=== PATIENT | female | born 1960 | race Caucasian/White ===

== ENCOUNTER 2017-08-18 18:54 | Inpatient (IN) ==
[2017-08-18] MEDS ORDERED: *HR* Dextrose 50 % in Water (Syg) 50 ML SYRINGE IVP PRN (21:50)
[2017-08-18] MEDS ORDERED: Naloxone 0.4 MG/ML INJ IVP PRN (21:50)
--- NOTE | 2017-08-18 22:04 | Internal Med History&Physical ---
Date of Encounter: 08/18/17 Time of Encounter: 10:00 Assessment and Plan (1) Acute metabolic encephalopathy Current visit: Yes Status: Acute Likely related to her pain/ possible infectious process - Admit Inpatient - Will get Utox -CT brain - Monitor closely Code(s): G93.41 - Metabolic encephalopathy SNOMED Code(s): 50271725 (2) Acute kidney failure Current visit: Yes Status: Acute Crea improving with hydration,will continue to follow Qualifiers: Acute renal failure type: unspecified Qualified Code(s): N17.9 - Acute kidney failure, unspecified Code(s): N17.9 - Acute kidney failure, unspecified SNOMED Code(s): 46030187 (3) Secondary DM with DKA, uncontrolled Current visit: Yes Status: Acute DKA protocol IVF Magnesium and Phos repletion (4) Right arm cellulitis Current visit: Yes Status: Acute Unclear if there is some cellulitis but will empirically place on Antibiotics Will get blood cx xr clavicle Rt UE dopplers Code(s): L03.113 - Cellulitis of right upper limb SNOMED Code(s): 008766692 (5) Vomiting Current visit: Yes Status: Acute CT abdomen ok, will give Zofran prn. Qualifiers: Vomiting type: unspecified Vomiting Intractability: non-intractable Nausea presence: with nausea Qualified Code(s): R11.2 - Nausea with vomiting, unspecified (6) Diabetes Current visit: No Status: Acute Once out of DKA will need to be placed on Insulin regimen, will also check HbA1C Qualifiers: Diabetes mellitus type: type 2 Diabetes mellitus complication status: with kidney complications Diabetes mellitus complication detail: with other kidney complication Diabetes mellitus usp insulin use: without usp use Qualified Code(s): E11.29 - Type 2 diabetes mellitus with other diabetic kidney complication Internal Medicine - H&P: HPI Chief complaint: not feeling well Admitted From: Intrahospital Transfer (from [facility]) Plans for Post Hospital Care: Home History of present illness: History taken in part from ER notes as patient has some waxing and waning mentation Ms. Dodge is a 56 year old female with H/o DM, ? CKD, went to the ER at [facility] after feeling unwell for past day or so as well as some vomiting. She notes that she has been having some abdominal pains as well and fell down yesterday. She also notes pain in her right upper extremity. In [facility] her Blood glucose was 422, NA 123, K 2.[address] abdomen done there was unremarkable , she was also given Insulin and KCL, Dilaudid zofran. On the floor here, she is still in pain in her shoulder, feels weak, some subjective fevers ( temp 100), HR 120's. She appears weak and at times seems disoriented but in not in any respiratory distress. Patient is high risk given presentation and comorbidities. Estimated LOS more than 3 days Past Med Surg Social Fam HX - Past Medical History Medical history: coronary artery disease, hypertension, myocardial infarction Psychiatric history: anxiety, depression - Past Surgical History Surgical History: cholecystectomy - Social History Smoking Status: Current every day smoker Smokeless Tobacco Status: No Alcohol use: none Drug use: none Internal Medicine - H&P: Meds Hydrocodone/Acetaminophen [Dandridge 5-325 Tablet] 1 tab PO Q4H PRN #12 tab [Rx] Ibuprofen [Motrin] 600 mg PO QID #20 tab 06/17/16 [Rx] Metoprolol [Lopressor] 25 mg PO BID 06/17/16 [History] Omeprazole [PriLOSEC] 40 mg PO DAILY 06/17/16 [History] TraZODone 300 mg PO HS 06/17/16 [History] Venlafaxine [Effexor] 150 mg PO BID 06/17/16 [History] Zolpidem [Ambien] 10 mg PO HS 06/17/16 [History] amLODIPine [Norvasc] 10 mg PO DAILY 06/17/16 [History] clonazePAM [Klonopin] 0.5 mg PO TID 06/17/16 [History] hydroCHLOROthiazide [Hydrochlorothiazide] 25 mg PO DAILY 06/17/16 [History] 3 Allergy/AdvReac Type Severity Reaction Status Date / Time Sulfa (Sulfonamide Allergy Rash Verified 08/18/17 11:41 Antibiotics) All Systems PM: A 10-system review of systems was performed and is negative for pertinent findings except as documented above in the HPI. - Constitutional Vitals: Temp Pulse Resp BP Pulse Ox 100.1 F H 123 32 117/70 93 08/18/17 20:42 08/18/17 20:42 08/18/17 20:42 08/18/17 20:42 08/18/17 20:42 General appearance: Present: cooperative, A&O X 2, no acute distress Exam: does not know date - Head Head exam: Present: atraumatic, normal inspection, normocephalic - Eye Eye exam: Present: EOMI, normal appearance, PERRL - ENT ENT exam: Present: mucous membranes moist, normal external ear exam - Neck Neck exam general surgery: Present: full ROM, normal inspection, supple, trachea midline - Respiratory Respiratory exam: Present: CTAB - Cardiovascular Cardiovascular exam: Present: +S1, +S2, tachycardia - GI/Abdominal GI/Abdominal exam: Present: normal bowel sounds, soft, no peritoneal signs - Extremities Exam Extremities exam: Present: warm Additional comments: Rt UE swollen, right clavicular swelling, small eschar noted. Overlying skin of upper-mid arm erythema - Back Exam Back exam: Present: full ROM, normal inspection - Neurological Exam Neurological exam: Present: altered - Psychiatric Additional comments: waxing and waning mentation - Skin Skin exam: Present: abrasion (right clavicle), rash (erythema right UE) Internal Med - H&P Results - Labs CBC & Chem 7: 08/18/17 21:51 Labs: noted from [facility] - EKG Data -: EKG Interpreted by Myself EKG shows normal: sinus rhythm - Diagnostic Studies CT scan - abdomen Status: image reviewed by me
[2017-08-18 22:15] LABS: BUN/Creatinine Ratio 21 (6-26); Blood Urea Nitrogen 23 mg/dL (7-20); Calcium 7.7 mg/dL (8.6-10.8); Carbon Dioxide 20 mEq/L (19-29); Chloride 94 mEq/L (98-109); Glucose 222 mg/dL (70-99); Osmolality,Calculated 271 (280-300); Potassium 3.2 mEq/L (3.5-4.5); Sodium 125 mEq/L (136-145); eGFR For African Americans > 60 (> 60); eGFR For Non-African Americans 50 (> 60)
[2017-08-18 22:17] LABS: Magnesium 0.9 mg/dL (1.6-2.6)
[2017-08-18] MEDS ORDERED: Potassium Phosphate 44 MEQ in 0.9 % Sodium Chloride 250 ML IVPB ONE (22:28)
[2017-08-18] MEDS ORDERED: Magnesium Sulfate 2 GM in D5% in Water 100 ML IVPB ONE (22:28)
[2017-08-18 22:31] LABS: VBG HCO3 22 mEq/L (21-27); VBG PCO2 38 mmHg (41-51); VBG PH 7.36 pH Units (7.32-7.42); VBG PO2 58 mmHg (25-50)
[2017-08-18] MEDS: *HR* HYDROmorphone (PF) 1 MG/ML SYRINGE IVP PRN (22:54)
[2017-08-18] MEDS: 0.45 % Sodium Chloride w/KCl 20 MEQ/1,000 ML MLS IVC SCH (22:55)
[2017-08-18] MEDS ORDERED: Vancomycin 1,500 MG in D5% in Water 250 ML IVPB SCH (23:00)
[2017-08-18] MEDS ORDERED: Vancomycin 1,500 MG in D5% in Water 250 ML IVPB ONE (23:00)
[2017-08-19] MEDS ORDERED: 0.9 % Sodium Chloride 1,000 ML ONE (02:16)
[2017-08-19] MEDS: 0.9 % Sodium Chloride 1,000 ML IVC SCH ×3 (02:30→23:14)
[2017-08-19 02:41] LABS: Basophils % 0.2 %; Hemoglobin 12.1 g/dL (11.5-15.4); Lymphocytes % 5.1 %; Mean Corpuscular Volume 87.4 fL (83.0-100.0)
[2017-08-19 02:43] LABS: Hematocrit 33.9 % (35.3-44.9); Immature Granulocytes % 2.1 % (0-4); Immature Platelets 18.6 % (1.1-6.1); Lymphocytes # 0.4 K/mcL (0.6-4.6); Mean Corpuscular HGB Conc 35.7 g/dL (31.6-35.5); Mean Corpuscular Hemoglobin 31.2 pg (28.0-33.3); Mean Platelet Volume 12.8 fL (9.4-12.4); Monocytes # 0.5 K/mcL (0.0-1.3); Monocytes % 5.7 %; Neutrophils # 7.5 K/mcL (1.6-8.9); Red Blood Count 3.88 M/mcL (3.82-4.97); Red Cell Distribution Width 14.3 % (11.5-14.5); Segmented Neutrophils % 86.9 %
[2017-08-19 02:46] LABS: Beta-Hydroxybutyric Acid 0.31 mmol/L (0.02-0.27)
[2017-08-19 02:50] LABS: Platelet Count 62 K/mcL (140-400)
[2017-08-19 02:55] LABS: Alanine Aminotransferase 54 Units/L (0-55); Albumin 2.3 g/dL (3.5-5.0); Albumin/Globulin Ratio 0.6 (1.1-2.2); Alkaline Phosphatase 58 Units/L (38-126); Aspartate Amino Transferase 46 Units/L (5-34); BUN/Creatinine Ratio 22 (6-26); Blood Urea Nitrogen 22 mg/dL (7-20); Calcium 7.5 mg/dL (8.6-10.8); Carbon Dioxide 19 mEq/L (19-29); Chloride 93 mEq/L (98-109); Globulin 3.6 g/dL (2.4-3.5); Glucose 273 mg/dL (70-99); Magnesium 1.4 mg/dL (1.6-2.6); Osmolality,Calculated 267 (280-300); Phosphorous 2.7 mg/dL (2.3-4.7); Potassium 3.4 mEq/L (3.5-4.5); Sodium 122 mEq/L (136-145); Total Protein 5.9 g/dL (6.0-8.3); eGFR For African Americans > 60 (> 60); eGFR For Non-African Americans 56 (> 60)
[2017-08-19 02:55] LABS: VBG HCO3 20 mEq/L (21-27); VBG PCO2 34 mmHg (41-51); VBG PH 7.37 pH Units (7.32-7.42); VBG PO2 80 mmHg (25-50)
[2017-08-19 03:03] LABS: Hemoglobin A1C 8.3 %
[2017-08-19] MEDS: Piperacillin/Tazobactam 3.375 GM in D5% in Water (Mini-Bag+) 100 ML IVPB SCH ×4 (03:05→23:15)
[2017-08-19 03:09] LABS: Platelet Estimate Decreased (Normal)
[2017-08-19 03:10] LABS: Toxic Vacuolation Present (Not Present)
[2017-08-19] MEDS: *HR* Heparin 5,000 UNIT/ML VIAL SQ SCH ×2 (06:46→19:11)
[2017-08-19] MEDS: Famotidine 20 MG/2 ML VIAL IVP SCH ×2 (06:50→17:23)
--- NOTE | 2017-08-19 08:42 | Internal Med Progress Note ---
<Narayan Walton - Last Filed: 08/19/17 17:02> Date of Encounter: 08/19/17 Time of Encounter: 09:47 - Assessment and plan (1) Infection due to Streptococcus pyogenes Current Visit: Yes Status: Acute Assessment and plan: Fever, tachycardia, bacteremia per prelim bld cuture; mets sepsis criteria; possible source: fall eschar R clavicular identified. CT chest r/u osteo On Vanc/zosyn empirically. (2) Right arm cellulitis Current Visit: Yes Status: Acute Assessment and plan: XR clavicle shows mild right supraclavicular soft tissue swelling Pt exam - no crepitus, mass, or tenderness to palpation/AROM (3) Secondary DM with DKA, uncontrolled Current Visit: Yes Status: Acute Assessment and plan: Gap closed, pH 7.3; Bicarb >18; K+ 3.4; switching to sq A1c 8.6; Diabetic diet, next meal Monitor closely; sliding scale ACHS protocol (4) Acute kidney failure Current Visit: Yes Status: Acute Assessment and plan: Creatinine 1.02 (1.12); continue fluids and monitoring. Qualifiers: Acute renal failure type: unspecified Qualified Code(s): N17.9 - Acute kidney failure, unspecified (5) Acute metabolic encephalopathy Current Visit: Yes Status: Acute Assessment and plan: Likely related to her pain/infectious process CT brain negative for acute process Seosis criteria met; vanc/zosyn, awaiting sensitivity (6) DVT prophylaxis Current Visit: Yes Status: Acute Assessment and plan: On Heparin 5000U sq q12 - Subjective Interval history: Ms. Dodge still feels weak but says she feels better than yesterday. She speaks with effort and with eyes closed. Denies trouble breathing, or chest pain. No abdominal tenderness. She currently does not feel pain in the R upper extremity. R leg movements are still; pt reports secondary to pain, no calf tenderness. - Constitutional Vitals: Temp Pulse Resp BP Pulse Ox 101.1 F H 110 26 108/59 93 08/19/17 07:48 08/19/17 07:48 08/19/17 07:48 08/19/17 07:48 08/19/17 07:48 General appearance: Present: A&O X 3, answers questions appropriately (speech requires effort; but organized) - Head Head exam: Present: atraumatic - Respiratory Respiratory exam: Present: CTAB. Absent: accessory muscle use, chest wall tenderness, respiratory distress - Cardiovascular Cardiovascular exam: Present: +S1, tachycardia - GI/Abdominal GI/Abdominal exam: Present: normal bowel sounds, no peritoneal signs. Absent: guarding, tenderness - Extremities Exam Extremities exam: Absent: calf tenderness Additional comments: Decreased range of motion; global lower extremity weakness on AROM; L>R; no calf tenderness, no swelling, no edema. - Skin Skin exam: Present: abrasion (R clavicular scab) Internal Medicine: Result - Labs CBC & Chem 7: 08/19/17 02:29 08/19/17 12:32 Labs: Short CBC 08/19/17 Range/Units 02:29 WBC 8.6 (4.3-11.1) K/mcL Hgb 12.1 D (11.5-15.4) g/dL Hct 33.9 L (35.3-44.9) % Plt Count 62 L (140-400) K/mcL Neutrophils # 7.5 (1.6-8.9) K/mcL BMP 08/18/17 08/19/17 21:51 02:29 Sodium 125 L 122 L Potassium 3.2 L 3.4 L Chloride 94 L 93 L Carbon Dioxide 20 19 BUN 23 H 22 H Creatinine 1.12 H 1.02 Glucose 222 H 273 H Calcium 7.7 L 7.5 L Liver Function 08/19/17 Range/Units 02:29 Total Bilirubin 1.0 (0.2-1.2) mg/dL AST 46 H (5-34) Units/L ALT 54 (0-55) Units/L Alkaline Phosphatase 58 (38-126) Units/L Albumin 2.3 L (3.5-5.0) g/dL - Impressions Impressions Head CT 08/19/17 00:01 IMPRESSION: No acute intracranial abnormality. D/ / Jerson Lopez MD / Jerson Lopez MD Interpreting Provider: Jerson Lopez MD Chest X-Ray 08/19/17 21:59 IMPRESSION: Low lung volume study with probable mild vascular congestion. Streaky opacities at the right lung base may reflect atelectatic changes. Stable cardiomegaly. D/ / 08/19/2017 07:15:40 Sher Boucher MD / eliasrtalina Interpreting Provider: Sher Boucher MD Clavicle X-Ray 08/19/17 21:59 IMPRESSION: No acute fracture or subluxation. Possible mild right supraclavicular soft tissue swelling. No radiopaque foreign body. Moderate right AC joint degenerative changes. D/ / Sher Boucher MD / Sher Boucher MD Interpreting Provider: Sher Boucher MD Consult Discharge Plan - Plan Referrals: NONE,PCP [Primary Care Provider] - Asia Unger, COMMUNITY SUPPORT PROFESSIONAL [Advanced Practice Nurse] - 08/26/17 12:15 pm (Please fax over the discharge summary and the med list to [phone]) <Wild Vásquez - Last Filed: 08/19/17 17:46> Date of Encounter: 08/19/17 - Constitutional Vitals: Temp Pulse Resp BP Pulse Ox 98.1 F 83 18 83/55 94 08/19/17 15:26 08/19/17 15:29 08/19/17 15:37 08/19/17 15:26 08/19/17 15:37 Internal Medicine: Result - Labs CBC & Chem 7: 08/19/17 02:29 08/19/17 12:32 Labs: Short CBC 08/19/17 Range/Units 02:29 WBC 8.6 (4.3-11.1) K/mcL Hgb 12.1 D (11.5-15.4) g/dL Hct 33.9 L (35.3-44.9) % Plt Count 62 L (140-400) K/mcL Neutrophils # 7.5 (1.6-8.9) K/mcL BMP 08/18/17 08/19/17 08/19/17 21:51 02:29 12:32 Sodium 125 L 122 L 127 L Potassium 3.2 L 3.4 L 4.0 Chloride 94 L 93 L 98 Carbon Dioxide 20 19 18 L BUN 23 H 22 H 20 Creatinine 1.12 H 1.02 0.88 Glucose 222 H 273 H 240 H Calcium 7.7 L 7.5 L 7.2 L Liver Function 08/19/17 Range/Units 02:29 Total Bilirubin 1.0 (0.2-1.2) mg/dL AST 46 H (5-34) Units/L ALT 54 (0-55) Units/L Alkaline Phosphatase 58 (38-126) Units/L Albumin 2.3 L (3.5-5.0) g/dL - Impressions Impressions Head CT 08/19/17 00:01 IMPRESSION: No acute intracranial abnormality. D/ / Jerson Lopez MD / Jerson Lopez MD Interpreting Provider: Jerson Lopez MD Echocardiogram 08/19/17 02:05 Impressions: Even with use of Definity, not all LV wall segments were well visualized. Overall, LV systolic function appears normal estimated at 55%. Indeterminate diastolic function. Normal RV size. There is mild reduction in function. No significant valvular dysfunction. No pulmonary hypertension by TR gradient. Left Ventricular Wall Motion: Rest Echo Findings The apex, apical inferior, mid inferior, basal inferior, apical anterior, mid anterior, basal anterior, mid anterior septal and basal anterior septal marte were not visualized. All other wall segments showed normal motion. Findings: Study Quality * Technically challenging study with suboptimal image quality. ECG Findings * Normal sinus rhythm. Left Ventricle * LVEF 55%. * Normal LV chamber size, wall thickness and function. * Indeterminate diastolic function. * Definity echo contrast was used. Right Ventricle * Normal RV size. There is mild reduction in function. Left Atrium * Normal left atrial size. Right Atrium * Normal right atrial size. Aortic Valve * No aortic regurgitation. * Aortic valve not well visualized. * No aortic stenosis. Mitral Valve * Normal mitral valve structure. * No mitral regurgitation. * No mitral stenosis. Tricuspid Valve * Tricuspid valve not well visualized. * Trace tricuspid regurgitation. Pulmonic Valve * Pulmonic valve is not well visualized. * No pulmonic regurgitation. * No pulmonic stenosis. Pulmonary Artery * Pulmonary artery not well visualized. Aorta * Normally sized aortic root. Pericardium * There is no pericardial effusion present. Interatrial Septum * Interatrial septum not well evaluated. IVC * The IVC is not well evaluated. Chest CT 08/19/17 10:30 IMPRESSION: Interval development of small pleural effusions and bibasilar infiltrates worrisome for pneumonia. Nonspecific skin thickening and minimal infiltration of the subcutaneous fat upper chest on the right questioning localized inflammatory infectious process. No abscess is seen. Aberrant right subclavian artery. Fatty liver. Status post cholecystectomy. D/ /19/2017 11:24:34 Travis Zhang MD / jodee Interpreting Provider: Travis Zhang MD Chest X-Ray 08/19/17 21:59 IMPRESSION: Low lung volume study with probable mild vascular congestion. Streaky opacities at the right lung base may reflect atelectatic changes. Stable cardiomegaly. D/ / 08/19/2017 07:15:40 Sher Boucher MD / jodee Interpreting Provider: Sher Boucher MD Clavicle X-Ray 08/19/17 21:59 IMPRESSION: No acute fracture or subluxation. Possible mild right supraclavicular soft tissue swelling. No radiopaque foreign body. Moderate right AC joint degenerative changes. D/ / Sher Boucher MD / Sher Boucher MD Interpreting Provider: Sher Boucher MD - Attending Attestation I examined this patient and my medical decision-making was reviewed with the Resident Physician. I agree with the documented findings, disposition and treatment plan as described except to the extent set forth below. I have seen and examined the patient. Patient is a 56-year-old female with past medical history of coronary artery disease, hypertension, anxiety, depression and chronic smoker. She was admitted last night for acute metabolic encephalopathy, acute kidney injury and sepsis likely due to right arm cellulitis. She was also found to have hypoglycemia with DKA. She is newly diagnosed diabetic. Patient patient did not require IV insulin as her anion gap was within normal range. She is currently on sliding scale insulin. Her Kidney injury has improved with IV fluids. Her lactic acid has now improved. Magnesium is being replaced. Patient is currently on IV Zosyn and IV vancomycin for cellulitis of right arm and right side of chest. Patient complains of bilateral lower extremity pain and bilateral knee pain. She also complains of hip pain. She states she fall a few days ago and has been hurting ever since. Patient's is currently hypotensive. Her tachycardia has improved. She will require IV fluid boluses. Blood pressure is low likely due to sepsis. CT scan of the chest revealed interval development of bibasilar infiltrate worrisome for pneumonia. She does not nonspecific skin thickening and minimal infiltration of the subcutaneous fat upper chest on the right possible infectious process. Patient will need DuoNeb breathing treatment and IV Zosyn and vancomycin. First set of blood cultures positive for strep pyogenes. Patient is at high risk due to sepsis from cellulitis and also due to hyperglycemia. We will continue IV hydration. No family members at the time of my examination. Patient's electrolytes are being corrected. Patient has been explained about her condition and plan of care in detail. She understood and agreed. No unanswered questions. CODE STATUS full code. Heart rate 83, blood pressure 83/55, O2 sat 94% on 2 L nasal cannula. General - she does awaken alert, able to verbalize and follow commands, she appears older than stated age, generalized weakness, chronically ill-appearing. Heart S1-S2 positive. Lungs slightly decreased sounds in both bases, otherwise clear to auscultation. Abdomen soft nontender, obese. Extremities - all pulses strong regular, no edema, patient does have right arm edema extending from the right shoulder to the hand. She does have erythema as well of the right arm. She does have erythema over right side of chest over her clavicle.
[2017-08-19] MEDS ORDERED: amLODIPine 5 MG TABLET PO SCH (09:00)
[2017-08-19] MEDS ORDERED: Piperacillin/Tazobactam 3.375 GM in D5% in Water 100 ML IVPB SCH (10:00)
[2017-08-19] MEDS ORDERED: D5% in Water 1,000 ML IVC PRN (10:06)
[2017-08-19 10:18] LABS: Acinetobacter baumannii by PCR Not Detected (Not Detect); Candida albicans by PCR Not Detected (Not Detect); Candida glabrata by PCR Not Detected (Not Detect); Candida krusei by PCR Not Detected (Not Detect); Candida parapsilosis by PCR Not Detected (Not Detect); Candida tropicalis by PCR Not Detected (Not Detect); Enterococcus by PCR Not Detected (Not Detect); Escherichia coli by PCR Not Detected (Not Detect); Klebsiella oxytoca by PCR Not Detected (Not Detect); Klebsiella pneumoniae by PCR Not Detected (Not Detect); Pseudomonas aeruginosa by PCR Not Detected (Not Detect); Serratia marcescens by PCR Not Detected (Not Detect); Staphylococcus aureus by PCR Not Detected (Not Detect); Streptococcus agalactiae(B)PCR Not Detected (Not Detect); Streptococcus by PCR ***DETECTED*** (Not Detect); Streptococcus pneumoniae PCR Not Detected (Not Detect); Streptococcus pyogenes (A) PCR ***DETECTED*** (Not Detect); blaKPC Carbapenem-Resist Gene Not Detected (Not Detect); mecA Methicillin-Resist Gene Not Detected (Not Detect); vanA/B Vancomycin-Resist Genes Not Detected (Not Detect)
[2017-08-19] MEDS: *HR* HYDROmorphone (PF) 1 MG/ML SYRINGE IVP PRN (10:38)
[2017-08-19] MEDS ORDERED: Perflutren Lipid Microsphere 1.3 ML in 0.9 % Sodium Chloride 8.7 ML IVP ONE (11:13)
[2017-08-19] MEDS ORDERED: Magnesium Sulfate 2 GM in D5% in Water 100 ML IVPB ONE (11:47)
[2017-08-19 12:55] LABS: BUN/Creatinine Ratio 23 (6-26); Blood Urea Nitrogen 20 mg/dL (7-20); Calcium 7.2 mg/dL (8.6-10.8); Carbon Dioxide 18 mEq/L (19-29); Chloride 98 mEq/L (98-109); Glucose 240 mg/dL (70-99); Osmolality,Calculated 274 (280-300); Sodium 127 mEq/L (136-145); eGFR For African Americans > 60 (> 60); eGFR For Non-African Americans > 60 (> 60)
[2017-08-19] MEDS ORDERED: Dextrose Gel 15 GM PO PRN ×2 (14:27)
[2017-08-19] MEDS: Ipratropium/Albuterol Neb 3 ML IH SCH ×2 (15:35→21:07)
[2017-08-19] MEDS ORDERED: 0.9 % Sodium Chloride 500 ML IVC ONE (16:27)
[2017-08-19] MEDS: Insulin LISPRO 300 UNITS/3 ML VIAL SQ SCH ×2 (17:23→21:14)
[2017-08-19] MEDS: Acetaminophen 325 MG TABLET PO PRN (17:24)
[2017-08-19 18:25] LABS: Enterococcus by PCR Not Detected (Not Detect); Staphylococcus aureus by PCR Not Detected (Not Detect); Streptococcus agalactiae(B)PCR Not Detected (Not Detect); Streptococcus by PCR ***DETECTED*** (Not Detect); Streptococcus pneumoniae PCR Not Detected (Not Detect); Streptococcus pyogenes (A) PCR ***DETECTED*** (Not Detect); blaKPC Carbapenem-Resist Gene Not Detected (Not Detect); mecA Methicillin-Resist Gene Not Detected (Not Detect); vanA/B Vancomycin-Resist Genes Not Detected (Not Detect)
[2017-08-19 18:26] LABS: Acinetobacter baumannii by PCR Not Detected (Not Detect); Candida albicans by PCR Not Detected (Not Detect); Candida glabrata by PCR Not Detected (Not Detect); Candida krusei by PCR Not Detected (Not Detect); Candida parapsilosis by PCR Not Detected (Not Detect); Candida tropicalis by PCR Not Detected (Not Detect); Escherichia coli by PCR Not Detected (Not Detect); Klebsiella oxytoca by PCR Not Detected (Not Detect); Klebsiella pneumoniae by PCR Not Detected (Not Detect); Pseudomonas aeruginosa by PCR Not Detected (Not Detect); Serratia marcescens by PCR Not Detected (Not Detect)
[2017-08-19] MEDS ORDERED: Vancomycin 1,250 MG in D5% in Water 250 ML IVPB SCH (23:00)
[2017-08-19 23:08] LABS: Bilirubin,Urine Negative (Negative); Blood,Urine Trace (Negative); Clarity,Urine Clear (Clear); Color,Urine Yellow (Yellow); Glucose,Urine (UA) 100 mg/dL (Normal); Ketones,Urine Negative (Negative); Leukocyte Esterase,Urine Negative (Negative); Nitrite,Urine Negative (Negative); PH,Urine 6.5 pH Units (5.0-8.0); Protein,Urine Negative (Neg-Trace); Urobilinogen,Urine Normal (Normal)
[2017-08-19 23:29] LABS: Amorphous Sediment,Urine Few (Few); RBC,Urine 0-3 per hpf (0-3); Squamous Epithelial Cell,Urine Few per lpf (None-Few)
[2017-08-20 00:21] LABS: Bacteria,Urine Few per hpf (None-Few)
[2017-08-20] MEDS: Ipratropium/Albuterol Neb 3 ML IH SCH ×7 (00:33→23:59)
[2017-08-20 04:07] LABS: ABG Base Excess 0 mEq/L (-2 to 3); ABG HCO3 24 mEq/L (21-27); ABG Oxygen Saturation 87 % (95-98); ABG PCO2 38 mmHg (35-45); ABG PH 7.41 pH Units (7.32-7.45); ABG PO2 52 mmHg (85-104); ABG TCO2 26 mEq/L (20-26)
[2017-08-20] MEDS: Acetaminophen 325 MG TABLET PO PRN (05:46)
[2017-08-20] MEDS: Famotidine 20 MG/2 ML VIAL IVP SCH (05:46)
[2017-08-20 06:29] LABS: Alanine Aminotransferase 39 Units/L (0-55); Albumin/Globulin Ratio 0.6 (1.1-2.2); Alkaline Phosphatase 58 Units/L (38-126); Aspartate Amino Transferase 37 Units/L (5-34); BUN/Creatinine Ratio 24 (6-26); Bilirubin,Total 1.3 mg/dL (0.2-1.2); Blood Urea Nitrogen 18 mg/dL (7-20); Calcium 7.4 mg/dL (8.6-10.8); Carbon Dioxide 21 mEq/L (19-29); Chloride 104 mEq/L (98-109); Globulin 3.6 g/dL (2.4-3.5); Glucose 219 mg/dL (70-99); Magnesium 1.8 mg/dL (1.6-2.6); Osmolality,Calculated 287 (280-300); Potassium 3.3 mEq/L (3.5-4.5); Total Protein 5.6 g/dL (6.0-8.3); eGFR For African Americans > 60 (> 60); eGFR For Non-African Americans > 60 (> 60)
[2017-08-20 06:41] LABS: Sodium 134 mEq/L (136-145)
[2017-08-20] MEDS: *HR* Heparin 5,000 UNIT/ML VIAL SQ SCH (07:15)
[2017-08-20 07:19] LABS: Basophils % 0.2 %; Eosinophils % 0.7 %; Hematocrit 31.1 % (35.3-44.9); Immature Granulocytes % 1.2 % (0-4); Lymphocytes # 0.4 K/mcL (0.6-4.6); Lymphocytes % 8.6 %; Mean Corpuscular HGB Conc 35.4 g/dL (31.6-35.5); Mean Corpuscular Hemoglobin 30.6 pg (28.0-33.3); Mean Corpuscular Volume 86.6 fL (83.0-100.0); Mean Platelet Volume 13.5 fL (9.4-12.4); Monocytes # 0.6 K/mcL (0.0-1.3); Monocytes % 14.2 %; Neutrophils # 3.1 K/mcL (1.6-8.9); Red Blood Count 3.59 M/mcL (3.82-4.97); Red Cell Distribution Width 14.6 % (11.5-14.5); Segmented Neutrophils % 75.1 %
[2017-08-20 07:22] LABS: Platelet Count 45 K/mcL (140-400)
[2017-08-20] MEDS: Folic Acid 1 MG TABLET PO SCH (07:58)
[2017-08-20] MEDS: Insulin LISPRO 300 UNITS/3 ML VIAL SQ SCH ×4 (08:00→20:00)
[2017-08-20 08:01] LABS: Platelet Estimate Decreased (Normal)
[2017-08-20] MEDS: 0.9 % Sodium Chloride 1,000 ML IVC SCH ×2 (08:01→10:11)
[2017-08-20] MEDS: Piperacillin/Tazobactam 3.375 GM in D5% in Water (Mini-Bag+) 100 ML IVPB SCH (08:02)
--- NOTE | 2017-08-20 09:00 | Internal Med Progress Note ---
Addendum entered and electronically signed by Narayan Walton DO 08/20/17 10:42: (4) Acute kidney failure Current Visit: Yes Status: Acute Qualifiers: Acute renal failure type: unspecified Qualified Code(s): N17.9 - Acute kidney failure, unspecified Creatinine improved with hydration; .74 (.88, 1.02, 1.12) (5) Acute metabolic encephalopathy Current Visit: Yes Status: Acute CT brain negative for acute process Will monitor closely (6) DVT prophylaxis Current Visit: Yes Status: Acute on intermittent pneumatic compression Original Note: Date of Encounter: 08/20/17 Time of Encounter: 08:54 - Assessment and plan (1) Infection due to Streptococcus pyogenes Current Visit: Yes Status: Acute Assessment and plan: Currently afebrile, RRR, gram positive cocci/s.pyogenes per prelim bld cuture; possible source: fall 1 week ago, scab, well-healing on R clavicle. CT chest negative R clavicle abscess/bony involvement On Vanc/zosyn empirically, awaiting sensitivities. (2) Right arm cellulitis Current Visit: Yes Status: Acute Assessment and plan: XR clavicle shows mild right supraclavicular soft tissue swelling CT chest negative for abscess. Pt exam - no crepitus, mass, or tenderness to palpation/AROM (3) Secondary DM with DKA, uncontrolled Current Visit: Yes Status: Acute Assessment and plan: ER anion gap of 17; on admission repeat anion gap 11; gap remains closed, ABG pH 7.41; Bicarb >18; K+ 3.4 A1c 8.6; Diabetic diet Monitor closely; sliding scale ACHS protocol (4) Acute kidney failure Current Visit: Yes Status: Acute Qualifiers: Acute renal failure type: unspecified Qualified Code(s): N17.9 - Acute kidney failure, unspecified (5) Acute metabolic encephalopathy Current Visit: Yes Status: Acute (6) DVT prophylaxis Current Visit: Yes Status: Acute - Subjective Interval history: Ms. Dodge is accompanied by her daughter, she is lying in bed communicative and alert, eating breakfast. Nasal canula running at 4L but fell off of her face, on now. Denies trouble breathing, or chest pain. No abdominal tenderness. No calf tenderness. - Constitutional Vitals: Temp Pulse Resp BP Pulse Ox 97.8 F 100 20 108/75 97 08/20/17 07:49 08/20/17 07:49 08/20/17 08:05 08/20/17 07:49 08/20/17 08:05 General appearance: Present: A&O X 2, no acute distress - Head Head exam: Present: atraumatic - Neck Neck exam general surgery: Present: full ROM - Respiratory Respiratory exam: Absent: accessory muscle use Additional comments: bilaterally crackles - Cardiovascular Cardiovascular exam: Present: RRR, +S1, +S2 - GI/Abdominal GI/Abdominal exam: Present: normal bowel sounds, no peritoneal signs - Extremities Exam Extremities exam: Absent: calf tenderness Additional comments: mild swelling UE digits Internal Medicine: Result - Labs CBC & Chem 7: 08/20/17 07:03 08/20/17 05:48 Labs: Short CBC 08/20/17 Range/Units 07:03 WBC 4.1 L D (4.3-11.1) K/mcL Hgb 11.0 L (11.5-15.4) g/dL Hct 31.1 L (35.3-44.9) % Plt Count 45 L (140-400) K/mcL Neutrophils # 3.1 (1.6-8.9) K/mcL BMP 08/19/17 08/20/17 12:32 05:48 Sodium 127 L 134 L D Potassium 4.0 3.3 L Chloride 98 104 Carbon Dioxide 18 L 21 BUN 20 18 Creatinine 0.88 0.74 Glucose 240 H 219 H Calcium 7.2 L 7.4 L Liver Function 08/20/17 Range/Units 05:48 Total Bilirubin 1.3 H (0.2-1.2) mg/dL AST 37 H (5-34) Units/L ALT 39 (0-55) Units/L Alkaline Phosphatase 58 (38-126) Units/L Albumin 2.0 L (3.5-5.0) g/dL Urine 08/19/17 Range/Units 22:15 Urine Color Yellow (Yellow) Urine Clarity Clear (Clear) Urine pH 6.5 (5.0-8.0) pH Units Ur Specific Horatio 1.010 (1.010-1.025) Urine Protein Negative (Neg-Trace) mg/dL Urine Glucose (UA) 100 H (Normal) mg/dL - ABG Interpretation ABG results: ABG ABG pH 7.41 pH Units (7.32-7.45) 08/20/17 04:02 ABG pCO2 38 mmHg (35-45) 08/20/17 04:02 ABG pO2 52 mmHg (85-104) L 08/20/17 04:02 ABG O2 Saturation 87 % (95-98) L 08/20/17 04:02 - Impressions Impressions Echocardiogram 08/19/17 02:05 Impressions: Even with use of Definity, not all LV wall segments were well visualized. Overall, LV systolic function appears normal estimated at 55%. Indeterminate diastolic function. Normal RV size. There is mild reduction in function. No significant valvular dysfunction. No pulmonary hypertension by TR gradient. Left Ventricular Wall Motion: Rest Echo Findings The apex, apical inferior, mid inferior, basal inferior, apical anterior, mid anterior, basal anterior, mid anterior septal and basal anterior septal marte were not visualized. All other wall segments showed normal motion. Findings: Study Quality * Technically challenging study with suboptimal image quality. ECG Findings * Normal sinus rhythm. Left Ventricle * LVEF 55%. * Normal LV chamber size, wall thickness and function. * Indeterminate diastolic function. * Definity echo contrast was used. Right Ventricle * Normal RV size. There is mild reduction in function. Left Atrium * Normal left atrial size. Right Atrium * Normal right atrial size. Aortic Valve * No aortic regurgitation. * Aortic valve not well visualized. * No aortic stenosis. Mitral Valve * Normal mitral valve structure. * No mitral regurgitation. * No mitral stenosis. Tricuspid Valve * Tricuspid valve not well visualized. * Trace tricuspid regurgitation. Pulmonic Valve * Pulmonic valve is not well visualized. * No pulmonic regurgitation. * No pulmonic stenosis. Pulmonary Artery * Pulmonary artery not well visualized. Aorta * Normally sized aortic root. Pericardium * There is no pericardial effusion present. Interatrial Septum * Interatrial septum not well evaluated. IVC * The IVC is not well evaluated. Chest CT 08/19/17 10:30 IMPRESSION: Interval development of small pleural effusions and bibasilar infiltrates worrisome for pneumonia. Nonspecific skin thickening and minimal infiltration of the subcutaneous fat upper chest on the right questioning localized inflammatory infectious process. No abscess is seen. Aberrant right subclavian artery. Fatty liver. Status post cholecystectomy. D/ /19/2017 11:24:34 Travis Zhang MD / eliasrtalina Interpreting Provider: Travis Zhang MD Hip/Pelvis X-Ray 08/19/17 17:23 IMPRESSION: 1. No acute osseous abnormality involving the pelvis or bilateral hips. D/ / Sridhar Giles MD / Sridhar Giles MD Interpreting Provider: Sridhar Giles MD Knee X-Ray 08/19/17 17:23 IMPRESSION: 1. Bilateral knee arthroplasties with no acute abnormality. D/ / Sridhar Giles MD / Sridhar Giles MD Interpreting Provider: Sridhar Giles MD Knee X-Ray 08/19/17 17:23 IMPRESSION: 1. Bilateral knee arthroplasties with no acute abnormality. D/ / Sridhar Giles MD / Sridhar Giles MD Interpreting Provider: Sridhar Giles MD Consult Discharge Plan - Plan Referrals: NONE,PCP [Primary Care Provider] - Asia Unger, RELIGIOUS EDUCATION TEACHER [Advanced Practice Nurse] - 08/26/17 12:15 pm (Please fax over the discharge summary and the med list to [phone])
[2017-08-20] MEDS ORDERED: Aminoglycoside Consult 1 EACH MC ONE (09:21)
[2017-08-20] MEDS: Gabapentin 400 MG CAPSULE PO SCH ×3 (10:59→20:08)
[2017-08-20 12:52] LABS: C-Reactive Protein 281 mg/L (Less than 5)
--- NOTE | 2017-08-20 15:28 | Infectious Disease Consult ---
Date of Encounter: 08/20/17 Time of Encounter: 15:26 Assessment and Plan (1) Severe sepsis Status: Acute Assessment and plan: The patient had two SIRS criteria plus HANNAH and lactic acidosis on admission. Likely secondary to bacteremia. Improved. Tachycardia has resolved. She has been afebrile since yesterday. Blood cultures drawn 08/18/17 x 1 set and 08/19/17 x 1 set are positive for GAS. (2) Bacteremia Status: Acute Assessment and plan: Causative organism Group A Strep. Source not entirely clear: PNA vs. RUE cellulitis vs. other. Complicated due to the presence of bilateral knee hardware. Blood cultures drawn 08/18/17 x 1 set is positive for GAS. Repeat blood culture drawn 08/19/17 x 1 set is also positive for GAS. Source not entirely clear. Patient complains of multiple painful joints that do not appear to be infected. X-rays of the bilateral knees, bilateral hips, chest , and right clavicle are negative. She does complain of right shoulder pain and her inflammatory markers are markedly elevated. CT scan also shows possible PNA. No evidence of strep pharyngitis. Repeat blood cultures x 2 sets in the AM. Check CK level. Consider CT scan of the bilateral knees and right shoulder as these seem to be the most pain joints. Droplet precautions are not required as the patient has already been on sufficient antibiotics for 24 hours. Discontinue Vanc and Zosyn. Start PCN G 4 million units IV Q4H. Start Clindamycin 900mg IV Q8H. Start probiotic BID. Duration of treatment depends on the clinical picture. Monitor renal function and dose-adjust antibiotics. (3) Pneumonia Status: Acute Assessment and plan: Location: Bilateral lower lobes. Causative organism unclear. CT of the chest shows findings consistent with possible PNA. This could be the source of the patient's bacteremia. Get sputum culture if patient is able to provide an adequate specimen. Continue antibiotics as above. Qualifiers: Pneumonia type: due to unspecified organism Laterality: bilateral Lung location: lower lobe of lung Qualified Code(s): J18.9 - Pneumonia, unspecified organism (4) Acute metabolic encephalopathy Status: Acute Assessment and plan: Likely secondary to infectious process and DKA. Appears improved. CT head negative. Continue to monitor closely. (5) Acute kidney failure Status: Acute Assessment and plan: Likely secondary to dehydration and sepsis. Resolved. Qualifiers: Acute renal failure type: unspecified Qualified Code(s): N17.9 - Acute kidney failure, unspecified (6) Secondary DM with DKA, uncontrolled Status: Acute Assessment and plan: FSBS 433 on admission. HgbA1C 8.3%. Management per the primary team. (7) Right arm cellulitis Status: Acute Assessment and plan: Right arm mildly edematous and erythematous on exam, but not impressive. Not sure if this is a true cellulitis and/or the source of the patient's bacteremia. Consider CT scan of the RUE and right shoulder to evaluate given the patient's elevated inflammatory markers and pain with ROM. Continue antibiotics as above. (8) Thrombocytopenia Status: Acute Assessment and plan: Etiology unclear, but likely related to infection. No acute bleeding noted in exam. Continue to trend. Management per the primary team. (9) Vomiting Status: Acute Assessment and plan: Likely secondary to DKA. Resolved. Qualifiers: Vomiting type: unspecified Vomiting Intractability: non-intractable Nausea presence: with nausea Qualified Code(s): R11.2 - Nausea with vomiting, unspecified (10) Bilateral knee pain Status: Acute Assessment and plan: Status post fall. X-rays are normal. Clinically they do not appear infected, but the patient has inflammatory marker elevation and is at high risk for seeding the joint with GAS bacteremia. Consider orthopedics consultation to evaluate. Pain management per the primary team. Qualifiers: Chronicity: acute Qualified Code(s): M25.561 - Pain in right knee; M25.562 - Pain in left knee; M25.562 - Pain in left knee Infectious Disease HPI - Data of Consult Patient: new to practice Consult date: 08/20/17 Requesting Physician: Albert Erazo MD Primary Care Provider: PCP NONE - Consult Narrative Reason for consult: GAS Bacteremia History of present illness: Ms. Dodge is a 56 year old female with past medical history of CAD, hypertension , MA status post cardiac stents, anxiety, depression, and bilateral total knee replacements back in 2008. The patient was admitted to the hospital August 18 for DKA. We are consulted August 20 for group A strep bacteremia. A flu, the patient is a 56-year-old female with past medical history as stated above. She presented to the emergency department with complaints of abdominal pain, nausea, vomiting, and generally feeling ill on August 18. Upon arrival, the patient was tachycardic. She says "they developed a fever. Laboratory studies revealed a normal white blood cell count, but the patient did have lactic acidosis and acute kidney injury. Urinalysis was obtained that was negative. CT the abdomen and pelvis was negative as well. Records were obtained 2 sets. She was given IV insulin and potassium supplementation. She was subsequently transferred here for further evaluation. Since admission, the patient's white blood cell count has remained normal. She did have a fever with a MAXIMUM TEMPERATURE of 102.3. Her tachycardia has resolved. Lactic acidosis and acute kidney injury have normalized. CT of the head was done that was negative. The blood cultures obtained at the [facility] are +1 out of 1 sets for group A strep. Blood cultures were repeated when the patient arrived here and are also positive one out of one set for group A strep. The patient was complaining of some right upper extremity pain in her right upper extremities Doppler was done and was negative. CT of the chest was completed that showed bibasilar infiltrates and concerning for cellulitis of the right upper chest. ESR was elevated at 81 with a CRP of 281. Surveys of the bilateral hips, bilateral knees, chest, and clavicle were all She was started on IV vancomycin and IV Zosyn. We've been asked to evaluate and make further recommendations. I exam today, the patient is somewhat of a poor historian regarding the events leading up to her hospitalization. She states she fell about 10 days ago well she was sleepwalking. She landed on the floor and did not hit anything except the floor and landed on her hands and knees. Since then, she's had or could bilateral knee pain and some right upper extremity pain. She started having fevers and chills and rigors about 7 days ago with abdominal pain, nausea, and vomiting. She denies any abdominal pain or urinary complaints. She states she was really unable to keep anything down. The small abrasion to the right anterior chest. She otherwise denies skin lesions or oral thrush. She reports chronic back pain, worse since she fell. She denies any congestion, earache, or sore throat. Denies any weakness or dizziness. She denies any chest pain or shortness of breath. She does report a moist cough. The patient lives at home alone. She denies recent travel. She does smoke about half a pack of cigarettes per day. She denies any alcohol use, but states that she does use marijuana occasionally. CC: Albert Erazo MD Past Med Surg Social Fam HX - Past Medical History Attestation: Yes The following information was validated with the patient. Source: patient, old records reviewed, nursing notes reviewed Medical history: coronary artery disease, hepatitis (Hepatitis C - previously treated), hypertension, myocardial infarction (S/P stent placement x 2 ) Psychiatric history: anxiety, depression - Past Surgical History Surgical History: cholecystectomy - Social History Smoking Status: Current every day smoker Packs per day: 0.5 Smokeless Tobacco Status: No Alcohol use: none Drug use: marijuana (Occasional) Current living situation: Home - Independent Activity Level: Independent ambulation Recent Out of Country Travel Within the Last 8 Weeks: No Exposure or Possible Exposure to Illness During Travel: No Infectious Disease-CN:Meds Metoprolol [Lopressor] 25 mg PO BID 06/17/16 [History] Omeprazole [PriLOSEC] 40 mg PO DAILY 06/17/16 [History] Duloxetine HCl [Cymbalta] 60 mg PO DAILY 08/19/17 [History] Folic Acid 0.8 mg PO DAILY 08/19/17 [History] Gabapentin [Neurontin] 400 mg PO TID 08/19/17 [History] Lisinopril-HCTZ 10-12.5 [Prinzide 10-12.5] 1 tab PO DAILY 08/19/17 [History] Quetiapine Fumarate [Seroquel] 300 mg PO HS 08/19/17 [History] cloNIDine HCl [CloNIDine HCl] 0.1 mg PO HS 08/19/17 [History] 3 Allergy/AdvReac Type Severity Reaction Status Date / Time Sulfa (Sulfonamide Allergy Rash Verified 08/18/17 11:41 Antibiotics) All systems: reviewed and no additional remarkable complaints except as stated Exam - Constitutional Vitals: Temp Pulse Resp BP Pulse Ox 97.8 F 98 16 100/60 98 08/20/17 11:08 08/20/17 11:08 08/20/17 15:19 08/20/17 11:08 08/20/17 15:19 General appearance: cooperative, no acute distress, obese - Head Head exam: Present: atraumatic, normal inspection, normocephalic - Eye Eye exam: Present: EOMI, normal appearance, PERRL Pupils: Present: normal accommodation Additional comments: No subconjunctival hemorrhage noted. - ENT ENT exam: Present: mucous membranes dry, normal oropharynx - Neck Neck exam: Present: full ROM, normal inspection. Absent: tenderness - Respiratory Respiratory exam: Present: rhonchi (Bilateral anterior henriquez). Absent: rales, respiratory distress, tachypnea - Cardiovascular Cardiovascular exam: Present: RRR, +S1, +S2 - GI/Abdominal GI/Abdominal exam: Present: distended (obese), normal bowel sounds, soft. Absent: tenderness Additional comments: Jean catheter noted to be draining dark yellow urine. - Extremities Exam Extremities exam: Present: tenderness (Bilateral knees). Absent: joint swelling , pedal edema Additional comments: Mild erythema noted to the upper portion of the RUE. Pain with right shoulder ROM. - Back Exam Back exam: Present: normal inspection. Absent: CVA tenderness (L), CVA tenderness (R), paraspinal tenderness, vertebral tenderness - Neurological Exam Neurological exam: Present: alert, oriented X3, no focal deficits. Absent: facial droop, speech deficit Additional comments: Has some difficulty recalling events leading up to hospitalization. - Psychiatric Psychiatric exam: Present: normal affect, normal mood - Skin Skin exam: Present: abrasion (Right upper chest with ecchymosis. No surrounding erythema, warmth, or tenderness.), dry, intact, normal color, warm Infectious Disease CN: Results - Labs CBC & Chem 7: 08/22/17 06:00 08/22/17 06:00 Cultures: Cultures 08/19/17 02:29 Blood Culture - Preliminary Peripheral Venipuncture Gram Positive Cocci 08/18/17 21:51 Blood Culture - Preliminary Peripheral Venipuncture Strep pyogenes (Group A) Serology: Serology 08/19/17 08/19/17 08/18/17 Range/Units 22:15 02:29 21:51 Urine Color Yellow (Yellow) Urine Clarity Clear (Clear) Urine pH 6.5 (5.0-8.0) pH Units Ur Specific Gilbert 1.010 (1.010-1.025) Urine Protein Negative (Neg-Trace) mg/dL Urine Glucose (UA) 100 H (Normal) mg/dL Urine Ketones Negative (Negative) mg/dL Urine Blood Trace H (Negative) Urine Nitrite Negative (Negative) Urine Bilirubin Negative (Negative) Urine Urobilinogen Normal (Normal) mg/dL Ur Leukocyte Esterase Negative (Negative) Urine Microscopic RBC 0-3 (0-3) per hpf Ur Squamous Epith Cells Few (None-Few) per lpf Amorphous Sediment Few (Few) Urine Bacteria Few (None-Few) per hpf A. baumannii (PCR) Not Detected Not Detected (Not Detect) Mable albicans (PCR) Not Detected Not Detected (Not Detect) C. glabrata (PCR) Not Detected Not Detected (Not Detect) C. krusei (PCR) Not Detected Not Detected (Not Detect) C. parapsilosis (PCR) Not Detected Not Detected (Not Detect) C. tropicalis (PCR) Not Detected Not Detected (Not Detect) Enterobacteriac sp PCR Not Detected Not Detected (Not Detect) E. cloacae complex PCR Not Detected Not Detected (Not Detect) Enterococcus sp PCR Not Detected Not Detected (Not Detect) E. coli (PCR) Not Detected Not Detected (Not Detect) H. influenzae (PCR) Not Detected Not Detected (Not Detect) Klebsiella oxytoca PCR Not Detected Not Detected (Not Detect) Klebsiella pneumoniae Not Detected Not Detected (Not Detect) List. monocytogenes PCR Not Detected Not Detected (Not Detect) N. meningitidis (PCR) Not Detected Not Detected (Not Detect) Proteus species (PCR) Not Detected Not Detected (Not Detect) Serratia marcescens PCR Not Detected Not Detected (Not Detect) Staphylococcus sp PCR Not Detected Not Detected (Not Detect) Staph aureus (PCR) Not Detected Not Detected (Not Detect) mecA-Methicil Res Gene Not Detected Not Detected (Not Detect) Streptococcus sp PCR DETECTED A DETECTED A (Not Detect) Group A Strep DNA DETECTED A DETECTED A (Not Detect) Group B Strep (PCR) Not Detected Not Detected (Not Detect) Strep pneumoniae (PCR) Not Detected Not Detected (Not Detect) P. aeruginosa (PCR) Not Detected Not Detected (Not Detect) Gorge/B-Vanco Res Genes Not Detected Not Detected (Not Detect) KPC (blaKPC) Detect PCR Not Detected Not Detected (Not Detect) - VTE Documentation of Mechanical Device: Intermittent pneumatic compression device Consult Discharge Plan - Plan Referrals: NONE,PCP [Primary Care Provider] - Asia Unger, [employer] BUSINESS ANALYST [Advanced Practice Nurse] - 08/26/17 12:15 pm (Please fax over the discharge summary and the med list to [phone])
[2017-08-20] MEDS: Clindamycin 900 MG/50 ML 900 MG/50 ML IV.SOLN IVPB SCH ×2 (15:42→23:01)
[2017-08-20] MEDS ORDERED: Piperacillin/Tazobactam 3.375 GM in D5% in Water (Mini-Bag+) 100 ML IVPB SCH (16:00)
[2017-08-20] MEDS: Penicillin G Potassium 4,000,000 UNIT in D5% in Water 100 ML IVPB SCH ×3 (16:54→23:01)
[2017-08-20] MEDS: *HR* OxyCODONE/APAP 5/325 TABLET PO PRN ×2 (17:13→21:51)
--- NOTE | 2017-08-20 18:06 | Internal Med Progress Note ---
Date of Encounter: 08/20/17 Time of Encounter: 12:00 - Assessment and plan (1) Severe sepsis Current Visit: Yes Status: Acute Assessment and plan: Pt did meet severe sepsis criteria with fever, tachcyardia, thrombocytopenia, HANNAH source of inf as Rt arm cellulites and PNA Improving slowly cont close monitoring her blood cx 1 set from 08/18 growing Group A strep and 1 set from 08/19 growing Group A Strep Pt was on empirical abx Zosyn and Vancomycin since admission. Unclear about source of inf - ESR and CRP also significantly elevated Does not look any joint infections however the bruise over Rt clavicle and CT of Chest showed ?? Inf vs Inflammation at mid clavicle area, need further extensive work up Unclear how pt developed Rt arm cellulites too ID consulted May change abx to PCN Repeat blood cx in AM 2 D Echo from 08/19/17 showing normal LVEF 55%, No valvular abnormalities (2) Bacteremia Current Visit: Yes Status: Acute Assessment and plan: see above (3) Acute respiratory failure with hypoxia Current Visit: Yes Status: Acute Assessment and plan: Due to PNA Reviewed CXR and CT of chest Mild pleural effusion / vascular congestion and patchy infiltrates cont IV abx held IV fluids cont duoneb and O2 will give Lasix PRN (4) Clavicle pain Current Visit: Yes Status: Acute Assessment and plan: see above (5) Acute metabolic encephalopathy Current Visit: Yes Status: Acute Assessment and plan: Due to toxic encephalopathy improving CT brain negative for acute process (6) Right arm cellulitis Current Visit: Yes Status: Acute Assessment and plan: CT chest negative for abscess. cont empirical abx (7) DVT prophylaxis Current Visit: Yes Status: Acute Assessment and plan: d/c Heparing for Thrombocytopenia (8) Thrombocytopenia Current Visit: Yes Status: Acute (9) Severe thrombocytopenia Current Visit: Yes Status: Acute Assessment and plan: Due to severe sepsis Cont close monitoring d/c Heparin and anti platelets (10) Secondary DM with DKA, uncontrolled Current Visit: Yes Status: Acute Assessment and plan: ER anion gap of 17; on admission repeat anion gap 11; gap remains closed, ABG pH 7.41; Bicarb >18; K+ 3.4 A1c 8.6; Diabetic diet Monitor closely; sliding scale ACHS protocol (11) Pneumonia Current Visit: Yes Status: Acute Qualifiers: Qualified Code(s): J18.9 - Pneumonia, unspecified organism (12) Morbid obesity Current Visit: Yes Status: Acute - Subjective Interval history: Ms. Dodge is a 56 year old female with past medical history of CAD, hypertension , MD status post cardiac stents, anxiety, depression, and bilateral total knee replacements back in 2008 was admitted here on 08/18/17 with acute delirium, acute hypoxic resp failure with possible pneumonia. She also had a fall prior to this hospitalization since she has been c/o Rt clavicular pain with bruise , also developed Rt arm cellulites. Today pt is alert, awake and O x 3. Denied any CP, does c/o moderate SOB and MICHAELS. Also c/o severe pain in Rt clavicular region and Rt arm. Also c/o generaized body pains all over the body including lower back. As per the pt her back pain is chronic for her. - Constitutional Vitals: Temp Pulse Resp BP Pulse Ox 97.8 F 107 18 132/89 97 08/20/17 15:39 08/20/17 16:39 08/20/17 17:23 08/20/17 15:39 08/20/17 17:23 General appearance: Present: mild distress, A&O X 3 - Head Head exam: Present: atraumatic, normal inspection - Respiratory Respiratory exam: Present: decreased breath sounds, rales, respiratory distress (mild), wheezes (mild). Absent: rhonchi - Cardiovascular Cardiovascular exam: Present: RRR, +S1, +S2. Absent: diastolic murmur, gallop, rubs, systolic murmur - GI/Abdominal GI/Abdominal exam: Present: distended, normal bowel sounds, soft. Absent: rebound, rigid, tenderness - Extremities Exam Extremities exam: Present: pedal edema (trace). Absent: calf tenderness, tenderness Additional comments: no joint swelling or redness noticed in both UE and LE joints.. Improving erythema and swelling noticed in Rt Arm - Back Exam Back exam: Absent: CVA tenderness (L), CVA tenderness (R) - Neurological Exam Neurological exam: Present: alert, oriented X3, strengths equal and symetr throughout. Absent: pronater drift, facial droop, speech deficit - Psychiatric Psychiatric exam: Present: anxious, depressed Internal Medicine: Result - Labs CBC & Chem 7: 08/20/17 07:03 08/20/17 05:48 Labs: Short CBC 08/20/17 Range/Units 07:03 WBC 4.1 L D (4.3-11.1) K/mcL Hgb 11.0 L (11.5-15.4) g/dL Hct 31.1 L (35.3-44.9) % Plt Count 45 L (140-400) K/mcL Neutrophils # 3.1 (1.6-8.9) K/mcL BMP 08/20/17 05:48 Sodium 134 L D Potassium 3.3 L Chloride 104 Carbon Dioxide 21 BUN 18 Creatinine 0.74 Glucose 219 H Calcium 7.4 L Liver Function 08/20/17 Range/Units 05:48 Total Bilirubin 1.3 H (0.2-1.2) mg/dL AST 37 H (5-34) Units/L ALT 39 (0-55) Units/L Alkaline Phosphatase 58 (38-126) Units/L Albumin 2.0 L (3.5-5.0) g/dL Urine 08/19/17 Range/Units 22:15 Urine Color Yellow (Yellow) Urine Clarity Clear (Clear) Urine pH 6.5 (5.0-8.0) pH Units Ur Specific Hardy 1.010 (1.010-1.025) Urine Protein Negative (Neg-Trace) mg/dL Urine Glucose (UA) 100 H (Normal) mg/dL - ABG Interpretation ABG results: ABG ABG pH 7.41 pH Units (7.32-7.45) 08/20/17 04:02 ABG pCO2 38 mmHg (35-45) 08/20/17 04:02 ABG pO2 52 mmHg (85-104) L 08/20/17 04:02 ABG O2 Saturation 87 % (95-98) L 08/20/17 04:02 - Impressions Impressions Hip/Pelvis X-Ray 08/19/17 17:23 IMPRESSION: 1. No acute osseous abnormality involving the pelvis or bilateral hips. D/ / Srihdar Giles MD / Sridhar Giles MD Interpreting Provider: Sridhar Giles MD Knee X-Ray 08/19/17 17:23 IMPRESSION: 1. Bilateral knee arthroplasties with no acute abnormality. D/ / Sridhar Giles MD / Sridhar Giles MD Interpreting Provider: Sridhar Giles MD Knee X-Ray 08/19/17 17:23 IMPRESSION: 1. Bilateral knee arthroplasties with no acute abnormality. D/ / Sridhar Giles MD / Sridhar Giles MD Interpreting Provider: Sridhar Giles MD - VTE Documentation of Mechanical Device: Intermittent pneumatic compression device Consult Discharge Plan - Plan Referrals: NONE,PCP [Primary Care Provider] - Asia Unger, BAIL BONDING AGENT [Advanced Practice Nurse] - 08/26/17 12:15 pm (Please fax over the discharge summary and the med list to [phone])
[2017-08-20 18:21] LABS: Barbiturates NEGATIVE ng/mL (Cutoff 75); Benzodiazepines NEGATIVE ng/mL (Cutoff 75); Cocaine NEGATIVE ng/mL (Cutoff 30); Methadone NEGATIVE ng/mL (Cutoff 40); Opiates NEGATIVE ng/mL (Cutoff 30); Phencyclidine NEGATIVE ng/mL (Cutoff 15)
[2017-08-20] MEDS: Famotidine 20 MG TABLET PO SCH (20:08)
[2017-08-20] MEDS: Insulin DETEMIR 100 UNIT/ML X5UNITS SQ SCH (20:08)
[2017-08-21] MEDS: *HR* OxyCODONE/APAP 5/325 TABLET PO PRN ×4 (03:40→22:03)
[2017-08-21] MEDS: Penicillin G Potassium 4,000,000 UNIT in D5% in Water 100 ML IVPB SCH ×6 (03:40→23:08)
[2017-08-21] MEDS: Ipratropium/Albuterol Neb 3 ML IH SCH ×6 (04:31→23:03)
[2017-08-21 06:12] LABS: Basophils % 0.2 %
[2017-08-21 06:14] LABS: Eosinophils % 0.7 %; Hematocrit 31.6 % (35.3-44.9); Hemoglobin 10.8 g/dL (11.5-15.4); Immature Granulocytes % 0.9 % (0-4); Immature Platelets 26.9 % (1.1-6.1); Lymphocytes # 0.6 K/mcL (0.6-4.6); Lymphocytes % 10.5 %; Mean Corpuscular HGB Conc 34.2 g/dL (31.6-35.5); Mean Corpuscular Volume 87.8 fL (83.0-100.0); Mean Platelet Volume 13.8 fL (9.4-12.4); Monocytes # 0.7 K/mcL (0.0-1.3); Monocytes % 11.8 %; Neutrophils # 4.3 K/mcL (1.6-8.9); Red Cell Distribution Width 14.9 % (11.5-14.5); Segmented Neutrophils % 75.9 %
[2017-08-21 06:27] LABS: BUN/Creatinine Ratio 17 (6-26); Blood Urea Nitrogen 11 mg/dL (7-20); Calcium 7.5 mg/dL (8.6-10.8); Carbon Dioxide 24 mEq/L (19-29); Chloride 101 mEq/L (98-109); Glucose 181 mg/dL (70-99); Osmolality,Calculated 282 (280-300); Potassium 3.6 mEq/L (3.5-4.5); Sodium 134 mEq/L (136-145); eGFR For African Americans > 60 (> 60); eGFR For Non-African Americans > 60 (> 60)
[2017-08-21 06:36] LABS: Platelet Count 49 K/mcL (140-400)
[2017-08-21 06:38] LABS: Platelet Estimate Decreased (Normal); Reactive Lymphocytes Present (Not Present)
[2017-08-21] MEDS: Piperacillin/Tazobactam 3.375 GM in D5% in Water (Mini-Bag+) 100 ML IVPB SCH (07:40)
[2017-08-21] MEDS: 0.45 % Sodium Chloride w/KCl 20 MEQ/1,000 ML MLS IVC SCH (07:41)
[2017-08-21 07:54] LABS: Amphetamines POSITIVE ng/mL (Cutoff 30); Methamphetamines POSITIVE ng/mL (Cutoff 30)
[2017-08-21] MEDS: Gabapentin 400 MG CAPSULE PO SCH ×4 (09:28→22:02)
[2017-08-21] MEDS: Famotidine 20 MG TABLET PO SCH ×3 (09:29→22:06)
[2017-08-21] MEDS: Clindamycin 900 MG/50 ML 900 MG/50 ML IV.SOLN IVPB SCH ×3 (09:29→23:08)
[2017-08-21] MEDS: Folic Acid 1 MG TABLET PO SCH (09:30)
[2017-08-21] MEDS: Insulin LISPRO 300 UNITS/3 ML VIAL SQ SCH ×4 (09:31→20:55)
--- NOTE | 2017-08-21 10:08 | Internal Med Progress Note ---
<Narayan Walton - Last Filed: 08/21/17 11:24> Date of Encounter: 08/21/17 Time of Encounter: 09:55 - Assessment and plan (1) Severe sepsis Current Visit: Yes Status: Acute Assessment and plan: Severe sepsis:fever, tachcyardia, thrombocytopenia, HANNAH; suspected source of infection Rt infraclavicular eschar, PNA Blood cx 1 set from 08/18 growing Group A strep and 1 set from 08/19 growing Group A ESR and CRP also significantly elevated ID consult: Empiric Vanc/Zosyn switched to PCN G 4 million units IV Q4H, Clindamycin 900mg IV Q8H. Repeat blood cx 2 D Echo from 08/19/17 showing normal LVEF 55%, No valvular abnormalities (2) Bacteremia Current Visit: Yes Status: Acute Assessment and plan: Described as above (3) Bilateral knee pain Current Visit: Yes Status: Acute Assessment and plan: Worsening bilateral knee pain; x-rays on admission negative Hx bilateral arthroplasty Consulted ortho; ortho will aspirate bilaterally Qualifiers: Chronicity: acute Qualified Code(s): M25.561 - Pain in right knee; M25.562 - Pain in left knee; M25.562 - Pain in left knee (4) Acute respiratory failure with hypoxia Current Visit: Yes Status: Acute Assessment and plan: Due to PNA Reviewed CXR and CT of chest Mild pleural effusion / vascular congestion and patchy infiltrates cont IV abx held IV fluids cont duoneb and O2 will give Lasix PRN (5) Clavicle pain Current Visit: Yes Status: Acute Assessment and plan: Please see (1) (6) Acute metabolic encephalopathy Current Visit: Yes Status: Acute Assessment and plan: Due to toxic encephalopathy/infection improving CT brain negative for acute process (7) Right arm cellulitis Current Visit: Yes Status: Acute Assessment and plan: As per ID consult, RUE mild edema/erythema; relatively unremarkable. Continue antibiotics. (8) Pneumonia Current Visit: Yes Status: Acute Assessment and plan: Bilateral lower lobe rhonchi CT consistent with physical exam Continue PCN/Clinda Qualifiers: Pneumonia type: due to unspecified organism Laterality: bilateral Lung location: lower lobe of lung Qualified Code(s): J18.9 - Pneumonia, unspecified organism (9) Severe thrombocytopenia Current Visit: Yes Status: Acute Assessment and plan: Due to severe sepsis Cont close monitoring d/c Heparin and anti platelets (10) Secondary DM with DKA, uncontrolled Current Visit: Yes Status: Acute (11) DVT prophylaxis Current Visit: Yes Status: Acute Assessment and plan: Continue intermittent pneumatic compression (12) Morbid obesity Current Visit: Yes Status: Acute Assessment and plan: BMI 38.9 - Subjective Interval history: Ms. Dodge, reports persisting L knee joint discomfort and general malaise, just received pain medication. Continues to be communicative and alert, eating breakfast. Nasal canula running at 4L, no dyspnea, gets short of breath if she repositions her body too much. No chest pain. No abdominal tenderness. No calf tenderness. - Constitutional Vitals: Temp Pulse Resp BP Pulse Ox 98.3 F 114 18 139/82 95 08/21/17 03:46 08/21/17 09:17 08/21/17 09:17 08/21/17 03:46 08/21/17 09:17 General appearance: Present: mild distress, A&O X 3 - Head Head exam: Present: atraumatic - Respiratory Respiratory exam: Present: rhonchi - Cardiovascular Cardiovascular exam: Present: RRR, +S1, +S2 - GI/Abdominal GI/Abdominal exam: Present: no peritoneal signs. Absent: rigid, tenderness - Extremities Exam Additional comments: L knee joint limited active and passive range of motion secondary to pain; surgical scar arthroplasy, similar size and warmth compared to less symptomatic R knee Internal Medicine: Result - Labs CBC & Chem 7: 08/21/17 05:30 08/21/17 05:30 Labs: Short CBC 08/21/17 Range/Units 05:30 WBC 5.7 (4.3-11.1) K/mcL Hgb 10.8 L (11.5-15.4) g/dL Hct 31.6 L (35.3-44.9) % Plt Count 49 L (140-400) K/mcL Neutrophils # 4.3 (1.6-8.9) K/mcL BMP 08/20/17 08/21/17 05:48 05:30 Sodium 134 L D 134 L Potassium 3.3 L 3.6 Chloride 104 101 Carbon Dioxide 21 24 BUN 18 11 Creatinine 0.74 0.64 Glucose 219 H 181 H Calcium 7.4 L 7.5 L Liver Function 08/20/17 Range/Units 05:48 Total Bilirubin 1.3 H (0.2-1.2) mg/dL AST 37 H (5-34) Units/L ALT 39 (0-55) Units/L Alkaline Phosphatase 58 (38-126) Units/L Albumin 2.0 L (3.5-5.0) g/dL - ABG Interpretation ABG results: ABG ABG pH 7.41 pH Units (7.32-7.45) 08/20/17 04:02 ABG pCO2 38 mmHg (35-45) 08/20/17 04:02 ABG pO2 52 mmHg (85-104) L 08/20/17 04:02 ABG O2 Saturation 87 % (95-98) L 08/20/17 04:02 - VTE Documentation of Mechanical Device: Intermittent pneumatic compression device Consult Discharge Plan - Plan Referrals: NONE,PCP [Primary Care Provider] - Asia Unger [employer] [Advanced Practice Nurse] - 08/26/17 12:15 pm (Please fax over the discharge summary and the med list to [phone]) <Albert Erazo - Last Filed: 08/21/17 16:33> Date of Encounter: 08/21/17 - Assessment and plan (1) Severe sepsis Current Visit: Yes Status: Acute (2) Bacteremia Current Visit: Yes Status: Acute (3) Acute respiratory failure with hypoxia Current Visit: Yes Status: Acute (4) Clavicle pain Current Visit: Yes Status: Acute (5) Acute metabolic encephalopathy Current Visit: Yes Status: Acute (6) Right arm cellulitis Current Visit: Yes Status: Acute (7) DVT prophylaxis Current Visit: Yes Status: Acute (8) Thrombocytopenia Current Visit: Yes Status: Acute (9) Severe thrombocytopenia Current Visit: Yes Status: Acute (10) Secondary DM with DKA, uncontrolled Current Visit: Yes Status: Acute (11) Pneumonia Current Visit: Yes Status: Acute Qualifiers: Pneumonia type: due to unspecified organism Laterality: bilateral Lung location: lower lobe of lung Qualified Code(s): J18.9 - Pneumonia, unspecified organism (12) Morbid obesity Current Visit: Yes Status: Acute - Constitutional Vitals: Temp Pulse Resp BP Pulse Ox 99.1 F 115 18 134/88 91 08/21/17 15:52 08/21/17 15:52 08/21/17 15:52 08/21/17 15:52 08/21/17 15:52 Internal Medicine: Result - Labs CBC & Chem 7: 08/21/17 05:30 08/21/17 05:30 Labs: Short CBC 08/21/17 Range/Units 05:30 WBC 5.7 (4.3-11.1) K/mcL Hgb 10.8 L (11.5-15.4) g/dL Hct 31.6 L (35.3-44.9) % Plt Count 49 L (140-400) K/mcL Neutrophils # 4.3 (1.6-8.9) K/mcL BMP 08/21/17 05:30 Sodium 134 L Potassium 3.6 Chloride 101 Carbon Dioxide 24 BUN 11 Creatinine 0.64 Glucose 181 H Calcium 7.5 L - ABG Interpretation ABG results: ABG ABG pH 7.41 pH Units (7.32-7.45) 08/20/17 04:02 ABG pCO2 38 mmHg (35-45) 08/20/17 04:02 ABG pO2 52 mmHg (85-104) L 08/20/17 04:02 ABG O2 Saturation 87 % (95-98) L 08/20/17 04:02 - Attending Attestation I examined this patient and my medical decision-making was reviewed with the Resident Physician. I agree with the documented findings, disposition and treatment plan as described except to the extent set forth below. Ms. Dodge is a 56 year old female with past medical history of CAD, hypertension , MO status post cardiac stents, anxiety, depression, and bilateral total knee replacements back in 2008 was admitted here on 08/18/17 with acute delirium, acute hypoxic resp failure with possible pneumonia. She also had a fall prior to this hospitalization since she has been c/o Rt clavicular pain with bruise , also developed Rt arm cellulites. Today pt c/o more pain in both knee with swelling.. Gen: A, A, O x 3 Chest: Diminished BS b/l, mild crackles, no rhonchi Heart; S1 S2 + tachycardia Ext: b/l knee swelling + warm to touch.. Mild erythema over Left Knee a/p 1. Severe Sepsis 2. Bacteremia 3. b/l Knee Pain - Septic arthritis - possible seeding 4. Rt arm cellulites 5. Rt clavicular region infection 6. Bacterial Pneumonia 7. Acute hypoxic resp failure cont empirical abx PCN G and Clindamycin - need 6 weeks reviewed Knee joint aspiration fluid analysis - G+ve cocci present Spoke to ortho scheuled for b/l Knee wash and abx beed placement repeated blood cx this AM
--- NOTE | 2017-08-21 12:20 | Orthopedic Consult Note ---
Date of Encounter: 08/21/17 Time of Encounter: 12:20 Assessment and Plan (1) Right arm cellulitis Current Visit: Yes Status: Acute Cellulitis present over the RUE. Continue IV antibiotics. No abscess visualized on CT scan. No plans for surgery for right arm at this time (2) Bilateral knee pain Current Visit: Yes Status: Acute Effusion present in bilateral knees in the presence of sepsis and bacteremia. Bilateral knees were aspirated using aseptic technique. 10 cc straw colored fluid was drawn from each joint. Good string sign with no gross purulence. Fluid sent for crystals, ctx, gram stain, cell ct. Pt tolerated well, band aids placed Knee aspirate, bilateral: positive for gram positive cocci In setting of acute infection, likely seeded hematogenously over last 24-48 hours, recommended an urgent I&D with polyexchange of bilateral knees. The risks and benefits of the procedure were discussed with the patient and she did elect to proceed and informed consent was obtained for surgery tonight. Qualifiers: Chronicity: acute Qualified Code(s): M25.561 - Pain in right knee; M25.562 - Pain in left knee; M25.562 - Pain in left knee History of Present Illness Chief complaint: R arm cellulitis HPI: Ms. Dodge is a 56 year old female with DM, admitted 3 days prior for DKA, sepsis and bacteremia. She presented with cellulitis of the right arm and an eschar over the right clavicle. She has had blood cultures positive for group A strep. CT scan was performed which showed no loculated abscess. She has been placed on IV antibiotics for the cellulitis. She also has swelling of her knees bilaterally. She does have a h/o bilateral T[place] [address] [place]. She states her knees have hurt for the past few days but had no pain prior to that. Past Med Surg Social Fam HX - Past Medical History Medical history: coronary artery disease, hepatitis (Hepatitis C - previously treated), hypertension, myocardial infarction (S/P stent placement x 2 ) Psychiatric history: anxiety, depression - Past Surgical History Surgical History: cholecystectomy - Social History Smoking Status: Current every day smoker Packs per day: 0.5 Smokeless Tobacco Status: No Alcohol use: none Drug use: marijuana (Occasional) Medications and Allergies Metoprolol [Lopressor] 25 mg PO BID 06/17/16 [History] Omeprazole [PriLOSEC] 40 mg PO DAILY 06/17/16 [History] Duloxetine HCl [Cymbalta] 60 mg PO DAILY 08/19/17 [History] Folic Acid 0.8 mg PO DAILY 08/19/17 [History] Gabapentin [Neurontin] 400 mg PO TID 08/19/17 [History] Lisinopril-HCTZ 10-12.5 [Prinzide 10-12.5] 1 tab PO DAILY 08/19/17 [History] Quetiapine Fumarate [Seroquel] 300 mg PO HS 08/19/17 [History] cloNIDine HCl [CloNIDine HCl] 0.1 mg PO HS 08/19/17 [History] 3 Allergy/AdvReac Type Severity Reaction Status Date / Time Sulfa (Sulfonamide Allergy Rash Verified 08/18/17 11:41 Antibiotics) All Systems Reviewed: A 10-system review of systems was performed and is negative for pertinent findings except as documented above in the HPI. Physical Exam - Constitutional Vitals: Temp Pulse Resp BP Pulse Ox 98.8 F 112 18 139/82 95 08/21/17 11:24 08/21/17 11:46 08/21/17 09:17 08/21/17 03:46 08/21/17 11:24 Exam: Consult Exam: Constitutional -Vitals reviewed -The patient is obese, appears in some discomfort. Psychiatric -The patient is alert and oriented x 3, but is drowsy through the exam requiring redirection Respiratory: -Respiratory effort normal after recent breathing treatment Abdomen: -Soft abdomen -Non tender -Non distended: Left upper extremity: -No deformities. The overlying skin is intact. No obvious signs of acute trauma. -No tenderness to palpation throughout. -No significant pain with passive motion of the shoulder, elbow, wrist, and fingers within the limits of the bed. -Able to make an "OK" sign, cross the index and long fingers, and extend the thumb. -Sensation grossly intact to light touch throughout the median, radial, and ulnar distributions. -Radial pulse is present; Fingers have good capillary refill. Right upper extremity: -No deformities. Eschar over the midclavicle. Erythema over clavicle, proximal humerus. No obvious areas of fluctuance. No obvious signs of acute trauma. -TTP over clavicle. -No significant pain with short arc motion of the shoulder, elbow, wrist, and fingers within the limits of the bed. -Able to make an "OK" sign, cross the index and long fingers, and extend the thumb. -Sensation grossly intact to light touch throughout the median, radial, and ulnar distributions. -Radial pulse is present; Fingers have good capillary refill. Left lower extremity: -No deformities. The overlying skin is intact. No obvious signs of acute trauma. -Effusion left knee, no erythema -Pain with ROM L knee. -No pain with axial loading of the thigh. -Able to dorsiflex and plantarflex the ankle and toes. -Sensation is grossly intact to light touch throughout the sural, saphenous, superficial peroneal, and deep peroneal distributions. -Toes have good capillary refill. Right lower extremity: -No deformities. The overlying skin is intact. No obvious signs of acute trauma. -Effusion right knee -Pain with ROM R knee -No pain with axial loading of the thigh. -Able to dorsiflex and plantarflex the ankle and toes. -Sensation is grossly intact to light touch throughout the sural, saphenous, superficial peroneal, and deep peroneal distributions. -Toes have good capillary refill. Results - Labs Result Diagrams: 08/21/17 05:30 08/21/17 05:30 Labs: Abnormal lab results RBC 3.60 M/mcL (3.82-4.97) L 08/21/17 05:30 Hgb 10.8 g/dL (11.5-15.4) L 08/21/17 05:30 Hct 31.6 % (35.3-44.9) L 08/21/17 05:30 RDW 14.9 % (11.5-14.5) H 08/21/17 05:30 Plt Count 49 K/mcL (140-400) L 08/21/17 05:30 MPV 13.8 fL (9.4-12.4) H 08/21/17 05:30 Reactive Lymphocytes Present (Not Present) A 08/21/17 05:30 Toxic Vacuolation Present (Not Present) A 08/19/17 02:29 Platelet Estimate Decreased (Normal) L 08/21/17 05:30 Immature Plt Fraction 26.9 % (1.1-6.1) H 08/21/17 05:30 ESR 81 mm/hr (0-15) H 08/20/17 07:03 ABG pO2 52 mmHg (85-104) L 08/20/17 04:02 ABG O2 Saturation 87 % (95-98) L 08/20/17 04:02 VBG pCO2 34 mmHg (41-51) L 08/19/17 02:44 VBG pO2 80 mmHg (25-50) H 08/19/17 02:44 VBG HCO3 20 mEq/L (21-27) L 08/19/17 02:44 Sodium 134 mEq/L (136-145) L 08/21/17 05:30 Glucose 181 mg/dL (70-99) H 08/21/17 05:30 POC Glucose 176 (58-89) H 08/20/17 19:44 Hemoglobin A1c 8.3 % (-5.6) H 08/19/17 02:29 Serum Osmolality 270 mOsm/kg (280-300) L 08/19/17 02:29 Calcium 7.5 mg/dL (8.6-10.8) L 08/21/17 05:30 Total Bilirubin 1.3 mg/dL (0.2-1.2) H 08/20/17 05:48 AST 37 Units/L (5-34) H 08/20/17 05:48 C-Reactive Protein 281 mg/L (Less than 5) H 08/20/17 05:48 Serum Total Protein 5.6 g/dL (6.0-8.3) L 08/20/17 05:48 Albumin 2.0 g/dL (3.5-5.0) L 08/20/17 05:48 Globulin 3.6 g/dL (2.4-3.5) H 08/20/17 05:48 Albumin/Globulin Ratio 0.6 (1.1-2.2) L 08/20/17 05:48 Beta-Hydroxybutyric Acd 0.31 mmol/L (0.02-0.27) H 08/19/17 02:29 Urine Glucose (UA) 100 mg/dL (Normal) H 08/19/17 22:15 Urine Blood Trace (Negative) H 08/19/17 22:15 Streptococcus sp PCR DETECTED (Not Detect) A 08/19/17 02:29 Group A Strep DNA DETECTED (Not Detect) A 08/19/17 02:29 H & H 08/21/17 Range/Units 05:30 Hgb 10.8 L (11.5-15.4) g/dL Hct 31.6 L (35.3-44.9) % Joint aspiration, bilateral knees: +Gram positive cocci, >90% PMNs - Diagnostic results Shoulder x-ray: image reviewed Knee x-ray: image reviewed (TKA in place. Components well fixed with no signs of loosening) Consult Discharge Plan - Plan Referrals: NONE,PCP [Primary Care Provider] - Asia Unger, [employer] [Advanced Practice Nurse] - 08/26/17 12:15 pm (Please fax over the discharge summary and the med list to [phone])
[2017-08-21 12:27] LABS: Source,Synovial Fluid LEFT KNEE
[2017-08-21 12:30] LABS: Source,Synovial Fluid RIGHT KNEE
[2017-08-21 14:57] LABS: Color,Synovial Fluid Straw (Straw)
[2017-08-21 14:58] LABS: Appearance,Synovial Fluid Cloudy (Clear-Hazy); Color,Synovial Fluid Straw (Straw)
[2017-08-21 15:06] LABS: Lymphocytes,Synovial Fluid 1 %
[2017-08-21] MEDS ORDERED: *HR* FentaNYL (PF) 100 MCG/2 ML VIAL ONE (16:18)
[2017-08-21] MEDS ORDERED: *HR* Midazolam HCl 2 MG/2 ML VIAL ONE (16:18)
[2017-08-21] MEDS ORDERED: *HR* Propofol 200 MG/20 ML VIAL IVP ONE (16:18)
[2017-08-21] MEDS ORDERED: Ondansetron 4 MG/2 ML VIAL ONE (16:19)
[2017-08-21] MEDS ORDERED: Dexamethasone 4 MG/ML VIAL ONE (16:19)
[2017-08-21] MEDS ORDERED: Lidocaine -MPF 4% 5 ML AMPUL ONE (16:19)
[2017-08-21] MEDS ORDERED: *HR* Rocuronium Bromide 50 MG/5 ML VIAL ONE (16:19)
[2017-08-21] MEDS ORDERED: *HR* Succinylcholine 200 MG/10 ML VIAL IVP ONE (16:19)
[2017-08-21] MEDS ORDERED: Lidocaine -MPF 2% 2 ML VIAL ONE (16:19)
[2017-08-21] MEDS ORDERED: Ethanol\\Acetic Acid\\Na Ace\\Ben 1,000 ML IRRIG.SOLN IR ONE (16:20)
[2017-08-21] MEDS ORDERED: Bupivacaine/EPI 1:200k 0.5%PF 10 ML VIAL ONE (16:39)
--- NOTE | 2017-08-21 16:45 | Anesthesia Evaluation PreOp ---
Date of Encounter: 08/21/17 Time of Encounter: 16:42 - Past History Planned Operation: B-knee I&D, Poly exchange Cardiac History: OK (OK x 2: 09/2009, 12/2001), HTN (maintained on Norvasc, Lopressor, Hctz), Cardiac Stent (Stents x 2: 2001, 2008) Pulmonary History: Smoker (1-1/2ppd x 40yrs), COPD SPANISH SPEAKING NANNY History: Other (Acute Metabolic Encehalopathy this admission re: sepsis. Anxiety/Depression maintained on Effexor, Clonazepam, Trazadone) Other Medical History: Diabetes Type II (Uncontrolled DM/HbA1c = 8.3 [avg gluc = 192]), GERD (maintained on Prilosec), Other (RUE cellulitis) Anesthesia History: No Prior Anesthetic Complications, Past Anesthesia (Tonny Alonso -TKR [Dr. Oglesby 2008], BTL) Alcohol Use: none Drug use: marijuana (Occasional) Medications and Allergies Metoprolol [Lopressor] 25 mg PO BID 06/17/16 [History] Omeprazole [PriLOSEC] 40 mg PO DAILY 06/17/16 [History] Duloxetine HCl [Cymbalta] 60 mg PO DAILY 08/19/17 [History] Folic Acid 0.8 mg PO DAILY 08/19/17 [History] Gabapentin [Neurontin] 400 mg PO TID 08/19/17 [History] Lisinopril-HCTZ 10-12.5 [Prinzide 10-12.5] 1 tab PO DAILY 08/19/17 [History] Quetiapine Fumarate [Seroquel] 300 mg PO HS 08/19/17 [History] cloNIDine HCl [CloNIDine HCl] 0.1 mg PO HS 08/19/17 [History] 3 Allergy/AdvReac Type Severity Reaction Status Date / Time Sulfa (Sulfonamide Allergy Rash Verified 08/18/17 11:41 Antibiotics) - Meds/Allergy Pre-op Review Medications Reviewed: Yes Allergies Reviewed: Yes Beta Blockers on Current Med List: Yes (previously maintained on Metoprolol) If Beta Blockers taken, Date/Time (Last Dose taken): Not listed this admission Anesthesia Results - Labs 08/21/17 05:30 08/21/17 05:30 Laboratory Results Laboratory Tests 09/27/14 02/02/15 08/18/17 07:58 15:20 21:51 ABG pH ABG pCO2 ABG pO2 ABG HCO3 ABG Total CO2 ABG O2 Saturation ABG Base Excess POC Glucose Est Mean Plasma Glucose Hemoglobin A1c Synovial Source Synovial Appearance Synovial Tot Nuc Cell Opiates Interpretation POSITIVE Oxycodone Screen POSITIVE Bld Amphetamines Scrn POSITIVE Bl Methamphetamines Sn POSITIVE Bld Cannabinoid Screen POSITIVE Hepatitis C RNA Quant [id number] Hep C Genotype (PCR) 1a Streptococcus sp PCR Group A Strep DNA 08/19/17 08/19/17 08/20/17 02:29 02:29 04:02 ABG pH 7.41 ABG pCO2 38 ABG pO2 52 L ABG HCO3 24 ABG Total CO2 26 ABG O2 Saturation 87 L ABG Base Excess 0 POC Glucose Est Mean Plasma Glucose 192 Hemoglobin A1c 8.3 H Synovial Source Synovial Appearance Synovial Tot Nuc Cell Opiates Interpretation Oxycodone Screen Bld Amphetamines Scrn Bl Methamphetamines Sn Bld Cannabinoid Screen Hepatitis C RNA Quant Hep C Genotype (PCR) Streptococcus sp PCR DETECTED A Group A Strep DNA DETECTED A 08/20/17 08/21/17 19:44 11:25 ABG pH ABG pCO2 ABG pO2 ABG HCO3 ABG Total CO2 ABG O2 Saturation ABG Base Excess POC Glucose 176 H Est Mean Plasma Glucose Hemoglobin A1c Synovial Source RIGHT KNEE Synovial Appearance Cloudy A Synovial Tot Nuc Cell 1277 H Opiates Interpretation Oxycodone Screen Bld Amphetamines Scrn Bl Methamphetamines Sn Bld Cannabinoid Screen Hepatitis C RNA Quant Hep C Genotype (PCR) Streptococcus sp PCR Group A Strep DNA Impressions Head CT 08/19/17 00:01 IMPRESSION: No acute intracranial abnormality. D/ / Jerson Lopez MD / Jerson Lopez MD Interpreting Provider: Jerson Lopez MD Echocardiogram 08/19/17 02:05 Impressions: Even with use of Definity, not all LV wall segments were well visualized. Overall, LV systolic function appears normal estimated at 55%. Indeterminate diastolic function. Normal RV size. There is mild reduction in function. No significant valvular dysfunction. No pulmonary hypertension by TR gradient. Left Ventricular Wall Motion: Rest Echo Findings The apex, apical inferior, mid inferior, basal inferior, apical anterior, mid anterior, basal anterior, mid anterior septal and basal anterior septal marte were not visualized. All other wall segments showed normal motion. Findings: Study Quality * Technically challenging study with suboptimal image quality. ECG Findings * Normal sinus rhythm. Left Ventricle * LVEF 55%. * Normal LV chamber size, wall thickness and function. * Indeterminate diastolic function. * Definity echo contrast was used. Right Ventricle * Normal RV size. There is mild reduction in function. Left Atrium * Normal left atrial size. Right Atrium * Normal right atrial size. Aortic Valve * No aortic regurgitation. * Aortic valve not well visualized. * No aortic stenosis. Mitral Valve * Normal mitral valve structure. * No mitral regurgitation. * No mitral stenosis. Tricuspid Valve * Tricuspid valve not well visualized. * Trace tricuspid regurgitation. Pulmonic Valve * Pulmonic valve is not well visualized. * No pulmonic regurgitation. * No pulmonic stenosis. Pulmonary Artery * Pulmonary artery not well visualized. Aorta * Normally sized aortic root. Pericardium * There is no pericardial effusion present. Interatrial Septum * Interatrial septum not well evaluated. IVC * The IVC is not well evaluated. Chest CT 08/19/17 10:30 IMPRESSION: Interval development of small pleural effusions and bibasilar infiltrates worrisome for pneumonia. Nonspecific skin thickening and minimal infiltration of the subcutaneous fat upper chest on the right questioning localized inflammatory infectious process. No abscess is seen. Aberrant right subclavian artery. Fatty liver. Status post cholecystectomy. D/ /19/2017 11:24:34 Travis Zhang MD / jodee Interpreting Provider: Travis Zhang MD Hip/Pelvis X-Ray 08/19/17 17:23 IMPRESSION: 1. No acute osseous abnormality involving the pelvis or bilateral hips. D/ / Sridhar Giles MD / Sridhar Giles MD Interpreting Provider: Sridhar Giles MD Knee X-Ray 08/19/17 17:23 IMPRESSION: 1. Bilateral knee arthroplasties with no acute abnormality. D/ / Sridhar Giles MD / Sridhar Giles MD Interpreting Provider: Sridhar Giles MD Chest X-Ray 08/19/17 21:59 IMPRESSION: Low lung volume study with probable mild vascular congestion. Streaky opacities at the right lung base may reflect atelectatic changes. Stable cardiomegaly. D/ / 08/19/2017 07:15:40 Sher Boucher MD / jodee Interpreting Provider: Sher Boucher MD Clavicle X-Ray 08/19/17 21:59 IMPRESSION: No acute fracture or subluxation. Possible mild right supraclavicular soft tissue swelling. No radiopaque foreign body. Moderate right AC joint degenerative changes. D/ / Sher Boucher MD / Sher Boucher MD Interpreting Provider: Sher Boucher MD - Imaging EKG: image reviewed Chest x-ray: report reviewed Anesthesia Exam Vital Signs Temp Pulse Resp BP Pulse Ox 08/21/17 15:52 99.1 F 115 18 134/88 91 08/21/17 11:46 112 08/21/17 11:24 98.8 F 116 95 08/21/17 09:17 114 18 95 08/21/17 04:31 18 94 08/21/17 03:46 98.3 F 112 20 139/82 95 08/20/17 23:59 18 94 08/20/17 23:12 97.6 F 108 18 110/58 94 08/20/17 19:53 18 95 08/20/17 19:45 98.1 F 107 20 124/81 94 08/20/17 17:23 18 97 Intake and Output 11/01/17 11/01/17 11/01/17 07:59 15:59 23:59 Intake Total 250 / 250 1370 / 1370 Output Total 550 / 550 Balance 250 / 250 820 / 820 Intake: IV Fluids 250 / 250 150 / 150 Cleocin Premix 900 MG/50 ML 900 50 / 50 50 / 50 mg In 50 ml @ 50 mls/hr IVPB Q8HR CAROL Rx#:[id number] Pfizerpen 4,000,000 UNIT In 200 / 200 100 / 100 Dextrose 5% 100 ML @ 100 mls/hr IVPB Q4HR CAROL Rx#:[id number] Oral 1220 / 1220 Output: Catheter 550 / 550 Other: Meal Breakfast Percent of Meal Consumed 15% Blood Glucose* 156 Height: 5'4" Weight: 226# BMI = 39 NPO (# of Hours): PIzza "at lunch" likely 12 Noon - HEENT Pupil (Motor): Pupils equal, EOMI Mallampati: III Teeth: Edentulous Oral Opening: Greater than 3 - SPANISH SPEAKING NANNY LOC: Oriented (pt somnolent but rouses easily) SPANISH SPEAKING NANNY Motor: Normal RUE, Normal LUE, Normal RLE, Normal LLE, Normal Face SPANISH SPEAKING NANNY Sensory: Normal: RUE, LUE, RLE, LLE, Face - Cardiac Rhythm: Regular Murmur: None JVD: No - Pulmonary Breath Sounds: bilateral Clear Respiratory Effort: Symmetrical Anesthesia Assess/Plan ASA Score: 4 (OBesity, sepsis/Septic joint, Htn, Chol) Anes Supervising Prov Stmt: Pt seen/evaluated, R&B discussed, questions answered and consent obtained. Carol Belle MD
[2017-08-21] MEDS ORDERED: Metoclopramide 10 MG/2 ML VIAL ONE (17:33)
[2017-08-21] MEDS ORDERED: Famotidine 20 MG/2 ML VIAL ONE (17:34)
--- NOTE | 2017-08-21 17:36 | Orthopedics Progress Note ---
Date of Encounter: 08/21/17 Time of Encounter: 17:32 - Assessment and Plan (1) Bilateral knee pain Current Visit: Yes Status: Acute Proceed with surgery Qualifiers: Chronicity: acute Qualified Code(s): M25.561 - Pain in right knee; M25.562 - Pain in left knee; M25.562 - Pain in left knee Subjective Principal diagnosis: Sepsis Interval history: Pt did eat approximately 5.5 hours ago, however in the setting of severe sepsis this is an emergent case and the benefits of irrigation and debridement of her joint infection outweigh the risks related to her having eaten. I discussed this with anesthesia and we will proceed with the case emergently, with pepcid and reglan for gastric emptying as per anesthesia recommendations. Objective Vital signs: Vital Signs Temp Pulse Resp BP Pulse Ox 08/21/17 16:30 114 08/21/17 15:52 99.1 F 115 18 134/88 91 08/21/17 11:46 112 08/21/17 11:24 98.8 F 116 95 08/21/17 09:17 114 18 95 08/21/17 04:31 18 94 08/21/17 03:46 98.3 F 112 20 139/82 95 08/20/17 23:59 18 94 08/20/17 23:12 97.6 F 108 18 110/58 94 08/20/17 19:53 18 95 08/20/17 19:45 98.1 F 107 20 124/81 94 Intake and Output 08/21/17 08/21/17 08/21/17 07:59 15:59 23:59 Intake Total 250 / 250 1370 / 1370 Output Total 550 / 550 Balance 250 / 250 820 / 820 Intake: IV Fluids 250 / 250 150 / 150 Cleocin Premix 900 MG/50 ML 900 50 / 50 50 / 50 mg In 50 ml @ 50 mls/hr IVPB Q8HR [facility] Rx#:[id number] Pfizerpen 4,000,000 UNIT In 200 / 200 100 / 100 Dextrose 5% 100 ML @ 100 mls/hr IVPB Q4HR [facility] Rx#:[id number] Oral 1220 / 1220 Output: Catheter 550 / 550 Other: Meal Breakfast Percent of Meal Consumed 15% Blood Glucose* 156 - Labs CBC & BMP: 08/21/17 05:30 08/21/17 05:30 Labs: Abnormal lab results RBC 3.60 M/mcL (3.82-4.97) L 08/21/17 05:30 Hgb 10.8 g/dL (11.5-15.4) L 08/21/17 05:30 Hct 31.6 % (35.3-44.9) L 08/21/17 05:30 RDW 14.9 % (11.5-14.5) H 08/21/17 05:30 Plt Count 49 K/mcL (140-400) L 08/21/17 05:30 MPV 13.8 fL (9.4-12.4) H 08/21/17 05:30 Reactive Lymphocytes Present (Not Present) A 08/21/17 05:30 Toxic Vacuolation Present (Not Present) A 08/19/17 02:29 Platelet Estimate Decreased (Normal) L 08/21/17 05:30 Immature Plt Fraction 26.9 % (1.1-6.1) H 08/21/17 05:30 ESR 81 mm/hr (0-15) H 08/20/17 07:03 ABG pO2 52 mmHg (85-104) L 08/20/17 04:02 ABG O2 Saturation 87 % (95-98) L 08/20/17 04:02 VBG pCO2 34 mmHg (41-51) L 08/19/17 02:44 VBG pO2 80 mmHg (25-50) H 08/19/17 02:44 VBG HCO3 20 mEq/L (21-27) L 08/19/17 02:44 Sodium 134 mEq/L (136-145) L 08/21/17 05:30 Glucose 181 mg/dL (70-99) H 08/21/17 05:30 POC Glucose 176 (58-89) H 08/20/17 19:44 Hemoglobin A1c 8.3 % (-5.6) H 08/19/17 02:29 Serum Osmolality 270 mOsm/kg (280-300) L 08/19/17 02:29 Calcium 7.5 mg/dL (8.6-10.8) L 08/21/17 05:30 Total Bilirubin 1.3 mg/dL (0.2-1.2) H 08/20/17 05:48 AST 37 Units/L (5-34) H 08/20/17 05:48 C-Reactive Protein 281 mg/L (Less than 5) H 08/20/17 05:48 Serum Total Protein 5.6 g/dL (6.0-8.3) L 08/20/17 05:48 Albumin 2.0 g/dL (3.5-5.0) L 08/20/17 05:48 Globulin 3.6 g/dL (2.4-3.5) H 08/20/17 05:48 Albumin/Globulin Ratio 0.6 (1.1-2.2) L 08/20/17 05:48 Beta-Hydroxybutyric Acd 0.31 mmol/L (0.02-0.27) H 08/19/17 02:29 Urine Glucose (UA) 100 mg/dL (Normal) H 08/19/17 22:15 Urine Blood Trace (Negative) H 08/19/17 22:15 Synovial Appearance Cloudy (Clear-Hazy) A 08/21/17 11:25 Synovial Tot Nuc Cell 1277 TNC/mcL (0-200) H 08/21/17 11:25 Streptococcus sp PCR DETECTED (Not Detect) A 08/19/17 02:29 Group A Strep DNA DETECTED (Not Detect) A 08/19/17 02:29 - VTE Documentation of Mechanical Device: Intermittent pneumatic compression device Consult Discharge Plan - Plan Referrals: NONE,PCP [Primary Care Provider] - Asia Unger SYSTEMS CONSULTANT [Advanced Practice Nurse] - 08/26/17 12:15 pm (Please fax over the discharge summary and the med list to [phone])
[2017-08-21] MEDS ORDERED: *HR* HYDROmorphone (PF) 1 MG/ML SYRINGE IVP PRN (18:53)
[2017-08-21] MEDS ORDERED: *HR* Labetalol 20 MG/4 ML SYRINGE IVP PRN (18:53)
[2017-08-21] MEDS ORDERED: *HR* Promethazine 25 MG/ML VIAL IVP PRN (18:53)
--- NOTE | 2017-08-21 20:29 | Orthopedic Operative Note ---
Date of procedure: 08/21/17 Pre-op diagnosis: Bilateral infected total knee arthroplasties Post-op diagnosis: same Procedure: 1. Irrigation and debridement with polyexchange of bilateral TKA 2. Complete synovectomy bilateral knees Indications: This is a 56 yo F admitted for sepsis, with right upper extremity cellulitis, who had previous bilateral total knee arthroplasties [place] [address] Mitchell. She had effusions develop of bilateral knees while in the hospital and so orthopedics was consulted. Both knees were aspirated and aspiration showed gram-positive cocci of both knees. She had also had positive blood cultures for group A strep. At this point due to her sepsis and acutely infected joint arthroplasties the decision was made to emergently perform irrigation and debridement with poly-exchange and complete synovectomies of bilateral knees. The risks and benefits of the procedure were fully explained to the patient. These risks include, but are not limited to, the risk of continued infection, neurovascular injury, continued pain and stiffness of the knee, need for further surgery, DVT, PE, loss of limb and loss of life. The patient did understand all of these risks and wishes to proceed. Informed consent was then obtained. Operative procedure: The patient was brought back to the OR suite by the anesthesia staff. General anesthetic was administered by anesthesia. The patient was then placed supine on the operating table and all bony prominences were padded. The anesthesiologist then performed successful general anesthetic for the remainder of the case. The tourniquet was then applied to the upper thigh and the bilateral lower extremities were then prepped and draped in the normal sterile orthopedic fashion. The patient was on scheduled antibiotics which were continued. A timeout was performed confirming the correct patient, site and side, procedure to be performed and any allergies. All were in agreement and we did proceed. We started on the left knee. The tourniquet was elevated to 300 mmHg. A midline 12 cm incision was made from the superior pole of the patella to the tibial tubercle along the previous incision. A medial parapatellar arthrotomy was then used. Purulent joint fluid was expelled from the joint. A complete synovectomy was then performed starting proximally over the femur and extending into the medial and lateral gutters and finally down to the proximal tibia and extensor mechanism. We did send synovium for culture. The knee was then flexed and the tibia was displaced anteriorly. The polyethylene was removed with an osteotome and cartilage clamp. At that point we thoroughly irrigated the knee, first with diluted Betadine which was allowed to sit for 3 minutes, then 1 L of bactisure solution, and finally 6 L of normal saline. Following this the appropriately sized polyethylene component was opened. The tibia was again subluxated and the poly was placed without difficulty. Sterile saline were then lavaged through the joint. The deep retinacular tissue was closed with 3 simple [id number] sutures with PDS and a 0 Quill. The tourniquet was let down and subcutaneous tissue was then closed with 2-0 quill and the skin was closed with baron. Sterile dressing was placed on the left knee. We repeated the procedure on the right knee The tourniquet was elevated to 300 mmHg. A midline 12 cm incision was made from the superior pole of the patella to the tibial tubercle along the previous incision. A medial parapatellar arthrotomy was then used and purulent materal was again noted from the joint. A complete synovectomy was then performed on the right knee starting proximally over the femur and extending into the medial and lateral gutters and finally down to the proximal tibia and extensor mechanism. Synovium was sent for culture. The knee was then flexed and the tibia was displaced anteriorly. The polyethylene was removed with an osteotome. We then thoroughly irrigated the knee, again with diluted Betadine , 1 L of bactisure solution, and finally 6 L of normal saline. Following this the appropriately sized polyethylene component was again opened. The tibia was again subluxated and the poly was placed without difficulty. Sterile saline were then lavaged through the joint. The deep retinacular tissue was closed with 3 simple [id number] sutures with PDS and a 0 Quill. The tourniquet was let down and subcutaneous tissue was then closed with 2-0 quill and the skin was closed with baron. Sterile dressing was placed on the right knee. the patient was awoken by anesthesia and taken to the PACU in stable condition. There were no complications through the case. Postop plan: Patient will be admitted to the ICU. Implants: Depuy polyethylene insert, RP size 3, 10 mm and 2.5, 10 mm Complications: none Anesthesia: GETA Surgeon: Angel Ramirez Estimated blood loss (cc): 200 Condition: stable Disposition: ICU
[2017-08-21] MEDS: Insulin DETEMIR 100 UNIT/ML X5UNITS SQ SCH (20:56)
[2017-08-21] MEDS: *HR* Morphine 2 MG/ML SYRINGE IVP PRN (21:01)
[2017-08-22] MEDS: *HR* Morphine 2 MG/ML SYRINGE IVP PRN (03:10)
[2017-08-22] MEDS: Ipratropium/Albuterol Neb 3 ML IH SCH ×6 (03:49→22:59)
[2017-08-22] MEDS: Penicillin G Potassium 4,000,000 UNIT in D5% in Water 100 ML IVPB SCH ×6 (03:54→23:21)
[2017-08-22] MEDS: *HR* OxyCODONE/APAP 5/325 TABLET PO PRN ×4 (04:48→20:23)
[2017-08-22 06:18] LABS: Hematocrit 30.2 % (35.3-44.9); Hemoglobin 10.4 g/dL (11.5-15.4); Immature Platelets 27.2 % (1.1-6.1); Mean Corpuscular HGB Conc 34.4 g/dL (31.6-35.5); Mean Corpuscular Hemoglobin 30.3 pg (28.0-33.3); Mean Platelet Volume 13.8 fL (9.4-12.4); Red Blood Count 3.43 M/mcL (3.82-4.97); Red Cell Distribution Width 15.1 % (11.5-14.5)
[2017-08-22 06:20] LABS: Platelet Count 59 K/mcL (140-400)
[2017-08-22 06:35] LABS: Alanine Aminotransferase 37 Units/L (0-55); Albumin/Globulin Ratio 0.5 (1.1-2.2); Alkaline Phosphatase 131 Units/L (38-126); Aspartate Amino Transferase 52 Units/L (5-34); BUN/Creatinine Ratio 14 (6-26); Blood Urea Nitrogen 9 mg/dL (7-20); Calcium 7.8 mg/dL (8.6-10.8); Carbon Dioxide 23 mEq/L (19-29); Chloride 100 mEq/L (98-109); Globulin 3.9 g/dL (2.4-3.5); Glucose 160 mg/dL (70-99); Magnesium 1.3 mg/dL (1.6-2.6); Osmolality,Calculated 278 (280-300); Potassium 3.7 mEq/L (3.5-4.5); Sodium 133 mEq/L (136-145); Total Protein 5.7 g/dL (6.0-8.3); eGFR For African Americans > 60 (> 60); eGFR For Non-African Americans > 60 (> 60)
[2017-08-22 06:39] LABS: Albumin 1.8 g/dL (3.5-5.0); C-Reactive Protein 180 mg/L (Less than 5)
[2017-08-22 06:43] LABS: Eosinophils # 0.3 K/mcL (0.0-0.6); Large Platelets Present (Not Present); Lymphocytes # 1.2 K/mcL (0.6-4.6); Monocytes # 0.9 K/mcL (0.0-1.3); Neutrophils # 5.2 K/mcL (1.6-8.9); Platelet Estimate Decreased (Normal); Toxic Granulation Present (Not Present)
[2017-08-22] MEDS ORDERED: 0.9 % Sodium Chloride 500 ML IVC ONE (08:30)
--- NOTE | 2017-08-22 08:37 | Internal Med Progress Note ---
Date of Encounter: 08/22/17 Time of Encounter: 08:00 - Assessment and plan (1) Severe sepsis Current Visit: Yes Status: Acute Assessment and plan: Severe sepsis:fever, tachcyardia, thrombocytopenia, HANNAH; suspected source of infection Rt Arm cellulites, Rt mid clavicular region abscess and PNA Blood cx 1 set from 08/18 growing Group A strep and 1 set from 08/19 growing Group A Repeat blood cx from 08/21/17 - so far no growth Pt did have remote h/o IV drug abuse 20 yrs ago 2 D Echo from 08/19/17 showing normal LVEF 55%, No valvular abnormalities her b/l Knee aspiration showed G+ve cocci s/p Irrigation and debridement of b/l TKR on 08/21/17 POD # 1 cont empirical abx Penicillin G and Clindamycin Since repeated blood cx - did not show any growth yet, may not needed any CRISTIANA at this point Pt still looks dehydrated, started her on IV Fluids Pt is still high risk with all the comorbidities, so continue current ICU level care (2) Septic arthritis Current Visit: Yes Status: Acute Assessment and plan: She did seeded into both Knees where she TKA before in 2008 s/p Irrigation and debridement of b/l TKR on 08/21/17 POD # 1 cont empirical abx Ortho on board Qualifiers: Septic arthritis location: knee Septic arthritis organism: streptococcal Laterality: unspecified laterality Qualified Code(s): M00.269 - Other streptococcal arthritis, unspecified knee (3) Bacteremia Current Visit: Yes Status: Acute Assessment and plan: see above (4) Acute respiratory failure with hypoxia Current Visit: Yes Status: Acute Assessment and plan: Due to PNA - mostly bacterial PNA Improving cont IV abx cont duoneb and O2 will give Lasix PRN (5) Clavicle pain Current Visit: Yes Status: Acute Assessment and plan: Noticed more induration today will get U/S of Rt Clavicular region also will talk to Ortho (6) Acute metabolic encephalopathy Current Visit: Yes Status: Acute Assessment and plan: Due to toxic encephalopathy/infection improving CT brain negative for acute process (7) Right arm cellulitis Current Visit: Yes Status: Acute Assessment and plan: She did have h/o IV drug abuse [address] chest negative for abscess venous doppler is negative for any DVT cont empirical abx (8) Severe thrombocytopenia Current Visit: Yes Status: Acute Assessment and plan: Due to severe sepsis Cont close monitoring d/c Heparin and anti platelets (9) DVT prophylaxis Current Visit: Yes Status: Acute Assessment and plan: Continue intermittent pneumatic compression (10) Secondary DM with DKA, uncontrolled Current Visit: Yes Status: Acute Assessment and plan: ER anion gap of 17; on admission repeat anion gap 11; gap remains closed, ABG pH 7.41; Bicarb >18; K+ 3.4 A1c 8.6; Diabetic diet Monitor closely; sliding scale ACHS protocol (11) Pneumonia Current Visit: Yes Status: Acute Assessment and plan: Bilateral lower lobe rhonchi Mostly bacterial PNA Continue PCN/Clinda Qualifiers: Pneumonia type: due to unspecified organism Laterality: bilateral Lung location: lower lobe of lung Qualified Code(s): J18.9 - Pneumonia, unspecified organism (12) Morbid obesity Current Visit: Yes Status: Acute Assessment and plan: BMI 38.9 - Subjective Interval history: Ms. Dodge is a 56 year old female with past medical history of IV drug abuse 20 yrs ago, CAD, hypertension, MO status post cardiac stents, anxiety, depression, and bilateral total knee replacements back in 2008 was admitted here on with acute delirium, acute hypoxic resp failure with possible pneumonia. She also had a fall prior to this hospitalization since she has been c/o Rt clavicular pain with bruise , also developed Rt arm cellulites. Pt became bacteremic with Group A strep and her b/l Knee aspiration showed G+ve cocci. Pt did have b/l Knee irrigation and debridement of b/l TKA done on 08/21/17. Later pt was transferred to ICU for further care. Today pt is alert, awake and oriented to person and place only. Looks little confused. Denied any CP. Does c/o b/l leg pain and generalized body pains. - Constitutional Vitals: Temp Pulse Resp BP Pulse Ox 98.4 F 120 16 109/58 94 08/22/17 07:10 08/22/17 07:35 08/22/17 07:35 08/22/17 07:35 08/22/17 07:35 General appearance: Present: mild distress, A&O X 3 - Head Head exam: Present: atraumatic, normal inspection - Respiratory Respiratory exam: Present: decreased breath sounds, wheezes (mild to moderate). Absent: rales, rhonchi - Cardiovascular Cardiovascular exam: Present: +S1, +S2, tachycardia - GI/Abdominal GI/Abdominal exam: Present: distended, normal bowel sounds, soft. Absent: rebound, rigid, tenderness - Extremities Exam Extremities exam: Absent: calf tenderness Additional comments: b/l Knee s/p I & D with dressing on . Rt arm still swollen and mild erythema noticed. Still has erythema and swelling over Rt mid clavicular region. However it looks more indurated today. - Back Exam Back exam: Absent: CVA tenderness (L), CVA tenderness (R) - Neurological Exam Neurological exam: Present: alert, altered - Psychiatric Psychiatric exam: Present: anxious Internal Medicine: Result - Labs CBC & Chem 7: 08/22/17 06:00 08/22/17 06:00 Labs: Short CBC 08/22/17 Range/Units 06:00 WBC 7.7 (4.3-11.1) K/mcL Hgb 10.4 L (11.5-15.4) g/dL Hct 30.2 L (35.3-44.9) % Plt Count 59 L (140-400) K/mcL Neutrophils # 5.2 (1.6-8.9) K/mcL BMP 08/22/17 06:00 Sodium 133 L Potassium 3.7 Chloride 100 Carbon Dioxide 23 BUN 9 Creatinine 0.63 Glucose 160 H Calcium 7.8 L Liver Function 08/22/17 Range/Units 06:00 Total Bilirubin 3.0 H D (0.2-1.2) mg/dL AST 52 H (5-34) Units/L ALT 37 (0-55) Units/L Alkaline Phosphatase 131 H (38-126) Units/L Albumin 1.8 L (3.5-5.0) g/dL - ABG Interpretation ABG results: ABG ABG pH 7.41 pH Units (7.32-7.45) 08/20/17 04:02 ABG pCO2 38 mmHg (35-45) 08/20/17 04:02 ABG pO2 52 mmHg (85-104) L 08/20/17 04:02 ABG O2 Saturation 87 % (95-98) L 08/20/17 04:02 - VTE Documentation of Mechanical Device: Intermittent pneumatic compression device Consult Discharge Plan - Plan Referrals: NONE,PCP [Primary Care Provider] - Asia Unger CNP [Advanced Practice Nurse] - 08/26/17 12:15 pm (Please fax over the discharge summary and the med list to [phone])
[2017-08-22] MEDS: Gabapentin 400 MG CAPSULE PO SCH ×3 (08:52→20:23)
[2017-08-22] MEDS: Folic Acid 1 MG TABLET PO SCH (08:52)
[2017-08-22] MEDS: Famotidine 20 MG TABLET PO SCH ×2 (08:52→20:23)
[2017-08-22] MEDS: Clindamycin 900 MG/50 ML 900 MG/50 ML IV.SOLN IVPB SCH ×3 (08:54→23:25)
[2017-08-22] MEDS: Insulin LISPRO 300 UNITS/3 ML VIAL SQ SCH ×4 (09:11→20:30)
[2017-08-22] MEDS: 0.9 % Sodium Chloride 1,000 ML IVC SCH ×2 (09:24→20:26)
--- NOTE | 2017-08-22 11:57 | Infectious Disease Progress No ---
Date of Encounter: 08/22/17 Time of Encounter: 11:54 - Assessment and Plan (1) Severe sepsis Current Visit: Yes Status: Acute The patient had two SIRS criteria plus HANNAH and lactic acidosis on admission. Likely secondary to bacteremia. Improved. She has started to have tachycardia again since surgery. She has been afebrile. Blood cultures drawn 08/18/17 x 1 set and 08/19/17 x 1 set are positive for GAS. Repeat blood cultures drawn 08/21/17 are NGTD. (2) Bacteremia Current Visit: Yes Status: Acute Causative organism Group A Strep. Source not entirely clear: PNA vs. RUE cellulitis vs. other. 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 Blood cultures drawn 08/18/17 x 1 set is positive for GAS. Repeat blood culture drawn 08/19/17 x 1 set is also positive for GAS. Additional blood cultures drawn 08/21/17 are NGTD x 2 sets. Continue PCN G 4 million units IV Q4H. Continue Clindamycin 900mg IV Q8H. Start probiotic BID. Duration of treatment depends on the clinical picture. Monitor renal function and dose-adjust antibiotics. (3) Infected prosthetic knee joint Current Visit: Yes Status: Acute Location: bilateral knees. Causative organism unclear, but likely GAS given the blood culture results. Likely secondary to hematogenous seeding of the hardware. Less likely the source of the bacteremia. Status post bedside arthrocentesis. TNC 1277 with 95 segmented neutrophils and no crystals. Status post irrigation and debridement with polyexchange of bilateral TKA by Dr. Ramirez. Operative note reviewed. Gross purulence noted intra-op. Gram stain shows GPC, but cultures preliminarily negative. Continue antibiotics as above for now. Wound care and activity restrictions per the primary team. Duration of treatment depends on the clinical picture, but likely 6 weeks of IV antibiotics. Monitor renal function and dose-adjust antibiotics. Qualifiers: Encounter type: initial encounter Qualified Code(s): T84.59XA - Infection and inflammatory reaction due to other internal joint prosthesis, initial encounter; Z96.659 - Presence of unspecified artificial knee joint; Z96.659 - Presence of unspecified artificial knee joint (4) Pneumonia Current Visit: Yes Status: Acute Location: Bilateral lower lobes. Causative organism unclear. CT of the chest shows findings consistent with possible PNA. This could be the source of the patient's bacteremia. Get sputum culture if patient is able to provide an adequate specimen. Continue antibiotics as above. Repeat CXR in the AM. Qualifiers: Pneumonia type: due to unspecified organism Laterality: bilateral Lung location: lower lobe of lung Qualified Code(s): J18.9 - Pneumonia, unspecified organism (5) Acute metabolic encephalopathy Current Visit: Yes Status: Acute Likely secondary to infectious process and DKA. Appears improved. CT head negative. Continue to monitor closely. (6) Acute kidney failure Current Visit: Yes Status: Acute Likely secondary to dehydration and sepsis. Resolved. Qualifiers: Acute renal failure type: unspecified Qualified Code(s): N17.9 - Acute kidney failure, unspecified (7) Secondary DM with DKA, uncontrolled Current Visit: Yes Status: Acute FSBS 433 on admission. HgbA1C 8.3%. Management per the primary team. (8) Right arm cellulitis Current Visit: Yes Status: Acute Right arm mildly edematous and erythematous on exam, but not impressive. Not sure if this is a true cellulitis and/or the source of the patient's bacteremia. Improved since last exam. Continue antibiotics as above. (9) Thrombocytopenia Current Visit: Yes Status: Deleted Etiology unclear, but likely related to infection. No acute bleeding noted in exam. Continue to trend. Management per the primary team. (10) Vomiting Current Visit: Yes Status: Acute Likely secondary to DKA. Resolved. Qualifiers: Vomiting type: unspecified Vomiting Intractability: non-intractable Nausea presence: with nausea Qualified Code(s): R11.2 - Nausea with vomiting, unspecified (11) Bilateral knee pain Current Visit: Yes Status: Acute Secondary to bilateral PJI. Pain management per the primary and ortho teams. Qualifiers: Chronicity: acute Qualified Code(s): M25.561 - Pain in right knee; M25.562 - Pain in left knee; M25.562 - Pain in left knee - Subjective Interval history: Patient seen and examined. Status post bilateral knee I & D 08/21/17. Continues to complain of bilateral knee pain. Denies fevers, chills, or rigors. Denies chest pain or shortness of breath, but does report a cough. Denies nausea, vomiting, diarrhea, or constipation, but she is unsure when her last BM was. She denies urinary complaints and has a hahn catheter that is draining dark orange urine that is foul-smelling per nursing. She states she wants to finish eating her breakfast, but there is no breakfast tray noted in the room. She denies pain in her other extremities. Infect Dis PN-Objective Data - Labs CBC & Chem 7: 08/22/17 06:00 08/22/17 06:00 Labs: Laboratory Results - last 24 hr 08/21/17 08/21/17 08/21/17 08:00 11:25 11:25 WBC RBC Hgb Hct MCV MCH MCHC RDW Plt Count MPV Seg Neutrophils % Lymphocytes % Monocytes % Eosinophils % Neutrophils # Lymphocytes # Monocytes # Eosinophils # Toxic Granulation Platelet Estimate Large Platelets Immature Plt Fraction ESR Sodium Potassium Chloride Carbon Dioxide BUN Creatinine Est GFR ( Amer) Est GFR (Non-Af Amer) BUN/Creatinine Ratio Glucose POC Glucose 147 H Calculated Osmolality Calcium Magnesium Total Bilirubin AST ALT Alkaline Phosphatase C-Reactive Protein Serum Total Protein Albumin Globulin Albumin/Globulin Ratio Synovial Source LEFT KNEE RIGHT KNEE Synovial Color Straw Straw Synovial Appearance Cloudy A Cloudy A Synovial Volume 11.0 11.0 Synovial RBC 0.002 < 0.002 Synovial Tot Nuc Cell 6293 H 1277 H Synovial Band Neuts Test Not Performed Synovial Basophils Test Not Performed Synovial Eosinophils Test Not Performed Synovial Seg Neuts % 90.0 95.0 Synovial Lymphocytes % 2.0 1 Synovial Monocytes % 8.0 4.0 Synovial Other Cells % Test Not Performed Synovial Crystals No Crystals Seen No Crystals Seen 08/21/17 08/21/17 08/21/17 11:26 15:56 20:30 WBC RBC Hgb Hct MCV MCH MCHC RDW Plt Count MPV Seg Neutrophils % Lymphocytes % Monocytes % Eosinophils % Neutrophils # Lymphocytes # Monocytes # Eosinophils # Toxic Granulation Platelet Estimate Large Platelets Immature Plt Fraction ESR Sodium Potassium Chloride Carbon Dioxide BUN Creatinine Est GFR ( Amer) Est GFR (Non-Af Amer) BUN/Creatinine Ratio Glucose POC Glucose 212 H 156 H 135 H Calculated Osmolality Calcium Magnesium Total Bilirubin AST ALT Alkaline Phosphatase C-Reactive Protein Serum Total Protein Albumin Globulin Albumin/Globulin Ratio Synovial Source Synovial Color Synovial Appearance Synovial Volume Synovial RBC Synovial Tot Nuc Cell Synovial Band Neuts Synovial Basophils Synovial Eosinophils Synovial Seg Neuts % Synovial Lymphocytes % Synovial Monocytes % Synovial Other Cells % Synovial Crystals 08/22/17 08/22/17 08/22/17 06:00 06:00 06:00 WBC 7.7 RBC 3.43 L Hgb 10.4 L Hct 30.2 L MCV 88.0 MCH 30.3 MCHC 34.4 RDW 15.1 H Plt Count 59 L MPV 13.8 H Seg Neutrophils % 68.0 Lymphocytes % 16.0 Monocytes % 12.0 Eosinophils % 4.0 Neutrophils # 5.2 Lymphocytes # 1.2 Monocytes # 0.9 Eosinophils # 0.3 Toxic Granulation Present A Platelet Estimate Decreased L Large Platelets Present A Immature Plt Fraction 27.2 H ESR >= 130 H Sodium 133 L Potassium 3.7 Chloride 100 Carbon Dioxide 23 BUN 9 Creatinine 0.63 Est GFR ( Amer) > 60 Est GFR (Non-Af Amer) > 60 BUN/Creatinine Ratio 14 Glucose 160 H POC Glucose Calculated Osmolality 278 L Calcium 7.8 L Magnesium 1.3 L Total Bilirubin 3.0 H D AST 52 H ALT 37 Alkaline Phosphatase 131 H C-Reactive Protein 180 H Serum Total Protein 5.7 L Albumin 1.8 L Globulin 3.9 H Albumin/Globulin Ratio 0.5 L Synovial Source Synovial Color Synovial Appearance Synovial Volume Synovial RBC Synovial Tot Nuc Cell Synovial Band Neuts Synovial Basophils Synovial Eosinophils Synovial Seg Neuts % Synovial Lymphocytes % Synovial Monocytes % Synovial Other Cells % Synovial Crystals 08/22/17 08/22/17 08:30 10:59 WBC RBC Hgb Hct MCV MCH MCHC RDW Plt Count MPV Seg Neutrophils % Lymphocytes % Monocytes % Eosinophils % Neutrophils # Lymphocytes # Monocytes # Eosinophils # Toxic Granulation Platelet Estimate Large Platelets Immature Plt Fraction ESR Sodium Potassium Chloride Carbon Dioxide BUN Creatinine Est GFR ( Amer) Est GFR (Non-Af Amer) BUN/Creatinine Ratio Glucose POC Glucose 150 H 179 H Calculated Osmolality Calcium Magnesium Total Bilirubin AST ALT Alkaline Phosphatase C-Reactive Protein Serum Total Protein Albumin Globulin Albumin/Globulin Ratio Synovial Source Synovial Color Synovial Appearance Synovial Volume Synovial RBC Synovial Tot Nuc Cell Synovial Band Neuts Synovial Basophils Synovial Eosinophils Synovial Seg Neuts % Synovial Lymphocytes % Synovial Monocytes % Synovial Other Cells % Synovial Crystals Cultures: Cultures 08/21/17 20:30 Surgical Biopsy Culture - Preliminary Left Knee 08/21/17 20:30 Surgical Biopsy Culture - Preliminary Right Knee 08/21/17 05:30 Blood Culture - Preliminary Peripheral Venipuncture No growth. 08/21/17 05:20 Blood Culture - Preliminary Peripheral Venipuncture No growth. 08/21/17 11:25 Body Fluid Culture - Preliminary Synovial Fluid 08/21/17 11:25 Body Fluid Culture - Preliminary Synovial Fluid 08/19/17 02:29 Blood Culture - Final Peripheral Venipuncture Strep pyogenes (Group A) 08/18/17 21:51 Blood Culture - Final Peripheral Venipuncture Strep pyogenes (Group A) Serology 08/21/17 08/21/17 08/19/17 Range/Units 11:25 11:25 22:15 Urine Color Yellow (Yellow) Urine Clarity Clear (Clear) Urine pH 6.5 (5.0-8.0) pH Units Ur Specific [place] 1.010 (1.010-1.025) Urine Protein Negative (Neg-Trace) mg/dL Urine Glucose (UA) 100 H (Normal) mg/dL Urine Ketones Negative (Negative) mg/dL Urine Blood Trace H (Negative) Urine Nitrite Negative (Negative) Urine Bilirubin Negative (Negative) Urine Urobilinogen Normal (Normal) mg/dL Ur Leukocyte Esterase Negative (Negative) Urine Microscopic RBC 0-3 (0-3) per hpf Ur Squamous Epith Cells Few (None-Few) per lpf Amorphous Sediment Few (Few) Urine Bacteria Few (None-Few) per hpf Synovial Source RIGHT KNEE LEFT KNEE Synovial Color Straw Straw (Straw) Synovial Appearance Cloudy A Cloudy A (Clear-Hazy) Synovial Volume 11.0 11.0 mL Synovial RBC < 0.002 0.002 (0.000 - 0.002) M/mcl Synovial Tot Nuc Cell 1277 H 6293 H (0-200) TNC/mcL Synovial Band Neuts Test Not Performed Synovial Basophils Test Not Performed Synovial Eosinophils Test Not Performed Synovial Seg Neuts % 95.0 90.0 % Synovial Lymphocytes % 1 2.0 % Synovial Monocytes % 4.0 8.0 % Synovial Other Cells % Test Not Performed Synovial Crystals No Crystals Seen No Crystals Seen (None Seen) A. baumannii (PCR) (Not Detect) Mable albicans (PCR) (Not Detect) C. glabrata (PCR) (Not Detect) C. krusei (PCR) (Not Detect) C. parapsilosis (PCR) (Not Detect) C. tropicalis (PCR) (Not Detect) Enterobacteriac sp PCR (Not Detect) E. cloacae complex PCR (Not Detect) Enterococcus sp PCR (Not Detect) E. coli (PCR) (Not Detect) H. influenzae (PCR) (Not Detect) Klebsiella oxytoca PCR (Not Detect) Klebsiella pneumoniae (Not Detect) List. monocytogenes PCR (Not Detect) N. meningitidis (PCR) (Not Detect) Proteus species (PCR) (Not Detect) Serratia marcescens PCR (Not Detect) Staphylococcus sp PCR (Not Detect) Staph aureus (PCR) (Not Detect) mecA-Methicil Res Gene (Not Detect) Streptococcus sp PCR (Not Detect) Group A Strep DNA (Not Detect) Group B Strep (PCR) (Not Detect) Strep pneumoniae (PCR) (Not Detect) P. aeruginosa (PCR) (Not Detect) Gorge/B-Vanco Res Genes (Not Detect) KPC (blaKPC) Detect PCR (Not Detect) 08/19/17 08/18/17 Range/Units 02:29 21:51 Urine Color (Yellow) Urine Clarity (Clear) Urine pH (5.0-8.0) pH Units Ur Specific [place] (1.010-1.025) Urine Protein (Neg-Trace) mg/dL Urine Glucose (UA) (Normal) mg/dL Urine Ketones (Negative) mg/dL Urine Blood (Negative) Urine Nitrite (Negative) Urine Bilirubin (Negative) Urine Urobilinogen (Normal) mg/dL Ur Leukocyte Esterase (Negative) Urine Microscopic RBC (0-3) per hpf Ur Squamous Epith Cells (None-Few) per lpf Amorphous Sediment (Few) Urine Bacteria (None-Few) per hpf Synovial Source Synovial Color (Straw) Synovial Appearance (Clear-Hazy) Synovial Volume mL Synovial RBC (0.000 - 0.002) M/mcl Synovial Tot Nuc Cell (0-200) TNC/mcL Synovial Band Neuts Synovial Basophils Synovial Eosinophils Synovial Seg Neuts % % Synovial Lymphocytes % % Synovial Monocytes % % Synovial Other Cells % Synovial Crystals (None Seen) A. baumannii (PCR) Not Detected Not Detected (Not Detect) Mable albicans (PCR) Not Detected Not Detected (Not Detect) C. glabrata (PCR) Not Detected Not Detected (Not Detect) C. krusei (PCR) Not Detected Not Detected (Not Detect) C. parapsilosis (PCR) Not Detected Not Detected (Not Detect) C. tropicalis (PCR) Not Detected Not Detected (Not Detect) Enterobacteriac sp PCR Not Detected Not Detected (Not Detect) E. cloacae complex PCR Not Detected Not Detected (Not Detect) Enterococcus sp PCR Not Detected Not Detected (Not Detect) E. coli (PCR) Not Detected Not Detected (Not Detect) H. influenzae (PCR) Not Detected Not Detected (Not Detect) Klebsiella oxytoca PCR Not Detected Not Detected (Not Detect) Klebsiella pneumoniae Not Detected Not Detected (Not Detect) List. monocytogenes PCR Not Detected Not Detected (Not Detect) N. meningitidis (PCR) Not Detected Not Detected (Not Detect) Proteus species (PCR) Not Detected Not Detected (Not Detect) Serratia marcescens PCR Not Detected Not Detected (Not Detect) Staphylococcus sp PCR Not Detected Not Detected (Not Detect) Staph aureus (PCR) Not Detected Not Detected (Not Detect) mecA-Methicil Res Gene Not Detected Not Detected (Not Detect) Streptococcus sp PCR DETECTED A DETECTED A (Not Detect) Group A Strep DNA DETECTED A DETECTED A (Not Detect) Group B Strep (PCR) Not Detected Not Detected (Not Detect) Strep pneumoniae (PCR) Not Detected Not Detected (Not Detect) P. aeruginosa (PCR) Not Detected Not Detected (Not Detect) Gorge/B-Vanco Res Genes Not Detected Not Detected (Not Detect) KPC (blaKPC) Detect PCR Not Detected Not Detected (Not Detect) Exam - Constitutional Vitals: Temp Pulse Resp BP Pulse Ox 99.0 F 120 16 109/87 95 08/22/17 11:32 08/22/17 09:42 08/22/17 11:02 08/22/17 09:42 08/22/17 11:02 General appearance: cooperative, no acute distress, obese - Head Head exam: Present: atraumatic, normal inspection, normocephalic - Eye Eye exam: Present: EOMI, normal appearance, PERRL Pupils: Present: normal accommodation Additional comments: No subconjunctival hemorrhage noted. - ENT ENT exam: Present: mucous membranes moist - Neck Neck exam: Present: normal inspection - Respiratory Respiratory exam: Present: rhonchi (Scattered throughout). Absent: rales, respiratory distress, wheezes - Cardiovascular Cardiovascular exam: Present: +S1, +S2, tachycardia. Absent: irregular rhythm - GI/Abdominal GI/Abdominal exam: Present: distended (obese), normal bowel sounds, soft. Absent: tenderness Additional comments: Hahn catheter noted to be draining clear, dark orange urine. - Extremities Exam Additional comments: Knee immobilizers noted to the bilateral lower extremities at this time. + PMS to the distal extremities. - Back Exam Additional comments: Unable to assess, the patient does not want to turn due to her knee pain. - Neurological Exam Neurological exam: Present: altered (Drowsy, difficult to keep awake during exam.), oriented X3, no focal deficits - Psychiatric Psychiatric exam: Present: normal affect, normal mood - Skin Skin exam: Present: dry, intact, normal color, warm Additional comments: Mild erythema over the proximal portion of the right forearm. 1+ edema noted in the RUE. Erythematous lesion noted to the right upper chest without fluctuance, tenderness, or warmth. - VTE Documentation of Mechanical Device: Intermittent pneumatic compression device Consult Discharge Plan - Plan Referrals: NONE,PCP [Primary Care Provider] - Asia Unger RESEARCH GROUP DIRECTOR [Advanced Practice Nurse] - 08/26/17 12:15 pm (Please fax over the discharge summary and the med list to [phone])
[2017-08-22 12:26] LABS: Bilirubin,Urine Moderate (Negative); Blood,Urine Negative (Negative); Clarity,Urine Cloudy (Clear); Glucose,Urine (UA) >=1000 mg/dL (Normal); Ketones,Urine Trace mg/dL (Negative); Leukocyte Esterase,Urine Negative (Negative); Nitrite,Urine Negative (Negative); Protein,Urine 30 mg/dL (Neg-Trace); Specific Gravity,Urine 1.027 (1.010-1.025)
[2017-08-22 12:28] LABS: Bacteria,Urine None Seen per hpf (None-Few); Hyaline Casts,Urine None Seen per lpf (None-Few); RBC,Urine 0-3 per hpf (0-3); Squamous Epithelial Cell,Urine Many per lpf (None-Few)
[2017-08-22 12:37] LABS: Color,Urine Dark Yellow (Yellow)
[2017-08-22 12:38] LABS: Yeast,Urine Few per hpf (None Seen)
--- NOTE | 2017-08-22 13:46 | Orthopedics Progress Note ---
Date of Encounter: 08/22/17 Time of Encounter: 13:44 - Assessment and Plan (1) Bilateral knee pain Current Visit: Yes Status: Acute POD#1 s/p bilateral I&D/polyexchange, R arm cellulitis -R arm cellulitis looking better, continue to monitor. If abscess or fluctuance develops will I&D, but no plans for that now -No plans for further surgery on knees at this time -Knee immobilizer at night. OK for ROM as tolerated and WBAT -Antibiotics per ID Qualifiers: Chronicity: acute Qualified Code(s): M25.561 - Pain in right knee; M25.562 - Pain in left knee; M25.562 - Pain in left knee Subjective Principal diagnosis: Sepsis Interval history: POD#1 s/p bilateral I&D and polyexchanges. Pt still somnolent although she responds to questions. Denies subjective fevers or chills at this time. Right arm pain improving. Objective Vital signs: Vital Signs Temp Pulse Resp BP Pulse Ox 08/22/17 11:32 99.0 F 08/22/17 11:02 16 95 08/22/17 09:42 120 18 109/87 94 08/22/17 08:35 122 16 111/93 94 08/22/17 07:35 120 16 109/58 94 08/22/17 07:29 16 94 08/22/17 07:10 98.4 F 08/22/17 06:00 116 16 114/77 95 08/22/17 05:00 98.2 F 124 18 113/82 94 08/22/17 04:02 120 16 132/86 94 08/22/17 03:50 16 132/86 98 08/22/17 03:00 111 16 115/82 94 08/22/17 02:00 111 16 117/78 94 08/22/17 01:00 116 21 132/95 94 08/22/17 00:08 97.5 F L 115 19 128/78 94 08/21/17 23:03 105 16 154/97 93 08/21/17 22:01 107 16 156/93 93 08/21/17 21:29 108 17 157/102 93 08/21/17 21:13 98 F 111 19 148/93 93 08/21/17 21:03 111 16 148/93 93 08/21/17 20:54 98 F 112 18 140/93 91 08/21/17 20:35 115 08/21/17 16:30 114 08/21/17 15:52 99.1 F 115 18 134/88 91 08/21/17 15:27 16 134/88 96 Intake and Output 08/21/17 08/22/17 08/22/17 23:59 07:59 15:59 Intake Total 250 / 250 350 / 350 800 / 800 Output Total 500 / 500 100 / 100 Balance 250 / 250 -150 / -150 700 / 700 Intake: IV Fluids 250 / 250 250 / 250 650 / 650 0.9 % Sodium Chloride 500 ML @ 500 / 500 1875 mls/hr IVC .Q16M ONE Rx#: [id number] Cleocin Premix 900 MG/50 ML 900 50 / 50 50 / 50 50 / 50 mg In 50 ml @ 50 mls/hr IVPB Q8HR [facility] Rx#:[id number] Pfizerpen 4,000,000 UNIT In 200 / 200 200 / 200 100 / 100 Dextrose 5% 100 ML @ 100 mls/hr IVPB Q4HR [facility] Rx#:[id number] Oral 0 / 0 100 / 100 150 / 150 Output: Urine 500 / 500 100 / 100 Other: Meal Breakfast Percent of Meal Consumed 0% Blood Glucose* 179 RUE: right arm cellulitis improved. Punctate area of anterior clavicle with induration and erythema, improved from yesterday. No drainage. No fluctuance BLE: KI and dressings in place. DNVI s/s/t/sp/dp. Wiggles toes, BCR - Labs CBC & BMP: 08/22/17 06:00 08/22/17 06:00 Labs: Abnormal lab results RBC 3.43 M/mcL (3.82-4.97) L 08/22/17 06:00 Hgb 10.4 g/dL (11.5-15.4) L 08/22/17 06:00 Hct 30.2 % (35.3-44.9) L 08/22/17 06:00 RDW 15.1 % (11.5-14.5) H 08/22/17 06:00 Plt Count 59 K/mcL (140-400) L 08/22/17 06:00 MPV 13.8 fL (9.4-12.4) H 08/22/17 06:00 Reactive Lymphocytes Present (Not Present) A 08/21/17 05:30 Toxic Granulation Present (Not Present) A 08/22/17 06:00 Toxic Vacuolation Present (Not Present) A 08/19/17 02:29 Platelet Estimate Decreased (Normal) L 08/22/17 06:00 Large Platelets Present (Not Present) A 08/22/17 06:00 Immature Plt Fraction 27.2 % (1.1-6.1) H 08/22/17 06:00 ESR >= 130 mm/hr (0-15) H 08/22/17 06:00 ABG pO2 52 mmHg (85-104) L 08/20/17 04:02 ABG O2 Saturation 87 % (95-98) L 08/20/17 04:02 VBG pCO2 34 mmHg (41-51) L 08/19/17 02:44 VBG pO2 80 mmHg (25-50) H 08/19/17 02:44 VBG HCO3 20 mEq/L (21-27) L 08/19/17 02:44 Sodium 133 mEq/L (136-145) L 08/22/17 06:00 Glucose 160 mg/dL (70-99) H 08/22/17 06:00 POC Glucose 179 (58-89) H 08/22/17 10:59 Hemoglobin A1c 8.3 % (-5.6) H 08/19/17 02:29 Serum Osmolality 270 mOsm/kg (280-300) L 08/19/17 02:29 Calculated Osmolality 278 (280-300) L 08/22/17 06:00 Calcium 7.8 mg/dL (8.6-10.8) L 08/22/17 06:00 Magnesium 1.3 mg/dL (1.6-2.6) L 08/22/17 06:00 Total Bilirubin 3.0 mg/dL (0.2-1.2) H D 08/22/17 06:00 AST 52 Units/L (5-34) H 08/22/17 06:00 Alkaline Phosphatase 131 Units/L (38-126) H 08/22/17 06:00 C-Reactive Protein 180 mg/L (Less than 5) H 08/22/17 06:00 Serum Total Protein 5.7 g/dL (6.0-8.3) L 08/22/17 06:00 Albumin 1.8 g/dL (3.5-5.0) L 08/22/17 06:00 Globulin 3.9 g/dL (2.4-3.5) H 08/22/17 06:00 Albumin/Globulin Ratio 0.5 (1.1-2.2) L 08/22/17 06:00 Beta-Hydroxybutyric Acd 0.31 mmol/L (0.02-0.27) H 08/19/17 02:29 Urine Clarity Cloudy (Clear) A 08/22/17 10:25 Ur Specific [place] 1.027 (1.010-1.025) H 08/22/17 10:25 Urine Protein 30 mg/dL (Neg-Trace) H 08/22/17 10:25 Urine Glucose (UA) >=1000 mg/dL (Normal) H 08/22/17 10:25 Urine Ketones Trace mg/dL (Negative) H 08/22/17 10:25 Urine Bilirubin Moderate (Negative) H 08/22/17 10:25 Urine Urobilinogen 4.0 mg/dL (Normal) H 08/22/17 10:25 Urine Microscopic WBC 3-5 per hpf (0-3) H 08/22/17 10:25 Ur Squamous Epith Cells Many per lpf (None-Few) H 08/22/17 10:25 Urine Yeast Few per hpf (None Seen) H 08/22/17 10:25 Synovial Appearance Cloudy (Clear-Hazy) A 08/21/17 11:25 Synovial Tot Nuc Cell 1277 TNC/mcL (0-200) H 08/21/17 11:25 Streptococcus sp PCR DETECTED (Not Detect) A 08/19/17 02:29 Group A Strep DNA DETECTED (Not Detect) A 08/19/17 02:29 - VTE Documentation of Mechanical Device: Intermittent pneumatic compression device Consult Discharge Plan - Plan Referrals: NONE,PCP [Primary Care Provider] - Asia Unger, STATION SUPERVISOR [Advanced Practice Nurse] - 08/26/17 12:15 pm (Please fax over the discharge summary and the med list to [phone])
[2017-08-22] MEDS: Insulin DETEMIR 100 UNIT/ML X5UNITS SQ SCH (20:24)
[2017-08-23] MEDS: *HR* OxyCODONE/APAP 5/325 TABLET PO PRN ×4 (01:25→20:30)
[2017-08-23] MEDS: Penicillin G Potassium 4,000,000 UNIT in D5% in Water 100 ML IVPB SCH ×5 (03:05→22:51)
[2017-08-23 03:22] LABS: Methylenedioxyamphetamine <20 ng/mL; Methylenedioxymethamphetamine <20 ng/mL
[2017-08-23 03:27] LABS: Hemoglobin 9.6 g/dL (11.5-15.4)
[2017-08-23 03:29] LABS: Eosinophils # 0.1 K/mcL (0.0-0.6); Hematocrit 27.3 % (35.3-44.9); Immature Platelets 25.2 % (1.1-6.1); Mean Corpuscular HGB Conc 35.2 g/dL (31.6-35.5); Mean Corpuscular Hemoglobin 31.1 pg (28.0-33.3); Mean Corpuscular Volume 88.3 fL (83.0-100.0); Mean Platelet Volume 12.7 fL (9.4-12.4); Monocytes # 0.6 K/mcL (0.0-1.3); Red Blood Count 3.09 M/mcL (3.82-4.97); Red Cell Distribution Width 15.2 % (11.5-14.5)
[2017-08-23] MEDS: 0.9 % Sodium Chloride 1,000 ML IVC SCH ×3 (03:34→14:10)
[2017-08-23] MEDS: Ipratropium/Albuterol Neb 3 ML IH SCH ×5 (03:37→20:10)
[2017-08-23 03:44] LABS: Alanine Aminotransferase 33 Units/L (0-55); Albumin/Globulin Ratio 0.4 (1.1-2.2); Alkaline Phosphatase 154 Units/L (38-126); Aspartate Amino Transferase 53 Units/L (5-34); BUN/Creatinine Ratio 14 (6-26); Bilirubin,Total 2.5 mg/dL (0.2-1.2); Blood Urea Nitrogen 8 mg/dL (7-20); Calcium 7.6 mg/dL (8.6-10.8); Carbon Dioxide 26 mEq/L (19-29); Chloride 102 mEq/L (98-109); Globulin 3.9 g/dL (2.4-3.5); Glucose 99 mg/dL (70-99); Magnesium 1.9 mg/dL (1.6-2.6); Osmolality,Calculated 280 (280-300); Potassium 3.4 mEq/L (3.5-4.5); Sodium 136 mEq/L (136-145); Total Protein 5.4 g/dL (6.0-8.3); eGFR For African Americans > 60 (> 60); eGFR For Non-African Americans > 60 (> 60)
[2017-08-23 03:46] LABS: Albumin 1.5 g/dL (3.5-5.0)
[2017-08-23 03:48] LABS: Platelet Count 78 K/mcL (140-400)
[2017-08-23] MEDS: *HR* Morphine 2 MG/ML SYRINGE IVP PRN ×2 (04:41→21:35)
[2017-08-23 05:07] LABS: Large Platelets Present (Not Present); Lymphocytes # 2.2 K/mcL (0.6-4.6); Neutrophils # 4.2 K/mcL (1.6-8.9); Platelet Estimate Decreased (Normal); Toxic Granulation Present (Not Present)
--- NOTE | 2017-08-23 07:59 | Internal Med Progress Note ---
Date of Encounter: 08/23/17 Time of Encounter: 07:56 - Assessment and plan (1) Severe sepsis Current Visit: Yes Status: Acute Assessment and plan: Severe sepsis:fever, tachcyardia, thrombocytopenia, HANNAH; suspected source of infection Rt Arm cellulites, Rt mid clavicular region abscess and PNA Blood cx 1 set from 08/18 growing Group A strep and 1 set from 08/19 growing Group A Repeat blood cx from 08/21/17 - so far no growth Pt did have remote h/o IV drug abuse 20 yrs ago 2 D Echo from 08/19/17 showing normal LVEF 55%, No valvular abnormalities her b/l Knee aspiration showed G+ve cocci s/p Irrigation and debridement of b/l TKR on 08/21/17 POD # 2 cont empirical abx Penicillin G and Clindamycin Since repeated blood cx - did not show any growth yet, may not needed any CRISTIANA at this point Pt still looks dehydrated, cont gentle IV Fluids Medically stable now. So will transfer to [facility] / tele (2) Septic arthritis Current Visit: Yes Status: Acute Assessment and plan: She did seeded into both Knees where she TKA before in 2008 s/p Irrigation and debridement of b/l TKR on 08/21/17 POD # 2 cont abx Penicillin G and Clindamycin Ortho on board Qualifiers: Septic arthritis location: knee Septic arthritis organism: streptococcal Laterality: unspecified laterality Qualified Code(s): M00.269 - Other streptococcal arthritis, unspecified knee (3) Bacteremia Current Visit: Yes Status: Acute Assessment and plan: see above (4) Acute respiratory failure with hypoxia Current Visit: Yes Status: Acute Assessment and plan: Due to PNA - mostly bacterial PNA Improving cont IV abx cont duoneb and O2 will give Lasix PRN (5) Clavicle pain Current Visit: Yes Status: Acute Assessment and plan: No change talked to Ortho recommend no further interventions.. cont monitoring for now with abx (6) Acute metabolic encephalopathy Current Visit: Yes Status: Acute Assessment and plan: Due to toxic encephalopathy/infection improving CT brain negative for acute process (7) Right arm cellulitis Current Visit: Yes Status: Acute Assessment and plan: She did have h/o IV drug abuse [address] chest negative for abscess venous doppler is negative for any DVT cont empirical abx (8) Severe thrombocytopenia Current Visit: Yes Status: Acute Assessment and plan: Due to severe sepsis Improving slowly Cont close monitoring (9) DVT prophylaxis Current Visit: Yes Status: Acute Assessment and plan: Continue intermittent pneumatic compression (10) Secondary DM with DKA, uncontrolled Current Visit: Yes Status: Acute Assessment and plan: ER anion gap of 17; on admission repeat anion gap 11; gap remains closed, ABG pH 7.41; Bicarb >18; K+ 3.4 A1c 8.6; Diabetic diet Monitor closely; sliding scale ACHS protocol (11) Pneumonia Current Visit: Yes Status: Acute Assessment and plan: Bilateral lower lobe rhonchi Mostly bacterial PNA Continue PCN/Clinda Qualifiers: Pneumonia type: due to unspecified organism Laterality: bilateral Lung location: lower lobe of lung Qualified Code(s): J18.9 - Pneumonia, unspecified organism (12) Morbid obesity Current Visit: Yes Status: Acute Assessment and plan: BMI 38.9 - Subjective Interval history: Ms. Dodge is a 56 year old female with past medical history of IV drug abuse 20 yrs ago, CAD, hypertension, AR status post cardiac stents, anxiety, depression, and bilateral total knee replacements back in 2008 was admitted here on with acute delirium, acute hypoxic resp failure with possible pneumonia. She also had a fall prior to this hospitalization since she has been c/o Rt clavicular pain with bruise , also developed Rt arm cellulites. Pt became bacteremic with Group A strep and her b/l Knee aspiration showed G+ve cocci. Pt did have b/l Knee irrigation and debridement of b/l TKA done on 08/21/17. Later pt was transferred to ICU for further care. Today pt is alert, awake and oriented x 3 however still looks little confused and lethargic. Denied any CP. Does c/o b/l leg pain and generalized body pains. - Constitutional Vitals: Temp Pulse Resp BP Pulse Ox 97.7 F 103 18 104/60 94 08/23/17 07:23 08/23/17 06:00 08/23/17 06:00 08/23/17 06:00 08/23/17 06:00 General appearance: Present: A&O X 3, answers questions appropriately - Head Head exam: Present: atraumatic, normal inspection - Neck Neck exam general surgery: Present: supple - Respiratory Respiratory exam: Present: decreased breath sounds, wheezes. Absent: rales, respiratory distress, rhonchi - Cardiovascular Cardiovascular exam: Present: +S1, +S2, tachycardia. Absent: systolic murmur - GI/Abdominal GI/Abdominal exam: Present: distended, normal bowel sounds, soft. Absent: rebound, rigid, tenderness - Extremities Exam Additional comments: b/l Knee s/p I & D with dressing on . Rt arm still swollen and mild erythema noticed. Still has erythema and swelling over Rt mid clavicular region. No change noticed compare to y/d - Neurological Exam Neurological exam: Present: alert, oriented X3 Additional comments: still looks little confused - Psychiatric Psychiatric exam: Present: depressed Internal Medicine: Result - Labs CBC & Chem 7: 08/23/17 02:51 08/23/17 02:51 Labs: Short CBC 08/23/17 Range/Units 02:51 WBC 7.1 (4.3-11.1) K/mcL Hgb 9.6 L (11.5-15.4) g/dL Hct 27.3 L (35.3-44.9) % Plt Count 78 L (140-400) K/mcL Neutrophils # 4.2 (1.6-8.9) K/mcL BMP 08/23/17 02:51 Sodium 136 Potassium 3.4 L Chloride 102 Carbon Dioxide 26 BUN 8 Creatinine 0.59 Glucose 99 Calcium 7.6 L Liver Function 08/23/17 Range/Units 02:51 Total Bilirubin 2.5 H (0.2-1.2) mg/dL AST 53 H (5-34) Units/L ALT 33 (0-55) Units/L Alkaline Phosphatase 154 H (38-126) Units/L Albumin 1.5 L (3.5-5.0) g/dL Urine 08/22/17 Range/Units 10:25 Urine Color Dark Yellow (Yellow) Urine Clarity Cloudy A (Clear) Urine pH 6.0 (5.0-8.0) pH Units Ur Specific [place] 1.027 H (1.010-1.025) Urine Protein 30 H (Neg-Trace) mg/dL Urine Glucose (UA) >=1000 H (Normal) mg/dL - ABG Interpretation ABG results: ABG ABG pH 7.41 pH Units (7.32-7.45) 08/20/17 04:02 ABG pCO2 38 mmHg (35-45) 08/20/17 04:02 ABG pO2 52 mmHg (85-104) L 08/20/17 04:02 ABG O2 Saturation 87 % (95-98) L 08/20/17 04:02 - VTE Documentation of Mechanical Device: Intermittent pneumatic compression device Consult Discharge Plan - Plan Referrals: NONE,PCP [Primary Care Provider] - Asia Unger, CLERK CARRIER [Advanced Practice Nurse] - 08/26/17 12:15 pm (Please fax over the discharge summary and the med list to [phone])
[2017-08-23] MEDS: Insulin LISPRO 300 UNITS/3 ML VIAL SQ SCH ×4 (08:39→21:14)
[2017-08-23] MEDS: Folic Acid 1 MG TABLET PO SCH (08:42)
[2017-08-23] MEDS: Gabapentin 400 MG CAPSULE PO SCH ×3 (08:43→21:34)
[2017-08-23] MEDS: Clindamycin 900 MG/50 ML 900 MG/50 ML IV.SOLN IVPB SCH (08:43)
[2017-08-23] MEDS: Famotidine 20 MG TABLET PO SCH ×2 (08:43→21:34)
--- NOTE | 2017-08-23 10:23 | Infectious Disease Progress No ---
Date of Encounter: 08/23/17 Time of Encounter: 10:21 - Assessment and Plan (1) Severe sepsis Current Visit: Yes Status: Acute The patient had two SIRS criteria plus HANNAH and lactic acidosis on admission. Likely secondary to bacteremia. Improved. Tachycardia has improved. She has been afebrile. Blood cultures drawn 08/18/17 x 1 set and 08/19/17 x 1 set are positive for GAS. Repeat blood cultures drawn 08/21/17 are NGTD. (2) Bacteremia Current Visit: Yes Status: Acute Causative organism Group A Strep. Source not entirely clear: PNA vs. RUE cellulitis vs. other. 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 Blood cultures drawn 08/18/17 x 1 set is positive for GAS. Repeat blood culture drawn 08/19/17 x 1 set is also positive for GAS. Additional blood cultures drawn 08/21/17 are NGTD x 2 sets. Continue PCN G 4 million units IV Q4H. Discontinue Clindamycin (day 4). Start probiotic BID. Duration of treatment depends on the clinical picture. Monitor renal function and dose-adjust antibiotics. (3) Infected prosthetic knee joint Current Visit: Yes Status: Acute Location: bilateral knees. Causative organism unclear, but likely GAS given the blood culture results. Likely secondary to hematogenous seeding of the hardware. Less likely the source of the bacteremia. Status post bedside arthrocentesis. TNC 1277 with 95 segmented neutrophils and no crystals. Status post irrigation and debridement with polyexchange of bilateral TKA by Dr. Ramirez. Operative note reviewed. Gross purulence noted intra-op. Gram stain shows GPC, but cultures preliminarily negative. Continue antibiotics as above for now. Wound care and activity restrictions per the primary team. Duration of treatment depends on the clinical picture, but likely 6 weeks of IV antibiotics. Monitor renal function and dose-adjust antibiotics. Qualifiers: Encounter type: initial encounter Qualified Code(s): T84.59XA - Infection and inflammatory reaction due to other internal joint prosthesis, initial encounter; Z96.659 - Presence of unspecified artificial knee joint; Z96.659 - Presence of unspecified artificial knee joint (4) Pneumonia Current Visit: Yes Status: Acute Location: Bilateral lower lobes. Causative organism unclear. CT of the chest shows findings consistent with possible PNA. This could be the source of the patient's bacteremia. Get sputum culture if patient is able to provide an adequate specimen. Continue antibiotics as above. Repeat CXR. Qualifiers: Pneumonia type: due to unspecified organism Laterality: bilateral Lung location: lower lobe of lung Qualified Code(s): J18.9 - Pneumonia, unspecified organism (5) Acute metabolic encephalopathy Current Visit: Yes Status: Acute Likely secondary to infectious process and DKA. Appears improved. CT head negative. Continue to monitor closely. (6) Acute kidney failure Current Visit: Yes Status: Resolved Likely secondary to dehydration and sepsis. Resolved. Qualifiers: Acute renal failure type: unspecified Qualified Code(s): N17.9 - Acute kidney failure, unspecified (7) Secondary DM with DKA, uncontrolled Current Visit: Yes Status: Acute FSBS 433 on admission. HgbA1C 8.3%. Management per the primary team. (8) Right arm cellulitis Current Visit: Yes Status: Acute Right arm mildly edematous and erythematous on exam, but not impressive. Not sure if this is a true cellulitis and/or the source of the patient's bacteremia. Continues to improve. Continue antibiotics as above. (9) Thrombocytopenia Current Visit: Yes Status: Acute Etiology unclear, but likely related to infection. No acute bleeding noted in exam. Continue to trend. Management per the primary team. (10) Vomiting Current Visit: Yes Status: Resolved Likely secondary to DKA. Resolved. Qualifiers: Vomiting type: unspecified Vomiting Intractability: non-intractable Nausea presence: with nausea Qualified Code(s): R11.2 - Nausea with vomiting, unspecified (11) Bilateral knee pain Current Visit: Yes Status: Acute Secondary to bilateral PJI. Pain management per the primary and ortho teams. Qualifiers: Chronicity: acute Qualified Code(s): M25.561 - Pain in right knee; M25.562 - Pain in left knee; M25.562 - Pain in left knee (12) Abrasion Current Visit: Yes Status: Acute Location: Right upper chest. Scabbed lesions patient states was from fall. No fluctuance noted. ? Source of patient's bacteremia. - Subjective Interval history: Patient seen and examined. No acute events noted overnight. Status post bilateral knee I & D 08/21/17. Continues to complain of bilateral knee pain, improved since surgery. Denies fevers, chills, or rigors. Denies chest pain or shortness of breath, but does report a cough. Denies nausea, vomiting, or constipation. Patient noted to have been incontinent of stool this morning. She denies urinary complaints. She reports she feels hungry, but per staff the patient slept through breakfast. She denies pain in her other extremities. Infect Dis PN-Objective Data - Labs CBC & Chem 7: 08/23/17 02:51 08/23/17 02:51 Labs: Laboratory Results - last 24 hr 08/18/17 08/22/17 08/22/17 21:51 10:25 10:59 WBC RBC Hgb Hct MCV MCH MCHC RDW Plt Count MPV Seg Neutrophils % Band Neutrophils % Lymphocytes % Monocytes % Eosinophils % Neutrophils # Lymphocytes # Monocytes # Eosinophils # Toxic Granulation Platelet Estimate Large Platelets Immature Plt Fraction Sodium Potassium Chloride Carbon Dioxide BUN Creatinine Est GFR ( Amer) Est GFR (Non-Af Amer) BUN/Creatinine Ratio Glucose POC Glucose 179 H Calculated Osmolality Calcium Magnesium Total Bilirubin AST ALT Alkaline Phosphatase Serum Total Protein Albumin Globulin Albumin/Globulin Ratio Urine Color Dark Yellow Urine Clarity Cloudy A Urine pH 6.0 Ur Specific [place] 1.027 H Urine Protein 30 H Urine Glucose (UA) >=1000 H Urine Ketones Trace H Urine Blood Negative Urine Nitrite Negative Urine Bilirubin Moderate H Urine Urobilinogen 4.0 H Ur Leukocyte Esterase Negative Urine Microscopic RBC 0-3 Urine Microscopic WBC 3-5 H Ur Squamous Epith Cells Many H Urine Bacteria None Seen Hyaline Casts None Seen Urine Yeast Few H Cannabinoids Confirm 20 08/22/17 08/22/17 08/23/17 15:32 19:17 02:51 WBC 7.1 RBC 3.09 L Hgb 9.6 L Hct 27.3 L MCV 88.3 MCH 31.1 MCHC 35.2 RDW 15.2 H Plt Count 78 L MPV 12.7 H Seg Neutrophils % 51.0 Band Neutrophils % 8.0 H Lymphocytes % 31.0 Monocytes % 9.0 Eosinophils % 1.0 Neutrophils # 4.2 Lymphocytes # 2.2 Monocytes # 0.6 Eosinophils # 0.1 Toxic Granulation Present A Platelet Estimate Decreased L Large Platelets Present A Immature Plt Fraction 25.2 H Sodium Potassium Chloride Carbon Dioxide BUN Creatinine Est GFR ( Amer) Est GFR (Non-Af Amer) BUN/Creatinine Ratio Glucose POC Glucose 129 H 169 H Calculated Osmolality Calcium Magnesium Total Bilirubin AST ALT Alkaline Phosphatase Serum Total Protein Albumin Globulin Albumin/Globulin Ratio Urine Color Urine Clarity Urine pH Ur Specific [place] Urine Protein Urine Glucose (UA) Urine Ketones Urine Blood Urine Nitrite Urine Bilirubin Urine Urobilinogen Ur Leukocyte Esterase Urine Microscopic RBC Urine Microscopic WBC Ur Squamous Epith Cells Urine Bacteria Hyaline Casts Urine Yeast Cannabinoids Confirm 08/23/17 08/23/17 02:51 07:07 WBC RBC Hgb Hct MCV MCH MCHC RDW Plt Count MPV Seg Neutrophils % Band Neutrophils % Lymphocytes % Monocytes % Eosinophils % Neutrophils # Lymphocytes # Monocytes # Eosinophils # Toxic Granulation Platelet Estimate Large Platelets Immature Plt Fraction Sodium 136 Potassium 3.4 L Chloride 102 Carbon Dioxide 26 BUN 8 Creatinine 0.59 Est GFR ( Amer) > 60 Est GFR (Non-Af Amer) > 60 BUN/Creatinine Ratio 14 Glucose 99 POC Glucose 71 Calculated Osmolality 280 Calcium 7.6 L Magnesium 1.9 Total Bilirubin 2.5 H AST 53 H ALT 33 Alkaline Phosphatase 154 H Serum Total Protein 5.4 L Albumin 1.5 L Globulin 3.9 H Albumin/Globulin Ratio 0.4 L Urine Color Urine Clarity Urine pH Ur Specific [place] Urine Protein Urine Glucose (UA) Urine Ketones Urine Blood Urine Nitrite Urine Bilirubin Urine Urobilinogen Ur Leukocyte Esterase Urine Microscopic RBC Urine Microscopic WBC Ur Squamous Epith Cells Urine Bacteria Hyaline Casts Urine Yeast Cannabinoids Confirm Cultures: Cultures 08/21/17 11:25 Body Fluid Culture - Preliminary Synovial Fluid 08/21/17 11:25 Body Fluid Culture - Preliminary Synovial Fluid 08/21/17 20:30 Surgical Biopsy Culture - Preliminary Right Knee 08/21/17 20:30 Surgical Biopsy Culture - Preliminary Left Knee 08/21/17 05:30 Blood Culture - Preliminary Peripheral Venipuncture No growth. 08/21/17 05:20 Blood Culture - Preliminary Peripheral Venipuncture No growth. 08/19/17 02:29 Blood Culture - Final Peripheral Venipuncture Strep pyogenes (Group A) 08/18/17 21:51 Blood Culture - Final Peripheral Venipuncture Strep pyogenes (Group A) Serology 08/22/17 08/21/17 08/21/17 Range/Units 10:25 11:25 11:25 Urine Color Dark Yellow (Yellow) Urine Clarity Cloudy A (Clear) Urine pH 6.0 (5.0-8.0) pH Units Ur Specific [place] 1.027 H (1.010-1.025) Urine Protein 30 H (Neg-Trace) mg/dL Urine Glucose (UA) >=1000 H (Normal) mg/dL Urine Ketones Trace H (Negative) mg/dL Urine Blood Negative (Negative) Urine Nitrite Negative (Negative) Urine Bilirubin Moderate H (Negative) Urine Urobilinogen 4.0 H (Normal) mg/dL Ur Leukocyte Esterase Negative (Negative) Urine Microscopic RBC 0-3 (0-3) per hpf Urine Microscopic WBC 3-5 H (0-3) per hpf Ur Squamous Epith Cells Many H (None-Few) per lpf Amorphous Sediment (Few) Urine Bacteria None Seen (None-Few) per hpf Hyaline Casts None Seen (None-Few) per lpf Urine Yeast Few H (None Seen) per hpf Synovial Source RIGHT KNEE LEFT KNEE Synovial Color Straw Straw (Straw) Synovial Appearance Cloudy A Cloudy A (Clear-Hazy) Synovial Volume 11.0 11.0 mL Synovial RBC < 0.002 0.002 (0.000 - 0.002) M/mcl Synovial Tot Nuc Cell 1277 H 6293 H (0-200) TNC/mcL Synovial Band Neuts Test Not Performed Synovial Basophils Test Not Performed Synovial Eosinophils Test Not Performed Synovial Seg Neuts % 95.0 90.0 % Synovial Lymphocytes % 1 2.0 % Synovial Monocytes % 4.0 8.0 % Synovial Other Cells % Test Not Performed Synovial Crystals No Crystals Seen No Crystals Seen (None Seen) A. baumannii (PCR) (Not Detect) Mable albicans (PCR) (Not Detect) C. glabrata (PCR) (Not Detect) C. krusei (PCR) (Not Detect) C. parapsilosis (PCR) (Not Detect) C. tropicalis (PCR) (Not Detect) Enterobacteriac sp PCR (Not Detect) E. cloacae complex PCR (Not Detect) Enterococcus sp PCR (Not Detect) E. coli (PCR) (Not Detect) H. influenzae (PCR) (Not Detect) Klebsiella oxytoca PCR (Not Detect) Klebsiella pneumoniae (Not Detect) List. monocytogenes PCR (Not Detect) N. meningitidis (PCR) (Not Detect) Proteus species (PCR) (Not Detect) Serratia marcescens PCR (Not Detect) Staphylococcus sp PCR (Not Detect) Staph aureus (PCR) (Not Detect) mecA-Methicil Res Gene (Not Detect) Streptococcus sp PCR (Not Detect) Group A Strep DNA (Not Detect) Group B Strep (PCR) (Not Detect) Strep pneumoniae (PCR) (Not Detect) P. aeruginosa (PCR) (Not Detect) Gorge/B-Vanco Res Genes (Not Detect) KPC (blaKPC) Detect PCR (Not Detect) 08/19/17 08/19/17 08/18/17 Range/Units 22:15 02:29 21:51 Urine Color Yellow (Yellow) Urine Clarity Clear (Clear) Urine pH 6.5 (5.0-8.0) pH Units Ur Specific [place] 1.010 (1.010-1.025) Urine Protein Negative (Neg-Trace) mg/dL Urine Glucose (UA) 100 H (Normal) mg/dL Urine Ketones Negative (Negative) mg/dL Urine Blood Trace H (Negative) Urine Nitrite Negative (Negative) Urine Bilirubin Negative (Negative) Urine Urobilinogen Normal (Normal) mg/dL Ur Leukocyte Esterase Negative (Negative) Urine Microscopic RBC 0-3 (0-3) per hpf Urine Microscopic WBC (0-3) per hpf Ur Squamous Epith Cells Few (None-Few) per lpf Amorphous Sediment Few (Few) Urine Bacteria Few (None-Few) per hpf Hyaline Casts (None-Few) per lpf Urine Yeast (None Seen) per hpf Synovial Source Synovial Color (Straw) Synovial Appearance (Clear-Hazy) Synovial Volume mL Synovial RBC (0.000 - 0.002) M/mcl Synovial Tot Nuc Cell (0-200) TNC/mcL Synovial Band Neuts Synovial Basophils Synovial Eosinophils Synovial Seg Neuts % % Synovial Lymphocytes % % Synovial Monocytes % % Synovial Other Cells % Synovial Crystals (None Seen) A. baumannii (PCR) Not Detected Not Detected (Not Detect) Mable albicans (PCR) Not Detected Not Detected (Not Detect) C. glabrata (PCR) Not Detected Not Detected (Not Detect) C. krusei (PCR) Not Detected Not Detected (Not Detect) C. parapsilosis (PCR) Not Detected Not Detected (Not Detect) C. tropicalis (PCR) Not Detected Not Detected (Not Detect) Enterobacteriac sp PCR Not Detected Not Detected (Not Detect) E. cloacae complex PCR Not Detected Not Detected (Not Detect) Enterococcus sp PCR Not Detected Not Detected (Not Detect) E. coli (PCR) Not Detected Not Detected (Not Detect) H. influenzae (PCR) Not Detected Not Detected (Not Detect) Klebsiella oxytoca PCR Not Detected Not Detected (Not Detect) Klebsiella pneumoniae Not Detected Not Detected (Not Detect) List. monocytogenes PCR Not Detected Not Detected (Not Detect) N. meningitidis (PCR) Not Detected Not Detected (Not Detect) Proteus species (PCR) Not Detected Not Detected (Not Detect) Serratia marcescens PCR Not Detected Not Detected (Not Detect) Staphylococcus sp PCR Not Detected Not Detected (Not Detect) Staph aureus (PCR) Not Detected Not Detected (Not Detect) mecA-Methicil Res Gene Not Detected Not Detected (Not Detect) Streptococcus sp PCR DETECTED A DETECTED A (Not Detect) Group A Strep DNA DETECTED A DETECTED A (Not Detect) Group B Strep (PCR) Not Detected Not Detected (Not Detect) Strep pneumoniae (PCR) Not Detected Not Detected (Not Detect) P. aeruginosa (PCR) Not Detected Not Detected (Not Detect) Gorge/B-Vanco Res Genes Not Detected Not Detected (Not Detect) KPC (blaKPC) Detect PCR Not Detected Not Detected (Not Detect) Exam - Constitutional Vitals: Temp Pulse Resp BP Pulse Ox 97.7 F 101 20 102/59 93 08/23/17 07:23 08/23/17 09:00 08/23/17 09:00 08/23/17 09:00 08/23/17 09:00 General appearance: cooperative, no acute distress, obese - Head Head exam: Present: atraumatic, normal inspection, normocephalic - Eye Eye exam: Present: EOMI, normal appearance, PERRL Pupils: Present: normal accommodation - ENT ENT exam: Present: mucous membranes dry - Neck Neck exam: Present: normal inspection - Respiratory Respiratory exam: Present: rhonchi (throughout). Absent: rales, respiratory distress, wheezes - Cardiovascular Cardiovascular exam: Present: RRR, +S1, +S2 - GI/Abdominal GI/Abdominal exam: Present: distended (obese), normal bowel sounds, soft. Absent: tenderness - Extremities Exam Extremities exam: Present: joint swelling (Mild, bilateral knees), pedal edema ( 1+ BLE), tenderness (bilateral knees) Additional comments: Honeycomb dressings noted to the anterior bilateral knee incisions. No erythema, warmth, or active drainage noted. ROM not assessed due to pain. - Neurological Exam Neurological exam: Present: alert, oriented X3, no focal deficits - Psychiatric Psychiatric exam: Present: normal affect, normal mood - Skin Skin exam: Present: dry, intact, normal color, warm - VTE Documentation of Mechanical Device: Intermittent pneumatic compression device Consult Discharge Plan - Plan Referrals: NONE,PCP [Primary Care Provider] - Asia Unger, CLOTH TRIMMER HAND [Advanced Practice Nurse] - 08/26/17 12:15 pm (Please fax over the discharge summary and the med list to [phone])
[2017-08-23 10:25] LABS: Methamphetamine Confirmation 99 ng/mL; Methylenedioxyethylamphetamine <20 ng/mL
[2017-08-23] MEDS: Nicotine 21 MG PATCH.TD24 TD SCH (21:34)
[2017-08-23] MEDS: Insulin DETEMIR 100 UNIT/ML X5UNITS SQ SCH (21:35)
[2017-08-24] MEDS: Ipratropium/Albuterol Neb 3 ML IH SCH ×6 (00:18→20:12)
[2017-08-24] MEDS: *HR* OxyCODONE/APAP 5/325 TABLET PO PRN ×4 (00:40→19:21)
[2017-08-24] MEDS: Penicillin G Potassium 4,000,000 UNIT in D5% in Water 100 ML IVPB SCH ×6 (02:09→21:24)
[2017-08-24] MEDS: *HR* Morphine 2 MG/ML SYRINGE IVP PRN ×3 (03:24→21:24)
[2017-08-24 03:57] LABS: Basophils # 0.1 K/mcL (0.0-0.2); Basophils % 0.7 %; Eosinophils # 0.2 K/mcL (0.0-0.6); Eosinophils % 1.5 %; Hematocrit 30.1 % (35.3-44.9); Hemoglobin 10.3 g/dL (11.5-15.4); Immature Granulocytes % 8.4 % (0-4); Lymphocytes # 2.5 K/mcL (0.6-4.6); Lymphocytes % 18.5 %; Mean Corpuscular HGB Conc 34.2 g/dL (31.6-35.5); Mean Corpuscular Hemoglobin 30.5 pg (28.0-33.3); Mean Corpuscular Volume 89.1 fL (83.0-100.0); Mean Platelet Volume 12.1 fL (9.4-12.4); Monocytes # 0.9 K/mcL (0.0-1.3); Monocytes % 6.4 %; Neutrophils # 8.7 K/mcL (1.6-8.9); Platelet Count 104 K/mcL (140-400); Red Blood Count 3.38 M/mcL (3.82-4.97); Red Cell Distribution Width 15.4 % (11.5-14.5); Segmented Neutrophils % 64.5 %
[2017-08-24 04:16] LABS: Alanine Aminotransferase 34 Units/L (0-55); Albumin/Globulin Ratio 0.3 (1.1-2.2); Alkaline Phosphatase 208 Units/L (38-126); Aspartate Amino Transferase 57 Units/L (5-34); BUN/Creatinine Ratio 12 (6-26); Bilirubin,Total 1.9 mg/dL (0.2-1.2); Blood Urea Nitrogen 7 mg/dL (7-20); Calcium 7.9 mg/dL (8.6-10.8); Carbon Dioxide 25 mEq/L (19-29); Chloride 102 mEq/L (98-109); Globulin 4.3 g/dL (2.4-3.5); Glucose 98 mg/dL (70-99); Magnesium 1.3 mg/dL (1.6-2.6); Osmolality,Calculated 272 (280-300); Potassium 3.9 mEq/L (3.5-4.5); Sodium 132 mEq/L (136-145); Total Protein 5.7 g/dL (6.0-8.3); eGFR For African Americans > 60 (> 60); eGFR For Non-African Americans > 60 (> 60)
[2017-08-24 04:24] LABS: Albumin 1.4 g/dL (3.5-5.0)
[2017-08-24 04:38] LABS: Large Platelets Present (Not Present); Platelet Estimate Decreased (Normal); Reactive Lymphocytes Present (Not Present); Toxic Granulation Present (Not Present)
[2017-08-24] MEDS: 0.9 % Sodium Chloride 1,000 ML IVC SCH (05:56)
[2017-08-24] MEDS: Insulin LISPRO 300 UNITS/3 ML VIAL SQ SCH ×4 (07:52→21:26)
[2017-08-24] MEDS: Folic Acid 1 MG TABLET PO SCH (08:00)
[2017-08-24] MEDS: Nicotine 21 MG PATCH.TD24 TD SCH (08:00)
[2017-08-24] MEDS: Famotidine 20 MG TABLET PO SCH ×2 (08:00→21:24)
[2017-08-24] MEDS: Gabapentin 400 MG CAPSULE PO SCH ×3 (08:00→21:25)
--- NOTE | 2017-08-24 10:01 | Orthopedics Progress Note ---
Date of Encounter: 08/24/17 Time of Encounter: 09:58 Subjective Principal diagnosis: Sepsis Interval history: S: Patient is seen and resting in bed Improved right upper extremity pain. Bilateral knee pain, left worse than the right Biggest complaint today is low back and left buttock pain She says that this is an exacerbation of her long history of low back pain O: Afebrile and her vital signs are stable Right upper extremity with mild cellulitis and a small punctate ulceration in the proximal right clavicular region with mild surrounding blanchable erythema Neurovascularly intact to the right upper extremity Knee dressings on both sides without significant drainage Pain on passive motion of both knees, particularly the left Neurovascularly intact distally to the lower extremities WBC count noted. Intraoperative cultures of the knees are negative to date A: Post I&D and poly-exchanges of the bilateral knees Right upper extremity cellulitis P: Continue observation on IV antibiotics No surgical plans of the right upper extremity Continue IV antibiotics Appreciate recommendations from ID. Objective Vital signs: Vital Signs Temp Pulse Resp BP Pulse Ox 08/24/17 07:56 18 92 08/24/17 07:04 98.8 F 89 20 144/84 91 08/24/17 03:21 98.1 F 81 16 131/75 92 08/24/17 00:20 98.4 F 56 15 122/80 93 08/24/17 00:18 16 94 08/23/17 20:10 15 96 08/23/17 19:08 98.0 F 91 17 126/74 94 08/23/17 17:42 97.7 F 83 16 133/81 96 08/23/17 16:52 16 97 08/23/17 13:36 98.0 F 86 15 112/78 97 08/23/17 11:46 98.0 F 08/23/17 11:20 87 08/23/17 11:00 92 16 102/59 94 08/23/17 10:00 97 16 115/70 95 Intake and Output 08/23/17 08/24/17 08/24/17 23:59 07:59 15:59 Intake Total 300 / 300 1100 / 1100 100 / 100 Output Total 850 / 850 300 / 300 Balance 300 / 300 250 / 250 -200 / -200 Intake: IV Fluids 300 / 300 1100 / 1100 100 / 100 0.9 % Sodium Chloride 1,000 ML 1000 / 1000 @ 100 mls/hr IVC .Q10H CAROL Rx#: [id number] Pfizerpen 4,000,000 UNIT In 300 / 300 100 / 100 100 / 100 Dextrose 5% 100 ML @ 100 mls/hr IVPB Q4H CAROL Rx#:[id number] Output: Urine 850 / 850 300 / 300 Other: Meal Breakfast Percent of Meal Consumed 5% # Urine Diapers 1 Blood Glucose* 131 82 - Labs CBC & BMP: 08/24/17 03:40 08/24/17 03:40 Labs: Abnormal lab results WBC 13.5 K/mcL (4.3-11.1) H D 08/24/17 03:40 RBC 3.38 M/mcL (3.82-4.97) L 08/24/17 03:40 Hgb 10.3 g/dL (11.5-15.4) L 08/24/17 03:40 Hct 30.1 % (35.3-44.9) L 08/24/17 03:40 RDW 15.4 % (11.5-14.5) H 08/24/17 03:40 Plt Count 104 K/mcL (140-400) L 08/24/17 03:40 Immature Gran % 8.4 % (0-4) H 08/24/17 03:40 Band Neutrophils % 8.0 % (0-4) H 08/23/17 02:51 Reactive Lymphocytes Present (Not Present) A 08/24/17 03:40 Toxic Granulation Present (Not Present) A 08/24/17 03:40 Toxic Vacuolation Present (Not Present) A 08/19/17 02:29 Platelet Estimate Decreased (Normal) L 08/24/17 03:40 Large Platelets Present (Not Present) A 08/24/17 03:40 Immature Plt Fraction 25.2 % (1.1-6.1) H 08/23/17 02:51 ESR >= 130 mm/hr (0-15) H 08/22/17 06:00 ABG pO2 52 mmHg (85-104) L 08/20/17 04:02 ABG O2 Saturation 87 % (95-98) L 08/20/17 04:02 VBG pCO2 34 mmHg (41-51) L 08/19/17 02:44 VBG pO2 80 mmHg (25-50) H 08/19/17 02:44 VBG HCO3 20 mEq/L (21-27) L 08/19/17 02:44 Sodium 132 mEq/L (136-145) L 08/24/17 03:40 POC Glucose 131 (58-89) H 08/23/17 19:27 Hemoglobin A1c 8.3 % (-5.6) H 08/19/17 02:29 Serum Osmolality 270 mOsm/kg (280-300) L 08/19/17 02:29 Calculated Osmolality 272 (280-300) L 08/24/17 03:40 Calcium 7.9 mg/dL (8.6-10.8) L 08/24/17 03:40 Magnesium 1.3 mg/dL (1.6-2.6) L 08/24/17 03:40 Total Bilirubin 1.9 mg/dL (0.2-1.2) H 08/24/17 03:40 AST 57 Units/L (5-34) H 08/24/17 03:40 Alkaline Phosphatase 208 Units/L (38-126) H 08/24/17 03:40 C-Reactive Protein 180 mg/L (Less than 5) H 08/22/17 06:00 Serum Total Protein 5.7 g/dL (6.0-8.3) L 08/24/17 03:40 Albumin 1.4 g/dL (3.5-5.0) L 08/24/17 03:40 Globulin 4.3 g/dL (2.4-3.5) H 08/24/17 03:40 Albumin/Globulin Ratio 0.3 (1.1-2.2) L 08/24/17 03:40 Beta-Hydroxybutyric Acd 0.31 mmol/L (0.02-0.27) H 08/19/17 02:29 Urine Clarity Cloudy (Clear) A 08/22/17 10:25 Ur Specific [place] 1.027 (1.010-1.025) H 08/22/17 10:25 Urine Protein 30 mg/dL (Neg-Trace) H 08/22/17 10:25 Urine Glucose (UA) >=1000 mg/dL (Normal) H 08/22/17 10:25 Urine Ketones Trace mg/dL (Negative) H 08/22/17 10:25 Urine Bilirubin Moderate (Negative) H 08/22/17 10:25 Urine Urobilinogen 4.0 mg/dL (Normal) H 08/22/17 10:25 Urine Microscopic WBC 3-5 per hpf (0-3) H 08/22/17 10:25 Ur Squamous Epith Cells Many per lpf (None-Few) H 08/22/17 10:25 Urine Yeast Few per hpf (None Seen) H 08/22/17 10:25 Synovial Appearance Cloudy (Clear-Hazy) A 08/21/17 11:25 Synovial Tot Nuc Cell 1277 TNC/mcL (0-200) H 08/21/17 11:25 Streptococcus sp PCR DETECTED (Not Detect) A 08/19/17 02:29 Group A Strep DNA DETECTED (Not Detect) A 08/19/17 02:29 - VTE Documentation of Mechanical Device: Venous foot pump, device Consult Discharge Plan - Plan Referrals: NONE,PCP [Primary Care Provider] - Asia Unger CINDER MAN [Advanced Practice Nurse] - 08/26/17 12:15 pm (Please fax over the discharge summary and the med list to [phone])
--- NOTE | 2017-08-24 10:06 | Internal Med Progress Note ---
<Narayan Walton - Last Filed: 08/24/17 10:40> Date of Encounter: 08/24/17 Time of Encounter: 09:00 - Assessment and plan (1) Severe sepsis Current Visit: Yes Status: Acute Assessment and plan: Severe sepsis:fever, tachcyardia, thrombocytopenia, HANNAH; suspected source of infection Rt Arm cellulites, Rt mid clavicular region abscess and PNA Blood cx 1 set from 08/18 growing Group A strep and 1 set from 08/19 growing Group A Repeat blood cx from 08/21/17 - so far no growth Pt did have remote h/o IV drug abuse 20 yrs ago 2 D Echo from 08/19/17 showing normal LVEF 55%, No valvular abnormalities her b/l Knee aspiration showed G+ve cocci s/p Irrigation and debridement of b/l TKR on 08/21/17 POD # 2 cont empirical abx Penicillin G and Clindamycin Since repeated blood cx - did not show any growth yet, may not needed any CRSITIANA at this point Maintaining good BUN/Creat; continuing gentle IV Fluids Continues to be stable in 3NE. (2) Bacteremia Current Visit: Yes Status: Acute Assessment and plan: see above (3) Bilateral knee pain Current Visit: Yes Status: Acute Assessment and plan: Hx bilateral arthroplasty Consulted ortho; s/p bilateral knee aspiration, debridement monitoring Qualifiers: Chronicity: acute Qualified Code(s): M25.561 - Pain in right knee; M25.562 - Pain in left knee; M25.562 - Pain in left knee (4) Acute respiratory failure with hypoxia Current Visit: Yes Status: Acute Assessment and plan: Due to PNA - mostly bacterial PNA Improving cont IV abx cont duoneb and O2 will give Lasix PRN (5) Clavicle pain Current Visit: Yes Status: Acute Assessment and plan: No change talked to Ortho recommend no further interventions.. cont monitoring for now with abx (6) Acute metabolic encephalopathy Current Visit: Yes Status: Acute Assessment and plan: Due to toxic encephalopathy/infection improving CT brain negative for acute process pt concentration and speech improving (7) Right arm cellulitis Current Visit: Yes Status: Acute Assessment and plan: H/o IV drug abuse [address] chest negative for abscess venous doppler is negative for any DVT cont empirical abx (8) Pneumonia Current Visit: Yes Status: Acute Assessment and plan: Bilateral lower lobe rhonchi Mostly bacterial PNA Continue PCN/Clinda Qualifiers: Pneumonia type: due to unspecified organism Laterality: bilateral Lung location: lower lobe of lung Qualified Code(s): J18.9 - Pneumonia, unspecified organism (9) Severe thrombocytopenia Current Visit: Yes Status: Acute Assessment and plan: Due to severe sepsis Improving slowly: 104 11/4, 45 / Cont close monitoring (10) Secondary DM with DKA, uncontrolled Current Visit: Yes Status: Acute Assessment and plan: ER anion gap of 17; on admission repeat anion gap 11; gap remains closed, ABG pH 7.41; Bicarb >18; K+ 3.4 A1c 8.6; Diabetic diet Monitor closely; sliding scale ACHS protocol (11) DVT prophylaxis Current Visit: Yes Status: Acute Assessment and plan: Continue intermittent pneumatic compression (12) Morbid obesity Current Visit: Yes Status: Acute Assessment and plan: BMI 38.9 - Subjective Interval history: Interval History: Ms. Dodge is a 56 year old female with past medical history of IV drug abuse 20 yrs ago, CAD, hypertension, [place] status post cardiac stents, anxiety, depression, and bilateral total knee replacements back in 2008 was admitted here on 08/18/17 with acute delirium, acute hypoxic resp failure with possible pneumonia. She also had a fall prior to this hospitalization since she has been c/o Rt clavicular pain with bruise , also developed Rt arm cellulites. Pt became bacteremic with Group A strep and her b/l Knee aspiration showed G+ve cocci. Pt did have b/l Knee irrigation and debridement of b/l TKA done on . Later pt was transferred to ICU for further care. Repeat blood cx - no growth to date Today: pt is alert, speaking clearer, still very fatigued and describes pain in knees and is slightly nauseated. Is on pain management and prn Zofran. - Constitutional Vitals: Temp Pulse Resp BP Pulse Ox 98.8 F 89 18 144/84 92 08/24/17 07:04 08/24/17 07:04 08/24/17 07:56 08/24/17 07:04 08/24/17 07:56 General appearance: Present: A&O X 3, answers questions appropriately - Neck Neck exam general surgery: Present: full ROM - Respiratory Respiratory exam: Present: decreased breath sounds - Cardiovascular Cardiovascular exam: Present: RRR, +S1, +S2. Absent: systolic murmur - GI/Abdominal GI/Abdominal exam: Present: no peritoneal signs. Absent: tenderness - Extremities Exam Extremities exam: Absent: calf tenderness Additional comments: LE bilateral decreased ROM 2/2 pain weakness; knee joint debridement well healing, no erythema, prurulence - Psychiatric Psychiatric exam: Absent: anxious, depressed - Skin Additional comments: R lesion midclavicular line decreased erythema, no loculation Internal Medicine: Result - Labs CBC & Chem 7: 08/24/17 03:40 08/24/17 03:40 Labs: Short CBC 08/24/17 Range/Units 03:40 WBC 13.5 H D (4.3-11.1) K/mcL Hgb 10.3 L (11.5-15.4) g/dL Hct 30.1 L (35.3-44.9) % Plt Count 104 L (140-400) K/mcL Neutrophils # 8.7 (1.6-8.9) K/mcL BMP 08/24/17 03:40 Sodium 132 L Potassium 3.9 Chloride 102 Carbon Dioxide 25 BUN 7 Creatinine 0.57 Glucose 98 Calcium 7.9 L Liver Function 08/24/17 Range/Units 03:40 Total Bilirubin 1.9 H (0.2-1.2) mg/dL AST 57 H (5-34) Units/L ALT 34 (0-55) Units/L Alkaline Phosphatase 208 H (38-126) Units/L Albumin 1.4 L (3.5-5.0) g/dL - ABG Interpretation ABG results: ABG ABG pH 7.41 pH Units (7.32-7.45) 08/20/17 04:02 ABG pCO2 38 mmHg (35-45) 08/20/17 04:02 ABG pO2 52 mmHg (85-104) L 08/20/17 04:02 ABG O2 Saturation 87 % (95-98) L 08/20/17 04:02 - VTE Documentation of Mechanical Device: Venous foot pump, device Consult Discharge Plan - Plan Referrals: NONE,PCP [Primary Care Provider] - Asia Unger [employer] OPERATOR HELPER [Advanced Practice Nurse] - 08/26/17 12:15 pm (Please fax over the discharge summary and the med list to [phone]) <Albert Erazo - Last Filed: 08/24/17 17:42> Date of Encounter: 08/24/17 - Assessment and plan (1) Severe sepsis Current Visit: Yes Status: Acute (2) Septic arthritis Current Visit: Yes Status: Acute Qualifiers: Septic arthritis location: knee Septic arthritis organism: streptococcal Laterality: unspecified laterality Qualified Code(s): M00.269 - Other streptococcal arthritis, unspecified knee (3) Bacteremia Current Visit: Yes Status: Acute (4) Acute respiratory failure with hypoxia Current Visit: Yes Status: Acute (5) Clavicle pain Current Visit: Yes Status: Acute (6) Acute metabolic encephalopathy Current Visit: Yes Status: Acute (7) Right arm cellulitis Current Visit: Yes Status: Acute (8) Severe thrombocytopenia Current Visit: Yes Status: Acute (9) DVT prophylaxis Current Visit: Yes Status: Acute (10) Secondary DM with DKA, uncontrolled Current Visit: Yes Status: Acute (11) Pneumonia Current Visit: Yes Status: Acute Qualifiers: Pneumonia type: due to unspecified organism Laterality: bilateral Lung location: lower lobe of lung Qualified Code(s): J18.9 - Pneumonia, unspecified organism (12) Morbid obesity Current Visit: Yes Status: Acute - Constitutional Vitals: Temp Pulse Resp BP Pulse Ox 97.8 F 77 16 158/92 93 08/24/17 15:06 08/24/17 15:06 08/24/17 15:06 08/24/17 15:06 08/24/17 15:06 Internal Medicine: Result - Labs CBC & Chem 7: 08/24/17 03:40 08/24/17 03:40 Labs: Short CBC 08/24/17 Range/Units 03:40 WBC 13.5 H D (4.3-11.1) K/mcL Hgb 10.3 L (11.5-15.4) g/dL Hct 30.1 L (35.3-44.9) % Plt Count 104 L (140-400) K/mcL Neutrophils # 8.7 (1.6-8.9) K/mcL BMP 08/24/17 03:40 Sodium 132 L Potassium 3.9 Chloride 102 Carbon Dioxide 25 BUN 7 Creatinine 0.57 Glucose 98 Calcium 7.9 L Liver Function 08/24/17 Range/Units 03:40 Total Bilirubin 1.9 H (0.2-1.2) mg/dL AST 57 H (5-34) Units/L ALT 34 (0-55) Units/L Alkaline Phosphatase 208 H (38-126) Units/L Albumin 1.4 L (3.5-5.0) g/dL - ABG Interpretation ABG results: ABG ABG pH 7.41 pH Units (7.32-7.45) 08/20/17 04:02 ABG pCO2 38 mmHg (35-45) 08/20/17 04:02 ABG pO2 52 mmHg (85-104) L 08/20/17 04:02 ABG O2 Saturation 87 % (95-98) L 08/20/17 04:02 - Attending Attestation I examined this patient and my medical decision-making was reviewed with the Resident Physician. I agree with the documented findings, disposition and treatment plan as described except to the extent set forth below. Ms. Dodge is a 56 year old female with past medical history of CAD, hypertension , [place] status post cardiac stents, anxiety, depression, and bilateral total knee replacements back in 2008 was admitted here on 08/18/17 with acute delirium, acute hypoxic resp failure with possible pneumonia. She also had a fall prior to this hospitalization since she has been c/o Rt clavicular pain with bruise , also developed Rt arm cellulites. Pt went for b/l Knee irrigation and debridement on 08/21/17. Pt stated she is feleing little better today. able to move her extremities ok Gen: A, A, O x 3 Chest: Diminished BS b/l, no rhonchi Heart; S1 S2 + RRR, No murmurs Ext: s/p dressing on both knees a/p 1. Severe Sepsis 2. Bacteremia 3. b/l Knee Septic arthritis - due to seeding 4. s/p b/l Knee irrigation and debridement on 08/21/17 POD #3 5. Rt arm cellulites 6. Rt clavicular region infection 7. Bacterial Pneumonia 8. Acute hypoxic resp failure cont empirical abx PCN G Power glide IV access placed in PT / OT eval
[2017-08-24] MEDS ORDERED: Magnesium Sulfate 2 GM/100 ML PIGGYBACK IVPB ONE (10:42)
[2017-08-24] MEDS: Insulin DETEMIR 100 UNIT/ML X5UNITS SQ SCH (21:25)
[2017-08-25] MEDS: Ipratropium/Albuterol Neb 3 ML IH SCH ×6 (00:18→21:22)
[2017-08-25] MEDS: Penicillin G Potassium 4,000,000 UNIT in D5% in Water 100 ML IVPB SCH ×6 (01:12→22:16)
[2017-08-25] MEDS: *HR* Morphine 2 MG/ML SYRINGE IVP PRN ×4 (01:55→20:59)
[2017-08-25] MEDS: *HR* OxyCODONE/APAP 5/325 TABLET PO PRN ×2 (02:48→07:38)
[2017-08-25 05:25] LABS: Eosinophils # 0.2 K/mcL (0.0-0.6); Hematocrit 28.3 % (35.3-44.9); Hemoglobin 9.7 g/dL (11.5-15.4); Mean Corpuscular HGB Conc 34.3 g/dL (31.6-35.5); Mean Corpuscular Hemoglobin 30.6 pg (28.0-33.3); Mean Corpuscular Volume 89.3 fL (83.0-100.0); Mean Platelet Volume 11.8 fL (9.4-12.4); Nucleated Red Blood Cells 0.2 /100 WBC (0); Platelet Count 139 K/mcL (140-400); Red Blood Count 3.17 M/mcL (3.82-4.97); Red Cell Distribution Width 15.5 % (11.5-14.5)
[2017-08-25 05:35] LABS: BUN/Creatinine Ratio 9 (6-26); Calcium 8.1 mg/dL (8.6-10.8); Carbon Dioxide 29 mEq/L (19-29); Chloride 101 mEq/L (98-109); Glucose 96 mg/dL (70-99); Magnesium 1.4 mg/dL (1.6-2.6); Osmolality,Calculated 275 (280-300); Potassium 3.9 mEq/L (3.5-4.5); Sodium 134 mEq/L (136-145); eGFR For African Americans > 60 (> 60); eGFR For Non-African Americans > 60 (> 60)
[2017-08-25 05:36] LABS: Blood Urea Nitrogen 5 mg/dL (7-20)
[2017-08-25 05:52] LABS: Lymphocytes # 3.4 K/mcL (0.6-4.6); Monocytes # 0.5 K/mcL (0.0-1.3); Neutrophils # 7.9 K/mcL (1.6-8.9); Platelet Estimate Slight Decrease (Normal); Toxic Granulation Present (Not Present)
[2017-08-25] MEDS: Nicotine 21 MG PATCH.TD24 TD SCH (07:37)
[2017-08-25] MEDS: Famotidine 20 MG TABLET PO SCH ×2 (07:38→20:58)
[2017-08-25] MEDS: Insulin LISPRO 300 UNITS/3 ML VIAL SQ SCH ×4 (07:38→20:59)
[2017-08-25] MEDS: Folic Acid 1 MG TABLET PO SCH (07:38)
[2017-08-25] MEDS: Gabapentin 400 MG CAPSULE PO SCH ×3 (07:38→20:58)
--- NOTE | 2017-08-25 09:31 | Internal Med Progress Note ---
Date of Encounter: 08/25/17 Time of Encounter: 08:45 - Assessment and plan (1) Severe sepsis Current Visit: Yes Status: Acute Assessment and plan: Severe sepsis:fever, tachcyardia, thrombocytopenia, HANNAH; suspected source of infection Rt Arm cellulites, Rt mid clavicular region abscess and PNA Blood cx 1 set from 08/18 growing Group A strep and 1 set from 08/19 growing Group A Repeat blood cx from 08/21/17 - so far no growth Pt did have remote h/o IV drug abuse 20 yrs ago 2 D Echo from 08/19/17 showing normal LVEF 55%, No valvular abnormalities her b/l Knee aspiration showed G+ve cocci s/p Irrigation and debridement of b/l TKR on 08/21/17 POD # 2 cont empirical abx Penicillin G and Clindamycin Since repeated blood cx - did not show any growth yet, may not needed any CRISTIANA at this point Maintaining good BUN/Creat; continuing gentle IV Fluids Powerglide PICC in place; possible discharge to SNF tomorrow. Anticipate 6 weeks of PNG antibiotic through PICC. (2) Bacteremia Current Visit: Yes Status: Acute Assessment and plan: As described in (1): Powerglide PICC in place; possible discharge to SNF tomorrow. Anticipate 6 weeks of PNG antibiotic through PICC. (3) Bilateral knee pain Current Visit: Yes Status: Acute Assessment and plan: Hx bilateral arthroplasty Consulted ortho; s/p bilateral knee aspiration, irrigation, debridement Pain managed with Percocet 7.5 Continues to need 2 generator mechanic for movement from bed to commode. PT/OT has seen/worked with patient; will need SNF on discharge. Qualifiers: Chronicity: acute Qualified Code(s): M25.561 - Pain in right knee; M25.562 - Pain in left knee; M25.562 - Pain in left knee (4) Acute respiratory failure with hypoxia Current Visit: Yes Status: Acute Assessment and plan: Due to PNA - mostly bacterial PNA Improving cont IV abx cont duoneb and O2 will give Lasix PRN (5) Clavicle pain Current Visit: Yes Status: Acute Assessment and plan: No change talked to Ortho recommend no further interventions.. cont monitoring for now with abx (6) Acute metabolic encephalopathy Current Visit: Yes Status: Acute Assessment and plan: Due to toxic encephalopathy/infection improving CT brain negative for acute process (7) Right arm cellulitis Current Visit: Yes Status: Acute Assessment and plan: H/o IV drug abuse [address] chest negative for abscess venous doppler is negative for any DVT cont empirical abx (8) Pneumonia Current Visit: Yes Status: Acute Assessment and plan: Bilateral lower lobe rhonchi Mostly bacterial PNA Continue PCN/Clinda Qualifiers: Pneumonia type: due to unspecified organism Laterality: bilateral Lung location: lower lobe of lung Qualified Code(s): J18.9 - Pneumonia, unspecified organism (9) Severe thrombocytopenia Current Visit: Yes Status: Acute Assessment and plan: Due to severe sepsis Improving slowly: 139 08/25/17 Cont close monitoring (10) Secondary DM with DKA, uncontrolled Current Visit: Yes Status: Acute Assessment and plan: ER anion gap of 17; on admission repeat anion gap 11; gap remains closed, ABG pH 7.41; Bicarb >18; K+ 3.4 A1c 8.6; Diabetic diet Monitor closely; sliding scale ACHS protocol (11) DVT prophylaxis Current Visit: Yes Status: Acute Assessment and plan: Continue intermittent pneumatic compression (12) Morbid obesity Current Visit: Yes Status: Acute Assessment and plan: BMI 38.9 - Subjective Interval history: Interval History: Ms. Dodge is a 56 year old female with past medical history of IV drug abuse 20 yrs ago, CAD, hypertension, [place] status post cardiac stents, anxiety, depression, and bilateral total knee replacements back in 2008 was admitted here on 08/18/17 with acute delirium, acute hypoxic resp failure with possible pneumonia. She also had a fall prior to this hospitalization since she has been c/o Rt clavicular pain with bruise , also developed Rt arm cellulites. Pt became bacteremic with Group A strep and her b/l Knee aspiration showed G+ve cocci. Pt did have b/l Knee irrigation and debridement of b/l TKA done on . Later pt was transferred to ICU for further care. Repeat blood cx - no growth to date Today: pt typically needs 2 generator mechanic to ambulate from bed to chair/bedside commode. Complaint of moderate pain, describes pain in knees and low back. No fever, chest pain, dyspnea. PT/OT eval matches assessment of SNF on d/c. office services representative plan to confirm [facility] Saturday with Garcia. - Constitutional Vitals: Temp Pulse Resp BP Pulse Ox 98.3 F 79 16 137/84 97 08/25/17 06:33 08/25/17 06:33 08/25/17 08:29 08/25/17 06:33 08/25/17 08:29 General appearance: Present: A&O X 3, answers questions appropriately - Head Head exam: Present: atraumatic - Neck Neck exam general surgery: Present: full ROM. Absent: lymphadenopathy - Respiratory Respiratory exam: Present: CTAB, rhonchi (bilateral mild, more mucus after duoneb). Absent: respiratory distress - Cardiovascular Cardiovascular exam: Present: RRR, +S1, +S2. Absent: systolic murmur, tachycardia - GI/Abdominal GI/Abdominal exam: Present: no peritoneal signs. Absent: tenderness - Extremities Exam Extremities exam: Present: warm. Absent: full ROM Additional comments: Knee joint surgical dressing s/p irrigation and debridement by ortho; non- erythematous, non-purulent (7-day dressing) Internal Medicine: Result - Labs CBC & Chem 7: 08/25/17 05:14 08/25/17 05:14 Labs: Short CBC 08/25/17 Range/Units 05:14 WBC 12.0 H (4.3-11.1) K/mcL Hgb 9.7 L (11.5-15.4) g/dL Hct 28.3 L (35.3-44.9) % Plt Count 139 L (140-400) K/mcL Neutrophils # 7.9 (1.6-8.9) K/mcL BMP 08/25/17 05:14 Sodium 134 L Potassium 3.9 Chloride 101 Carbon Dioxide 29 BUN 5 L Creatinine 0.58 Glucose 96 Calcium 8.1 L - ABG Interpretation ABG results: ABG ABG pH 7.41 pH Units (7.32-7.45) 08/20/17 04:02 ABG pCO2 38 mmHg (35-45) 08/20/17 04:02 ABG pO2 52 mmHg (85-104) L 08/20/17 04:02 ABG O2 Saturation 87 % (95-98) L 08/20/17 04:02 - VTE Documentation of Mechanical Device: Venous foot pump, device Consult Discharge Plan - Plan Referrals: NONE,PCP [Primary Care Provider] - Asia Unger LODGE SALES ASSOCIATE [Advanced Practice Nurse] - 08/26/17 12:15 pm (Please fax over the discharge summary and the med list to [phone])
--- NOTE | 2017-08-25 11:04 | Orthopedics Progress Note ---
Date of Encounter: 08/25/17 Time of Encounter: 11:02 Subjective Principal diagnosis: Sepsis Interval history: S: Patient is seen and resting in bed Improved right upper extremity pain. Bilateral knee pain, left worse than the right Biggest complaint today is low back and left buttock pain She says that this is an exacerbation of her long history of low back pain O: AFVSS Small ulceration in right clavicular area without significant erythema and mild induration. No fluctuance. Cellulitis almost completely resolved to the right upper extremity Neurovascularly intact to the right upper extremity Knee dressings on both sides without significant drainage Pain on passive motion of both knees, particularly the left Neurovascularly intact distally to the lower extremities WBC count improving Intraoperative cultures of the knees are negative to date A: Post I&D and poly-exchanges of the bilateral knees Right upper extremity cellulitis P: Continue observation Continue IV antibiotics related to septic knees No surgical plans of the right upper extremity. Objective Vital signs: Vital Signs Temp Pulse Resp BP Pulse Ox 08/25/17 08:29 16 97 08/25/17 06:33 98.3 F 79 16 137/84 95 08/25/17 03:47 98.1 F 86 18 135/87 94 08/25/17 01:01 EST 156/89 08/24/17 22:55 98.2 F 86 18 119/77 94 08/24/17 20:12 17 95 08/24/17 19:46 98.2 F 98 18 151/89 95 08/24/17 15:06 97.8 F 77 16 158/92 93 Intake and Output 08/25/17 08/25/17 08/25/17 00:59 07:59 15:59 Intake Total 224 / 224 Output Total Balance 224 / 224 Intake: IV Fluids Pfizerpen 4,000,000 UNIT In Dextrose 5% 100 ML @ 100 mls/hr IVPB Q4H [facility] Rx#:[id number] Oral 224 / 224 Output: Urine Other: # Voids Weight Blood Glucose* Patient Weight 08/25/17 22:59 Weight 106 kg - Labs CBC & BMP: 08/25/17 05:14 08/25/17 05:14 Labs: Abnormal lab results WBC 12.0 K/mcL (4.3-11.1) H 08/25/17 05:14 RBC 3.17 M/mcL (3.82-4.97) L 08/25/17 05:14 Hgb 9.7 g/dL (11.5-15.4) L 08/25/17 05:14 Hct 28.3 % (35.3-44.9) L 08/25/17 05:14 RDW 15.5 % (11.5-14.5) H 08/25/17 05:14 Plt Count 139 K/mcL (140-400) L 08/25/17 05:14 Immature Gran % 8.4 % (0-4) H 08/24/17 03:40 Nucleated RBCs/100 WBC 0.2 /100 WBC (0) H 08/25/17 05:14 Reactive Lymphocytes Present (Not Present) A 08/24/17 03:40 Toxic Granulation Present (Not Present) A 08/25/17 05:14 Toxic Vacuolation Present (Not Present) A 08/19/17 02:29 Platelet Estimate Slight Decrease (Normal) L 08/25/17 05:14 Large Platelets Present (Not Present) A 08/24/17 03:40 Immature Plt Fraction 25.2 % (1.1-6.1) H 08/23/17 02:51 ESR >= 130 mm/hr (0-15) H 08/22/17 06:00 ABG pO2 52 mmHg (85-104) L 08/20/17 04:02 ABG O2 Saturation 87 % (95-98) L 08/20/17 04:02 VBG pCO2 34 mmHg (41-51) L 08/19/17 02:44 VBG pO2 80 mmHg (25-50) H 08/19/17 02:44 VBG HCO3 20 mEq/L (21-27) L 08/19/17 02:44 Sodium 134 mEq/L (136-145) L 08/25/17 05:14 BUN 5 mg/dL (7-20) L 08/25/17 05:14 POC Glucose 135 (58-89) H 08/25/17 07:26 Hemoglobin A1c 8.3 % (-5.6) H 08/19/17 02:29 Serum Osmolality 270 mOsm/kg (280-300) L 08/19/17 02:29 Calculated Osmolality 275 (280-300) L 08/25/17 05:14 Calcium 8.1 mg/dL (8.6-10.8) L 08/25/17 05:14 Magnesium 1.4 mg/dL (1.6-2.6) L 08/25/17 05:14 Total Bilirubin 1.9 mg/dL (0.2-1.2) H 08/24/17 03:40 AST 57 Units/L (5-34) H 08/24/17 03:40 Alkaline Phosphatase 208 Units/L (38-126) H 08/24/17 03:40 C-Reactive Protein 180 mg/L (Less than 5) H 08/22/17 06:00 Serum Total Protein 5.7 g/dL (6.0-8.3) L 08/24/17 03:40 Albumin 1.4 g/dL (3.5-5.0) L 08/24/17 03:40 Globulin 4.3 g/dL (2.4-3.5) H 08/24/17 03:40 Albumin/Globulin Ratio 0.3 (1.1-2.2) L 08/24/17 03:40 Beta-Hydroxybutyric Acd 0.31 mmol/L (0.02-0.27) H 08/19/17 02:29 Urine Clarity Cloudy (Clear) A 08/22/17 10:25 Ur Specific [place] 1.027 (1.010-1.025) H 08/22/17 10:25 Urine Protein 30 mg/dL (Neg-Trace) H 08/22/17 10:25 Urine Glucose (UA) >=1000 mg/dL (Normal) H 08/22/17 10:25 Urine Ketones Trace mg/dL (Negative) H 08/22/17 10:25 Urine Bilirubin Moderate (Negative) H 08/22/17 10:25 Urine Urobilinogen 4.0 mg/dL (Normal) H 08/22/17 10:25 Urine Microscopic WBC 3-5 per hpf (0-3) H 08/22/17 10:25 Ur Squamous Epith Cells Many per lpf (None-Few) H 08/22/17 10:25 Urine Yeast Few per hpf (None Seen) H 08/22/17 10:25 Synovial Appearance Cloudy (Clear-Hazy) A 08/21/17 11:25 Synovial Tot Nuc Cell 1277 TNC/mcL (0-200) H 08/21/17 11:25 Streptococcus sp PCR DETECTED (Not Detect) A 08/19/17 02:29 Group A Strep DNA DETECTED (Not Detect) A 08/19/17 02:29 - VTE Documentation of Mechanical Device: Venous foot pump, device Consult Discharge Plan - Plan Referrals: NONE,PCP [Primary Care Provider] - Asia Unger [employer]LLER SHOP UTILITY WORKER [Advanced Practice Nurse] - 08/26/17 12:15 pm (Please fax over the discharge summary and the med list to [phone])
[2017-08-25] MEDS: *HR* OxyCODONE/APAP 7.5/325 TABLET PO PRN ×2 (14:59→19:06)
[2017-08-25] MEDS: Insulin DETEMIR 100 UNIT/ML X5UNITS SQ SCH (20:58)
[2017-08-26] MEDS: *HR* OxyCODONE/APAP 7.5/325 TABLET PO PRN ×4 (02:52→22:53)
[2017-08-26] MEDS: Penicillin G Potassium 4,000,000 UNIT in D5% in Water 100 ML IVPB SCH ×6 (02:52→22:41)
[2017-08-26] MEDS: Ipratropium/Albuterol Neb 3 ML IH SCH ×7 (03:19→23:13)
[2017-08-26] MEDS: *HR* Morphine 2 MG/ML SYRINGE IVP PRN ×3 (05:14→19:53)
--- NOTE | 2017-08-26 07:43 | Orthopedics Progress Note ---
Date of Encounter: 08/26/17 Time of Encounter: 07:40 - Assessment and Plan (1) Bilateral knee pain Current Visit: Yes Status: Acute Qualifiers: Chronicity: acute Qualified Code(s): M25.561 - Pain in right knee; M25.562 - Pain in left knee; M25.562 - Pain in left knee Subjective Principal diagnosis: Sepsis Interval history: POD#5 s/p bilateral I&D and polyexchanges. Pt with pain in bilateral knees but able to put some weight on them. Denies F/c/ns overnight. O: AFVSS RUE: erythema improved. Minimal erythema over eschar over clavicle No fluctuance BLE: Dressing c/d/i No erythema No drainage Painful ROM bilateral knees A/P; POD#5 s/p BL I&D and polyexchange -Continue iv antibiotics -no plans for further surgery -f/u in office 2 weeks post op -will s/o Objective Vital signs: Vital Signs Temp Pulse Resp BP Pulse Ox 08/26/17 06:53 98.1 F 92 18 153/80 93 08/26/17 04:02 98.4 F 83 21 166/84 93 08/25/17 23:48 98.5 F 85 21 167/85 94 08/25/17 21:22 18 91 08/25/17 19:46 98.3 F 87 18 163/85 94 08/25/17 16:50 98.2 F 86 18 161/88 92 08/25/17 16:15 18 91 08/25/17 11:39 18 95 08/25/17 09:58 98.4 F 74 16 143/86 96 08/25/17 08:29 16 97 Intake and Output 08/25/17 08/25/17 08/26/17 15:59 23:59 07:59 Intake Total 1264 / 1264 400 / 400 100 / 100 Output Total 1750 / 1750 900 / 900 1550 / 1550 Balance -486 / -486 -500 / -500 -1450 / -1450 Intake: IV Fluids 100 / 100 300 / 300 100 / 100 Pfizerpen 4,000,000 UNIT In 100 / 100 300 / 300 100 / 100 Dextrose 5% 100 ML @ 100 mls/hr IVPB Q4H [facility] Rx#:[id number] Oral 1164 / 1164 100 / 100 Output: Urine 1750 / 1750 900 / 900 1550 / 1550 Other: Meal Lunch Percent of Meal Consumed 50% 0% # Voids 1 1 Weight 106.8 kg Blood Glucose* 94 113 80 Patient Weight 08/26/17 23:59 Weight 106.8 kg - Labs CBC & BMP: 08/25/17 05:14 08/25/17 05:14 Labs: Abnormal lab results WBC 12.0 K/mcL (4.3-11.1) H 08/25/17 05:14 RBC 3.17 M/mcL (3.82-4.97) L 08/25/17 05:14 Hgb 9.7 g/dL (11.5-15.4) L 08/25/17 05:14 Hct 28.3 % (35.3-44.9) L 08/25/17 05:14 RDW 15.5 % (11.5-14.5) H 08/25/17 05:14 Plt Count 139 K/mcL (140-400) L 08/25/17 05:14 Immature Gran % 8.4 % (0-4) H 08/24/17 03:40 Nucleated RBCs/100 WBC 0.2 /100 WBC (0) H 08/25/17 05:14 Reactive Lymphocytes Present (Not Present) A 08/24/17 03:40 Toxic Granulation Present (Not Present) A 08/25/17 05:14 Toxic Vacuolation Present (Not Present) A 08/19/17 02:29 Platelet Estimate Slight Decrease (Normal) L 08/25/17 05:14 Large Platelets Present (Not Present) A 08/24/17 03:40 Immature Plt Fraction 25.2 % (1.1-6.1) H 08/23/17 02:51 ESR >= 130 mm/hr (0-15) H 08/22/17 06:00 ABG pO2 52 mmHg (85-104) L 08/20/17 04:02 ABG O2 Saturation 87 % (95-98) L 08/20/17 04:02 VBG pCO2 34 mmHg (41-51) L 08/19/17 02:44 VBG pO2 80 mmHg (25-50) H 08/19/17 02:44 VBG HCO3 20 mEq/L (21-27) L 08/19/17 02:44 Sodium 134 mEq/L (136-145) L 08/25/17 05:14 BUN 5 mg/dL (7-20) L 08/25/17 05:14 Hemoglobin A1c 8.3 % (-5.6) H 08/19/17 02:29 Serum Osmolality 270 mOsm/kg (280-300) L 08/19/17 02:29 Calculated Osmolality 275 (280-300) L 08/25/17 05:14 Calcium 8.1 mg/dL (8.6-10.8) L 08/25/17 05:14 Magnesium 1.4 mg/dL (1.6-2.6) L 08/25/17 05:14 Total Bilirubin 1.9 mg/dL (0.2-1.2) H 08/24/17 03:40 AST 57 Units/L (5-34) H 08/24/17 03:40 Alkaline Phosphatase 208 Units/L (38-126) H 08/24/17 03:40 C-Reactive Protein 180 mg/L (Less than 5) H 08/22/17 06:00 Serum Total Protein 5.7 g/dL (6.0-8.3) L 08/24/17 03:40 Albumin 1.4 g/dL (3.5-5.0) L 08/24/17 03:40 Globulin 4.3 g/dL (2.4-3.5) H 08/24/17 03:40 Albumin/Globulin Ratio 0.3 (1.1-2.2) L 08/24/17 03:40 Beta-Hydroxybutyric Acd 0.31 mmol/L (0.02-0.27) H 08/19/17 02:29 Urine Clarity Cloudy (Clear) A 08/22/17 10:25 Ur Specific [place] 1.027 (1.010-1.025) H 08/22/17 10:25 Urine Protein 30 mg/dL (Neg-Trace) H 08/22/17 10:25 Urine Glucose (UA) >=1000 mg/dL (Normal) H 08/22/17 10:25 Urine Ketones Trace mg/dL (Negative) H 08/22/17 10:25 Urine Bilirubin Moderate (Negative) H 08/22/17 10:25 Urine Urobilinogen 4.0 mg/dL (Normal) H 08/22/17 10:25 Urine Microscopic WBC 3-5 per hpf (0-3) H 08/22/17 10:25 Ur Squamous Epith Cells Many per lpf (None-Few) H 08/22/17 10:25 Urine Yeast Few per hpf (None Seen) H 08/22/17 10:25 Synovial Appearance Cloudy (Clear-Hazy) A 08/21/17 11:25 Synovial Tot Nuc Cell 1277 TNC/mcL (0-200) H 08/21/17 11:25 Streptococcus sp PCR DETECTED (Not Detect) A 08/19/17 02:29 Group A Strep DNA DETECTED (Not Detect) A 08/19/17 02:29 - VTE Documentation of Mechanical Device: Venous foot pump, device Consult Discharge Plan - Plan Referrals: NONE,PCP [Primary Care Provider] - Asia Unger, BANKING MANAGEMENT CONSULTING MANAGER [Advanced Practice Nurse] - 08/26/17 12:15 pm (Please fax over the discharge summary and the med list to [phone])
[2017-08-26] MEDS: Insulin LISPRO 300 UNITS/3 ML VIAL SQ SCH ×4 (07:45→22:16)
[2017-08-26] MEDS: Famotidine 20 MG TABLET PO SCH ×2 (09:18→19:53)
[2017-08-26] MEDS: Folic Acid 1 MG TABLET PO SCH (09:18)
[2017-08-26] MEDS: Nicotine 21 MG PATCH.TD24 TD SCH (09:18)
[2017-08-26] MEDS: Gabapentin 400 MG CAPSULE PO SCH ×3 (09:19→19:53)
--- NOTE | 2017-08-26 12:04 | Infectious Disease Progress No ---
Date of Encounter: 08/26/17 Time of Encounter: 12:01 - Assessment and Plan (1) Severe sepsis Current Visit: Yes Status: Acute The patient had two SIRS criteria plus HANNAH and lactic acidosis on admission. Likely secondary to bacteremia. Improved. Tachycardia has resolved. She has been afebrile. Her WBC went up over the weekend, but appears to be trending back down. Will re-check CBC now. Blood cultures drawn 08/18/17 x 1 set and 08/19/17 x 1 set are positive for GAS. Repeat blood cultures drawn 08/21/17 are NGTD. (2) Bacteremia Current Visit: Yes Status: Acute Causative organism Group A Strep. Source not entirely clear: PNA vs. RUE cellulitis vs. other. 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 Blood cultures drawn 08/18/17 x 1 set is positive for GAS. Repeat blood culture drawn 08/19/17 x 1 set is also positive for GAS. Additional blood cultures drawn 08/21/17 are NGTD x 2 sets. Continue PCN G 4 million units IV Q4H. Duration of treatment depends on the clinical picture. Monitor renal function and dose-adjust antibiotics. (3) Infected prosthetic knee joint Current Visit: Yes Status: Acute Location: bilateral knees. Causative organism unclear, but likely GAS given the blood culture results. Likely secondary to hematogenous seeding of the hardware. Less likely the source of the bacteremia. Status post bedside arthrocentesis. TNC 1277 with 95 segmented neutrophils and no crystals. Status post irrigation and debridement with polyexchange of bilateral TKA by Dr. Ramirez. Operative note reviewed. Gross purulence noted intra-op. Gram stain shows GPC, but cultures are negative. Continue antibiotics as above for now. Wound care and activity restrictions per the primary team. Duration of treatment depends on the clinical picture, but likely 6 weeks of IV antibiotics. Monitor renal function and dose-adjust antibiotics. Qualifiers: Encounter type: initial encounter Qualified Code(s): T84.59XA - Infection and inflammatory reaction due to other internal joint prosthesis, initial encounter; Z96.659 - Presence of unspecified artificial knee joint; Z96.659 - Presence of unspecified artificial knee joint (4) Pneumonia Current Visit: Yes Status: Acute Location: Bilateral lower lobes. Causative organism unclear. CT of the chest shows findings consistent with possible PNA. This could be the source of the patient's bacteremia. Get sputum culture if patient is able to provide an adequate specimen. Continue antibiotics as above. Repeat CXR. Qualifiers: Pneumonia type: due to unspecified organism Laterality: bilateral Lung location: lower lobe of lung Qualified Code(s): J18.9 - Pneumonia, unspecified organism (5) Acute metabolic encephalopathy Current Visit: Yes Status: Resolved Likely secondary to infectious process and DKA. Appears improved. CT head negative. Continue to monitor closely. (6) Acute kidney failure Current Visit: Yes Status: Resolved Likely secondary to dehydration and sepsis. Resolved. Qualifiers: Acute renal failure type: unspecified Qualified Code(s): N17.9 - Acute kidney failure, unspecified (7) Secondary DM with DKA, uncontrolled Current Visit: Yes Status: Acute FSBS 433 on admission. HgbA1C 8.3%. Management per the primary team. (8) Right arm cellulitis Current Visit: Yes Status: Acute Right arm mildly edematous and erythematous on exam, but not impressive. Not sure if this is a true cellulitis and/or the source of the patient's bacteremia. Continues to improve. Continue antibiotics as above. (9) Thrombocytopenia Current Visit: Yes Status: Acute Etiology unclear, but likely related to infection. No acute bleeding noted in exam. Continue to trend. Management per the primary team. (10) Vomiting Current Visit: Yes Status: Resolved Likely secondary to DKA. Resolved. Qualifiers: Vomiting type: unspecified Vomiting Intractability: non-intractable Nausea presence: with nausea Qualified Code(s): R11.2 - Nausea with vomiting, unspecified (11) Bilateral knee pain Current Visit: Yes Status: Acute Secondary to bilateral PJI. Pain management per the primary and ortho teams. Qualifiers: Chronicity: acute Qualified Code(s): M25.561 - Pain in right knee; M25.562 - Pain in left knee; M25.562 - Pain in left knee (12) Abrasion Current Visit: Yes Status: Acute Location: Right upper chest. Scabbed lesions patient states was from fall. No fluctuance noted. ? Source of patient's bacteremia. - Subjective Interval history: Patient seen and examined. Weekend notes reviewed. No acute events noted. Status post bilateral knee I & D 08/21/17. Continues to complain of bilateral knee, bilateral hip and lower back pain. She reports the hip and low back pain are chronic. Denies fevers, chills, or rigors. Denies chest pain or shortness of breath or cough. Denies nausea, vomiting or diarrhea. States she hasn't had a bowel movement for a few days. She denies urinary complaints. She reports some soreness to the right forearm, but otherwise denies pain except as mentioned previously. She denies oral thrush or new skin lesions. Infect Dis PN-Objective Data - Labs CBC & Chem 7: 08/25/17 05:14 08/25/17 05:14 Labs: Laboratory Results - last 24 hr 08/24/17 08/25/17 08/25/17 19:44 12:03 16:34 POC Glucose 114 H 94 H 118 H 08/25/17 08/26/17 20:14 06:59 POC Glucose 113 H 80 Cultures: Cultures 08/21/17 05:30 Blood Culture - Final Peripheral Venipuncture No growth. 08/21/17 05:20 Blood Culture - Final Peripheral Venipuncture No growth. 08/21/17 20:30 Surgical Biopsy Culture - Final Left Knee 08/21/17 20:30 Surgical Biopsy Culture - Final Right Knee 08/21/17 11:25 Body Fluid Culture - Final Synovial Fluid 08/21/17 11:25 Body Fluid Culture - Final Synovial Fluid 08/19/17 02:29 Blood Culture - Final Peripheral Venipuncture Strep pyogenes (Group A) 08/18/17 21:51 Blood Culture - Final Peripheral Venipuncture Strep pyogenes (Group A) Serology 08/22/17 08/21/17 08/21/17 Range/Units 10:25 11:25 11:25 Urine Color Dark Yellow (Yellow) Urine Clarity Cloudy A (Clear) Urine pH 6.0 (5.0-8.0) pH Units Ur Specific [place] 1.027 H (1.010-1.025) Urine Protein 30 H (Neg-Trace) mg/dL Urine Glucose (UA) >=1000 H (Normal) mg/dL Urine Ketones Trace H (Negative) mg/dL Urine Blood Negative (Negative) Urine Nitrite Negative (Negative) Urine Bilirubin Moderate H (Negative) Urine Urobilinogen 4.0 H (Normal) mg/dL Ur Leukocyte Esterase Negative (Negative) Urine Microscopic RBC 0-3 (0-3) per hpf Urine Microscopic WBC 3-5 H (0-3) per hpf Ur Squamous Epith Cells Many H (None-Few) per lpf Amorphous Sediment (Few) Urine Bacteria None Seen (None-Few) per hpf Hyaline Casts None Seen (None-Few) per lpf Urine Yeast Few H (None Seen) per hpf Synovial Source RIGHT KNEE LEFT KNEE Synovial Color Straw Straw (Straw) Synovial Appearance Cloudy A Cloudy A (Clear-Hazy) Synovial Volume 11.0 11.0 mL Synovial RBC < 0.002 0.002 (0.000 - 0.002) M/mcl Synovial Tot Nuc Cell 1277 H 6293 H (0-200) TNC/mcL Synovial Band Neuts Test Not Performed Synovial Basophils Test Not Performed Synovial Eosinophils Test Not Performed Synovial Seg Neuts % 95.0 90.0 % Synovial Lymphocytes % 1 2.0 % Synovial Monocytes % 4.0 8.0 % Synovial Other Cells % Test Not Performed Synovial Crystals No Crystals Seen No Crystals Seen (None Seen) A. baumannii (PCR) (Not Detect) Mable albicans (PCR) (Not Detect) C. glabrata (PCR) (Not Detect) C. krusei (PCR) (Not Detect) C. parapsilosis (PCR) (Not Detect) C. tropicalis (PCR) (Not Detect) Enterobacteriac sp PCR (Not Detect) E. cloacae complex PCR (Not Detect) Enterococcus sp PCR (Not Detect) E. coli (PCR) (Not Detect) H. influenzae (PCR) (Not Detect) Klebsiella oxytoca PCR (Not Detect) Klebsiella pneumoniae (Not Detect) List. monocytogenes PCR (Not Detect) N. meningitidis (PCR) (Not Detect) Proteus species (PCR) (Not Detect) Serratia marcescens PCR (Not Detect) Staphylococcus sp PCR (Not Detect) Staph aureus (PCR) (Not Detect) mecA-Methicil Res Gene (Not Detect) Streptococcus sp PCR (Not Detect) Group A Strep DNA (Not Detect) Group B Strep (PCR) (Not Detect) Strep pneumoniae (PCR) (Not Detect) P. aeruginosa (PCR) (Not Detect) Gorge/B-Vanco Res Genes (Not Detect) KPC (blaKPC) Detect PCR (Not Detect) 08/19/17 08/19/17 08/18/17 Range/Units 22:15 02:29 21:51 Urine Color Yellow (Yellow) Urine Clarity Clear (Clear) Urine pH 6.5 (5.0-8.0) pH Units Ur Specific [place] 1.010 (1.010-1.025) Urine Protein Negative (Neg-Trace) mg/dL Urine Glucose (UA) 100 H (Normal) mg/dL Urine Ketones Negative (Negative) mg/dL Urine Blood Trace H (Negative) Urine Nitrite Negative (Negative) Urine Bilirubin Negative (Negative) Urine Urobilinogen Normal (Normal) mg/dL Ur Leukocyte Esterase Negative (Negative) Urine Microscopic RBC 0-3 (0-3) per hpf Urine Microscopic WBC (0-3) per hpf Ur Squamous Epith Cells Few (None-Few) per lpf Amorphous Sediment Few (Few) Urine Bacteria Few (None-Few) per hpf Hyaline Casts (None-Few) per lpf Urine Yeast (None Seen) per hpf Synovial Source Synovial Color (Straw) Synovial Appearance (Clear-Hazy) Synovial Volume mL Synovial RBC (0.000 - 0.002) M/mcl Synovial Tot Nuc Cell (0-200) TNC/mcL Synovial Band Neuts Synovial Basophils Synovial Eosinophils Synovial Seg Neuts % % Synovial Lymphocytes % % Synovial Monocytes % % Synovial Other Cells % Synovial Crystals (None Seen) A. baumannii (PCR) Not Detected Not Detected (Not Detect) Mable albicans (PCR) Not Detected Not Detected (Not Detect) C. glabrata (PCR) Not Detected Not Detected (Not Detect) C. krusei (PCR) Not Detected Not Detected (Not Detect) C. parapsilosis (PCR) Not Detected Not Detected (Not Detect) C. tropicalis (PCR) Not Detected Not Detected (Not Detect) Enterobacteriac sp PCR Not Detected Not Detected (Not Detect) E. cloacae complex PCR Not Detected Not Detected (Not Detect) Enterococcus sp PCR Not Detected Not Detected (Not Detect) E. coli (PCR) Not Detected Not Detected (Not Detect) H. influenzae (PCR) Not Detected Not Detected (Not Detect) Klebsiella oxytoca PCR Not Detected Not Detected (Not Detect) Klebsiella pneumoniae Not Detected Not Detected (Not Detect) List. monocytogenes PCR Not Detected Not Detected (Not Detect) N. meningitidis (PCR) Not Detected Not Detected (Not Detect) Proteus species (PCR) Not Detected Not Detected (Not Detect) Serratia marcescens PCR Not Detected Not Detected (Not Detect) Staphylococcus sp PCR Not Detected Not Detected (Not Detect) Staph aureus (PCR) Not Detected Not Detected (Not Detect) mecA-Methicil Res Gene Not Detected Not Detected (Not Detect) Streptococcus sp PCR DETECTED A DETECTED A (Not Detect) Group A Strep DNA DETECTED A DETECTED A (Not Detect) Group B Strep (PCR) Not Detected Not Detected (Not Detect) Strep pneumoniae (PCR) Not Detected Not Detected (Not Detect) P. aeruginosa (PCR) Not Detected Not Detected (Not Detect) Gorge/B-Vanco Res Genes Not Detected Not Detected (Not Detect) KPC (blaKPC) Detect PCR Not Detected Not Detected (Not Detect) Exam - Constitutional Vitals: Temp Pulse Resp BP Pulse Ox 98.1 F 92 18 153/80 93 08/26/17 06:53 08/26/17 06:53 08/26/17 10:14 08/26/17 06:53 08/26/17 10:14 General appearance: cooperative, no acute distress, obese - Head Head exam: Present: atraumatic, normal inspection, normocephalic - Eye Eye exam: Present: EOMI, normal appearance, PERRL Pupils: Present: normal accommodation - ENT ENT exam: Present: mucous membranes moist - Neck Neck exam: Present: normal inspection - Respiratory Respiratory exam: Present: CTAB. Absent: rales, respiratory distress, rhonchi, wheezes - Cardiovascular Cardiovascular exam: Present: RRR, +S1, +S2 - GI/Abdominal GI/Abdominal exam: Present: distended (obese), normal bowel sounds, soft. Absent: tenderness - Extremities Exam Extremities exam: Present: joint swelling (bilateral knees), pedal edema (1+ BLE ), tenderness (bilateral knees) Additional comments: Bilateral anterior knee surgical incisions with honeycomb dressing intact. No erythema, warmth, or drainage noted. - Neurological Exam Neurological exam: Present: alert, oriented X3, no focal deficits - Psychiatric Psychiatric exam: Present: normal affect, normal mood - Skin Skin exam: Present: dry, intact, normal color, warm - VTE Documentation of Mechanical Device: Venous foot pump, device Consult Discharge Plan - Plan Referrals: NONE,PCP [Primary Care Provider] - Asia Unger, FIBERLINE SUPERVISOR [Advanced Practice Nurse] - 08/26/17 12:15 pm (Please fax over the discharge summary and the med list to [phone])
--- NOTE | 2017-08-26 16:03 | Internal Med Progress Note ---
Date of Encounter: 08/26/17 Time of Encounter: 16:00 - Assessment and plan (1) Severe sepsis Current Visit: Yes Status: Acute Assessment and plan: Resolved but patient is noted to have worsening leukocytosis at this time. Unclear etiology. Has been on IV penicillin G for Streptococcus bacteremia. Infectious diseases is on board. Underwent irrigation and debridement and poly- exchange of bilateral total knee prosthesis. (2) Bacteremia Current Visit: Yes Status: Resolved Assessment and plan: One out of one blood cultures from August 18 and August 19 grew group A streptococcus, repeat blood cultures remained negative. Continue IV penicillin G to complete a course of 6 weeks. Could be secondary to right arm cellulitis or pneumonia or right clavicle region infection. (3) Infected prosthetic knee joint Current Visit: Yes Status: Acute Assessment and plan: Orthopedics on board. Status post irrigation and debridement, poly-exchange of bilateral total knee prosthesis on 08/21/2017. Continue pain control and IV antibiotics. Physical and occupational therapy evaluation noted, recommend placement in extended care facility for continued rehabilitation. food and nutrition services supervisor working on this. Qualifiers: Encounter type: initial encounter Qualified Code(s): T84.59XA - Infection and inflammatory reaction due to other internal joint prosthesis, initial encounter; Z96.659 - Presence of unspecified artificial knee joint; Z96.659 - Presence of unspecified artificial knee joint (4) Diabetes mellitus Current Visit: Yes Status: Chronic Assessment and plan: Continue Accu-Chek blood glucose monitoring with sliding scale insulin. Diabetic diet. Blood sugars noted to be well controlled. Qualifiers: Diabetes mellitus type: type 2 Diabetes mellitus complication status: with unspecified complications Diabetes mellitus assisted insulin use: without assisted use Qualified Code(s): E11.8 - Type 2 diabetes mellitus with unspecified complications (5) Anxiety Current Visit: Yes Status: Chronic (6) Depression Current Visit: Yes Status: Chronic Qualifiers: Depression Type: unspecified Qualified Code(s): F32.9 - Major depressive disorder, single episode, unspecified (7) Right arm cellulitis Current Visit: Yes Status: Acute (8) Pneumonia Current Visit: Yes Status: Acute Assessment and plan: Continue antibiotics as above. Qualifiers: Pneumonia type: due to unspecified organism Laterality: bilateral Lung location: lower lobe of lung Qualified Code(s): J18.9 - Pneumonia, unspecified organism (9) Acute respiratory failure with hypoxia Current Visit: Yes Status: Acute - Subjective Interval history: Reports feeling sore all over and tired; no fever/chills, abdominal pain; no nausea/vomiting; also has intermittent chest pain; appears chronically sick; - Constitutional Vitals: Temp Pulse Resp BP Pulse Ox 98.9 F 87 18 148/89 94 08/26/17 14:57 08/26/17 14:57 08/26/17 14:57 08/26/17 14:57 08/26/17 14:57 General appearance: Present: A&O X 3, answers questions appropriately - Respiratory Respiratory exam: Present: CTAB. Absent: accessory muscle use, rales, rhonchi, wheezes - Cardiovascular Cardiovascular exam: Present: RRR, +S1, +S2. Absent: diastolic murmur, gallop, rubs, systolic murmur - GI/Abdominal GI/Abdominal exam: Present: normal bowel sounds, soft, no peritoneal signs. Absent: distended, tenderness - Extremities Exam Extremities exam: Present: warm, radial pulses palpable and symmetrical. Absent : calf tenderness, cyanotic, pedal edema Additional comments: B/L knees with well-healing vertical surgical incisions Internal Medicine: Result - Labs CBC & Chem 7: 08/26/17 16:50 08/26/17 16:50 - ABG Interpretation ABG results: ABG ABG pH 7.41 pH Units (7.32-7.45) 08/20/17 04:02 ABG pCO2 38 mmHg (35-45) 08/20/17 04:02 ABG pO2 52 mmHg (85-104) L 08/20/17 04:02 ABG O2 Saturation 87 % (95-98) L 08/20/17 04:02 - Impressions Impressions Chest X-Ray 08/26/17 12:07 IMPRESSION: Stable chest. Left perihilar infiltrate. D/ / Edgardo Tian MD / Edgardo Tian MD Interpreting Provider: Edgardo Tian MD - VTE Documentation of Mechanical Device: Venous foot pump, device Consult Discharge Plan - Plan Referrals: NONE,PCP [Primary Care Provider] - Asia Unger FEEDER DRIVER [Advanced Practice Nurse] - 08/26/17 12:15 pm (Please fax over the discharge summary and the med list to [phone])
[2017-08-26 18:01] LABS: Eosinophils # 0.1 K/mcL (0.0-0.6); Hematocrit 31.6 % (35.3-44.9); Hemoglobin 10.6 g/dL (11.5-15.4); Mean Corpuscular HGB Conc 33.5 g/dL (31.6-35.5); Mean Corpuscular Volume 89.5 fL (83.0-100.0); Mean Platelet Volume 11.7 fL (9.4-12.4); Nucleated Red Blood Cells 0.1 /100 WBC (0); Platelet Count 183 K/mcL (140-400); Red Blood Count 3.53 M/mcL (3.82-4.97); Red Cell Distribution Width 15.6 % (11.5-14.5)
[2017-08-26 18:16] LABS: BUN/Creatinine Ratio 8 (6-26); C-Reactive Protein 100 mg/L (Less than 5); Calcium 8.8 mg/dL (8.6-10.8); Carbon Dioxide 27 mEq/L (19-29); Chloride 97 mEq/L (98-109); Glucose 113 mg/dL (70-99); Osmolality,Calculated 274 (280-300); Potassium 3.9 mEq/L (3.5-4.5); Sodium 133 mEq/L (136-145); eGFR For African Americans > 60 (> 60); eGFR For Non-African Americans > 60 (> 60)
[2017-08-26 18:18] LABS: Blood Urea Nitrogen 5 mg/dL (7-20)
[2017-08-26 18:22] LABS: Lymphocytes # 2.1 K/mcL (0.6-4.6); Monocytes # 0.4 K/mcL (0.0-1.3); Neutrophils # 11.2 K/mcL (1.6-8.9)
[2017-08-26 18:23] LABS: Platelet Estimate Normal (Normal); Toxic Granulation Present (Not Present)
[2017-08-26] MEDS: Ondansetron 4 MG/2 ML VIAL IVP PRN (18:32)
[2017-08-26] MEDS: Insulin DETEMIR 100 UNIT/ML X5UNITS SQ SCH (22:18)
[2017-08-27] MEDS: Penicillin G Potassium 4,000,000 UNIT in D5% in Water 100 ML IVPB SCH ×6 (02:30→21:14)
[2017-08-27] MEDS: Ipratropium/Albuterol Neb 3 ML IH SCH ×6 (03:31→23:52)
[2017-08-27] MEDS: *HR* OxyCODONE/APAP 7.5/325 TABLET PO PRN ×4 (04:23→23:45)
[2017-08-27 05:03] LABS: Hematocrit 31.4 % (35.3-44.9); Hemoglobin 10.5 g/dL (11.5-15.4); Immature Platelets 14.1 % (1.1-6.1); Mean Corpuscular HGB Conc 33.4 g/dL (31.6-35.5); Mean Corpuscular Volume 89.7 fL (83.0-100.0); Mean Platelet Volume 11.7 fL (9.4-12.4); Nucleated Red Blood Cells 0.2 /100 WBC (0); Platelet Count 210 K/mcL (140-400); Red Cell Distribution Width 15.6 % (11.5-14.5)
[2017-08-27 05:17] LABS: BUN/Creatinine Ratio 8 (6-26); Calcium 8.5 mg/dL (8.6-10.8); Carbon Dioxide 27 mEq/L (19-29); Chloride 100 mEq/L (98-109); Glucose 94 mg/dL (70-99); Magnesium 1.8 mg/dL (1.6-2.6); Osmolality,Calculated 277 (280-300); Potassium 4.2 mEq/L (3.5-4.5); Sodium 135 mEq/L (136-145); eGFR For African Americans > 60 (> 60); eGFR For Non-African Americans > 60 (> 60)
[2017-08-27 05:20] LABS: Blood Urea Nitrogen 5 mg/dL (7-20)
[2017-08-27] MEDS: *HR* Morphine 2 MG/ML SYRINGE IVP PRN ×4 (05:27→20:58)
[2017-08-27 05:32] LABS: Lymphocytes # 3.5 K/mcL (0.6-4.6); Monocytes # 1.6 K/mcL (0.0-1.3); Neutrophils # 8.4 K/mcL (1.6-8.9); Platelet Estimate Normal (Normal); Reactive Lymphocytes Present (Not Present)
[2017-08-27] MEDS: Insulin LISPRO 300 UNITS/3 ML VIAL SQ SCH ×4 (08:51→21:11)
[2017-08-27] MEDS: Folic Acid 1 MG TABLET PO SCH (08:58)
[2017-08-27] MEDS: Famotidine 20 MG TABLET PO SCH ×2 (08:59→20:58)
[2017-08-27] MEDS: Gabapentin 400 MG CAPSULE PO SCH ×3 (08:59→20:58)
[2017-08-27] MEDS: Nicotine 21 MG PATCH.TD24 TD SCH (08:59)
[2017-08-27] MEDS ORDERED: *HR* OxyCODONE ER (12 HR) 10 MG TABLET PO SCH ×2 (15:30→18:00)
[2017-08-27] MEDS: *HR* OxyCODONE ER (12 HR) 10 MG TABLET PO SCH (16:30)
[2017-08-27] MEDS: Insulin DETEMIR 100 UNIT/ML X5UNITS SQ SCH (21:12)
[2017-08-27] MEDS: Ondansetron 4 MG/2 ML VIAL IVP PRN (21:14)
--- NOTE | 2017-08-27 21:23 | Internal Med Progress Note ---
Date of Encounter: 08/27/17 Time of Encounter: 14:00 - Assessment and plan (1) Infection due to Streptococcus pyogenes Current Visit: Yes Status: Acute Assessment and plan: Currently afebrile, RRR, gram positive cocci/s.pyogenes per prelim bld cuture; possible source: fall 1 week ago, scab, well-healing on R clavicle. CT chest negative R clavicle abscess/bony involvement Appreciate ID input. Continue with penicillin G. Total of 6 weeks. (2) Bilateral knee pain Current Visit: Yes Status: Acute Assessment and plan: Hx bilateral arthroplasty Consulted ortho; s/p bilateral knee aspiration, irrigation, debridement Pain managed with Percocet 7.5. Continues to complain of pain. We will add oxycodone extended release. Add IV morphine for breakthrough pain. Continue PT OT. will need SNF on discharge. Qualifiers: Chronicity: acute Qualified Code(s): M25.561 - Pain in right knee; M25.562 - Pain in left knee; M25.562 - Pain in left knee (3) Morbid obesity Current Visit: Yes Status: Acute Assessment and plan: BMI 40. Outpatient weight loss regimen. (4) Infected prosthetic knee joint Current Visit: Yes Status: Acute Assessment and plan: Orthopedics on board. Status post irrigation and debridement, poly-exchange of bilateral total knee prosthesies bilaterally on 08/21/2017. Continue pain control and IV antibiotics. Physical and occupational therapy evaluation noted , recommend placement in extended care facility for continued rehabilitation. rehabilitation services manager working on this. Qualifiers: Encounter type: initial encounter Qualified Code(s): T84.59XA - Infection and inflammatory reaction due to other internal joint prosthesis, initial encounter; Z96.659 - Presence of unspecified artificial knee joint; Z96.659 - Presence of unspecified artificial knee joint (5) Diabetes mellitus Current Visit: Yes Status: Chronic Assessment and plan: Continue Accu-Chek blood glucose monitoring with sliding scale insulin. Diabetic diet. Blood sugars noted to be well controlled. Qualifiers: Diabetes mellitus type: type 2 Diabetes mellitus complication status: with unspecified complications Diabetes mellitus senior living insulin use: without senior living use Qualified Code(s): E11.8 - Type 2 diabetes mellitus with unspecified complications - Subjective Interval history: Patient reports bilateral knee pain, sharp and severe at rest, improved with pain medication. She has not been able to participate in psychotherapy due to limitations secondary to pain. - Constitutional Vitals: Temp Pulse Resp BP Pulse Ox 98.4 F 110 18 179/95 91 08/27/17 20:00 08/27/17 20:00 08/27/17 20:59 08/27/17 20:00 08/27/17 20:59 General appearance: Present: A&O X 3, answers questions appropriately - Respiratory Respiratory exam: Present: CTAB. Absent: accessory muscle use, rales, rhonchi, wheezes - Cardiovascular Cardiovascular exam: Present: RRR, +S1, +S2. Absent: diastolic murmur, gallop, rubs, systolic murmur - GI/Abdominal GI/Abdominal exam: Present: normal bowel sounds, soft, no peritoneal signs. Absent: distended, tenderness - Extremities Exam Extremities exam: Present: pedal edema (Trace lower extremity edema), warm, radial pulses palpable and symmetrical. Absent: calf tenderness, cyanotic - Skin Skin exam: Present: dry, intact Internal Medicine: Result - Labs CBC & Chem 7: 08/27/17 04:30 08/27/17 04:30 Labs: Short CBC 08/27/17 Range/Units 04:30 WBC 13.5 H (4.3-11.1) K/mcL Hgb 10.5 L (11.5-15.4) g/dL Hct 31.4 L (35.3-44.9) % Plt Count 210 (140-400) K/mcL Neutrophils # 8.4 (1.6-8.9) K/mcL BMP 08/27/17 04:30 Sodium 135 L Potassium 4.2 Chloride 100 Carbon Dioxide 27 BUN 5 L Creatinine 0.61 Glucose 94 Calcium 8.5 L - ABG Interpretation ABG results: ABG ABG pH 7.41 pH Units (7.32-7.45) 08/20/17 04:02 ABG pCO2 38 mmHg (35-45) 08/20/17 04:02 ABG pO2 52 mmHg (85-104) L 08/20/17 04:02 ABG O2 Saturation 87 % (95-98) L 08/20/17 04:02 - Impressions Impressions Pelvis MRI 08/27/17 15:48 IMPRESSION: 1. Significant nonspecific partially visualized edema within the proximal vastus musculature extending distally beyond the field of view. This may represent myositis versus strain versus less likely denervation. Consider further evaluation with MRI of the distal femur. 2. No acute osseous abnormality. 3. Trace nonspecific free fluid in the pelvis. D/ / Garrick oMra MD / Garrick Mora MD Interpreting Provider: Garrick Mora MD - VTE Documentation of Mechanical Device: Venous foot pump, device Consult Discharge Plan - Plan Referrals: NONE,PCP [Primary Care Provider] - Asia Unger, FOAM RUBBER FABRICATOR [Advanced Practice Nurse] - 08/26/17 12:15 pm (Please fax over the discharge summary and the med list to [phone])
--- NOTE | 2017-08-27 21:35 | Electrocardiograph Report ---
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
[2017-08-27] MEDS: Clindamycin 600 MG/50 ML 600 MG/50 ML IV.SOLN IVPB SCH (23:44)
[2017-08-28] MEDS: Penicillin G Potassium 4,000,000 UNIT in D5% in Water 100 ML IVPB SCH ×6 (02:35→22:30)
[2017-08-28] MEDS: *HR* OxyCODONE ER (12 HR) 10 MG TABLET PO SCH ×2 (04:00→17:21)
[2017-08-28] MEDS: Ipratropium/Albuterol Neb 3 ML IH SCH ×5 (04:18→20:25)
[2017-08-28 04:22] LABS: Basophils % 0.4 %; Eosinophils # 0.1 K/mcL (0.0-0.6); Eosinophils % 0.6 %; Lymphocytes # 1.8 K/mcL (0.6-4.6); Lymphocytes % 16.3 %; Mean Corpuscular HGB Conc 33.8 g/dL (31.6-35.5); Mean Corpuscular Hemoglobin 30.3 pg (28.0-33.3); Mean Corpuscular Volume 89.7 fL (83.0-100.0); Mean Platelet Volume 11.4 fL (9.4-12.4); Monocytes # 0.9 K/mcL (0.0-1.3); Monocytes % 7.8 %; Neutrophils # 7.9 K/mcL (1.6-8.9); Nucleated Red Blood Cells 0.2 /100 WBC (0); Platelet Count 185 K/mcL (140-400); Red Cell Distribution Width 15.5 % (11.5-14.5); Segmented Neutrophils % 70.9 %
[2017-08-28 04:26] LABS: BUN/Creatinine Ratio 9 (6-26); Blood Urea Nitrogen 6 mg/dL (7-20); Calcium 8.5 mg/dL (8.6-10.8); Carbon Dioxide 29 mEq/L (19-29); Chloride 98 mEq/L (98-109); Glucose 135 mg/dL (70-99); Hemoglobin 8.8 g/dL (11.5-15.4); Osmolality,Calculated 274 (280-300); Sodium 132 mEq/L (136-145); eGFR For African Americans > 60 (> 60); eGFR For Non-African Americans > 60 (> 60)
--- NOTE | 2017-08-28 06:09 | Electrocardiograph Report ---
[place] [id number] Test Date: 2017-08-26 Pat Name: Katharine Dodge Department: 114 Room: [facility] Gender: F Car Loader: JJG : 1960 Requested By: Aliza Avery Order Number: [id number] Reading MD: Mitch Smith MD Measurements Intervals [place] Rate: 89 P: 33 MO: 168 QRS: 20 QRSD: 88 T: 52 QT: 372 QTc: 419 Interpretive Statements SINUS RHYTHM Electronically Signed On 08-28-2017 6:07:50 EST by Mitch Smith MD
[2017-08-28] MEDS: Nicotine 21 MG PATCH.TD24 TD SCH (08:40)
[2017-08-28] MEDS: Gabapentin 400 MG CAPSULE PO SCH ×3 (08:41→22:00)
[2017-08-28] MEDS: *HR* OxyCODONE/APAP 7.5/325 TABLET PO PRN ×3 (08:41→21:59)
[2017-08-28] MEDS: Folic Acid 1 MG TABLET PO SCH (08:41)
[2017-08-28] MEDS: Clindamycin 600 MG/50 ML 600 MG/50 ML IV.SOLN IVPB SCH ×2 (08:41→17:21)
[2017-08-28] MEDS: Famotidine 20 MG TABLET PO SCH (08:42)
--- NOTE | 2017-08-28 08:52 | Internal Med Progress Note ---
Date of Encounter: 08/28/17 Time of Encounter: 08:20 - Assessment and plan (1) Infection due to Streptococcus pyogenes Current Visit: Yes Status: Acute Assessment and plan: Currently afebrile, RRR gram positive cocci/s.pyogenes per prelim bld cuture; possible source: fall 1 week ago, scab, well-healing on R clavicle CT chest negative R clavicle abscess/bony involvement Appreciate ID input Continue with penicillin G - Total of 6 weeks (2) Bilateral knee pain Current Visit: Yes Status: Acute Assessment and plan: Hx bilateral arthroplasty Consulted ortho; s/p bilateral knee aspiration, irrigation, debridement Pain managed with Percocet 7.5. Continues to complain of pain, continue Oxycodone extended release. Add IV Morphine for breakthrough pain Continue PT OT, will need SNF on discharge Qualifiers: Chronicity: acute Qualified Code(s): M25.561 - Pain in right knee; M25.562 - Pain in left knee; M25.562 - Pain in left knee (3) Infected prosthetic knee joint Current Visit: Yes Status: Acute Assessment and plan: Orthopedics on board Status post irrigation and debridement, poly-exchange of bilateral total knee prosthesies bilaterally on 08/21/2017 Continue pain control and IV antibiotics Physical and occupational therapy evaluation noted, recommend placement in [facility] for continued rehabilitation client services assistant working on this Qualifiers: Encounter type: initial encounter Qualified Code(s): T84.59XA - Infection and inflammatory reaction due to other internal joint prosthesis, initial encounter; Z96.659 - Presence of unspecified artificial knee joint; Z96.659 - Presence of unspecified artificial knee joint (4) Diabetes mellitus Current Visit: Yes Status: Chronic Assessment and plan: Continue Accu-Chek blood glucose monitoring with sliding scale insulin Diabetic diet, Blood sugars noted to be controlled Qualifiers: Diabetes mellitus type: type 2 Diabetes mellitus complication status: with unspecified complications Diabetes mellitus buttermilk drier operator insulin use: without buttermilk drier operator use Qualified Code(s): E11.8 - Type 2 diabetes mellitus with unspecified complications (5) Morbid obesity Current Visit: Yes Status: Acute Assessment and plan: BMI 40.4, Outpatient weight loss regimen (6) DVT prophylaxis Current Visit: Yes Status: Acute Assessment and plan: Continue SCDs - Time Spent With Patient 25 - 35 minutes - Subjective Interval history: Examined this morning. Patient is awake and alert. Not in any distress. Denies chest pain or shortness of breath. Patient complains of bilateral knee pain which is worse with movement. Impression pain medication. No fever. Hemodynamically stable. RN states that patient apparently had a fall earlier this morning while she was trying to get out of bed. Patient denies any other complaints at this time. Patient needs physical therapy. - Constitutional Vitals: Temp Pulse Resp BP Pulse Ox 99.4 F 80 18 111/71 92 08/27/17 23:11 08/28/17 06:56 08/28/17 07:34 08/28/17 06:56 08/28/17 07:34 General appearance: Present: cooperative, A&O X 3, morbidly obese, pleasant, no acute distress, answers questions appropriately - Head Head exam: Present: atraumatic - Eye Eye exam: Present: EOMI - ENT ENT exam: Present: mucous membranes moist - Respiratory Respiratory exam: Present: CTAB. Absent: accessory muscle use, rales, rhonchi, wheezes, tachypnea - Cardiovascular Cardiovascular exam: Present: RRR, +S1, +S2 - GI/Abdominal GI/Abdominal exam: Present: soft. Absent: distended, firm, guarding, tenderness - Extremities Exam Extremities exam: Present: pedal edema (Trace bilateral), radial pulses palpable and symmetrical. Absent: calf tenderness, cyanotic - Neurological Exam Neurological exam: Present: alert, oriented X3, no focal deficits. Absent: facial droop, speech deficit Internal Medicine: Result - Labs CBC & Chem 7: 08/28/17 03:55 08/28/17 03:55 Labs: Short CBC 08/28/17 Range/Units 03:55 WBC 11.1 (4.3-11.1) K/mcL Hgb 8.8 L D (11.5-15.4) g/dL Hct 26.0 L (35.3-44.9) % Plt Count 185 (140-400) K/mcL Neutrophils # 7.9 (1.6-8.9) K/mcL BMP 08/28/17 03:55 Sodium 132 L Potassium 4.0 Chloride 98 Carbon Dioxide 29 BUN 6 L Creatinine 0.67 Glucose 135 H Calcium 8.5 L - ABG Interpretation ABG results: ABG ABG pH 7.41 pH Units (7.32-7.45) 08/20/17 04:02 ABG pCO2 38 mmHg (35-45) 08/20/17 04:02 ABG pO2 52 mmHg (85-104) L 08/20/17 04:02 ABG O2 Saturation 87 % (95-98) L 08/20/17 04:02 - Impressions Impressions Lumbar Spine MRI 08/27/17 15:48 IMPRESSION: Left psoas abscess abutting the lateral margin of the L4-5 disc space without evidence of discitis or osteomyelitis. Gas bubble within the abscess suggests gas forming infection. Ventral epidural enhancement from L3-L5 may represent normal enlarged epidural veins, or less-likely phlegmon. D/ / Burton Chance MD / Burton Chance MD Interpreting Provider: Burton Chance MD Pelvis MRI 08/27/17 15:48 IMPRESSION: 1. Significant nonspecific partially visualized edema within the proximal vastus musculature extending distally beyond the field of view. This may represent myositis versus strain versus less likely denervation. Consider further evaluation with MRI of the distal femur. 2. No acute osseous abnormality. 3. Trace nonspecific free fluid in the pelvis. D/ / Garrick Mora MD / Garrick Mora MD Interpreting Provider: Garrick Mora MD - VTE Documentation of Mechanical Device: Venous foot pump, device Consult Discharge Plan - Plan Referrals: NONE,PCP [Primary Care Provider] - Asia Unger, DOCTOR'S ASSISTANT [Advanced Practice Nurse] - 08/26/17 12:15 pm (Please fax over the discharge summary and the med list to [phone])
[2017-08-28] MEDS: Insulin LISPRO 300 UNITS/3 ML VIAL SQ SCH ×4 (09:01→21:58)
--- NOTE | 2017-08-28 09:15 | Infectious Disease Progress No ---
Date of Encounter: 08/27/17 Time of Encounter: 15:50 - Assessment and Plan (1) Severe sepsis Current Visit: Yes Status: Acute The patient had two SIRS criteria plus HANNAH and lactic acidosis on admission. Likely secondary to bacteremia. Improved. Tachycardia has resolved. She has been afebrile. Her WBC has been elevated the past couple of days. Concern for new/uncontrolled source of infection. Blood cultures drawn 08/18/17 x 1 set and 08/19/17 x 1 set are positive for GAS. Repeat blood cultures drawn 08/21/17 are negative x 2 sets. (2) Bacteremia Current Visit: Yes Status: Resolved Causative organism Group A Strep. Source not entirely clear: PNA vs. RUE cellulitis vs. other. 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 Blood cultures drawn 08/18/17 x 1 set is positive for GAS. Repeat blood culture drawn 08/19/17 x 1 set is also positive for GAS. Additional blood cultures drawn 08/21/17 are negative x 2 sets. Continue PCN G 4 million units IV Q4H. Duration of treatment depends on the clinical picture. Monitor renal function and dose-adjust antibiotics. (3) Infected prosthetic knee joint Current Visit: Yes Status: Acute Location: bilateral knees. Causative organism unclear, but likely GAS given the blood culture results. Likely secondary to hematogenous seeding of the hardware. Less likely the source of the bacteremia. Status post bedside arthrocentesis. TNC 1277 with 95 segmented neutrophils and no crystals. Status post irrigation and debridement with polyexchange of bilateral TKA by Dr. Ramirez. Operative note reviewed. Gross purulence noted intra-op. Gram stain shows GPC, but cultures are negative. Continue antibiotics as above. Given the patient's persistent leukocytosis, concern for new source of infection , but clinically the knees look great. Will discuss with ortho. Wound care and activity restrictions per the primary team. Duration of treatment depends on the clinical picture, but likely 6 weeks of IV antibiotics. Monitor renal function and dose-adjust antibiotics. Qualifiers: Encounter type: initial encounter Qualified Code(s): T84.59XA - Infection and inflammatory reaction due to other internal joint prosthesis, initial encounter; Z96.659 - Presence of unspecified artificial knee joint; Z96.659 - Presence of unspecified artificial knee joint (4) Pneumonia Current Visit: Yes Status: Acute Location: Bilateral lower lobes. Causative organism unclear. CT of the chest shows findings consistent with possible PNA. This could be the source of the patient's bacteremia. Get sputum culture if patient is able to provide an adequate specimen. Continue antibiotics as above. Repeat CXR shows stable left perihilar infiltrate. Will add levaquin to antibiotic regimen to treat for PNA. Qualifiers: Pneumonia type: due to unspecified organism Laterality: bilateral Lung location: lower lobe of lung Qualified Code(s): J18.9 - Pneumonia, unspecified organism (5) Acute metabolic encephalopathy Current Visit: Yes Status: Resolved Likely secondary to infectious process and DKA. Appears improved. CT head negative. Continue to monitor closely. (6) Acute kidney failure Current Visit: Yes Status: Resolved Likely secondary to dehydration and sepsis. Resolved. Qualifiers: Acute renal failure type: unspecified Qualified Code(s): N17.9 - Acute kidney failure, unspecified (7) Secondary DM with DKA, uncontrolled Current Visit: Yes Status: Acute FSBS 433 on admission. HgbA1C 8.3%. Management per the primary team. (8) Right arm cellulitis Current Visit: Yes Status: Resolved Right arm mildly edematous and erythematous on exam, but not impressive. Not sure if this is a true cellulitis and/or the source of the patient's bacteremia. Resolved. Continue antibiotics as above. (9) Thrombocytopenia Current Visit: Yes Status: Acute Etiology unclear, but likely related to infection. No acute bleeding noted in exam. Resolved. Continue to trend. Management per the primary team. (10) Vomiting Current Visit: Yes Status: Resolved Likely secondary to DKA. Resolved. Qualifiers: Vomiting type: unspecified Vomiting Intractability: non-intractable Nausea presence: with nausea Qualified Code(s): R11.2 - Nausea with vomiting, unspecified (11) Bilateral knee pain Current Visit: Yes Status: Acute Secondary to bilateral PJI. Pain management per the primary and ortho teams. Qualifiers: Chronicity: acute Qualified Code(s): M25.561 - Pain in right knee; M25.562 - Pain in left knee; M25.562 - Pain in left knee (12) Abrasion Current Visit: Yes Status: Acute Location: Right upper chest. Scabbed lesions patient states was from fall. No fluctuance noted. ? Source of patient's bacteremia. (13) Back pain Current Visit: Yes Status: Acute Patient reports acute worsening of lower back pain that radiates into her left hip and thigh. Given the persistence/acute change in the patient's pain and persistent leukocytosis, will order MRI of the lumbar spine and pelvis to evaluate for infectious etiology. Advised the patient that she will have to lie flat for a prolonged period of time and she is agreeable to this. Qualifiers: Back pain location: low back pain Chronicity: acute Back pain laterality : left Sciatica presence: without sciatica Qualified Code(s): M54.5 - Low back pain - Subjective Interval history: Patient seen and examined. No acute events noted. Status post bilateral knee I & D 08/21/17. Continues to complain of bilateral knee, left hip and left lower back pain. Today, she tells me that she now feels like the left hip and back pain are different than her chronic pain. Denies fevers or rigors, but reports chills. Denies chest pain or shortness of breath or cough. Reports some nausea and poor appetite, but denies vomiting. States she hasn't had a bowel movement for a few days. She denies urinary complaints. Denies pain except as previously mentioned. She denies oral thrush or new skin lesions. Infect Dis PN-Objective Data - Labs CBC & Chem 7: 08/28/17 03:55 08/28/17 03:55 Labs: Laboratory Results - last 24 hr 08/27/17 08/27/17 08/27/17 07:37 11:13 16:36 WBC RBC Hgb Hct MCV MCH MCHC RDW Plt Count MPV Immature Gran % Seg Neutrophils % Lymphocytes % Monocytes % Eosinophils % Basophils % Neutrophils # Lymphocytes # Monocytes # Eosinophils # Basophils # Nucleated RBCs/100 WBC Sodium Potassium Chloride Carbon Dioxide BUN Creatinine Est GFR ( Amer) Est GFR (Non-Af Amer) BUN/Creatinine Ratio Glucose POC Glucose 109 H 112 H 137 H Calculated Osmolality Calcium 08/28/17 08/28/17 03:55 03:55 WBC 11.1 RBC 2.90 L Hgb 8.8 L D Hct 26.0 L MCV 89.7 MCH 30.3 MCHC 33.8 RDW 15.5 H Plt Count 185 MPV 11.4 Immature Gran % 4.0 Seg Neutrophils % 70.9 Lymphocytes % 16.3 Monocytes % 7.8 Eosinophils % 0.6 Basophils % 0.4 Neutrophils # 7.9 Lymphocytes # 1.8 Monocytes # 0.9 Eosinophils # 0.1 Basophils # 0.0 Nucleated RBCs/100 WBC 0.2 H Sodium 132 L Potassium 4.0 Chloride 98 Carbon Dioxide 29 BUN 6 L Creatinine 0.67 Est GFR ( Amer) > 60 Est GFR (Non-Af Amer) > 60 BUN/Creatinine Ratio 9 Glucose 135 H POC Glucose Calculated Osmolality 274 L Calcium 8.5 L Cultures: Cultures 08/21/17 05:30 Blood Culture - Final Peripheral Venipuncture No growth. 08/21/17 05:20 Blood Culture - Final Peripheral Venipuncture No growth. 08/21/17 20:30 Surgical Biopsy Culture - Final Left Knee 08/21/17 20:30 Surgical Biopsy Culture - Final Right Knee 08/21/17 11:25 Body Fluid Culture - Final Synovial Fluid 08/21/17 11:25 Body Fluid Culture - Final Synovial Fluid 08/19/17 02:29 Blood Culture - Final Peripheral Venipuncture Strep pyogenes (Group A) 08/18/17 21:51 Blood Culture - Final Peripheral Venipuncture Strep pyogenes (Group A) Serology 08/22/17 08/21/17 08/21/17 Range/Units 10:25 11:25 11:25 Urine Color Dark Yellow (Yellow) Urine Clarity Cloudy A (Clear) Urine pH 6.0 (5.0-8.0) pH Units Ur Specific [place] 1.027 H (1.010-1.025) Urine Protein 30 H (Neg-Trace) mg/dL Urine Glucose (UA) >=1000 H (Normal) mg/dL Urine Ketones Trace H (Negative) mg/dL Urine Blood Negative (Negative) Urine Nitrite Negative (Negative) Urine Bilirubin Moderate H (Negative) Urine Urobilinogen 4.0 H (Normal) mg/dL Ur Leukocyte Esterase Negative (Negative) Urine Microscopic RBC 0-3 (0-3) per hpf Urine Microscopic WBC 3-5 H (0-3) per hpf Ur Squamous Epith Cells Many H (None-Few) per lpf Amorphous Sediment (Few) Urine Bacteria None Seen (None-Few) per hpf Hyaline Casts None Seen (None-Few) per lpf Urine Yeast Few H (None Seen) per hpf Synovial Source RIGHT KNEE LEFT KNEE Synovial Color Straw Straw (Straw) Synovial Appearance Cloudy A Cloudy A (Clear-Hazy) Synovial Volume 11.0 11.0 mL Synovial RBC < 0.002 0.002 (0.000 - 0.002) M/mcl Synovial Tot Nuc Cell 1277 H 6293 H (0-200) TNC/mcL Synovial Band Neuts Test Not Performed Synovial Basophils Test Not Performed Synovial Eosinophils Test Not Performed Synovial Seg Neuts % 95.0 90.0 % Synovial Lymphocytes % 1 2.0 % Synovial Monocytes % 4.0 8.0 % Synovial Other Cells % Test Not Performed Synovial Crystals No Crystals Seen No Crystals Seen (None Seen) A. baumannii (PCR) (Not Detect) Mable albicans (PCR) (Not Detect) C. glabrata (PCR) (Not Detect) C. krusei (PCR) (Not Detect) C. parapsilosis (PCR) (Not Detect) C. tropicalis (PCR) (Not Detect) Enterobacteriac sp PCR (Not Detect) E. cloacae complex PCR (Not Detect) Enterococcus sp PCR (Not Detect) E. coli (PCR) (Not Detect) H. influenzae (PCR) (Not Detect) Klebsiella oxytoca PCR (Not Detect) Klebsiella pneumoniae (Not Detect) List. monocytogenes PCR (Not Detect) N. meningitidis (PCR) (Not Detect) Proteus species (PCR) (Not Detect) Serratia marcescens PCR (Not Detect) Staphylococcus sp PCR (Not Detect) Staph aureus (PCR) (Not Detect) mecA-Methicil Res Gene (Not Detect) Streptococcus sp PCR (Not Detect) Group A Strep DNA (Not Detect) Group B Strep (PCR) (Not Detect) Strep pneumoniae (PCR) (Not Detect) P. aeruginosa (PCR) (Not Detect) Gorge/B-Vanco Res Genes (Not Detect) KPC (blaKPC) Detect PCR (Not Detect) 08/19/17 08/19/17 08/18/17 Range/Units 22:15 02:29 21:51 Urine Color Yellow (Yellow) Urine Clarity Clear (Clear) Urine pH 6.5 (5.0-8.0) pH Units Ur Specific [place] 1.010 (1.010-1.025) Urine Protein Negative (Neg-Trace) mg/dL Urine Glucose (UA) 100 H (Normal) mg/dL Urine Ketones Negative (Negative) mg/dL Urine Blood Trace H (Negative) Urine Nitrite Negative (Negative) Urine Bilirubin Negative (Negative) Urine Urobilinogen Normal (Normal) mg/dL Ur Leukocyte Esterase Negative (Negative) Urine Microscopic RBC 0-3 (0-3) per hpf Urine Microscopic WBC (0-3) per hpf Ur Squamous Epith Cells Few (None-Few) per lpf Amorphous Sediment Few (Few) Urine Bacteria Few (None-Few) per hpf Hyaline Casts (None-Few) per lpf Urine Yeast (None Seen) per hpf Synovial Source Synovial Color (Straw) Synovial Appearance (Clear-Hazy) Synovial Volume mL Synovial RBC (0.000 - 0.002) M/mcl Synovial Tot Nuc Cell (0-200) TNC/mcL Synovial Band Neuts Synovial Basophils Synovial Eosinophils Synovial Seg Neuts % % Synovial Lymphocytes % % Synovial Monocytes % % Synovial Other Cells % Synovial Crystals (None Seen) A. baumannii (PCR) Not Detected Not Detected (Not Detect) Mable albicans (PCR) Not Detected Not Detected (Not Detect) C. glabrata (PCR) Not Detected Not Detected (Not Detect) C. krusei (PCR) Not Detected Not Detected (Not Detect) C. parapsilosis (PCR) Not Detected Not Detected (Not Detect) C. tropicalis (PCR) Not Detected Not Detected (Not Detect) Enterobacteriac sp PCR Not Detected Not Detected (Not Detect) E. cloacae complex PCR Not Detected Not Detected (Not Detect) Enterococcus sp PCR Not Detected Not Detected (Not Detect) E. coli (PCR) Not Detected Not Detected (Not Detect) H. influenzae (PCR) Not Detected Not Detected (Not Detect) Klebsiella oxytoca PCR Not Detected Not Detected (Not Detect) Klebsiella pneumoniae Not Detected Not Detected (Not Detect) List. monocytogenes PCR Not Detected Not Detected (Not Detect) N. meningitidis (PCR) Not Detected Not Detected (Not Detect) Proteus species (PCR) Not Detected Not Detected (Not Detect) Serratia marcescens PCR Not Detected Not Detected (Not Detect) Staphylococcus sp PCR Not Detected Not Detected (Not Detect) Staph aureus (PCR) Not Detected Not Detected (Not Detect) mecA-Methicil Res Gene Not Detected Not Detected (Not Detect) Streptococcus sp PCR DETECTED A DETECTED A (Not Detect) Group A Strep DNA DETECTED A DETECTED A (Not Detect) Group B Strep (PCR) Not Detected Not Detected (Not Detect) Strep pneumoniae (PCR) Not Detected Not Detected (Not Detect) P. aeruginosa (PCR) Not Detected Not Detected (Not Detect) Gorge/B-Vanco Res Genes Not Detected Not Detected (Not Detect) KPC (blaKPC) Detect PCR Not Detected Not Detected (Not Detect) - Impressions Impressions Lumbar Spine MRI 08/27/17 15:48 IMPRESSION: Left psoas abscess abutting the lateral margin of the L4-5 disc space without evidence of discitis or osteomyelitis. Gas bubble within the abscess suggests gas forming infection. Ventral epidural enhancement from L3-L5 may represent normal enlarged epidural veins, or less-likely phlegmon. D/ / Burton Chance MD / Burton Chance MD Interpreting Provider: Burton Chance MD Pelvis MRI 08/27/17 15:48 IMPRESSION: 1. Significant nonspecific partially visualized edema within the proximal vastus musculature extending distally beyond the field of view. This may represent myositis versus strain versus less likely denervation. Consider further evaluation with MRI of the distal femur. 2. No acute osseous abnormality. 3. Trace nonspecific free fluid in the pelvis. D/ / Garrick Mora MD / Garrick Mora MD Interpreting Provider: Garrick Mora MD Exam - Constitutional Vitals: Temp Pulse Resp BP Pulse Ox 99.4 F 80 18 111/71 92 08/27/17 23:11 08/28/17 06:56 08/28/17 07:34 08/28/17 06:56 08/28/17 07:34 General appearance: cooperative, no acute distress, obese - Head Head exam: Present: atraumatic, normal inspection, normocephalic - Eye Eye exam: Present: EOMI, normal appearance, PERRL Pupils: Present: normal accommodation - ENT ENT exam: Present: mucous membranes moist - Neck Neck exam: Present: normal inspection - Respiratory Respiratory exam: Present: CTAB. Absent: rales, respiratory distress, rhonchi, wheezes - Cardiovascular Cardiovascular exam: Present: RRR, +S1, +S2 - GI/Abdominal GI/Abdominal exam: Present: normal bowel sounds, soft. Absent: distended, tenderness - Extremities Exam Extremities exam: Present: joint swelling (Mild, bilateral knees), pedal edema ( 1+ BLE), tenderness (bilateral knees) Additional comments: Bilateral knee surgical incisions noted without erythema, warmth, or drainage. Honeycomb dressings intact. - Back Exam Back exam: Present: normal inspection, paraspinal tenderness (left lumbar spine) , vertebral tenderness (Lumbar spine) - Neurological Exam Neurological exam: Present: alert, oriented X3, no focal deficits - Psychiatric Psychiatric exam: Present: normal affect, normal mood - Skin Skin exam: Present: dry, intact, normal color, warm - VTE Documentation of Mechanical Device: Venous foot pump, device Consult Discharge Plan - Plan Referrals: NONE,PCP [Primary Care Provider] - Asia Unger DIRECTOR CHILD ABUSE THERAPY [Advanced Practice Nurse] - 08/26/17 12:15 pm (Please fax over the discharge summary and the med list to [phone])
[2017-08-28] MEDS: *HR* Morphine 2 MG/ML SYRINGE IVP PRN (11:15)
--- NOTE | 2017-08-28 13:39 | Infectious Disease Progress No ---
Date of Encounter: 08/28/17 Time of Encounter: 13:36 - Assessment and Plan (1) Severe sepsis Current Visit: Yes Status: Acute The patient had two SIRS criteria plus HANNAH and lactic acidosis on admission. Likely secondary to bacteremia. Improved. Tachycardia has resolved. She has been afebrile. Her WBC has been elevated the past couple of days, but has normalized today. She has a new psoas muscle abscess noted on imaging. Blood cultures drawn 08/18/17 x 1 set and 08/19/17 x 1 set are positive for GAS. Repeat blood cultures drawn 08/21/17 are negative x 2 sets. (2) Bacteremia Current Visit: Yes Status: Resolved Causative organism Group A Strep. Source not entirely clear: PNA vs. RUE cellulitis vs. other. 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 Blood cultures drawn 08/18/17 x 1 set is positive for GAS. Repeat blood culture drawn 08/19/17 x 1 set is also positive for GAS. Additional blood cultures drawn 08/21/17 are negative x 2 sets. Continue PCN G 4 million units IV Q4H. Duration of treatment depends on the clinical picture. Monitor renal function and dose-adjust antibiotics. (3) Infected prosthetic knee joint Current Visit: Yes Status: Acute Location: bilateral knees. Causative organism unclear, but likely GAS given the blood culture results. Likely secondary to hematogenous seeding of the hardware. Less likely the source of the bacteremia. Status post bedside arthrocentesis. TNC 1277 with 95 segmented neutrophils and no crystals. Status post irrigation and debridement with polyexchange of bilateral TKA by Dr. Ramirez. Operative note reviewed. Gross purulence noted intra-op. Gram stain shows GPC, but cultures are negative. Continue antibiotics as above. Wound care and activity restrictions per the primary team. Duration of treatment depends on the clinical picture, but likely 6 weeks of IV antibiotics. Monitor renal function and dose-adjust antibiotics. Qualifiers: Encounter type: initial encounter Qualified Code(s): T84.59XA - Infection and inflammatory reaction due to other internal joint prosthesis, initial encounter; Z96.659 - Presence of unspecified artificial knee joint; Z96.659 - Presence of unspecified artificial knee joint (4) Psoas muscle abscess Current Visit: Yes Status: Acute MRI of the l-spine and pelvis shows findings consistent with psoas muscle abscess. Likely contributing to the patient's persistent leukocytosis. Recommend IR consultation for drain placement. Likely secondary to the patient's bacteremia. Continue antibiotics as above. Discussed with Dr. Griffith. (5) Pneumonia Current Visit: Yes Status: Acute Location: Bilateral lower lobes. Causative organism unclear. CT of the chest shows findings consistent with possible PNA. This could be the source of the patient's bacteremia. Get sputum culture if patient is able to provide an adequate specimen. Continue antibiotics as above. Repeat CXR shows stable left perihilar infiltrate. Will add levaquin to antibiotic regimen to treat for PNA. Qualifiers: Pneumonia type: due to unspecified organism Laterality: bilateral Lung location: lower lobe of lung Qualified Code(s): J18.9 - Pneumonia, unspecified organism (6) Acute metabolic encephalopathy Current Visit: Yes Status: Resolved Likely secondary to infectious process and DKA. Appears improved. CT head negative. Continue to monitor closely. (7) Acute kidney failure Current Visit: Yes Status: Resolved Likely secondary to dehydration and sepsis. Resolved. Qualifiers: Acute renal failure type: unspecified Qualified Code(s): N17.9 - Acute kidney failure, unspecified (8) Secondary DM with DKA, uncontrolled Current Visit: Yes Status: Acute FSBS 433 on admission. HgbA1C 8.3%. Management per the primary team. (9) Right arm cellulitis Current Visit: Yes Status: Resolved Right arm mildly edematous and erythematous on exam, but not impressive. Not sure if this is a true cellulitis and/or the source of the patient's bacteremia. Resolved. Continue antibiotics as above. (10) Thrombocytopenia Current Visit: Yes Status: Resolved Etiology unclear, but likely related to infection. No acute bleeding noted in exam. Resolved. Continue to trend. Management per the primary team. (11) Vomiting Current Visit: Yes Status: Resolved Likely secondary to DKA. Resolved. Qualifiers: Vomiting type: unspecified Vomiting Intractability: non-intractable Nausea presence: with nausea Qualified Code(s): R11.2 - Nausea with vomiting, unspecified (12) Bilateral knee pain Current Visit: Yes Status: Acute Secondary to bilateral PJI. Pain management per the primary and ortho teams. Qualifiers: Chronicity: acute Qualified Code(s): M25.561 - Pain in right knee; M25.562 - Pain in left knee; M25.562 - Pain in left knee (13) Abrasion Current Visit: Yes Status: Acute Location: Right upper chest. Scabbed lesions patient states was from fall. No fluctuance noted. ? Source of patient's bacteremia. (14) Back pain Current Visit: Yes Status: Acute Patient reports acute worsening of lower back pain that radiates into her left hip and thigh. Likely secondary to psoas muscle abscess. See recommendations as above. Pain management per the primary team. Qualifiers: Back pain location: low back pain Chronicity: acute Back pain laterality : left Sciatica presence: without sciatica Qualified Code(s): M54.5 - Low back pain - Subjective Interval history: Patient seen and examined. No acute events noted overnight. Status post bilateral knee I & D 08/21/17. Continues to complain of bilateral knee pain, but states her left hip pain is improved. Denies fevers or rigors, but reports chills. Denies chest pain or shortness of breath or cough. Reports some nausea and poor appetite, but denies vomiting. States she hasn't had a bowel movement for a few days. She denies urinary complaints. Denies pain except as previously mentioned. She denies oral thrush or new skin lesions. Infect Dis PN-Objective Data - Labs CBC & Chem 7: 08/28/17 03:55 08/28/17 03:55 Labs: Laboratory Results - last 24 hr 08/27/17 08/27/17 08/27/17 07:37 11:13 16:36 WBC RBC Hgb Hct MCV MCH MCHC RDW Plt Count MPV Immature Gran % Seg Neutrophils % Lymphocytes % Monocytes % Eosinophils % Basophils % Neutrophils # Lymphocytes # Monocytes # Eosinophils # Basophils # Nucleated RBCs/100 WBC Sodium Potassium Chloride Carbon Dioxide BUN Creatinine Est GFR ( Amer) Est GFR (Non-Af Amer) BUN/Creatinine Ratio Glucose POC Glucose 109 H 112 H 137 H Calculated Osmolality Calcium 08/28/17 08/28/17 08/28/17 03:55 03:55 12:15 WBC 11.1 RBC 2.90 L Hgb 8.8 L D Hct 26.0 L MCV 89.7 MCH 30.3 MCHC 33.8 RDW 15.5 H Plt Count 185 MPV 11.4 Immature Gran % 4.0 Seg Neutrophils % 70.9 Lymphocytes % 16.3 Monocytes % 7.8 Eosinophils % 0.6 Basophils % 0.4 Neutrophils # 7.9 Lymphocytes # 1.8 Monocytes # 0.9 Eosinophils # 0.1 Basophils # 0.0 Nucleated RBCs/100 WBC 0.2 H Sodium 132 L Potassium 4.0 Chloride 98 Carbon Dioxide 29 BUN 6 L Creatinine 0.67 Est GFR ( Amer) > 60 Est GFR (Non-Af Amer) > 60 BUN/Creatinine Ratio 9 Glucose 135 H POC Glucose 118 H Calculated Osmolality 274 L Calcium 8.5 L Cultures: Cultures 08/21/17 05:30 Blood Culture - Final Peripheral Venipuncture No growth. 08/21/17 05:20 Blood Culture - Final Peripheral Venipuncture No growth. 08/21/17 20:30 Surgical Biopsy Culture - Final Left Knee 08/21/17 20:30 Surgical Biopsy Culture - Final Right Knee 08/21/17 11:25 Body Fluid Culture - Final Synovial Fluid 08/21/17 11:25 Body Fluid Culture - Final Synovial Fluid 08/19/17 02:29 Blood Culture - Final Peripheral Venipuncture Strep pyogenes (Group A) 08/18/17 21:51 Blood Culture - Final Peripheral Venipuncture Strep pyogenes (Group A) Serology 08/22/17 08/21/17 08/21/17 Range/Units 10:25 11:25 11:25 Urine Color Dark Yellow (Yellow) Urine Clarity Cloudy A (Clear) Urine pH 6.0 (5.0-8.0) pH Units Ur Specific Clare 1.027 H (1.010-1.025) Urine Protein 30 H (Neg-Trace) mg/dL Urine Glucose (UA) >=1000 H (Normal) mg/dL Urine Ketones Trace H (Negative) mg/dL Urine Blood Negative (Negative) Urine Nitrite Negative (Negative) Urine Bilirubin Moderate H (Negative) Urine Urobilinogen 4.0 H (Normal) mg/dL Ur Leukocyte Esterase Negative (Negative) Urine Microscopic RBC 0-3 (0-3) per hpf Urine Microscopic WBC 3-5 H (0-3) per hpf Ur Squamous Epith Cells Many H (None-Few) per lpf Amorphous Sediment (Few) Urine Bacteria None Seen (None-Few) per hpf Hyaline Casts None Seen (None-Few) per lpf Urine Yeast Few H (None Seen) per hpf Synovial Source RIGHT KNEE LEFT KNEE Synovial Color Straw Straw (Straw) Synovial Appearance Cloudy A Cloudy A (Clear-Hazy) Synovial Volume 11.0 11.0 mL Synovial RBC < 0.002 0.002 (0.000 - 0.002) M/mcl Synovial Tot Nuc Cell 1277 H 6293 H (0-200) TNC/mcL Synovial Band Neuts Test Not Performed Synovial Basophils Test Not Performed Synovial Eosinophils Test Not Performed Synovial Seg Neuts % 95.0 90.0 % Synovial Lymphocytes % 1 2.0 % Synovial Monocytes % 4.0 8.0 % Synovial Other Cells % Test Not Performed Synovial Crystals No Crystals Seen No Crystals Seen (None Seen) A. baumannii (PCR) (Not Detect) Mable albicans (PCR) (Not Detect) C. glabrata (PCR) (Not Detect) C. krusei (PCR) (Not Detect) C. parapsilosis (PCR) (Not Detect) C. tropicalis (PCR) (Not Detect) Enterobacteriac sp PCR (Not Detect) E. cloacae complex PCR (Not Detect) Enterococcus sp PCR (Not Detect) E. coli (PCR) (Not Detect) H. influenzae (PCR) (Not Detect) Klebsiella oxytoca PCR (Not Detect) Klebsiella pneumoniae (Not Detect) List. monocytogenes PCR (Not Detect) N. meningitidis (PCR) (Not Detect) Proteus species (PCR) (Not Detect) Serratia marcescens PCR (Not Detect) Staphylococcus sp PCR (Not Detect) Staph aureus (PCR) (Not Detect) mecA-Methicil Res Gene (Not Detect) Streptococcus sp PCR (Not Detect) Group A Strep DNA (Not Detect) Group B Strep (PCR) (Not Detect) Strep pneumoniae (PCR) (Not Detect) P. aeruginosa (PCR) (Not Detect) Gorge/B-Vanco Res Genes (Not Detect) KPC (blaKPC) Detect PCR (Not Detect) 08/19/17 08/19/17 08/18/17 Range/Units 22:15 02:29 21:51 Urine Color Yellow (Yellow) Urine Clarity Clear (Clear) Urine pH 6.5 (5.0-8.0) pH Units Ur Specific Clare 1.010 (1.010-1.025) Urine Protein Negative (Neg-Trace) mg/dL Urine Glucose (UA) 100 H (Normal) mg/dL Urine Ketones Negative (Negative) mg/dL Urine Blood Trace H (Negative) Urine Nitrite Negative (Negative) Urine Bilirubin Negative (Negative) Urine Urobilinogen Normal (Normal) mg/dL Ur Leukocyte Esterase Negative (Negative) Urine Microscopic RBC 0-3 (0-3) per hpf Urine Microscopic WBC (0-3) per hpf Ur Squamous Epith Cells Few (None-Few) per lpf Amorphous Sediment Few (Few) Urine Bacteria Few (None-Few) per hpf Hyaline Casts (None-Few) per lpf Urine Yeast (None Seen) per hpf Synovial Source Synovial Color (Straw) Synovial Appearance (Clear-Hazy) Synovial Volume mL Synovial RBC (0.000 - 0.002) M/mcl Synovial Tot Nuc Cell (0-200) TNC/mcL Synovial Band Neuts Synovial Basophils Synovial Eosinophils Synovial Seg Neuts % % Synovial Lymphocytes % % Synovial Monocytes % % Synovial Other Cells % Synovial Crystals (None Seen) A. baumannii (PCR) Not Detected Not Detected (Not Detect) Mable albicans (PCR) Not Detected Not Detected (Not Detect) C. glabrata (PCR) Not Detected Not Detected (Not Detect) C. krusei (PCR) Not Detected Not Detected (Not Detect) C. parapsilosis (PCR) Not Detected Not Detected (Not Detect) C. tropicalis (PCR) Not Detected Not Detected (Not Detect) Enterobacteriac sp PCR Not Detected Not Detected (Not Detect) E. cloacae complex PCR Not Detected Not Detected (Not Detect) Enterococcus sp PCR Not Detected Not Detected (Not Detect) E. coli (PCR) Not Detected Not Detected (Not Detect) H. influenzae (PCR) Not Detected Not Detected (Not Detect) Klebsiella oxytoca PCR Not Detected Not Detected (Not Detect) Klebsiella pneumoniae Not Detected Not Detected (Not Detect) List. monocytogenes PCR Not Detected Not Detected (Not Detect) N. meningitidis (PCR) Not Detected Not Detected (Not Detect) Proteus species (PCR) Not Detected Not Detected (Not Detect) Serratia marcescens PCR Not Detected Not Detected (Not Detect) Staphylococcus sp PCR Not Detected Not Detected (Not Detect) Staph aureus (PCR) Not Detected Not Detected (Not Detect) mecA-Methicil Res Gene Not Detected Not Detected (Not Detect) Streptococcus sp PCR DETECTED A DETECTED A (Not Detect) Group A Strep DNA DETECTED A DETECTED A (Not Detect) Group B Strep (PCR) Not Detected Not Detected (Not Detect) Strep pneumoniae (PCR) Not Detected Not Detected (Not Detect) P. aeruginosa (PCR) Not Detected Not Detected (Not Detect) Gorge/B-Vanco Res Genes Not Detected Not Detected (Not Detect) KPC (blaKPC) Detect PCR Not Detected Not Detected (Not Detect) - Impressions Impressions Lumbar Spine MRI 08/27/17 15:48 IMPRESSION: Left psoas abscess abutting the lateral margin of the L4-5 disc space without evidence of discitis or osteomyelitis. Gas bubble within the abscess suggests gas forming infection. Ventral epidural enhancement from L3-L5 may represent normal enlarged epidural veins, or less-likely phlegmon. D/ / Burton Chance MD / Burton Chance MD Interpreting Provider: Burton Chance MD Pelvis MRI 08/27/17 15:48 IMPRESSION: 1. Significant nonspecific partially visualized edema within the proximal vastus musculature extending distally beyond the field of view. This may represent myositis versus strain versus less likely denervation. Consider further evaluation with MRI of the distal femur. 2. No acute osseous abnormality. 3. Trace nonspecific free fluid in the pelvis. D/ / Garrick Mora MD / Garrick Mora MD Interpreting Provider: Garrick Mora MD Exam - Constitutional Vitals: Temp Pulse Resp BP Pulse Ox 99.4 F 80 18 111/71 92 08/27/17 23:11 08/28/17 06:56 08/28/17 07:34 08/28/17 06:56 08/28/17 07:34 General appearance: cooperative, no acute distress, obese - Head Head exam: Present: atraumatic, normal inspection, normocephalic - Eye Eye exam: Present: EOMI, normal appearance, PERRL Pupils: Present: normal accommodation - ENT ENT exam: Present: mucous membranes moist - Neck Neck exam: Present: normal inspection - Respiratory Respiratory exam: Present: CTAB. Absent: rales, respiratory distress, rhonchi, wheezes - Cardiovascular Cardiovascular exam: Present: RRR, +S1, +S2 - GI/Abdominal GI/Abdominal exam: Present: normal bowel sounds, soft. Absent: distended, tenderness - Extremities Exam Extremities exam: Present: joint swelling (Trace bilateral knees), pedal edema ( 1+ BLE), tenderness (bilateral knees) Additional comments: Bilateral anterior knee incisions with baron intact and wound edges well- approximated. No erythema, drainage, or fluctuance noted. Honeycomb dressings replaced per nursing and are C/D/I. - Neurological Exam Neurological exam: Present: alert, oriented X3, no focal deficits - Psychiatric Psychiatric exam: Present: normal affect, normal mood - Skin Skin exam: Present: dry, intact, normal color, warm - VTE Documentation of Mechanical Device: Venous foot pump, device Consult Discharge Plan - Plan Referrals: NONE,PCP [Primary Care Provider] - Asia Unger, SHAFT HEADMAN [Advanced Practice Nurse] - 08/26/17 12:15 pm (Please fax over the discharge summary and the med list to [phone])
[2017-08-28] MEDS: Insulin DETEMIR 100 UNIT/ML X5UNITS SQ SCH (22:00)
[2017-08-29] MEDS: Clindamycin 600 MG/50 ML 600 MG/50 ML IV.SOLN IVPB SCH ×2 (00:13→07:34)
[2017-08-29] MEDS: Ipratropium/Albuterol Neb 3 ML IH SCH ×7 (00:28→23:49)
[2017-08-29] MEDS: Penicillin G Potassium 4,000,000 UNIT in D5% in Water 100 ML IVPB SCH ×5 (02:02→17:43)
[2017-08-29 03:58] LABS: Basophils # 0.1 K/mcL (0.0-0.2); Basophils % 0.5 %; Eosinophils # 0.3 K/mcL (0.0-0.6); Eosinophils % 1.9 %; Hematocrit 26.6 % (35.3-44.9); Hemoglobin 8.8 g/dL (11.5-15.4); Immature Granulocytes % 2.3 % (0-4); Lymphocytes # 2.7 K/mcL (0.6-4.6); Mean Corpuscular HGB Conc 33.1 g/dL (31.6-35.5); Mean Corpuscular Hemoglobin 29.8 pg (28.0-33.3); Mean Corpuscular Volume 90.2 fL (83.0-100.0); Mean Platelet Volume 11.4 fL (9.4-12.4); Monocytes # 1.1 K/mcL (0.0-1.3); Monocytes % 8.9 %; Neutrophils # 8.4 K/mcL (1.6-8.9); Nucleated Red Blood Cells 0.2 /100 WBC (0); Platelet Count 248 K/mcL (140-400); Red Blood Count 2.95 M/mcL (3.82-4.97); Red Cell Distribution Width 15.6 % (11.5-14.5); Segmented Neutrophils % 65.4 %
[2017-08-29 04:23] LABS: BUN/Creatinine Ratio 12 (6-26); Blood Urea Nitrogen 8 mg/dL (7-20); Calcium 8.7 mg/dL (8.6-10.8); Carbon Dioxide 26 mEq/L (19-29); Chloride 98 mEq/L (98-109); Glucose 112 mg/dL (70-99); Osmolality,Calculated 273 (280-300); Potassium 4.3 mEq/L (3.5-4.5); Sodium 132 mEq/L (136-145); eGFR For African Americans > 60 (> 60); eGFR For Non-African Americans > 60 (> 60)
[2017-08-29] MEDS: *HR* OxyCODONE ER (12 HR) 10 MG TABLET PO SCH ×2 (04:28→17:42)
[2017-08-29] MEDS: *HR* OxyCODONE/APAP 7.5/325 TABLET PO PRN ×3 (07:33→15:44)
[2017-08-29] MEDS: Folic Acid 1 MG TABLET PO SCH (07:33)
[2017-08-29] MEDS: Nicotine 21 MG PATCH.TD24 TD SCH (07:33)
[2017-08-29] MEDS: Gabapentin 400 MG CAPSULE PO SCH ×3 (07:33→20:36)
[2017-08-29] MEDS: Insulin LISPRO 300 UNITS/3 ML VIAL SQ SCH ×4 (07:34→20:38)
[2017-08-29] MEDS ORDERED: *HR* FentaNYL (PF) 100 MCG/2 ML VIAL IVP ONE (10:00)
[2017-08-29] MEDS ORDERED: *HR* Midazolam HCl 2 MG/2 ML VIAL IVP ONE (10:00)
--- NOTE | 2017-08-29 11:41 | Internal Med Progress Note ---
Date of Encounter: 08/29/17 Time of Encounter: 08:00 - Assessment and plan (1) Psoas muscle abscess Current Visit: Yes Status: Acute Assessment and plan: Supposed muscle abscess seen on MRI of lumbar spine - likely contributing to persistent leukocytosis IR has attempted drain placement, but collection is too small Patient needs long-term IV antibiotics, continue penicillin ID consult - recommendations reviewed, appreciate input Follow up with ID as outpatient in 2 weeks, repeat MRI as outpatient (2) Infection due to Streptococcus pyogenes Current Visit: Yes Status: Acute Assessment and plan: Prosthetic joint infection and right upper external cellulitis and pneumonia, present on admission Currently afebrile, RRR gram positive cocci/s.pyogenes per prelim bld cuture; possible source: s/p fall , scab, well-healing on R clavicle CT chest - negative R clavicle abscess/bony involvement Appreciate ID input Continue with penicillin G - Total of 6 weeks (3) Pneumonia Current Visit: Yes Status: Acute Assessment and plan: Bilateral pneumonia, causative organism unclear Continue Levaquin on discharge Qualifiers: Pneumonia type: due to unspecified organism Laterality: bilateral Lung location: lower lobe of lung Qualified Code(s): J18.9 - Pneumonia, unspecified organism (4) Infected prosthetic knee joint Current Visit: Yes Status: Acute Assessment and plan: Orthopedics on board Status post irrigation and debridement, poly-exchange of bilateral total knee prosthesies bilaterally on 08/21/2017 Continue pain control and IV antibiotics Physical and occupational therapy evaluation noted, recommend placement in ECF for continued rehabilitation Anticipate discharge to ECF Qualifiers: Encounter type: initial encounter Qualified Code(s): T84.59XA - Infection and inflammatory reaction due to other internal joint prosthesis, initial encounter; Z96.659 - Presence of unspecified artificial knee joint; Z96.659 - Presence of unspecified artificial knee joint (5) Bilateral knee pain Current Visit: Yes Status: Acute Assessment and plan: Hx bilateral arthroplasty Consulted ortho - s/p bilateral knee aspiration, irrigation, debridement Continues to complain of pain, continue Oxycodone extended release, Add IV Morphine for breakthrough pain Continue PT/OT, will need SNF on discharge Qualifiers: Chronicity: acute Qualified Code(s): M25.561 - Pain in right knee; M25.562 - Pain in left knee; M25.562 - Pain in left knee (6) Diabetes mellitus Current Visit: Yes Status: Chronic Assessment and plan: Continue Accu-Chek blood glucose monitoring with sliding scale insulin Diabetic diet, Blood sugars noted to be controlled Qualifiers: Diabetes mellitus type: type 2 Diabetes mellitus complication status: with unspecified complications Diabetes mellitus computer terminal operator insulin use: without computer terminal operator use Qualified Code(s): E11.8 - Type 2 diabetes mellitus with unspecified complications (7) Morbid obesity Current Visit: Yes Status: Acute Assessment and plan: BMI 40.4, Outpatient weight loss regimen (8) DVT prophylaxis Current Visit: Yes Status: Acute Assessment and plan: Continue SCDs - Time Spent With Patient 25 - 35 minutes - Subjective Interval history: Examined this morning. Patient is awake and alert. Not in any distress. Denies chest pain or shortness of breath. Patient complains of bilateral knee pain which is worse with movement. Improves with pain medication. No fever. Hemodynamically stable. No acute events or complaints. Patient has a psoas muscle abscess seen on MRI of the lumbar spine. Intermittent radiology has attempted to place a drain, but the collection is too small and the pelvic bones were in the way. Patient denies any other complaints at this time. Patient needs physical therapy. She will need long- term IV antibiotics. - Constitutional Vitals: Temp Pulse Resp BP Pulse Ox 98.0 F 95 17 135/77 92 08/29/17 08:11 08/29/17 08:11 08/29/17 08:11 08/29/17 08:11 08/29/17 08:11 General appearance: Present: cooperative, A&O X 3, morbidly obese, pleasant, no acute distress, answers questions appropriately - Head Head exam: Present: atraumatic - Eye Eye exam: Present: EOMI - ENT ENT exam: Present: mucous membranes moist - Respiratory Respiratory exam: Present: CTAB. Absent: accessory muscle use, chest wall tenderness, rales, rhonchi, wheezes, tachypnea - Cardiovascular Cardiovascular exam: Present: RRR, +S1, +S2 - GI/Abdominal GI/Abdominal exam: Present: soft. Absent: distended, firm, guarding, tenderness - Extremities Exam Extremities exam: Present: pedal edema (Bilateral lower leg 1+ edema), radial pulses palpable and symmetrical. Absent: calf tenderness, cyanotic Additional comments: Dressing over both knees, intact, no bleeding. - Neurological Exam Neurological exam: Present: alert, oriented X3, no focal deficits. Absent: facial droop, speech deficit Internal Medicine: Result - Labs CBC & Chem 7: 08/29/17 03:45 08/29/17 03:45 Labs: Short CBC 08/29/17 Range/Units 03:45 WBC 12.8 H (4.3-11.1) K/mcL Hgb 8.8 L (11.5-15.4) g/dL Hct 26.6 L (35.3-44.9) % Plt Count 248 (140-400) K/mcL Neutrophils # 8.4 (1.6-8.9) K/mcL BMP 08/29/17 03:45 Sodium 132 L Potassium 4.3 Chloride 98 Carbon Dioxide 26 BUN 8 Creatinine 0.68 Glucose 112 H Calcium 8.7 - ABG Interpretation ABG results: ABG ABG pH 7.41 pH Units (7.32-7.45) 08/20/17 04:02 ABG pCO2 38 mmHg (35-45) 08/20/17 04:02 ABG pO2 52 mmHg (85-104) L 08/20/17 04:02 ABG O2 Saturation 87 % (95-98) L 08/20/17 04:02 - VTE Documentation of Mechanical Device: Venous foot pump, device Consult Discharge Plan - Plan Referrals: NONE,PCP [Primary Care Provider] - Asia Unger LEAD DATABASE DEVELOPER [Advanced Practice Nurse] - 08/26/17 12:15 pm (Please fax over the discharge summary and the med list to [phone]) Prescriptions: Penicillin G Potassium 24,000,000 unit IV Q24H #36 vial
--- NOTE | 2017-08-29 11:58 | IR Procedure Note ---
Date of procedure: 08/29/17 Consent Obtained: Written consent Timeout: Correct patient and procedure verified, Correct site verified, Time out performed, Skin prep completed Indications: Psoas abscess on left Procedure Performed: None. Site/Technique: Collection too small to place drain, and accessiblity poor given low Results/Findings: location with pelvic bones in the way. Recommend f/u imaging Estimated blood loss (cc): 0 Post Procedure Treatment Plan: F/u imaging would be helpful after tx with abx. If larger, could re-attempt
--- NOTE | 2017-08-29 13:55 | Infectious Disease Progress No ---
Date of Encounter: 08/29/17 Time of Encounter: 13:53 - Assessment and Plan (1) Severe sepsis Current Visit: Yes Status: Acute The patient had two SIRS criteria plus HANNAH and lactic acidosis on admission. Likely secondary to bacteremia. Improved. Tachycardia has resolved. She has been afebrile. Her WBC has been hovering near normal. Blood cultures drawn 08/18/17 x 1 set and 08/19/17 x 1 set are positive for GAS. Repeat blood cultures drawn 08/21/17 are negative x 2 sets. (2) Bacteremia Current Visit: Yes Status: Resolved Causative organism Group A Strep. Source not entirely clear: PNA vs. RUE cellulitis vs. other. 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 Blood cultures drawn 08/18/17 x 1 set is positive for GAS. Repeat blood culture drawn 08/19/17 x 1 set is also positive for GAS. Additional blood cultures drawn 08/21/17 are negative x 2 sets. Continue PCN G 4 million units IV Q4H. Duration of treatment depends on the clinical picture, but the patient will require 6 weeks of IV antibiotics due to the presence of her PJIs. Monitor renal function and dose-adjust antibiotics. (3) Infected prosthetic knee joint Current Visit: Yes Status: Acute Location: bilateral knees. Causative organism unclear, but likely GAS given the blood culture results. Likely secondary to hematogenous seeding of the hardware. Less likely the source of the bacteremia. Status post bedside arthrocentesis. TNC 1277 with 95 segmented neutrophils and no crystals. Status post irrigation and debridement with polyexchange of bilateral TKA by Dr. Ramirez. Operative note reviewed. Gross purulence noted intra-op. Gram stain shows GPC, but cultures are negative. Continue antibiotics as above. Wound care and activity restrictions per the primary team. Duration of treatment depends on the clinical picture, but likely 6 weeks of IV antibiotics. The patient tells me she is planning on going home to do rehab there. She will need IV antibiotics at home. I called and spoke with the PharmD with [facility] and the patient will require a 24 hour continuous IV infusion of PCN at home as Q4hour dosing is not feasible in the outpatient setting. I discussed this with the patient and she is agreeable to this. Monitor renal function and dose-adjust antibiotics. Get weekly CBC, BUN/Cr, ESR, and CRP every Saturday. Weekly EPIV/PICC care. Follow up with ID 09/16/17 at 0840. Qualifiers: Encounter type: initial encounter Qualified Code(s): T84.59XA - Infection and inflammatory reaction due to other internal joint prosthesis, initial encounter; Z96.659 - Presence of unspecified artificial knee joint; Z96.659 - Presence of unspecified artificial knee joint (4) Psoas muscle abscess Current Visit: Yes Status: Acute MRI of the l-spine and pelvis shows findings consistent with psoas muscle abscess. Likely contributing to the patient's persistent leukocytosis. IR consulted, but unable to place drain due to size and unable to aspirate due to location in the pelvis. Spoke with Dr. Buitrago. Likely secondary to the patient's bacteremia. Continue antibiotics as above. Will plan to re-image patient in four weeks to evaluate for improvement/resolution. (5) Pneumonia Current Visit: Yes Status: Acute Location: Bilateral lower lobes. Causative organism unclear. CT of the chest shows findings consistent with possible PNA. This could be the source of the patient's bacteremia. Get sputum culture if patient is able to provide an adequate specimen. Continue antibiotics as above. Repeat CXR shows stable left perihilar infiltrate. Continue Levaquin 750mg PO daily x 5 days. Qualifiers: Pneumonia type: due to unspecified organism Laterality: bilateral Lung location: lower lobe of lung Qualified Code(s): J18.9 - Pneumonia, unspecified organism (6) Acute metabolic encephalopathy Current Visit: Yes Status: Resolved Likely secondary to infectious process and DKA. Appears improved. CT head negative. Continue to monitor closely. (7) Acute kidney failure Current Visit: Yes Status: Resolved Likely secondary to dehydration and sepsis. Resolved. Qualifiers: Acute renal failure type: unspecified Qualified Code(s): N17.9 - Acute kidney failure, unspecified (8) Secondary DM with DKA, uncontrolled Current Visit: Yes Status: Acute FSBS 433 on admission. HgbA1C 8.3%. Management per the primary team. (9) Right arm cellulitis Current Visit: Yes Status: Resolved Right arm mildly edematous and erythematous on exam, but not impressive. Not sure if this is a true cellulitis and/or the source of the patient's bacteremia. Resolved. Continue antibiotics as above. (10) Thrombocytopenia Current Visit: Yes Status: Resolved Etiology unclear, but likely related to infection. No acute bleeding noted in exam. Resolved. Continue to trend. Management per the primary team. (11) Vomiting Current Visit: Yes Status: Resolved Likely secondary to DKA. Resolved. Qualifiers: Vomiting type: unspecified Vomiting Intractability: non-intractable Nausea presence: with nausea Qualified Code(s): R11.2 - Nausea with vomiting, unspecified (12) Bilateral knee pain Current Visit: Yes Status: Acute Secondary to bilateral PJI. Pain management per the primary and ortho teams. Qualifiers: Chronicity: acute Qualified Code(s): M25.561 - Pain in right knee; M25.562 - Pain in left knee; M25.562 - Pain in left knee (13) Abrasion Current Visit: Yes Status: Acute Location: Right upper chest. Scabbed lesions patient states was from fall. No fluctuance noted. ? Source of patient's bacteremia. (14) Back pain Current Visit: Yes Status: Acute Patient reports acute worsening of lower back pain that radiates into her left hip and thigh. Likely secondary to psoas muscle abscess. See recommendations as above. Pain management per the primary team. Qualifiers: Back pain location: low back pain Chronicity: acute Back pain laterality : left Sciatica presence: without sciatica Qualified Code(s): M54.5 - Low back pain - Subjective Interval history: Patient seen and examined. No acute events noted overnight. Status post bilateral knee I & D 08/21/17. Continues to complain of bilateral knee pain and states left hip pain is back again. Denies fevers or rigors or chills. Denies chest pain or shortness of breath or cough. Reports some nausea, but states she did eat today and the nausea seems to improve with eating. Denies vomiting. States she hasn't had a bowel movement for a few days. She denies urinary complaints. Denies pain except as previously mentioned. She denies oral thrush or new skin lesions. Went to IR for psoas muscle abscess aspiration, but due to location and size, they were unable to perform procedure. Infect Dis PN-Objective Data - Labs CBC & Chem 7: 08/29/17 03:45 08/29/17 03:45 Labs: Laboratory Results - last 24 hr 08/27/17 08/28/17 08/28/17 21:06 08:58 16:01 WBC RBC Hgb Hct MCV MCH MCHC RDW Plt Count MPV Immature Gran % Seg Neutrophils % Lymphocytes % Monocytes % Eosinophils % Basophils % Neutrophils # Lymphocytes # Monocytes # Eosinophils # Basophils # Nucleated RBCs/100 WBC Sodium Potassium Chloride Carbon Dioxide BUN Creatinine Est GFR ( Amer) Est GFR (Non-Af Amer) BUN/Creatinine Ratio Glucose POC Glucose 170 H 142 H 169 H Calculated Osmolality Calcium 08/28/17 08/29/17 08/29/17 21:51 03:45 03:45 WBC 12.8 H RBC 2.95 L Hgb 8.8 L Hct 26.6 L MCV 90.2 MCH 29.8 MCHC 33.1 RDW 15.6 H Plt Count 248 MPV 11.4 Immature Gran % 2.3 Seg Neutrophils % 65.4 Lymphocytes % 21.0 Monocytes % 8.9 Eosinophils % 1.9 Basophils % 0.5 Neutrophils # 8.4 Lymphocytes # 2.7 Monocytes # 1.1 Eosinophils # 0.3 Basophils # 0.1 Nucleated RBCs/100 WBC 0.2 H Sodium 132 L Potassium 4.3 Chloride 98 Carbon Dioxide 26 BUN 8 Creatinine 0.68 Est GFR ( Amer) > 60 Est GFR (Non-Af Amer) > 60 BUN/Creatinine Ratio 12 Glucose 112 H POC Glucose 150 H Calculated Osmolality 273 L Calcium 8.7 08/29/17 08/29/17 07:31 11:24 WBC RBC Hgb Hct MCV MCH MCHC RDW Plt Count MPV Immature Gran % Seg Neutrophils % Lymphocytes % Monocytes % Eosinophils % Basophils % Neutrophils # Lymphocytes # Monocytes # Eosinophils # Basophils # Nucleated RBCs/100 WBC Sodium Potassium Chloride Carbon Dioxide BUN Creatinine Est GFR ( Amer) Est GFR (Non-Af Amer) BUN/Creatinine Ratio Glucose POC Glucose 137 H 98 H Calculated Osmolality Calcium Cultures: Cultures 08/21/17 05:30 Blood Culture - Final Peripheral Venipuncture No growth. 08/21/17 05:20 Blood Culture - Final Peripheral Venipuncture No growth. 08/21/17 20:30 Surgical Biopsy Culture - Final Left Knee 08/21/17 20:30 Surgical Biopsy Culture - Final Right Knee 08/21/17 11:25 Body Fluid Culture - Final Synovial Fluid 08/21/17 11:25 Body Fluid Culture - Final Synovial Fluid 08/19/17 02:29 Blood Culture - Final Peripheral Venipuncture Strep pyogenes (Group A) 08/18/17 21:51 Blood Culture - Final Peripheral Venipuncture Strep pyogenes (Group A) Serology 08/22/17 08/21/17 08/21/17 Range/Units 10:25 11:25 11:25 Urine Color Dark Yellow (Yellow) Urine Clarity Cloudy A (Clear) Urine pH 6.0 (5.0-8.0) pH Units Ur Specific [place] 1.027 H (1.010-1.025) Urine Protein 30 H (Neg-Trace) mg/dL Urine Glucose (UA) >=1000 H (Normal) mg/dL Urine Ketones Trace H (Negative) mg/dL Urine Blood Negative (Negative) Urine Nitrite Negative (Negative) Urine Bilirubin Moderate H (Negative) Urine Urobilinogen 4.0 H (Normal) mg/dL Ur Leukocyte Esterase Negative (Negative) Urine Microscopic RBC 0-3 (0-3) per hpf Urine Microscopic WBC 3-5 H (0-3) per hpf Ur Squamous Epith Cells Many H (None-Few) per lpf Amorphous Sediment (Few) Urine Bacteria None Seen (None-Few) per hpf Hyaline Casts None Seen (None-Few) per lpf Urine Yeast Few H (None Seen) per hpf Synovial Source RIGHT KNEE LEFT KNEE Synovial Color Straw Straw (Straw) Synovial Appearance Cloudy A Cloudy A (Clear-Hazy) Synovial Volume 11.0 11.0 mL Synovial RBC < 0.002 0.002 (0.000 - 0.002) M/mcl Synovial Tot Nuc Cell 1277 H 6293 H (0-200) TNC/mcL Synovial Band Neuts Test Not Performed Synovial Basophils Test Not Performed Synovial Eosinophils Test Not Performed Synovial Seg Neuts % 95.0 90.0 % Synovial Lymphocytes % 1 2.0 % Synovial Monocytes % 4.0 8.0 % Synovial Other Cells % Test Not Performed Synovial Crystals No Crystals Seen No Crystals Seen (None Seen) A. baumannii (PCR) (Not Detect) Mable albicans (PCR) (Not Detect) C. glabrata (PCR) (Not Detect) C. krusei (PCR) (Not Detect) C. parapsilosis (PCR) (Not Detect) C. tropicalis (PCR) (Not Detect) Enterobacteriac sp PCR (Not Detect) E. cloacae complex PCR (Not Detect) Enterococcus sp PCR (Not Detect) E. coli (PCR) (Not Detect) H. influenzae (PCR) (Not Detect) Klebsiella oxytoca PCR (Not Detect) Klebsiella pneumoniae (Not Detect) List. monocytogenes PCR (Not Detect) N. meningitidis (PCR) (Not Detect) Proteus species (PCR) (Not Detect) Serratia marcescens PCR (Not Detect) Staphylococcus sp PCR (Not Detect) Staph aureus (PCR) (Not Detect) mecA-Methicil Res Gene (Not Detect) Streptococcus sp PCR (Not Detect) Group A Strep DNA (Not Detect) Group B Strep (PCR) (Not Detect) Strep pneumoniae (PCR) (Not Detect) P. aeruginosa (PCR) (Not Detect) Gorge/B-Vanco Res Genes (Not Detect) KPC (blaKPC) Detect PCR (Not Detect) 08/19/17 08/19/17 08/18/17 Range/Units 22:15 02:29 21:51 Urine Color Yellow (Yellow) Urine Clarity Clear (Clear) Urine pH 6.5 (5.0-8.0) pH Units Ur Specific [place] 1.010 (1.010-1.025) Urine Protein Negative (Neg-Trace) mg/dL Urine Glucose (UA) 100 H (Normal) mg/dL Urine Ketones Negative (Negative) mg/dL Urine Blood Trace H (Negative) Urine Nitrite Negative (Negative) Urine Bilirubin Negative (Negative) Urine Urobilinogen Normal (Normal) mg/dL Ur Leukocyte Esterase Negative (Negative) Urine Microscopic RBC 0-3 (0-3) per hpf Urine Microscopic WBC (0-3) per hpf Ur Squamous Epith Cells Few (None-Few) per lpf Amorphous Sediment Few (Few) Urine Bacteria Few (None-Few) per hpf Hyaline Casts (None-Few) per lpf Urine Yeast (None Seen) per hpf Synovial Source Synovial Color (Straw) Synovial Appearance (Clear-Hazy) Synovial Volume mL Synovial RBC (0.000 - 0.002) M/mcl Synovial Tot Nuc Cell (0-200) TNC/mcL Synovial Band Neuts Synovial Basophils Synovial Eosinophils Synovial Seg Neuts % % Synovial Lymphocytes % % Synovial Monocytes % % Synovial Other Cells % Synovial Crystals (None Seen) A. baumannii (PCR) Not Detected Not Detected (Not Detect) Mable albicans (PCR) Not Detected Not Detected (Not Detect) C. glabrata (PCR) Not Detected Not Detected (Not Detect) C. krusei (PCR) Not Detected Not Detected (Not Detect) C. parapsilosis (PCR) Not Detected Not Detected (Not Detect) C. tropicalis (PCR) Not Detected Not Detected (Not Detect) Enterobacteriac sp PCR Not Detected Not Detected (Not Detect) E. cloacae complex PCR Not Detected Not Detected (Not Detect) Enterococcus sp PCR Not Detected Not Detected (Not Detect) E. coli (PCR) Not Detected Not Detected (Not Detect) H. influenzae (PCR) Not Detected Not Detected (Not Detect) Klebsiella oxytoca PCR Not Detected Not Detected (Not Detect) Klebsiella pneumoniae Not Detected Not Detected (Not Detect) List. monocytogenes PCR Not Detected Not Detected (Not Detect) N. meningitidis (PCR) Not Detected Not Detected (Not Detect) Proteus species (PCR) Not Detected Not Detected (Not Detect) Serratia marcescens PCR Not Detected Not Detected (Not Detect) Staphylococcus sp PCR Not Detected Not Detected (Not Detect) Staph aureus (PCR) Not Detected Not Detected (Not Detect) mecA-Methicil Res Gene Not Detected Not Detected (Not Detect) Streptococcus sp PCR DETECTED A DETECTED A (Not Detect) Group A Strep DNA DETECTED A DETECTED A (Not Detect) Group B Strep (PCR) Not Detected Not Detected (Not Detect) Strep pneumoniae (PCR) Not Detected Not Detected (Not Detect) P. aeruginosa (PCR) Not Detected Not Detected (Not Detect) Gorge/B-Vanco Res Genes Not Detected Not Detected (Not Detect) KPC (blaKPC) Detect PCR Not Detected Not Detected (Not Detect) - Impressions Impressions Limited Followup Study CT 08/29/17 00:00 IMPRESSION: Very small gas containing fluid collection measuring approximately 1.5 cm in the left psoas musculature medially, not well accessible given overlying osseous structures. This is too small to place a drain. At this time, no procedure was performed. If this enlarges on follow-up imaging, potentially this could be re- attempted. I called and notified Dr. Li as well from the Infectious Disease service. D/ / Edgardo Wheeler MD / Edgardo Wheeler MD Interpreting Provider: Edgardo Wheeler MD Exam - Constitutional Vitals: Temp Pulse Resp BP Pulse Ox 98.4 F 71 17 159/91 98 08/29/17 12:55 08/29/17 12:55 08/29/17 12:55 08/29/17 12:55 08/29/17 12:55 General appearance: cooperative, no acute distress, obese - Head Head exam: Present: atraumatic, normal inspection, normocephalic - Eye Eye exam: Present: EOMI, normal appearance, PERRL Pupils: Present: normal accommodation - ENT ENT exam: Present: mucous membranes moist - Neck Neck exam: Present: normal inspection - Respiratory Respiratory exam: Present: CTAB. Absent: rales, respiratory distress, rhonchi, wheezes - Cardiovascular Cardiovascular exam: Present: RRR, +S1, +S2 - GI/Abdominal GI/Abdominal exam: Present: distended (obese), normal bowel sounds, soft. Absent: tenderness - Extremities Exam Extremities exam: Present: joint swelling (Mild, bilateral knees), pedal edema ( 1+ BLE), tenderness (Bilateral knees) Additional comments: Bilateral anterior knee surgical incisions with honeycomb dressings [employer]. No redness, erythema, or drainage noted. - Neurological Exam Neurological exam: Present: alert, oriented X3, no focal deficits - Psychiatric Psychiatric exam: Present: normal affect, normal mood - Skin Skin exam: Present: dry, intact, normal color, warm - VTE Documentation of Mechanical Device: Venous foot pump, device Consult Discharge Plan - Plan Referrals: NONE,PCP [Primary Care Provider] - Asia Unger CNP [Advanced Practice Nurse] - 08/26/17 12:15 pm (Please fax over the discharge summary and the med list to [phone]) Abida Li CNP [Advanced Practice Nurse] - 09/16/17 8:40 am Prescriptions: Penicillin G Potassium 24,000,000 unit IV Q24H #36 vial
[2017-08-29] MEDS: *HR* Morphine 2 MG/ML SYRINGE IVP PRN ×2 (13:56→20:37)
[2017-08-29] MEDS ORDERED: levoFLOXacin 750 MG TABLET PO SCH (14:00)
[2017-08-29] MEDS: Insulin DETEMIR 100 UNIT/ML X5UNITS SQ SCH (20:37)
[2017-08-29] MEDS: Methyl Salicylate/Menthol 28 GM TUBE TP PRN (20:57)
[2017-08-30] MEDS: Penicillin G Potassium 4,000,000 UNIT in D5% in Water 100 ML IVPB SCH ×4 (00:10→11:26)
[2017-08-30] MEDS: *HR* OxyCODONE/APAP 7.5/325 TABLET PO PRN ×2 (00:10→08:24)
[2017-08-30] MEDS: Ipratropium/Albuterol Neb 3 ML IH SCH ×3 (04:36→12:01)
[2017-08-30] MEDS: *HR* OxyCODONE ER (12 HR) 10 MG TABLET PO SCH (04:54)
[2017-08-30] MEDS: Nitroglycerin 0.4 MG TAB.SUBL SL PRN ×2 (05:17→05:36)
[2017-08-30 05:35] LABS: Basophils # 0.1 K/mcL (0.0-0.2); Basophils % 0.8 %; Eosinophils # 0.2 K/mcL (0.0-0.6); Eosinophils % 1.3 %; Hematocrit 28.8 % (35.3-44.9); Hemoglobin 9.4 g/dL (11.5-15.4); Immature Granulocytes % 2.2 % (0-4); Lymphocytes # 2.7 K/mcL (0.6-4.6); Lymphocytes % 21.7 %; Mean Corpuscular HGB Conc 32.6 g/dL (31.6-35.5); Mean Corpuscular Hemoglobin 29.6 pg (28.0-33.3); Mean Corpuscular Volume 90.6 fL (83.0-100.0); Mean Platelet Volume 11.5 fL (9.4-12.4); Monocytes # 1.2 K/mcL (0.0-1.3); Monocytes % 9.7 %; Neutrophils # 7.9 K/mcL (1.6-8.9); Nucleated Red Blood Cells 0.2 /100 WBC (0); Platelet Count 311 K/mcL (140-400); Red Blood Count 3.18 M/mcL (3.82-4.97); Red Cell Distribution Width 15.9 % (11.5-14.5); Segmented Neutrophils % 64.3 %
[2017-08-30 05:46] LABS: BUN/Creatinine Ratio 10 (6-26); Blood Urea Nitrogen 7 mg/dL (7-20); Calcium 9.1 mg/dL (8.6-10.8); Carbon Dioxide 28 mEq/L (19-29); Chloride 96 mEq/L (98-109); Glucose 121 mg/dL (70-99); Osmolality,Calculated 271 (280-300); Potassium 4.2 mEq/L (3.5-4.5); Sodium 131 mEq/L (136-145); eGFR For African Americans > 60 (> 60); eGFR For Non-African Americans > 60 (> 60)
[2017-08-30] MEDS: Gabapentin 400 MG CAPSULE PO SCH (08:24)
[2017-08-30] MEDS: Folic Acid 1 MG TABLET PO SCH (08:25)
[2017-08-30] MEDS: Insulin LISPRO 300 UNITS/3 ML VIAL SQ SCH ×2 (08:31→11:27)
[2017-08-30] MEDS: Nicotine 21 MG PATCH.TD24 TD SCH (08:31)
[2017-08-30] MEDS: Methyl Salicylate/Menthol 28 GM TUBE TP PRN (08:32)
--- NOTE | 2017-08-30 08:48 | Infectious Disease Progress No ---
Date of Encounter: 08/30/17 Time of Encounter: 08:46 - Assessment and Plan (1) Severe sepsis Current Visit: Yes Status: Acute The patient had two SIRS criteria plus HANNAH and lactic acidosis on admission. Likely secondary to bacteremia. Improved. Tachycardia has resolved. She has been afebrile. Her WBC has been hovering near normal. Blood cultures drawn 08/18/17 x 1 set and 08/19/17 x 1 set are positive for GAS. Repeat blood cultures drawn 08/21/17 are negative x 2 sets. (2) Bacteremia Current Visit: Yes Status: Resolved Causative organism Group A Strep. Source not entirely clear: PNA vs. RUE cellulitis vs. other. 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 Blood cultures drawn 08/18/17 x 1 set is positive for GAS. Repeat blood culture drawn 08/19/17 x 1 set is also positive for GAS. Additional blood cultures drawn 08/21/17 are negative x 2 sets. Continue PCN G 4 million units IV Q4H. Duration of treatment depends on the clinical picture, but the patient will require 6 weeks of IV antibiotics due to the presence of her PJIs. Monitor renal function and dose-adjust antibiotics. (3) Infected prosthetic knee joint Current Visit: Yes Status: Acute Location: bilateral knees. Causative organism unclear, but likely GAS given the blood culture results. Likely secondary to hematogenous seeding of the hardware. Less likely the source of the bacteremia. Status post bedside arthrocentesis. TNC 1277 with 95 segmented neutrophils and no crystals. Status post irrigation and debridement with polyexchange of bilateral TKA by Dr. Ramirez. Operative note reviewed. Gross purulence noted intra-op. Gram stain shows GPC, but cultures are negative. Continue antibiotics as above. Wound care and activity restrictions per the primary team. Duration of treatment depends on the clinical picture, but likely 6 weeks of IV antibiotics. The patient tells me she is planning on going home to do rehab there. She will need IV antibiotics at home. I called and spoke with the PharmD with [facility] and the patient will require a 24 hour continuous IV infusion of PCN at home as Q4hour dosing is not feasible in the outpatient setting. I discussed this with the patient and she is agreeable to this. Prescription given to social worker school to assist with discharge planning. Monitor renal function and dose-adjust antibiotics. Get weekly CBC, BUN/Cr, ESR, and CRP every Saturday. Weekly EPIV/PICC care. Follow up with ID 09/16/17 at 0840. Qualifiers: Encounter type: initial encounter Qualified Code(s): T84.59XA - Infection and inflammatory reaction due to other internal joint prosthesis, initial encounter; Z96.659 - Presence of unspecified artificial knee joint; Z96.659 - Presence of unspecified artificial knee joint (4) Psoas muscle abscess Current Visit: Yes Status: Acute MRI of the l-spine and pelvis shows findings consistent with psoas muscle abscess. Likely contributing to the patient's persistent leukocytosis. IR consulted, but unable to place drain due to size and unable to aspirate due to location in the pelvis. Spoke with Dr. Buitrago. Likely secondary to the patient's bacteremia. Continue antibiotics as above. Will plan to re-image patient in four weeks to evaluate for improvement/resolution. (5) Pneumonia Current Visit: Yes Status: Acute Location: Bilateral lower lobes. Causative organism unclear. CT of the chest shows findings consistent with possible PNA. This could be the source of the patient's bacteremia. Get sputum culture if patient is able to provide an adequate specimen. Continue antibiotics as above. Repeat CXR shows stable left perihilar infiltrate. Continue Levaquin 750mg PO daily x 5 days (day 2). Qualifiers: Pneumonia type: due to unspecified organism Laterality: bilateral Lung location: lower lobe of lung Qualified Code(s): J18.9 - Pneumonia, unspecified organism (6) Acute metabolic encephalopathy Current Visit: Yes Status: Resolved Likely secondary to infectious process and DKA. Appears improved. CT head negative. Continue to monitor closely. (7) Acute kidney failure Current Visit: Yes Status: Resolved Likely secondary to dehydration and sepsis. Resolved. Qualifiers: Acute renal failure type: unspecified Qualified Code(s): N17.9 - Acute kidney failure, unspecified (8) Secondary DM with DKA, uncontrolled Current Visit: Yes Status: Acute FSBS 433 on admission. HgbA1C 8.3%. Management per the primary team. (9) Right arm cellulitis Current Visit: Yes Status: Resolved Right arm mildly edematous and erythematous on exam, but not impressive. Not sure if this is a true cellulitis and/or the source of the patient's bacteremia. Resolved. Continue antibiotics as above. (10) Thrombocytopenia Current Visit: Yes Status: Resolved Etiology unclear, but likely related to infection. No acute bleeding noted in exam. Resolved. Continue to trend. Management per the primary team. (11) Vomiting Current Visit: Yes Status: Resolved Likely secondary to DKA. Resolved. Qualifiers: Vomiting type: unspecified Vomiting Intractability: non-intractable Nausea presence: with nausea Qualified Code(s): R11.2 - Nausea with vomiting, unspecified (12) Bilateral knee pain Current Visit: Yes Status: Acute Secondary to bilateral PJI. Pain management per the primary and ortho teams. Qualifiers: Chronicity: acute Qualified Code(s): M25.561 - Pain in right knee; M25.562 - Pain in left knee; M25.562 - Pain in left knee (13) Abrasion Current Visit: Yes Status: Acute Location: Right upper chest. Scabbed lesions patient states was from fall. No fluctuance noted. ? Source of patient's bacteremia. (14) Back pain Current Visit: Yes Status: Acute Patient reports acute worsening of lower back pain that radiates into her left hip and thigh. Likely secondary to psoas muscle abscess. See recommendations as above. Pain management per the primary team. Qualifiers: Back pain location: low back pain Chronicity: acute Back pain laterality : left Sciatica presence: without sciatica Qualified Code(s): M54.5 - Low back pain (15) Constipation Current Visit: Yes Status: Acute Likely secondary to poor gastric motility due to narcotic pain medication. Continue bowel prep per the primary team. Will give a one-time dose of Mag Citrate to see if this helps. Qualifiers: Constipation type: drug induced constipation Qualified Code(s): K59.03 - Drug induced constipation - Subjective Interval history: Patient seen and examined. No acute events noted overnight. Status post bilateral knee I & D 08/21/17. Continues to complain of bilateral knee pain and states left hip pain is back again. Denies fevers or rigors or chills. Denies chest pain or shortness of breath or cough. Reports abdominal discomfort, but denies nausea, vomiting. States she hasn't had a bowel movement for a few days, but documentation reflects she has not had a BM in 8 days. She denies urinary complaints. Denies pain except as previously mentioned. She denies oral thrush or new skin lesions. Infect Dis PN-Objective Data - Labs CBC & Chem 7: 08/30/17 04:59 08/30/17 04:59 Labs: Laboratory Results - last 24 hr 08/29/17 08/29/17 08/30/17 11:24 16:21 04:59 WBC 12.3 H RBC 3.18 L Hgb 9.4 L Hct 28.8 L MCV 90.6 MCH 29.6 MCHC 32.6 RDW 15.9 H Plt Count 311 MPV 11.5 Immature Gran % 2.2 Seg Neutrophils % 64.3 Lymphocytes % 21.7 Monocytes % 9.7 Eosinophils % 1.3 Basophils % 0.8 Neutrophils # 7.9 Lymphocytes # 2.7 Monocytes # 1.2 Eosinophils # 0.2 Basophils # 0.1 Nucleated RBCs/100 WBC 0.2 H Sodium Potassium Chloride Carbon Dioxide BUN Creatinine Est GFR ( Amer) Est GFR (Non-Af Amer) BUN/Creatinine Ratio Glucose POC Glucose 98 H 132 H Calculated Osmolality Calcium Troponin I 08/30/17 08/30/17 08/30/17 04:59 05:00 07:08 WBC RBC Hgb Hct MCV MCH MCHC RDW Plt Count MPV Immature Gran % Seg Neutrophils % Lymphocytes % Monocytes % Eosinophils % Basophils % Neutrophils # Lymphocytes # Monocytes # Eosinophils # Basophils # Nucleated RBCs/100 WBC Sodium 131 L Potassium 4.2 Chloride 96 L Carbon Dioxide 28 BUN 7 Creatinine 0.67 Est GFR ( Amer) > 60 Est GFR (Non-Af Amer) > 60 BUN/Creatinine Ratio 10 Glucose 121 H POC Glucose 148 H Calculated Osmolality 271 L Calcium 9.1 Troponin I 0.01 Cultures: Cultures 08/21/17 05:30 Blood Culture - Final Peripheral Venipuncture No growth. 08/21/17 05:20 Blood Culture - Final Peripheral Venipuncture No growth. 08/21/17 20:30 Surgical Biopsy Culture - Final Left Knee 08/21/17 20:30 Surgical Biopsy Culture - Final Right Knee 08/21/17 11:25 Body Fluid Culture - Final Synovial Fluid 08/21/17 11:25 Body Fluid Culture - Final Synovial Fluid 08/19/17 02:29 Blood Culture - Final Peripheral Venipuncture Strep pyogenes (Group A) 08/18/17 21:51 Blood Culture - Final Peripheral Venipuncture Strep pyogenes (Group A) Serology 08/22/17 08/21/17 08/21/17 Range/Units 10:25 11:25 11:25 Urine Color Dark Yellow (Yellow) Urine Clarity Cloudy A (Clear) Urine pH 6.0 (5.0-8.0) pH Units Ur Specific Pyote 1.027 H (1.010-1.025) Urine Protein 30 H (Neg-Trace) mg/dL Urine Glucose (UA) >=1000 H (Normal) mg/dL Urine Ketones Trace H (Negative) mg/dL Urine Blood Negative (Negative) Urine Nitrite Negative (Negative) Urine Bilirubin Moderate H (Negative) Urine Urobilinogen 4.0 H (Normal) mg/dL Ur Leukocyte Esterase Negative (Negative) Urine Microscopic RBC 0-3 (0-3) per hpf Urine Microscopic WBC 3-5 H (0-3) per hpf Ur Squamous Epith Cells Many H (None-Few) per lpf Amorphous Sediment (Few) Urine Bacteria None Seen (None-Few) per hpf Hyaline Casts None Seen (None-Few) per lpf Urine Yeast Few H (None Seen) per hpf Synovial Source RIGHT KNEE LEFT KNEE Synovial Color Straw Straw (Straw) Synovial Appearance Cloudy A Cloudy A (Clear-Hazy) Synovial Volume 11.0 11.0 mL Synovial RBC < 0.002 0.002 (0.000 - 0.002) M/mcl Synovial Tot Nuc Cell 1277 H 6293 H (0-200) TNC/mcL Synovial Band Neuts Test Not Performed Synovial Basophils Test Not Performed Synovial Eosinophils Test Not Performed Synovial Seg Neuts % 95.0 90.0 % Synovial Lymphocytes % 1 2.0 % Synovial Monocytes % 4.0 8.0 % Synovial Other Cells % Test Not Performed Synovial Crystals No Crystals Seen No Crystals Seen (None Seen) A. baumannii (PCR) (Not Detect) Mable albicans (PCR) (Not Detect) C. glabrata (PCR) (Not Detect) C. krusei (PCR) (Not Detect) C. parapsilosis (PCR) (Not Detect) C. tropicalis (PCR) (Not Detect) Enterobacteriac sp PCR (Not Detect) E. cloacae complex PCR (Not Detect) Enterococcus sp PCR (Not Detect) E. coli (PCR) (Not Detect) H. influenzae (PCR) (Not Detect) Klebsiella oxytoca PCR (Not Detect) Klebsiella pneumoniae (Not Detect) List. monocytogenes PCR (Not Detect) N. meningitidis (PCR) (Not Detect) Proteus species (PCR) (Not Detect) Serratia marcescens PCR (Not Detect) Staphylococcus sp PCR (Not Detect) Staph aureus (PCR) (Not Detect) mecA-Methicil Res Gene (Not Detect) Streptococcus sp PCR (Not Detect) Group A Strep DNA (Not Detect) Group B Strep (PCR) (Not Detect) Strep pneumoniae (PCR) (Not Detect) P. aeruginosa (PCR) (Not Detect) Gorge/B-Vanco Res Genes (Not Detect) KPC (blaKPC) Detect PCR (Not Detect) 08/19/17 08/19/17 08/18/17 Range/Units 22:15 02:29 21:51 Urine Color Yellow (Yellow) Urine Clarity Clear (Clear) Urine pH 6.5 (5.0-8.0) pH Units Ur Specific Pyote 1.010 (1.010-1.025) Urine Protein Negative (Neg-Trace) mg/dL Urine Glucose (UA) 100 H (Normal) mg/dL Urine Ketones Negative (Negative) mg/dL Urine Blood Trace H (Negative) Urine Nitrite Negative (Negative) Urine Bilirubin Negative (Negative) Urine Urobilinogen Normal (Normal) mg/dL Ur Leukocyte Esterase Negative (Negative) Urine Microscopic RBC 0-3 (0-3) per hpf Urine Microscopic WBC (0-3) per hpf Ur Squamous Epith Cells Few (None-Few) per lpf Amorphous Sediment Few (Few) Urine Bacteria Few (None-Few) per hpf Hyaline Casts (None-Few) per lpf Urine Yeast (None Seen) per hpf Synovial Source Synovial Color (Straw) Synovial Appearance (Clear-Hazy) Synovial Volume mL Synovial RBC (0.000 - 0.002) M/mcl Synovial Tot Nuc Cell (0-200) TNC/mcL Synovial Band Neuts Synovial Basophils Synovial Eosinophils Synovial Seg Neuts % % Synovial Lymphocytes % % Synovial Monocytes % % Synovial Other Cells % Synovial Crystals (None Seen) A. baumannii (PCR) Not Detected Not Detected (Not Detect) Mable albicans (PCR) Not Detected Not Detected (Not Detect) C. glabrata (PCR) Not Detected Not Detected (Not Detect) C. krusei (PCR) Not Detected Not Detected (Not Detect) C. parapsilosis (PCR) Not Detected Not Detected (Not Detect) C. tropicalis (PCR) Not Detected Not Detected (Not Detect) Enterobacteriac sp PCR Not Detected Not Detected (Not Detect) E. cloacae complex PCR Not Detected Not Detected (Not Detect) Enterococcus sp PCR Not Detected Not Detected (Not Detect) E. coli (PCR) Not Detected Not Detected (Not Detect) H. influenzae (PCR) Not Detected Not Detected (Not Detect) Klebsiella oxytoca PCR Not Detected Not Detected (Not Detect) Klebsiella pneumoniae Not Detected Not Detected (Not Detect) List. monocytogenes PCR Not Detected Not Detected (Not Detect) N. meningitidis (PCR) Not Detected Not Detected (Not Detect) Proteus species (PCR) Not Detected Not Detected (Not Detect) Serratia marcescens PCR Not Detected Not Detected (Not Detect) Staphylococcus sp PCR Not Detected Not Detected (Not Detect) Staph aureus (PCR) Not Detected Not Detected (Not Detect) mecA-Methicil Res Gene Not Detected Not Detected (Not Detect) Streptococcus sp PCR DETECTED A DETECTED A (Not Detect) Group A Strep DNA DETECTED A DETECTED A (Not Detect) Group B Strep (PCR) Not Detected Not Detected (Not Detect) Strep pneumoniae (PCR) Not Detected Not Detected (Not Detect) P. aeruginosa (PCR) Not Detected Not Detected (Not Detect) Gorge/B-Vanco Res Genes Not Detected Not Detected (Not Detect) KPC (blaKPC) Detect PCR Not Detected Not Detected (Not Detect) - Impressions Impressions Limited Followup Study CT 08/29/17 00:00 IMPRESSION: Very small gas containing fluid collection measuring approximately 1.5 cm in the left psoas musculature medially, not well accessible given overlying osseous structures. This is too small to place a drain. At this time, no procedure was performed. If this enlarges on follow-up imaging, potentially this could be re- attempted. I called and notified Dr. Li as well from the Infectious Disease service. D/ / Edgardo Wheeler MD / Edgardo Wheeler MD Interpreting Provider: Edgardo Wheeler MD Exam - Constitutional Vitals: Temp Pulse Resp BP Pulse Ox 97.9 F 78 16 137/87 98 08/30/17 03:51 08/30/17 03:51 08/30/17 03:51 08/30/17 03:51 08/30/17 03:51 General appearance: cooperative, no acute distress, obese - Head Head exam: Present: atraumatic, normal inspection, normocephalic - Eye Eye exam: Present: EOMI, normal appearance, PERRL Pupils: Present: normal accommodation - ENT ENT exam: Present: mucous membranes moist - Neck Neck exam: Present: normal inspection - Respiratory Respiratory exam: Present: CTAB. Absent: rales, respiratory distress, rhonchi, wheezes - Cardiovascular Cardiovascular exam: Present: RRR, +S1, +S2 - GI/Abdominal GI/Abdominal exam: Present: distended (obese), normal bowel sounds, soft, tenderness (generalized) - Extremities Exam Extremities exam: Present: joint swelling (Trace, bilateral knees), tenderness ( bilateral knees). Absent: pedal edema Additional comments: Bilateral anterior knee incisions with honeycomb dressings in place. No warmth, erythema, or drainage noted. - Neurological Exam Neurological exam: Present: alert, oriented X3, no focal deficits - Psychiatric Psychiatric exam: Present: normal affect, normal mood - Skin Skin exam: Present: dry, intact, normal color, warm Additional comments: No endocarditis stigmata noted. - Additional findings Additional findings: EPIV noted to the LUE with transparent dressing C/D/I. - VTE Documentation of Mechanical Device: Venous foot pump, device Consult Discharge Plan - Plan Referrals: Abida Li CNP [Advanced Practice Nurse] - 09/16/17 8:40 am NONE,PCP [Primary Care Provider] - Asia Unger CNP [Advanced Practice Nurse] - 08/26/17 12:15 pm (Please fax over the discharge summary and the med list to [phone]) Prescriptions: Penicillin G Potassium 24,000,000 unit IV Q24H #36 vial
[2017-08-30 09:16] VITALS: BP 123/79
--- NOTE | 2017-08-30 10:41 | Discharge Summary ---
Date of Encounter: 08/30/17 Time of Encounter: 08:10 - Discharge Diagnosis (1) Psoas muscle abscess Priority: Primary Status: Acute Comments: Psoas muscle abscess seen on MRI of lumbar spine - likely contributing to persistent leukocytosis IR has attempted drain placement, but collection is too small Patient needs long-term IV antibiotics, continue Penicillin at home ID consult - recommendations reviewed, appreciate input Follow up with ID as outpatient in 2 weeks, repeat MRI as outpatient (2) Infection due to Streptococcus pyogenes Priority: Primary Status: Acute Comments: Prosthetic joint infection and right upper external cellulitis and pneumonia, present on admission - now improved Currently afebrile, RRR gram positive cocci/s.pyogenes per prelim bld cuture; possible source: s/p fall , scab, well-healing on R clavicle CT chest - negative R clavicle abscess/bony involvement Continue PT/OT on discharge, ambulate Appreciate ID input Continue with Penicillin G - Total of 6 weeks Follow-up with ID as outpatient (3) Pneumonia Priority: Primary Status: Acute Comments: Bilateral pneumonia - improved - causative organism unclear Continue Levaquin on discharge Qualifiers: Pneumonia type: due to unspecified organism Laterality: bilateral Lung location: lower lobe of lung Qualified Code(s): J18.9 - Pneumonia, unspecified organism (4) Infected prosthetic knee joint Priority: Primary Status: Acute Comments: Orthopedics on board Status post irrigation and debridement, poly-exchange of bilateral total knee prosthesies bilaterally on 08/21/2017 Continue pain control and IV antibiotics Physical and occupational therapy evaluation noted, recommend placement in ECF for continued rehabilitation - patient does not want ECF Discharge home with home health, continue PT/OT, ambulate Qualifiers: Encounter type: initial encounter Qualified Code(s): T84.59XA - Infection and inflammatory reaction due to other internal joint prosthesis, initial encounter; Z96.659 - Presence of unspecified artificial knee joint; Z96.659 - Presence of unspecified artificial knee joint (5) Bilateral knee pain Priority: Primary Status: Acute Comments: Hx bilateral arthroplasty Consulted ortho - s/p bilateral knee aspiration, irrigation, debridement Continues to complain of pain, continue Oxycodone extended release Continue PT/OT on discharge, ambulate Qualifiers: Chronicity: acute Qualified Code(s): M25.561 - Pain in right knee; M25.562 - Pain in left knee; M25.562 - Pain in left knee (6) Diabetes mellitus Priority: Secondary Status: Chronic Comments: Continue Accu-Chek blood glucose monitoring with sliding scale insulin Diabetic diet, Blood sugars noted to be controlled Qualifiers: Diabetes mellitus type: type 2 Diabetes mellitus complication status: with unspecified complications Diabetes mellitus watermaster insulin use: without watermaster use Qualified Code(s): E11.8 - Type 2 diabetes mellitus with unspecified complications (7) Morbid obesity Priority: Secondary Status: Acute Comments: BMI 40.4, Outpatient weight loss regimen (8) Tobacco abuse Priority: Secondary Status: Chronic Comments: Counseling about cessation, nicotine patch - Discharge Medications Prescriptions: Ipratropium/Albuterol Neb [Duoneb] 3 ml IH [id number] PRN #30 inhsol PRN Reason: Shortness Of Breath/Wheezing OxyCODONE/APAP 7.5/325 [Percocet 7.5/325 MG] 1 each PO Q6HR PRN #10 tablet PRN Reason: Moderate Pain Aspirin 81 mg PO DAILY #30 tab.chew levoFLOXacin [Levaquin] 750 mg PO Q24H 5 Days #5 tablet Nicotine Patch [Nicoderm] 21 mg TD DAILY #30 patch.td24 Penicillin G Potassium 24,000,000 unit IV Q24H #36 vial Home Medications: Metoprolol [Lopressor] 25 mg PO BID 06/17/16 [History] Omeprazole [PriLOSEC] 40 mg PO DAILY 06/17/16 [History] Duloxetine HCl [Cymbalta] 60 mg PO DAILY 08/19/17 [History] Folic Acid 0.8 mg PO DAILY 08/19/17 [History] Gabapentin [Neurontin] 400 mg PO TID 08/19/17 [History] Lisinopril-HCTZ 10-12.5 [Prinzide 10-12.5] 1 tab PO DAILY 08/19/17 [History] Quetiapine Fumarate [Seroquel] 300 mg PO HS 08/19/17 [History] cloNIDine HCl [CloNIDine HCl] 0.1 mg PO HS 08/19/17 [History] Penicillin G Potassium 24,000,000 unit IV Q24H #36 vial 08/29/17 [Rx] Aspirin 81 mg PO DAILY #30 tab.chew 08/30/17 [Rx] Docusate [Colace] 100 mg PO DAILY #14 capsule 08/30/17 [Rx] Ipratropium/Albuterol Neb [Duoneb] 3 ml IH [id number] PRN #30 inhsol 08/30/17 [Rx] Nicotine Patch [Nicoderm] 21 mg TD DAILY #30 patch.td24 08/30/17 [Rx] Ondansetron ODT [Zofran ODT] 4 mg SL Q6HR #10 tab.rapdis 08/30/17 [Rx] OxyCODONE/APAP 7.5/325 [Percocet 7.5/325 MG] 1 each PO Q6HR PRN #10 tablet 08/30 [Rx] Polyethylene Glycol 3350 [MiraLAX Powder Bulk 17.9 Oz] 1 scoop PO DAILY #510 gm 08/30/17 [Rx] levoFLOXacin [Levaquin] 750 mg PO Q24H 5 Days #5 tablet 08/30/17 [Rx] Allergies/Adverse Reactions: 3 Allergy/AdvReac Type Severity Reaction Status Date / Time Sulfa (Sulfonamide Allergy Rash Verified 08/18/17 11:41 Antibiotics) Procedures/tests Complete & Pending: Procedures Performed prior 72 hours Category Date Time Status MR lumbar spine wo/w con [MR] Routine MRI 08/27/17 15:48 Completed MR pelvis wo/w con [MR] Routine MRI 08/27/17 15:48 Completed ECG 12 lead ECG [ECG] Routine Y 08/28/17 19:51 Completed EKG [ECG 12 lead ECG] [ECG] Routine Y 08/30/17 05:05 Completed Date of admission: 08/18/17 21:56 Primary care physician: PCP NONE Consults: 08/18/17 21:30 Consult to Product Manager [employer] [CONS] Routine Reason for SW Consult: DISCHARGE PLANNING 08/19/17 19:03 Consult to Invasive Line Access Team [CONS] Routine Reason for Consult: limited access Line Type: EPIV 08/20/17 07:29 Consult to Occupational Therapy [CONS] Routine Comment: Evaluate, develop and implement POC Reason for Consult: WEAKNESS Consult to Physical Therapy [CONS] Routine Comment: Evaluate, develop and implement POC Reason for Consult: WEAKNESS 08/20/17 14:05 Consult to Infectious Diseases [CONS] Routine Consulting Provider: Infectious Disease [facility] Reason for Consult: s. pyogenes bacteremia Time Notified: 14:06 Call Completed: Yes 08/21/17 09:12 Consult to Orthopedic Surgery [CONS] Stat Consulting Provider: [facility] Reason for Consult: Septecemia..s/p b/l TKR, currently with Left knee pain and swelling Call Completed: Yes 08/28/17 09:21 Consult to Interventional Radiology [CONS] Stat Consulting Provider: Radiology Interventional Cols Reason for Consult: psoas abscess, for drainage Call Completed: Yes Anticipated date of discharge: 08/30/17 - Patient Status Disposition: Home Health Service Condition: Fair Functional capacity at discharge: uses cane/walker Overall status at discharge: patient is progressing back to baseline - Discharge Instructions Follow Up With: Abida Li CNP [Advanced Practice Nurse] - 09/16/17 8:40 am NONE,PCP [Primary Care Provider] - Angel Ramirez MD [Non-Partnered Physician] - 09/13/17 9:30 am Lower,Asia Unger CNP [Advanced Practice Nurse] - 08/26/17 12:15 pm (Please fax over the discharge summary and the med list to [phone]) - Diet and Activity Activity: as per physical therapy, increase activity as tolerated Diet: low fat, low cholesterol, low salt diet Hospital course: Ms. Dodge is a 56 year old female with past medical history of coronary artery disease, hypertension, anxiety, depression and history of previously treated hepatitis C. She is also current smoker. Patient was initially admitted for DKA. She was also found to have group A strep bacteremia. She came in with abdominal pain and nausea and vomiting. She did have elevated lactic acid and acute kidney injury. CT of the abdomen and pelvis was negative. Patient did have right arm cellulitis with redness over right side of chest wall. Patient stated that it was due to a fall. She was started on broad-spectrum IV antibiotics. Patient also complained of bilateral knee pain. Orthopedics has evaluated the patient. Bilateral knee aspirate was positive for gram-positive cocci. She likely had hematogenous seeding. She underwent urgent I&D with poly -exchange of bilateral knees and irrigation. She had complete synovectomy of bilateral knees. Patient did prosthetic joint infection. IV AmBisome continued. She tolerated the procedure well. MRI of the lumbar spine was done and she was found to have a psoas abscess. Interventional radiology was consulted. The collection was too small to drain. Patient will need long-term IV antibiotics. She is being discharged home with penicillin G. Infectious disease has been following the patient. Advised follow-up as outpatient and repeat MRI. Worsening leukocytosis was likely due to the abscess. Patient was also found to have bilateral lower lobe pneumonia and was started on IV Levaquin. She is being discharged with Levaquin by mouth. PT/OT have evaluated patient. Patient has tolerated all medications well. She is ambulating with assistance. She is tolerating oral diet well. Patient and daughter have refused ECF placement. They want to go home with home health. IV antibiotic infusion has been set up at home. Patient and her daughter have been explained about her condition and plan of care in detail. They understood and agreed. No unanswered questions. No other acute events or complications. Patient is being discharged in stable condition. Time spent discussing smoking cessation with patient: 3 to 10 minutes - Time Spent with Patient Total time spent providing and/or coordinating discharge services: Greater than 30 minutes - Constitutional Vitals: Temp Pulse Resp BP Pulse Ox 98.9 F 92 17 123/79 97 08/30/17 09:13 08/30/17 09:13 08/30/17 09:13 08/30/17 09:13 08/30/17 09:13 General appearance: Present: cooperative, A&O X 3, morbidly obese, pleasant, no acute distress, answers questions appropriately - Head Head exam: Present: atraumatic - Eye Eye exam: Present: EOMI - ENT ENT exam: Present: mucous membranes moist - Respiratory Respiratory exam: Present: CTAB. Absent: accessory muscle use, chest wall tenderness, rales, rhonchi, wheezes, tachypnea - Cardiovascular Cardiovascular exam: Present: RRR, +S1, +S2 - GI/Abdominal GI/Abdominal exam: Present: soft. Absent: distended, firm, guarding, tenderness - Extremities Exam Extremities exam: Present: pedal edema (bilateral lower leg 1+ edema), radial pulses palpable and symmetrical. Absent: calf tenderness, cyanotic Additional comments: Dressing over both knees, intact, no bleeding - Neurological Exam Neurological exam: Present: alert, CN II-XII intact, oriented X3, no focal deficits. Absent: facial droop, speech deficit - VTE Documentation of Mechanical Device: Venous foot pump, device
--- NOTE | 2017-08-30 11:01 | Physician Discharge Referral ---
Home Health/Hosp Referral Info Transfer to: Home Health Provider in Charge Post Discharge: PCP - Diagnosis (1) Psoas muscle abscess Priority: Primary Status: Acute (2) Infection due to Streptococcus pyogenes Priority: Primary Status: Acute (3) Pneumonia Priority: Primary Status: Acute (4) Infected prosthetic knee joint Priority: Primary Status: Acute (5) Bilateral knee pain Priority: Primary Status: Acute (6) Diabetes mellitus Priority: Secondary Status: Chronic (7) Morbid obesity Priority: Secondary Status: Acute (8) Tobacco abuse Priority: Secondary Status: Chronic - Respiratory Orders Smoking Cessation: Smoking cessation has been advised. For more information, call the [place] Tobacco Quit Line at 7-267-QPUI-NOW. - Diet/Nutrition Diet/Nutrition Orders: Cardiac - Activity Activity Orders: Ambulate - Services Needed Following services are medically necessary services: Nursing, Home Health Aide, Physical Therapy, Occupational Therapy, Home Infusion - Transfer Medications Prescriptions: Ipratropium/Albuterol Neb [Duoneb] 3 ml IH [id number] PRN #30 inhsol PRN Reason: Shortness Of Breath/Wheezing OxyCODONE/APAP 7.5/325 [Percocet 7.5/325 MG] 1 each PO Q6HR PRN #10 tablet PRN Reason: Moderate Pain Aspirin 81 mg PO DAILY #30 tab.chew levoFLOXacin [Levaquin] 750 mg PO Q24H 5 Days #5 tablet Nicotine Patch [Nicoderm] 21 mg TD DAILY #30 patch.td24 Penicillin G Potassium 24,000,000 unit IV Q24H #36 vial Home Medications: Metoprolol [Lopressor] 25 mg PO BID 06/17/16 [History] Omeprazole [PriLOSEC] 40 mg PO DAILY 06/17/16 [History] Duloxetine HCl [Cymbalta] 60 mg PO DAILY 08/19/17 [History] Folic Acid 0.8 mg PO DAILY 08/19/17 [History] Gabapentin [Neurontin] 400 mg PO TID 08/19/17 [History] Lisinopril-HCTZ 10-12.5 [Prinzide 10-12.5] 1 tab PO DAILY 08/19/17 [History] Quetiapine Fumarate [Seroquel] 300 mg PO HS 08/19/17 [History] cloNIDine HCl [CloNIDine HCl] 0.1 mg PO HS 08/19/17 [History] Penicillin G Potassium 24,000,000 unit IV Q24H #36 vial 08/29/17 [Rx] Aspirin 81 mg PO DAILY #30 tab.chew 08/30/17 [Rx] Ipratropium/Albuterol Neb [Duoneb] 3 ml IH [id number] PRN #30 inhsol 08/30/17 [Rx] Nicotine Patch [Nicoderm] 21 mg TD DAILY #30 patch.td24 08/30/17 [Rx] OxyCODONE/APAP 7.5/325 [Percocet 7.5/325 MG] 1 each PO Q6HR PRN #10 tablet 08/30 [Rx] levoFLOXacin [Levaquin] 750 mg PO Q24H 5 Days #5 tablet 08/30/17 [Rx] Allergies/Adverse Reactions: 3 Allergy/AdvReac Type Severity Reaction Status Date / Time Sulfa (Sulfonamide Allergy Rash Verified 08/18/17 11:41 Antibiotics) Certification: Further, I certify that my clinical findings support that this patient is homebound (i.e. absences from home require considerable and taxing effort and are for medical reasons or mosque services or infrequently or short duration when for other reasons) because: Homebound Reason: Patient requires assistance of a person or device to safely leave home, Post-surgery restriction and or conditions limit ability to leave home Attestation: My signature below is to certify that this patient is under my care and that I, or nurse practitioner, or a physician's financial planning assistant working with me, has a face-to -face encounter with this patient.
[2017-08-30] MEDS: *HR* Morphine 2 MG/ML SYRINGE IVP PRN (11:20)
--- NOTE | 2017-08-30 16:26 | Electrocardiograph Report ---
[place] [id number] Test Date: 2017-08-28 Pat Name: Katharine Dodge Department: 114 Room: [facility] Gender: F Advertisement Compositor: [id number] : 1960 Requested By: Aliza Avery Order Number: [id number] Reading MD: Mitch Smith MD Measurements Intervals [place] Rate: 91 P: 45 MS: 148 QRS: -4 QRSD: 98 T: 7 QT: 356 QTc: 404 Interpretive Statements SINUS RHYTHM MODERATE VOLTAGE CRITERIA FOR LVH, CONSIDER NORMAL VARIANT Electronically Signed On 08-30-2017 16:25:12 EST by Mitch Smith MD
--- NOTE | 2017-08-30 18:48 | Electrocardiograph Report ---
[place] [id number] Test Date: 2017-08-30 Pat Name: Katharine Dodge Department: 114 Room: [facility] Gender: Bee Raiser: MOON : 1960 Requested By: Willy Montemayor Order Number: [id number] Reading MD: Mitch Smith MD Measurements Intervals [place] Rate: 90 P: 53 MN: 145 QRS: 5 QRSD: 101 T: 17 QT: 367 QTc: 415 Interpretive Statements SINUS RHYTHM BASELINE ARTIFACT Electronically Signed On 08-30-2017 18:46:36 EST by Mitch Smith MD
== END 2017-08-30 13:17 | disposition home health service (06) | DRG 710 ==
LOC: 2NNU → SUATTDRO 21:56 → ICNU 08-21 20:45 → 3NENU 08-23 12:27
PROVIDERS: ADMIT Nurse Practitioner Family; ATTEND Internal Medicine
PROC: IRDRAIN (2017-08-29 13:15)

== ENCOUNTER 2018-02-26 22:03 | Inpatient (IN) ==
[2018-02-27] MEDS ORDERED: Naloxone 0.4 MG/ML INJ IVP PRN ×2 (01:28→16:33)
[2018-02-27] MEDS ORDERED: Acetaminophen 325 MG TABLET PO PRN ×2 (01:31→16:33)
[2018-02-27] MEDS ORDERED: Albuterol 2.5 MG/3 ML NEBULIZER IH PRN ×2 (01:32→16:33)
--- NOTE | 2018-02-27 01:37 | Internal Med History&Physical ---
<Madison Kohli - Last Filed: 02/27/18 05:50> Date of Encounter: 02/27/18 Time of Encounter: 01:15 Internal Medicine - H&P: HPI Chief complaint: Hypotension Admitted From: Hospital to Hospital Transfer Plans for Post Hospital Care: Home History of present illness: Ms. Dodge is a 57 year old female PMH CAD, hepatitis, MO with stents, hypertension, depression, diabetes. She was a transfer from [facility] due to hypotension. Per ED records the patient had been in her nurse practitioners office and was told to go to the ED because of hypotension and abnormal EKG. At [facility] she was complaining of diarrhea, headache, dizziness. Vitals at [facility] ED were afebrile, tachycardic 103, BP 80/54. Urinalysis was negative. Chest x-ray and head CT were unremarkable. WBC WNL, Lactic acid 1.8. Sodium 128, Creatinine 3.04. Drug screen was positive for THC and amphetamines. LFT, bilirubin, lipase, alkaline phosphatase, troponin were normal. ABG pH 7.28, pCO2 54, pO2 29, HCO3 25. EKG demonstrated sinus tack with nonspecific ST change in lead 1 and a VL. Unchanged from prior EKG. Prior to transfer to [place] she was given 2 IVF bolus is, vancomycin, Rocephin. Blood cultures were taken. Central line was placed prior to transfer due to the pressure in 70s, Levophed was sent during transfer. Upon my examination she is alert and oriented times 3 and no acute distress. Afebrile, normotensive, SPO2 99% on 4L. She reported that she went to her PCP today due to hypotension which she noted to be 70/50s for the past month when she checks it with her blood pressure cuff. She reports that for the past week she has had a headache that is at the back of her head and wraps around to the front which nothing makes it better but walking around makes it worse. She has had nausea with a couple bouts of vomiting but this is chronic for her that she has had for over a year. She had diarrhea for 3 days with the last episode being on Saturday. She denied fever, chills, shortness of breath, abdominal pain , dysuria, change in vision, light sensitivity, sound sensitivity, melena, hematachezia. She denied having pain or difficulty with turning head and neck. She admitted to IV drug use of meth with last use being 2 days ago, she has been using IV drugs since 2012. She also admitted to smoking marijuana. She is a current smoker of 1.5-2ppd. Of note, she was seen in the ED last week for rash around her mouth and sores in her mouth. She was given Keflex for oral cellulitis. After review of past medical records the patient was admitted in August 2017, she was found to be septic with bacteremia of GAS from unknown etiology but may have been due to cellulitis or pneumonia. 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 Interventional radiology attempted to drain however there was very little fluid. Infectious disease have been consulted and recommended IV penicillin for 6 weeks and was to follow up with her outpatient. Past Med Surg Social Fam HX - Past Medical History Medical history: coronary artery disease, diabetes, hepatitis, hypertension, liver disease, myocardial infarction Psychiatric history: anxiety, depression - Past Surgical History Surgical History: cholecystectomy - Social History Smoking Status: Current every day smoker Smokeless Tobacco Status: No Alcohol use: none Drug use: marijuana, IV Drug Use (Meth) Internal Medicine - H&P: Meds Metoprolol [Lopressor] 25 mg PO BID 06/17/16 [History] Omeprazole [PriLOSEC] 40 mg PO DAILY 06/17/16 [History] Duloxetine HCl [Cymbalta] 60 mg PO DAILY 08/19/17 [History] Folic Acid 0.8 mg PO DAILY 08/19/17 [History] Gabapentin [Neurontin] 400 mg PO TID 08/19/17 [History] Lisinopril-HCTZ 10-12.5 [Prinzide 10-12.5] 1 tab PO DAILY 08/19/17 [History] Quetiapine Fumarate [Seroquel] 300 mg PO HS 08/19/17 [History] cloNIDine HCl [CloNIDine HCl] 0.1 mg PO HS 08/19/17 [History] Docusate [Colace] 100 mg PO DAILY #14 capsule 08/30/17 [Rx] Ipratropium/Albuterol Neb [Duoneb] 3 ml IH [id number] PRN #30 inhsol 11/10/17 [Rx] Cephalexin [Keflex] 500 mg PO TID #21 capsule 02/21/18 [Rx] Albuterol Sulfate [Ventolin Hfa] 18 gm IH Q4H PRN 02/26/18 [History] Nitroglycerin [Nitrostat] 0.4 mg SL PRN PRN 02/26/18 [History] 3 Allergy/AdvReac Type Severity Reaction Status Date / Time Sulfa (Sulfonamide Allergy Rash Verified 02/26/18 20:29 Antibiotics) All Systems PM: A 10-system review of systems was performed and is negative for pertinent findings except as documented above in the HPI. - Constitutional Constitutional: weakness, no chills, no fever(s) - EENT Eyes: no blurry vision, no change in vision Nose, mouth and throat: mouth lesions (Dryness skin scaling around mouth), no mouth pain - Cardiovascular Cardiovascular ROS IM: chest pain, dyspnea on exertion, lightheadedness, no diaphoresis, no palpitations, no syncope - Respiratory Respiratory: no cough, no hemoptysis, no wheezing - Gastrointestinal Gastrointestinal: diarrhea, nausea, vomiting, no abdominal pain, no melena - Genitourinary Genitourinary: no dysuria - Musculoskeletal Musculoskeletal ROS IM: no joint swelling, no limited range of motion, no neck pain - Integumentary Integumentary IM: pruritus (Around mouth), sores (Around mouth) - Neurological Neurological ROS: no abnormal gait, no abnormal hearing, no loss of vision, no vertigo - Constitutional General appearance: Present: A&O X 3, no acute distress - Head Head exam: Present: atraumatic, normal inspection - Respiratory Respiratory exam: Present: CTAB. Absent: rales, rhonchi, wheezes - Cardiovascular Cardiovascular exam: Present: RRR. Absent: clicks - GI/Abdominal GI/Abdominal exam: Present: normal bowel sounds, soft. Absent: guarding, tenderness - Extremities Exam Extremities exam: Present: normal inspection. Absent: calf tenderness, tenderness, warm - Back Exam Back exam: Absent: rash noted, tenderness - Skin Skin exam: Present: dry (Around mouth). Absent: cyanosis - Assessment and plan (1) Hypotension Current Visit: No Status: Acute Assessment and plan: Patient was hypotensive upon admission at [facility] BP 80/54 and received dose of vancomycin and Rocephin. Patient was given 2 IVF bolus and transferred to [place] ICU. BP was initially normotensive then decreased to 78/56. Unclear etiology for hypotension may be due to hypotension. Patient does not meet sirs criteria however does have a history of IV drug use of methamphetamines. Has also had history of sepsis and bacteremia. Afebrile, WBC 5.3 CXR, head CT, urinalysis all unremarkable LFT, bilirubin, alkaline phosphatase, lipase WNL troponin negative -Will continue Rocephin due to hypotension and unclear etiology possibly infectious. Last bacteremia 08/2017 was bowles sensitive. Will de-escalate as able -On Levophed -echocardiogram ordered -blood cultures ordered at [facility] Qualifiers: Hypotension type: unspecified hypotension type Qualified Code(s): I95.9 - Hypotension, unspecified (2) Acute renal failure Current Visit: No Status: Acute Assessment and plan: Acute renal failure likely prerenal secondary to dehydration and diarrhea creatinine 3.04 -monitor serum creatinine -ordered urine sodium and urine creatinine to confirm prerenal cause -avoid nephrotoxic agents -strict I&O -continue IVF Qualifiers: Acute renal failure type: unspecified Qualified Code(s): N17.9 - Acute kidney failure, unspecified (3) Hyponatremia Current Visit: No Status: Acute Assessment and plan: Hyponatremia sodium 128. Likely due to dehydration and patient reported decreased oral intake. -Will continue to monitor sodium -continue IVF (4) Perioral dermatitis Current Visit: No Status: Acute Assessment and plan: Patient was diagnosed and treated last Saturday in [facility] ED for perioral dermatitis and was given Keflex there is still present some dryness around her mouth however she reports no oral lesions, odynophagia. She also reports the dermatitis is improving. (5) Dehydration Current Visit: Yes Status: Acute Assessment and plan: Patient was hypotensive and appeared dry on exam. She reported decreased fluid and food intake. (6) Diarrhea Current Visit: Yes Status: Acute Assessment and plan: Currently resolved. She reported having diarrhea for 3 days with last episode on Saturday. Qualifiers: Qualified Code(s): R19.7 - Diarrhea, unspecified (7) Tobacco abuse Current Visit: No Status: Chronic Assessment and plan: Current smoker 1.5-2 ppd (8) IV drug user Current Visit: Yes Status: Acute Assessment and plan: Current IV drug user of methamphetamine. She last used 2 days ago. History of bacteremia 08/2017 (9) CAD (coronary artery disease) Current Visit: Yes Status: Acute Assessment and plan: History of CAD with stents. Troponin negative EKG demonstrating sinus tachycardia, nonspecific ST changes in lead 1 and a VL. Unchanged from prior EKG ECHO 07/2017: EF 55% Qualifiers: Qualified Code(s): I25.10 - Atherosclerotic heart disease of [place] coronary artery without angina pectoris (10) Hypertension Current Visit: Yes Status: Acute Assessment and plan: History of hypertension taking clonidine, metoprolol, lisinopril. Porting all home BP meds due to hypotension Qualifiers: Qualified Code(s): I10 - Essential (primary) hypertension (11) Depression Current Visit: No Status: Chronic Assessment and plan: History of depression taking Seroquel and Cymbalta will continue home medications once confirmed by pharmacy Qualifiers: Depression Type: unspecified Qualified Code(s): F32.9 - Major depressive disorder, single episode, unspecified (12) DVT prophylaxis Current Visit: No Status: Acute Assessment and plan: Heparin SQ - Time Spent With Patient Total time spent is greater than 50% in coordination of care (as documented) at patient's floor/unit and/or counseling patient: <Eva Gaming - Last Filed: 02/27/18 07:12> Date of Encounter: 02/27/18 Internal Medicine - H&P: HPI History of present illness: Ms. Dodge is a 57 year old female All Systems PM: A 10-system review of systems was performed and is negative for pertinent findings except as documented above in the HPI. - Constitutional Vitals: Temp Pulse Resp BP Pulse Ox 97.6 F 63 16 109/60 98 02/27/18 05:54 02/27/18 06:00 02/27/18 06:00 02/27/18 06:00 02/27/18 06:00 Internal Med - H&P Results - Labs CBC & Chem 7: 02/27/18 04:02 02/27/18 04:02 Labs: Short CBC 02/27/18 Range/Units 04:02 WBC 5.3 (4.3-11.1) K/mcL Hgb 9.3 L D (11.5-15.4) g/dL Hct 27.5 L (35.3-44.9) % Plt Count 146 (140-400) K/mcL Neutrophils # 2.2 (1.6-8.9) K/mcL BMP 02/27/18 04:02 Sodium 136 Potassium 3.6 Chloride 105 Carbon Dioxide 20 L BUN 25 H Creatinine 1.96 H Glucose 131 H Calcium 8.1 L - Attending Attestation I have seen and examined this patient independently, I have discussed with the resident physician Dr. Kohli regarding the management plan. Agree with the documentation. - Time Spent With Patient Total time spent is greater than 50% in coordination of care (as documented) at patient's floor/unit and/or counseling patient:
[2018-02-27] MEDS: Ringers Solution, Lactated 1,000 ML IVC SCH ×4 (01:55→23:49)
[2018-02-27 04:43] LABS: Basophils % 0.4 %; Eosinophils # 0.2 K/mcL (0.0-0.6); Eosinophils % 2.8 %; Hematocrit 27.5 % (35.3-44.9); Hemoglobin 9.3 g/dL (11.5-15.4); Immature Granulocytes % 0.8 % (0-4); Immature Platelets 9.9 % (1.1-6.1); Lymphocytes # 2.4 K/mcL (0.6-4.6); Lymphocytes % 44.7 %; Mean Corpuscular HGB Conc 33.8 g/dL (31.6-35.5); Mean Corpuscular Hemoglobin 28.7 pg (28.0-33.3); Mean Corpuscular Volume 84.9 fL (83.0-100.0); Mean Platelet Volume 12.1 fL (9.4-12.4); Monocytes # 0.5 K/mcL (0.0-1.3); Monocytes % 8.9 %; Neutrophils # 2.2 K/mcL (1.6-8.9); Nucleated Red Blood Cells 0.4 /100 WBC (0); Platelet Count 146 K/mcL (140-400); Red Blood Count 3.24 M/mcL (3.82-4.97); Red Cell Distribution Width 15.2 % (11.5-14.5); Segmented Neutrophils % 42.4 %
[2018-02-27] MEDS ORDERED: Norepinephrine 4 MG in D5% in Water 250 ML IVC SCH (06:00)
[2018-02-27] MEDS: *HR* Heparin 5,000 UNIT/ML VIAL SQ SCH ×4 (06:08→22:55)
[2018-02-27 06:26] LABS: Calcium 8.1 mg/dL (8.6-10.3); Potassium 3.6 mEq/L (3.5-5.1)
[2018-02-27] MEDS ORDERED: Ringers Solution, Lactated 1,000 ML IVC ONE (07:51)
--- NOTE | 2018-02-27 08:23 | Pulmonology Consult Note ---
<Lucas Chand M - Last Filed: 02/27/18 10:14> Date of Encounter: 02/27/18 Medications and Allergies Metoprolol [Lopressor] 25 mg PO BID 06/17/16 [History] Omeprazole [PriLOSEC] 40 mg PO DAILY 06/17/16 [History] Duloxetine HCl [Cymbalta] 60 mg PO DAILY 08/19/17 [History] Folic Acid 0.8 mg PO DAILY 08/19/17 [History] Gabapentin [Neurontin] 400 mg PO TID 08/19/17 [History] Lisinopril-HCTZ 10-12.5 [Prinzide 10-12.5] 1 tab PO DAILY 08/19/17 [History] cloNIDine HCl [CloNIDine HCl] 0.1 mg PO HS PRN 08/19/17 [History] Cephalexin [Keflex] 500 mg PO TID #21 capsule 02/21/18 [Rx] Albuterol Sulfate [Ventolin Hfa] 2 puff IH Q4H PRN 02/26/18 [History] Nitroglycerin [Nitrostat] 0.4 mg SL Q5M PRN 02/26/18 [History] Metformin HCl [Metformin HCl ER] 500 mg PO DAILY 02/27/18 [History] Quetiapine Fumarate [Seroquel] 400 mg PO HS 02/27/18 [History] 3 Allergy/AdvReac Type Severity Reaction Status Date / Time Sulfa (Sulfonamide Allergy Rash Verified 02/27/18 09:59 Antibiotics) All Systems: The remainder of the systems were reviewed and are negative Physical Examination Vital Signs: Vital Signs, Last 4 Hours Temp Pulse Resp BP Pulse Ox 02/27/18 09:00 80 14 130/80 97 02/27/18 08:00 61 16 113/73 99 02/27/18 07:39 97.6 F 02/27/18 07:00 60 12 110/66 99 02/27/18 06:00 63 16 109/60 98 02/27/18 05:54 97.6 F Results - Laboratory Findings CBC and BMP: 02/27/18 04:02 02/27/18 04:02 Abnormal lab findings: Abnormal lab results RBC 3.24 M/mcL (3.82-4.97) L 02/27/18 04:02 Hgb 9.3 g/dL (11.5-15.4) L D 02/27/18 04:02 Hct 27.5 % (35.3-44.9) L 02/27/18 04:02 RDW 15.2 % (11.5-14.5) H 02/27/18 04:02 Nucleated RBCs/100 WBC 0.4 /100 WBC (0) H 02/27/18 04:02 Immature Plt Fraction 9.9 % (1.1-6.1) H 02/27/18 04:02 Carbon Dioxide 20 mEq/L (23-29) L 02/27/18 04:02 BUN 25 mg/dL (6-20) H 02/27/18 04:02 Creatinine 1.96 mg/dL (0.60-1.20) H 02/27/18 04:02 Est GFR ( Amer) 32 (> 60) L 02/27/18 04:02 Est GFR (Non-Af Amer) 26 (> 60) L 02/27/18 04:02 Glucose 131 mg/dL (70-105) H 02/27/18 04:02 Calcium 8.1 mg/dL (8.6-10.3) L 02/27/18 04:02 - Clinical Findings Intake & Output: Intake & Output 02/26/18 02/27/18 02/27/18 23:59 07:59 15:59 Output Total 2250 / 2250 Balance -2250 / -2250 Weight 84.4 kg Consult Discharge Plan - Plan Referrals: NONE,PCP [Non-Partnered Physician] - - Attending Attestation I examined this patient and my medical decision-making was reviewed with the Resident Physician. I agree with the documented findings, disposition and treatment plan as described except to the extent set forth below. Patient seen and examined. Labs, radiology, chart personally reviewed. Agree with resident's history and physical, assessment, plan with following comments: HAZARDOUS WASTE TECHNICIAN: Patient follows commands, Pulmonary: Acceptable oxygenation and ventilation Cardiovascular: stable on low-dose levo fed and they suspect hypotension is combination from volume depletion as well as patient medications. Unlikely this is septic shock. GI: Nutrition per dietary and GI prophylaxis per routine Heme: DVT prophylaxis per routine ID: Continue antibiotics and plan to de-escalation Renal; urine out put and renal funtion reviewed Endorcine: blood glucose is monitored. Check thyroid and cortisol level Lines: all lines checked and no evidence of infections Skin: skin care to prevent pressure ulcers per nursing routine care I am hoping blood pressure was stabilized and can be transferred to the floor <Jimmie Christopher - Last Filed: 02/27/18 13:06> Date of Encounter: 02/27/18 Time of Encounter: 11:30 Assessment and Plan (1) Hypotension Current Visit: No Status: Acute Patient was hypotensive upon admission to [facility] her to department 80/54 they did give 2 L IV fluid boluses and then transferred here to the ICU. BP is decreased to as low to 78/56. Patient does not have any fevers did not meet any SIRS criteria is no signs of any bacteremia or causes for infection, there is no chest pain or shortness of breath patient has a cardiac history but there is no cardiac symptoms going on. Patient source of hypotension most likely some dehydration due to her also been IV drug abuser and using meth this can cause dehydration. Patient is feeling much better and is nearly symptom-free after getting IV fluids. To be sure we are not missing any endocrine dysfunction we will order a cortisol level and TSH. Cortisol and TSH both came back normal also is most likely not a thyroid or endocrine dysfunction at this time. Echocardiogram was ordered a came back with a normal EF of 60%. Chest x-ray head CT and urinalysis were all unremarkable. Patient denied a leukocytosis. All other labs were normal troponin was negative Patient was placed on a levophed drip. This has since been stopped as patient' s is now normotensive. We did give one extra liter bolus of lactated Ringer's mealy patient's blood pressure normalized and has been holding so the pressor drip has been stopped. From our standpoint patient is a patient is no longer on any pressors patient can be transferred out of the ICU onto a floor bed. This patient is no longer needing pressor treatment. And blood pressures are now normotensive. Beings the patient is transferring out here we will restart most of her home meds including Seroquel, Prilosec, clonidine, Cymbalta, gabapentin. Qualifiers: Hypotension type: unspecified hypotension type Qualified Code(s): I95.9 - Hypotension, unspecified (2) Dehydration Current Visit: Yes Status: Acute Patient has not had much by mouth water intake. She did have an acute kidney injury this most likely is all what is causing her hypotension. Patient was much better after getting IV fluids. Pressors have been stopped (3) Acute renal failure Current Visit: No Status: Acute Acute renal failure likely due to prerenal secondary to dehydration and diarrhea creatinine originally was 3.04 after getting 2 L of fluid is now 1.96 is slowly normalizing. We will continue getting IV fluids at a maintenance dose which should help normalize her AKA I. Will recommend they continue to follow on the floor. Qualifiers: Acute renal failure type: unspecified Qualified Code(s): N17.9 - Acute kidney failure, unspecified (4) Hyponatremia Current Visit: No Status: Acute Hyponatremic of 128 when first arrived repeat is 136 she is chronically low Normalizing after getting IV fluids. (5) Perioral dermatitis Current Visit: No Status: Acute Patient was diagnosed with perioral dermatitis ischemia be seen on exam seems to be improving based off previous pictures patient has. She has been on 3 days of Keflex. She was placed on vancomycin and Rocephin when she arrived here as there is worried about possible sepsis although patient did not meet any sirs or sepsis criteria. We are stopping both the vancomycin and the ceftriaxone. We will put patient back on her oral Keflex dose. (6) Diarrhea Current Visit: Yes Status: Acute Patient's diarrhea was to 3 episodes per day since Saturday. This is a very mild diarrhea. This is also causing her to be dehydrated also causing hypotension. Continue to monitor Qualifiers: Diarrhea type: unspecified type Qualified Code(s): R19.7 - Diarrhea, unspecified (7) Hypertension Current Visit: Yes Status: Acute Patient does take medications for hypertension she said that she did take her beta blockers and hypertensive medications today which most likely shows this why she is bradycardic as well as hypotensive earlier. We are going to hold her hypertensive medication at this time until her hypotension fully resolves. Qualifiers: Hypertension type: essential hypertension Qualified Code(s): I10 - Essential (primary) hypertension (8) CAD (coronary artery disease) Current Visit: Yes Status: Acute History of CAD with stents Troponin negative EKG showed sinus tachycardia with nonspecific ST changes in lead 1 and aVL unchanged with prior EKG. Echo done today shows 60% EF. With no vegetations Qualifiers: Coronary Disease-Associated Artery/Lesion type: unspecified vessel or lesion type [place] vs. transplanted heart: [place] heart Associated angina: angina presence unspecified Qualified Code(s): I25.10 - Atherosclerotic heart disease of [place] coronary artery without angina pectoris (9) IV drug user Current Visit: Yes Status: Acute Patient does have history of IV drug abuse she does use methamphetamines she states she last used believes that one week ago. Does have history of bacteremia and 09/06 (10) DVT prophylaxis Current Visit: No Status: Acute Heparin subcutaneous History of Present Illness Consult date: 02/27/18 Requesting physician: Reymundo Berrios Reason for consult: other (Hypotension) Chief complaint: Hypotension History of present illness: Mrs. Dodge is a 49-year-old female past no history CAD with 2 stents, hepatitis , [place], hypertension, depression, diabetes. She was transferred to [place] ICU from [facility] emergency department due to hypotension. She has been following up with her primary care physician who saw hypotension and abnormal EKG and sent her to the emergency department. She has also been symptomatic over the last 3-4 days were she has had diarrhea, headache, dizziness upon standing. Due to patient's hypotension they gave 2 L of IV fluids. Started vancomycin and Rocephin and blood cultures were taken. Due to the pressure being in 70 systolically of head was started after placing a central line. Patient does have history of IV drug abuse she said she last used meth one week ago but does use THC regularly. She is a current one and a half to 2 packs per day smoker. She said this headache has gotten better since she has got the IV fluid bags. Her dizziness only occurs mainly when she is standing. She says she has had very little water intake over the last few days. Said the diarrhea is been lasting for 3 days is normally 3-4 loose bowel movements. His been no vomiting or nausea. Said no recent falls or head injuries. She says she has no chest pain or shortness of breath she has no other pulmonary history. She recently was seen in the emergency department for a rash on her face she was diagnosed with periorbital cellulitis and has been taking Keflex for 3 days. She has had no fevers. 4 further and more on history and physical please refer to the hospitalist H&P. Past Med Surg Social Fam HX - Past Medical History Medical history: coronary artery disease, diabetes, hepatitis, hypertension, liver disease, myocardial infarction Psychiatric history: anxiety, depression - Past Surgical History Surgical History: cholecystectomy - Social History Smoking Status: Current every day smoker Packs per day: 2 Smokeless Tobacco Status: No Alcohol use: none Drug use: marijuana, IV Drug Use (Meth) All Systems: The remainder of the systems were reviewed and are negative - Constitutional Constitutional: headache(s), no anorexia, no chills, no fatigue, no fever(s) - EENT Eyes: no loss of vision Ears: no tinnitus Nose, mouth and throat: headache(s), no abnormal hearing, no change in voice, no neck pain, no sinus pain, no sore throat - Cardiovascular Cardiovascular: no chest pain, no dyspnea, no palpitations - Respiratory Respiratory: no cough, no dyspnea, no hemoptysis, no wheezing, no snoring, no stridor, no pain on inspirtation, no chest congestion, no pain with cough - Gastrointestinal Gastrointestinal: diarrhea, no abdominal pain, no cramping, no hematemesis, no hematochezia, no nausea, no odynophagia, no vomiting - Musculoskeletal Musculoskeletal: back pain (Chronic), no weakness, no numbness, no stiffness, no tingling - Integumentary Integumentary: rash (Perioral for one week) - Neurological Neurological: dizziness (Upon standing), frequent falls, no abnormal gait, no abnormal hearing, no memory loss, no numbness, no paresthesias, no vertigo, no weakness - Endocrine Endocrine: no fatigue, no flushing - Hematologic/Lymphatic Hematologic/Lymphatic: no easy bleeding, no easy bruising, no lymphadenopathy - Allergic/Immunologic Allergic/Immunologic: no tongue swelling, no throat swelling, no uticaria, no wheezing Physical Examination Vital Signs: Vital Signs, Last 4 Hours Temp Pulse Resp BP Pulse Ox 02/27/18 07:39 97.6 F 02/27/18 06:00 63 16 109/60 98 02/27/18 05:54 97.6 F 02/27/18 05:00 56 16 109/75 99 General appearance: no acute distress, alert Eyes: nonicteric ENT: oropharynx moist Neck: supple, no lymphadenopathy, no JVD Effort: normal Cardiovascular: regular rate and rhythm Gastrointestinal: normoactive bowel sounds, soft, non-tender, non-distended Integumentary: normal Extremities: no cyanosis, no edema, no clubbing Musculoskeletal: no deformities, ROM normal normal mental status, non-focal exam Results - Laboratory Findings CBC and BMP: 02/27/18 04:02 02/27/18 04:02 Abnormal lab findings: Abnormal lab results RBC 3.24 M/mcL (3.82-4.97) L 02/27/18 04:02 Hgb 9.3 g/dL (11.5-15.4) L D 02/27/18 04:02 Hct 27.5 % (35.3-44.9) L 02/27/18 04:02 RDW 15.2 % (11.5-14.5) H 02/27/18 04:02 Nucleated RBCs/100 WBC 0.4 /100 WBC (0) H 02/27/18 04:02 Immature Plt Fraction 9.9 % (1.1-6.1) H 02/27/18 04:02 Carbon Dioxide 20 mEq/L (23-29) L 02/27/18 04:02 BUN 25 mg/dL (6-20) H 02/27/18 04:02 Creatinine 1.96 mg/dL (0.60-1.20) H 02/27/18 04:02 Est GFR ( Amer) 32 (> 60) L 02/27/18 04:02 Est GFR (Non-Af Amer) 26 (> 60) L 02/27/18 04:02 Glucose 131 mg/dL (70-105) H 02/27/18 04:02 Calcium 8.1 mg/dL (8.6-10.3) L 02/27/18 04:02 - Diagnostic Findings Chest x-ray: report reviewed, image reviewed - Clinical Findings Intake & Output: Intake & Output 02/26/18 02/27/18 02/27/18 23:59 07:59 15:59 Output Total 2250 / 2250 Balance -2250 / -2250 Weight 84.4 kg
[2018-02-27] MEDS ORDERED: cefTRIAXone 1,000 MG in Water for inj. (sterile) 20 ML 10 ML IVP SCH (09:00)
[2018-02-27 09:17] LABS: Thyroid Stimulating Hormone 0.533 mcIU/mL (0.340-5.600)
[2018-02-27] MEDS ORDERED: Budesonide/Formoterol 80/4.5 MDI IH SCH (10:00)
[2018-02-27] MEDS ORDERED: Gabapentin 400 MG CAPSULE PO SCH ×2 (15:00→21:00)
[2018-02-27] MEDS ORDERED: cloNIDine HCl 0.1 MG TABLET PO SCH ×2 (21:00)
[2018-02-27] MEDS: Budesonide/Formoterol 80/4.5 MDI IH SCH (22:11)
[2018-02-28] MEDS: *HR* Heparin 5,000 UNIT/ML VIAL SQ SCH ×2 (05:40→12:28)
[2018-02-28] MEDS: Budesonide/Formoterol 80/4.5 MDI IH SCH (07:56)
[2018-02-28] MEDS: Ringers Solution, Lactated 1,000 ML IVC SCH (08:27)
[2018-02-28] MEDS: Gabapentin 100 MG CAPSULE PO SCH ×2 (08:30→15:15)
[2018-02-28 10:05] LABS: Basophils % 0.5 %; Eosinophils # 0.1 K/mcL (0.0-0.6); Eosinophils % 2.6 %; Hematocrit 30.9 % (35.3-44.9); Hemoglobin 10.4 g/dL (11.5-15.4); Immature Granulocytes % 0.3 % (0-4); Lymphocytes # 1.7 K/mcL (0.6-4.6); Lymphocytes % 42.3 %; Mean Corpuscular HGB Conc 33.7 g/dL (31.6-35.5); Mean Corpuscular Hemoglobin 28.7 pg (28.0-33.3); Mean Corpuscular Volume 85.4 fL (83.0-100.0); Mean Platelet Volume 12.5 fL (9.4-12.4); Monocytes # 0.3 K/mcL (0.0-1.3); Monocytes % 6.9 %; Neutrophils # 1.9 K/mcL (1.6-8.9); Platelet Count 134 K/mcL (140-400); Red Blood Count 3.62 M/mcL (3.82-4.97); Red Cell Distribution Width 15.4 % (11.5-14.5); Segmented Neutrophils % 47.4 %
[2018-02-28 10:17] LABS: BUN/Creatinine Ratio 17 (6-26); Blood Urea Nitrogen 17 mg/dL (6-20); Calcium 8.5 mg/dL (8.6-10.3); Carbon Dioxide 27 mEq/L (23-29); Chloride 109 mEq/L (98-107); Glucose 120 mg/dL (70-105); Osmolality,Calculated 291 (280-300); Sodium 139 mEq/L (136-145); eGFR For African Americans > 60 (> 60); eGFR For Non-African Americans 57 (> 60)
[2018-02-28 16:10] VITALS: BP 167/102
--- NOTE | 2018-02-28 16:20 | Discharge Summary ---
- NOTES TO OUTPATIENT PROVIDER Notes to Outpatient Provider: Follow up with PCP in 2-3 days after discharge. Monitor BP (hypotension) and recheck BMP (hyponatremia, dehydration, and HANNAH) at that time. Orders not resulted at time of discharge: Pending orders 02/28/18 04:00 Creatinine,Urine [UCHEM] AM 0400 Sodium, Urine [UCHEM] AM 0400 03/01/18 04:00 Basic Metabolic Panel AM 0400 CBC [Complete Blood Count] [HEME] AM 0400 Date of Encounter: 02/28/18 Time of Encounter: 15:47 - Discharge Diagnosis (1) Hypotension Priority: Primary Status: Resolved Qualifiers: Hypotension type: other hypotension type Qualified Code(s): I95.89 - Other hypotension (2) Acute kidney injury Priority: Secondary Status: Resolved (3) Hyponatremia Priority: Secondary Status: Resolved (4) Perioral dermatitis Priority: Secondary Status: Acute (5) CAD (coronary artery disease) Priority: Secondary Status: Chronic Qualifiers: Coronary Disease-Associated Artery/Lesion type: unspecified vessel or lesion type [place] vs. transplanted heart: [place] heart Associated angina: angina presence unspecified Qualified Code(s): I25.10 - Atherosclerotic heart disease of [place] coronary artery without angina pectoris (6) Dehydration Priority: Secondary Status: Resolved (7) Diarrhea Priority: Secondary Status: Resolved Qualifiers: Diarrhea type: unspecified type Qualified Code(s): R19.7 - Diarrhea, unspecified (8) Hypertension Priority: Secondary Status: Chronic Qualifiers: Hypertension type: essential hypertension Qualified Code(s): I10 - Essential (primary) hypertension (9) IV drug user Priority: Secondary Status: Chronic (10) DVT prophylaxis Priority: Secondary Status: Acute Hospital course: Ms. Dodge is a 57 year old female admitted for hypotension, dehydration, and acute kidney injury. She was admitted to ICU and started on levophed drip. This was discontinued with improvement in BP. She was started on IVF, including 3 total liters bolused. With improved blood pressures, she was transferred out of ICU to general medical floor with telemetry. She states that she is feeing much better today. She is now normotensive. Acute kidney injury has resolved. IVF were discontinued, and she had good oral liquid intake. She was counselled on the importance of drinking water at home. Broad spectrum antibiotics for hypotension were deescalated to her home keflex 500 mg TID for perioral dermatitis, which she will complete for 3 more days. Diarrhea has resolved. ECHO showed LVEF 55-60%, mild left ventricular diastolic dysfunction, normal RV structure and function, mild pulmonic regurgitation, and no pulmonary hypertension. She wants to go home today. Patient has met maximum benefit of this hospitalization and will be discharged home in stable condition. Discharge discussed with: patient, nurse, other (Pharmacist) - Time Spent with Patient Total time spent providing and/or coordinating discharge services: Greater than 30 minutes - Discharge Medications Prescriptions: Cephalexin [Keflex] 500 mg PO TID 3 Days #9 capsule Home Medications: Metoprolol [Lopressor] 25 mg PO BID 06/17/16 [History] Omeprazole [PriLOSEC] 40 mg PO DAILY 06/17/16 [History] Duloxetine HCl [Cymbalta] 60 mg PO DAILY 08/19/17 [History] Folic Acid 0.8 mg PO DAILY 08/19/17 [History] Gabapentin [Neurontin] 400 mg PO TID 08/19/17 [History] Lisinopril-HCTZ 10-12.5 [Prinzide 10-12.5] 1 tab PO DAILY 08/19/17 [History] cloNIDine HCl [CloNIDine HCl] 0.1 mg PO HS PRN 08/19/17 [History] Albuterol Sulfate [Ventolin Hfa] 2 puff IH Q4H PRN 02/26/18 [History] Nitroglycerin [Nitrostat] 0.4 mg SL Q5M PRN 02/26/18 [History] Metformin HCl [Metformin HCl ER] 500 mg PO DAILY 02/27/18 [History] Quetiapine Fumarate [Seroquel] 400 mg PO HS 02/27/18 [History] Cephalexin [Keflex] 500 mg PO TID 3 Days #9 capsule 02/28/18 [Rx] Allergies/Adverse Reactions: 3 Allergy/AdvReac Type Severity Reaction Status Date / Time Sulfa (Sulfonamide Allergy Rash Verified 02/27/18 09:59 Antibiotics) Date of admission: 02/27/18 07:14 Primary care physician: Asia Unger CNP Consults: 02/27/18 07:31 Consult to Critical Care [CONS] Routine Consulting Provider: [facility] Reason for Consult: hypotension needs pressors Call Completed: Yes Discharging clinician: Erik Mcdonald Anticipated date of discharge: 02/28/18 - Constitutional Vitals: Temp Pulse Resp BP Pulse Ox 98.2 F 74 18 167/102 93 02/28/18 16:09 02/28/18 16:09 02/28/18 16:09 02/28/18 16:09 02/28/18 16:09 General appearance: Present: cooperative, A&O X 3, pleasant, no acute distress, answers questions appropriately - Respiratory Respiratory exam: Present: CTAB. Absent: accessory muscle use, rales, rhonchi, wheezes Additional comments: Normal WOB - Cardiovascular Cardiovascular exam: Present: RRR, +S1, +S2. Absent: diastolic murmur, gallop, rubs, systolic murmur Additional comments: No BLE edema - GI/Abdominal GI/Abdominal exam: Present: normal bowel sounds, soft. Absent: distended, hepatomegaly, mass, splenomegaly, tenderness - Psychiatric Psychiatric exam: Present: normal affect, normal mood. Absent: agitated, anxious, depressed - Skin Skin exam: Present: dry, warm. Absent: cyanosis Additional comments: Perioral dry skin and erythema, few small skin tears on right arm - Patient Status Disposition: Home, Self-Care Condition: Good Overall status at discharge: patient is back to baseline - Discharge Instructions Follow Up With: NONE,PCP [Non-Partnered Physician] - Additional Instructions: Follow up with PCP in 2-3 days after discharge. Monitor BP (hypotension) and recheck BMP (hyponatremia, dehydration, and HANNAH) at that time. - Diet and Activity Activity: resume usual activities as tolerated Diet: low fat, low cholesterol, low salt diet, other (Cardiac Diet)
[2018-02-28] MEDS ORDERED: cephALEXin 500 MG CAPSULE PO SCH (21:00)
== END 2018-02-28 17:33 | disposition home or self-care (01) | DRG 207 ==
LOC: ICNU → 2ANU 02-27 16:14
PROVIDERS: ADMIT Pediatrics; ATTEND Pediatrics

== ENCOUNTER 2020-06-03 04:17 | Observation (INO) ==
[2020-06-03] MEDS ORDERED: *HR* Promethazine 25 MG/ML VIAL IVP PRN (06:52)
[2020-06-03] MEDS ORDERED: Naloxone 0.4 MG/ML INJ IVP PRN (06:52)
[2020-06-03] MEDS ORDERED: *HR* Dextrose 50 % in Water (Vial) 50 ML VIAL IVP PRN (08:19)
[2020-06-03] MEDS ORDERED: D5% in Water 1,000 ML IVC PRN (08:19)
[2020-06-03] MEDS ORDERED: Dextrose Gel 15 GM/37.5 ML TUBE PO PRN ×2 (08:19)
[2020-06-03 08:25] LABS: Calcium 9.4 mg/dL (8.6-10.3); Potassium 3.6 mEq/L (3.5-5.1)
[2020-06-03 08:27] LABS: INR 1.1; Prothrombin Time 12.2 Seconds (9.4-12.1)
[2020-06-03] MEDS: lisinopriL 10 MG TABLET PO SCH (08:57)
[2020-06-03] MEDS: 0.9 % Sodium Chloride 1,000 ML IVC SCH ×2 (08:58→19:52)
[2020-06-03] MEDS ORDERED: QUEtiapine Fumarate 100 MG TABLET PO SCH ×2 (09:00→21:00)
[2020-06-03] MEDS: Ketorolac 15 MG/ML VIAL IVP SCH ×3 (09:31→23:25)
[2020-06-03] MEDS: *HR* Heparin 5,000 UNIT/ML VIAL SQ SCH ×2 (09:58→17:15)
[2020-06-03 10:00] LABS: Sodium, Urine 34.6 mEq/L
[2020-06-03 10:08] LABS: Bacteria,Urine Few per hpf (None-Few); Bilirubin,Urine Negative (Negative); Blood,Urine Negative (Negative); Clarity,Urine Clear (Clear); Color,Urine Light-Yellow (Yellow); Glucose,Urine (UA) Normal (Normal); Ketones,Urine Negative (Negative); Leukocyte Esterase,Urine Small (Negative); Mucus,Urine Few per lpf (None-Few); Nitrite,Urine Negative (Negative); PH,Urine 5.5 pH Units (5.0-8.0); Protein,Urine Negative (Neg-Trace); RBC,Urine 0-3 per hpf (0-3); Squamous Epithelial Cell,Urine Few per hpf (None-Few); Urobilinogen,Urine Normal (Normal); WBC,Urine 0-3 per hpf (0-3)
[2020-06-03 11:43] LABS: Estimated Average Glucose 203 mg/dl
[2020-06-03] MEDS: Insulin LISPRO 300 UNITS/3 ML VIAL SQ SCH ×2 (12:33→17:14)
[2020-06-03] MEDS: Acetaminophen 325 MG TABLET PO PRN (19:51)
[2020-06-03] MEDS ORDERED: Insulin LISPRO 300 UNITS/3 ML VIAL SQ SCH (21:00)
[2020-06-04] MEDS: 0.9 % Sodium Chloride 1,000 ML IVC SCH (03:06)
[2020-06-04 03:43] LABS: Basophils % 0.8 %; Eosinophils # 0.3 K/mcL (0.0-0.6); Eosinophils % 5.6 %; Hematocrit 33.5 % (35.3-44.9); Hemoglobin 10.7 g/dL (11.5-15.4); Immature Granulocytes % 0.4 % (0-4); Lymphocytes # 2.4 K/mcL (0.6-4.6); Lymphocytes % 46.8 %; Mean Corpuscular HGB Conc 31.9 g/dL (31.6-35.5); Mean Corpuscular Hemoglobin 26.3 pg (28.0-33.3); Mean Corpuscular Volume 82.3 fL (83.0-100.0); Mean Platelet Volume 11.1 fL (9.4-12.4); Monocytes # 0.5 K/mcL (0.0-1.3); Monocytes % 10.4 %; Neutrophils # 1.9 K/mcL (1.6-8.9); Platelet Count 212 K/mcL (140-400); Red Blood Count 4.07 M/mcL (3.82-4.97); Red Cell Distribution Width 14.6 % (11.5-14.5); White Blood Count 5.2 K/mcL (4.3-11.1)
[2020-06-04 03:53] LABS: BUN/Creatinine Ratio 21 (6-26); Blood Urea Nitrogen 20 mg/dL (8-23); Calcium 8.1 mg/dL (8.6-10.3); Carbon Dioxide 22 mEq/L (23-29); Chloride 107 mEq/L (98-107); Glucose 114 mg/dL (70-105); Magnesium 1.8 mg/dL (1.6-2.6); Osmolality,Calculated 285 (280-300); Phosphorous 2.9 mg/dL (2.7-4.5); Potassium 4.2 mEq/L (3.5-5.1); Sodium 136 mEq/L (136-145); eGFR For African Americans > 60 (> 60); eGFR For Non-African Americans 59 (> 60)
[2020-06-04] MEDS: Ketorolac 15 MG/ML VIAL IVP SCH ×2 (05:08→14:43)
[2020-06-04] MEDS: *HR* Heparin 5,000 UNIT/ML VIAL SQ SCH (05:09)
[2020-06-04] MEDS: Insulin LISPRO 300 UNITS/3 ML VIAL SQ SCH ×2 (07:38→11:17)
[2020-06-04] MEDS: lisinopriL 10 MG TABLET PO SCH (08:30)
[2020-06-04] MEDS: Acetaminophen 325 MG TABLET PO PRN (08:36)
[2020-06-04 11:16] VITALS: BP 148/98
[2020-06-04] MEDS ORDERED: QUEtiapine Fumarate 100 MG TABLET PO SCH (21:00)
== END 2020-06-04 13:05 | disposition home or self-care (01) ==
LOC: 2NNU → SUATTDRO 06:34
PROVIDERS: ADMIT Student in an Organized Health Care Education/Training Program; ATTEND Family Medicine

== ENCOUNTER 2021-03-11 23:38 | Observation (INO) ==
[2021-03-11] MEDS ORDERED: 0.9 % Sodium Chloride 1,000 ML IVC ONE (23:50)
[2021-03-12 00:31] LABS: Basophils % 0.3 %; Eosinophils # 0.2 K/mcL (0.0-0.6); Eosinophils % 1.9 %; Hematocrit 37.8 % (35.3-44.9); Hemoglobin 11.8 g/dL (11.5-15.4); Immature Granulocytes % 0.3 % (0-4); Lymphocytes # 4.4 K/mcL (0.6-4.6); Lymphocytes % 42.7 %; Mean Corpuscular HGB Conc 31.2 g/dL (31.6-35.5); Mean Corpuscular Hemoglobin 24.5 pg (28.0-33.3); Mean Corpuscular Volume 78.6 fL (83.0-100.0); Monocytes # 0.8 K/mcL (0.0-1.3); Monocytes % 7.5 %; Neutrophils # 4.8 K/mcL (1.6-8.9); Platelet Count 166 K/mcL (140-400); Red Blood Count 4.81 M/mcL (3.82-4.97); Red Cell Distribution Width 15.8 % (11.5-14.5); Segmented Neutrophils % 47.3 %; White Blood Count 10.2 K/mcL (4.3-11.1)
[2021-03-12 00:49] LABS: Alanine Aminotransferase 32 Units/L (7-52); Albumin 3.5 g/dL (3.5-5.7); Albumin/Globulin Ratio 1.2 (1.1-2.2); Alkaline Phosphatase 95 Units/L (34-104); Aspartate Amino Transferase 26 Units/L (13-39); BUN/Creatinine Ratio 27 (6-26); Bilirubin,Total 0.4 mg/dL (0.3-1.0); Blood Urea Nitrogen 39 mg/dL (8-23); Calcium 8.7 mg/dL (8.6-10.3); Carbon Dioxide 24 mEq/L (23-29); Chloride 100 mEq/L (98-107); Glucose 232 mg/dL (70-105); Osmolality,Calculated 293 (280-300); Potassium 4.3 mEq/L (3.5-5.1); Sodium 133 mEq/L (136-145); Total Protein 6.5 g/dL (6.4-8.9); Troponin I < 0.03 ng/mL (< 0.04); eGFR For African Americans 44 (> 60); eGFR For Non-African Americans 36 (> 60)
[2021-03-12] MEDS ORDERED: Isovue-370 500 ML BOTTLE IVP ONE (01:02)
[2021-03-12] MEDS ORDERED: 0.9 % Sodium Chloride 1,000 ML IVC ONE ×2 (02:13→07:18)
[2021-03-12 03:29] LABS: Bilirubin,Urine Negative (Negative); Blood,Urine Negative (Negative); Clarity,Urine Clear (Clear); Color,Urine Light-Yellow (Yellow); Glucose,Urine (UA) Normal (Normal); Ketones,Urine Negative (Negative); Leukocyte Esterase,Urine Negative (Negative); Nitrite,Urine Negative (Negative); Protein,Urine Negative (Neg-Trace); Specific Gravity,Urine > 1.030 (1.010-1.025); Urobilinogen,Urine Normal (Normal)
[2021-03-12] MEDS ORDERED: Albumin 25% 25gram/100mL 25 GM/100 ML IV.SOLN IVPB ONE (04:32)
[2021-03-12] MEDS ORDERED: Perflutren Lipid Microsphere 1.3 ML in 0.9 % Sodium Chloride 8.7 ML IVP PRN (04:34)
[2021-03-12] MEDS ORDERED: Naloxone 0.4 MG/ML INJ IVP PRN (04:36)
[2021-03-12] MEDS ORDERED: Acetaminophen 325 MG TABLET PO PRN (04:36)
[2021-03-12] MEDS ORDERED: Ondansetron 4 MG/2 ML VIAL IVP PRN (04:36)
[2021-03-12] MEDS ORDERED: D5% in Water 1,000 ML IVC PRN (04:41)
[2021-03-12] MEDS ORDERED: *HR* Dextrose 50 % in Water (Vial) 50 ML VIAL IVP PRN (04:41)
[2021-03-12] MEDS ORDERED: Dextrose Gel 15 GM/37.5 ML TUBE PO PRN ×2 (04:41)
[2021-03-12] MEDS ORDERED: Nitroglycerin 0.4 MG TAB.SUBL SL PRN (04:44)
[2021-03-12] MEDS: Insulin LISPRO 300 UNITS/3 ML VIAL SUBQ SCH ×3 (05:23→16:43)
[2021-03-12 05:30] LABS: Amphetamine Screen,Urine Negative ng/mL (Cutoff=1000); Barbiturate Screen,Urine Negative ng/mL (Cutoff=200); Benzodiazepines Screen,Urine Negative ng/mL (Cutoff=200); Cannabinoid Screen,Urine Positive ng/mL (Cutoff = 50); Cocaine Screen,Urine Negative ng/mL (Cutoff= 300); Opiate Screen,Urine Negative ng/mL (Cutoff=300); Phencyclidine Screen,Urine Negative ng/mL (Cutoff=25)
[2021-03-12 06:09] LABS: Chol/HDL Ratio 2.8 (0-4.9)
[2021-03-12 06:11] LABS: Calcium 7.9 mg/dL (8.6-10.3); Potassium 4.6 mEq/L (3.5-5.1)
[2021-03-12 06:28] LABS: Hepatitis B Surface Antigen Nonreactive (Nonreactive)
[2021-03-12 06:37] LABS: Estimated Average Glucose 232 mg/dl; Hemoglobin A1C 9.7 %
[2021-03-12 06:57] LABS: Hepatitis B Core IgM Nonreactive (Nonreactive)
[2021-03-12 06:58] LABS: Hepatitis A Antibody IgM Nonreactive (Nonreactive)
[2021-03-12] MEDS ORDERED: Regadenoson 0.4 MG/5 ML SYRINGE IVP ONE (07:11)
[2021-03-12] MEDS: Aspirin Enteric Coated 81 MG Tablet PO SCH (08:00)
[2021-03-12 12:19] LABS: Hepatitis C Virus Antibody Reactive (Nonreactive)
[2021-03-12] MEDS ORDERED: traZODone 50 MG TABLET PO SCH (22:45)
[2021-03-12] MEDS ORDERED: QUEtiapine Fumarate 300 MG TABLET PO SCH (22:45)
[2021-03-13] MEDS: Insulin LISPRO 300 UNITS/3 ML VIAL SUBQ SCH ×4 (00:07→16:55)
[2021-03-13] MEDS ORDERED: Regadenoson 0.4 MG/5 ML SYRINGE IVP ONE (06:22)
[2021-03-13 06:39] LABS: Hematocrit 38.2 % (35.3-44.9); Mean Corpuscular HGB Conc 31.4 g/dL (31.6-35.5); Mean Corpuscular Hemoglobin 24.5 pg (28.0-33.3); Mean Corpuscular Volume 78.1 fL (83.0-100.0); Mean Platelet Volume 11.9 fL (9.4-12.4); Platelet Count 143 K/mcL (140-400); Red Blood Count 4.89 M/mcL (3.82-4.97); Red Cell Distribution Width 15.9 % (11.5-14.5)
[2021-03-13 07:03] LABS: BUN/Creatinine Ratio 24 (6-26); Blood Urea Nitrogen 22 mg/dL (8-23); Calcium 9.2 mg/dL (8.6-10.3); Carbon Dioxide 24 mEq/L (23-29); Chloride 104 mEq/L (98-107); Glucose 164 mg/dL (70-105); Magnesium 1.3 mg/dL (1.6-2.6); Osmolality,Calculated 289 (280-300); Potassium 4.7 mEq/L (3.5-5.1); Sodium 136 mEq/L (136-145); eGFR For African Americans > 60 (> 60); eGFR For Non-African Americans > 60 (> 60)
[2021-03-13] MEDS: Aspirin Enteric Coated 81 MG Tablet PO SCH (09:29)
[2021-03-13 16:17] VITALS: BP 139/89
[2021-03-13] MEDS ORDERED: traZODone 50 MG TABLET PO SCH (21:00)
[2021-03-13] MEDS ORDERED: Insulin LISPRO 300 UNITS/3 ML VIAL SUBQ SCH (21:00)
== END 2021-03-13 18:08 | disposition home or self-care (01) ==
LOC: EMEROOARM 23:38 → 2ANU 23:38
PROVIDERS: ADMIT Student in an Organized Health Care Education/Training Program; ATTEND Student in an Organized Health Care Education/Training Program

== ENCOUNTER 2021-05-21 15:52 | Inpatient (IN) ==
[2021-05-21 16:36] LABS: Basophils % 0.5 %; Eosinophils # 0.3 K/mcL (0.0-0.6); Eosinophils % 4.3 %; Hematocrit 31.1 % (35.3-44.9); Hemoglobin 9.9 g/dL (11.5-15.4); Immature Granulocytes % 0.3 % (0-4); Lymphocytes # 2.5 K/mcL (0.6-4.6); Lymphocytes % 38.9 %; Mean Corpuscular HGB Conc 31.8 g/dL (31.6-35.5); Mean Corpuscular Hemoglobin 24.1 pg (28.0-33.3); Mean Corpuscular Volume 75.9 fL (83.0-100.0); Mean Platelet Volume 11.3 fL (9.4-12.4); Monocytes # 0.5 K/mcL (0.0-1.3); Monocytes % 7.8 %; Neutrophils # 3.1 K/mcL (1.6-8.9); Platelet Count 213 K/mcL (140-400); Red Cell Distribution Width 15.6 % (11.5-14.5); Segmented Neutrophils % 48.2 %; White Blood Count 6.3 K/mcL (4.3-11.1)
[2021-05-21] MEDS ORDERED: 0.9 % Sodium Chloride 1,000 ML IVC ONE (16:53)
[2021-05-21 16:57] LABS: Bacteria,Urine Few per hpf (None-Few); Bilirubin,Urine Negative (Negative); Blood,Urine Negative (Negative); Clarity,Urine Turbid (Clear); Color,Urine Yellow (Yellow); Glucose,Urine (UA) Normal (Normal); Ketones,Urine Negative (Negative); Leukocyte Esterase,Urine Negative (Negative); Mucus,Urine Few per lpf (None-Few); Nitrite,Urine Negative (Negative); Protein,Urine Trace mg/dL (Neg-Trace); RBC,Urine 0-3 per hpf (0-3); Specific Gravity,Urine 1.016 (1.010-1.025); Squamous Epithelial Cell,Urine Few per hpf (None-Few); Urobilinogen,Urine Normal (Normal); WBC,Urine 0-3 per hpf (0-3)
[2021-05-21 17:01] LABS: Alanine Aminotransferase 21 Units/L (7-52); Albumin/Globulin Ratio 1.3 (1.1-2.2); Alkaline Phosphatase 69 Units/L (34-104); Aspartate Amino Transferase 17 Units/L (13-39); BUN/Creatinine Ratio 14 (6-26); Bilirubin,Direct 0.1 mg/dL (0.0-0.2); Bilirubin,Indirect 0.3 mg/dL (0.0-1.0); Bilirubin,Total 0.4 mg/dL (0.3-1.0); Blood Urea Nitrogen 65 mg/dL (8-23); Carbon Dioxide 16 mEq/L (23-29); Chloride 97 mEq/L (98-107); Globulin 3.1 g/dL (2.4-3.5); Glucose 123 mg/dL (70-105); Osmolality,Calculated 288 (280-300); Potassium 4.9 mEq/L (3.5-5.1); Sodium 129 mEq/L (136-145); Total Protein 7.1 g/dL (6.4-8.9); Troponin I < 0.03 ng/mL (< 0.04); eGFR For African Americans 12 (> 60); eGFR For Non-African Americans 10 (> 60)
[2021-05-21] MEDS ORDERED: Ondansetron 4 MG/2 ML VIAL IVP PRN (21:35)
[2021-05-21] MEDS ORDERED: Naloxone 0.4 MG/ML INJ IVP PRN (21:35)
[2021-05-21] MEDS ORDERED: 0.9 % Sodium Chloride 1,000 ML IVC SCH (21:45)
[2021-05-21 22:53] LABS: Amphetamine Screen,Urine Negative ng/mL (Cutoff=1000); Barbiturate Screen,Urine Negative ng/mL (Cutoff=200); Benzodiazepines Screen,Urine Negative ng/mL (Cutoff=200); Cannabinoid Screen,Urine Positive ng/mL (Cutoff = 50); Cocaine Screen,Urine Negative ng/mL (Cutoff= 300); Opiate Screen,Urine Negative ng/mL (Cutoff=300); Phencyclidine Screen,Urine Negative ng/mL (Cutoff=25)
[2021-05-21 23:31] LABS: Adenovirus Not Detected (Not Detect); Bordetella Pertussis Not Detected (Not Detect); Chlamydophila pneumoniae Not Detected (Not Detect); Coronavirus 229E Not Detected (Not Detect); Coronavirus HKU1 Not Detected (Not Detect); Coronavirus NL63 Not Detected (Not Detect); Coronavirus OC43 Not Detected (Not Detect); Human Metapneumovirus Not Detected (Not Detect); Human Rhinovirus/Enterovirus Not Detected (Not Detect); Influenza A Subtype 2009 H1 Not Detected (Not Detect); Influenza B Not Detected (Not Detect); Mycoplasma pneumoniae Not Detected (Not Detect); Parainfluenza Virus 1 Not Detected (Not Detect); Parainfluenza Virus 2 Not Detected (Not Detect); Parainfluenza Virus 3 Not Detected (Not Detect); Parainfluenza Virus 4 Not Detected (Not Detect); Respiratory Syncytial Virus Not Detected (Not Detect); SARS-CoV-2 Not Detected (Not Detect)
[2021-05-22] MEDS ORDERED: *HR* Dextrose 50 % in Water (Vial) 50 ML VIAL IVP PRN (00:26)
[2021-05-22] MEDS ORDERED: D5% in Water 1,000 ML IVC PRN (00:26)
[2021-05-22] MEDS ORDERED: Dextrose Gel 15 GM/37.5 ML TUBE PO PRN ×2 (00:26)
[2021-05-22 01:24] LABS: Complement C3 116 mg/dL (87-200)
[2021-05-22 04:55] LABS: Hematocrit 31.7 % (35.3-44.9)
[2021-05-22 05:17] LABS: Magnesium 1.5 mg/dL (1.6-2.6); Phosphorous 3.4 mg/dL (2.7-4.5); Uric Acid 7.9 mg/dL (2.3-7.6)
[2021-05-22 05:30] LABS: Thyroid Stimulating Hormone 3.008 mcIU/mL (0.340-5.600)
[2021-05-22] MEDS: Insulin LISPRO 300 UNITS/3 ML VIAL SUBQ SCH ×4 (07:02→20:19)
[2021-05-22 08:13] LABS: Calcium 8.8 mg/dL (8.6-10.3); Potassium 5.2 mEq/L (3.5-5.1)
[2021-05-22 08:19] LABS: Folate 6.6 ng/mL (3.0-16.0)
[2021-05-22] MEDS: 0.9 % Sodium Chloride 1,000 ML IVC SCH (10:48)
[2021-05-22] MEDS: Acetaminophen 325 MG TABLET PO PRN (20:12)
[2021-05-22] MEDS: QUEtiapine Fumarate 300 MG TABLET PO SCH (20:13)
[2021-05-23] MEDS: 0.9 % Sodium Chloride 1,000 ML IVC SCH ×2 (01:36→12:03)
[2021-05-23 03:47] LABS: Basophils % 0.6 %; Eosinophils # 0.3 K/mcL (0.0-0.6); Eosinophils % 5.7 %; Hematocrit 30.1 % (35.3-44.9); Hemoglobin 9.9 g/dL (11.5-15.4); Immature Granulocytes % 0.2 % (0-4); Lymphocytes # 2.1 K/mcL (0.6-4.6); Lymphocytes % 44.9 %; Mean Corpuscular HGB Conc 32.9 g/dL (31.6-35.5); Mean Corpuscular Hemoglobin 24.8 pg (28.0-33.3); Mean Corpuscular Volume 75.4 fL (83.0-100.0); Mean Platelet Volume 11.4 fL (9.4-12.4); Monocytes # 0.5 K/mcL (0.0-1.3); Monocytes % 10.5 %; Neutrophils # 1.8 K/mcL (1.6-8.9); Platelet Count 214 K/mcL (140-400); Red Blood Count 3.99 M/mcL (3.82-4.97); Red Cell Distribution Width 15.7 % (11.5-14.5); Segmented Neutrophils % 38.1 %; White Blood Count 4.8 K/mcL (4.3-11.1)
[2021-05-23 04:05] LABS: Calcium 8.6 mg/dL (8.6-10.3); Potassium 4.7 mEq/L (3.5-5.1)
[2021-05-23] MEDS: Insulin LISPRO 300 UNITS/3 ML VIAL SUBQ SCH ×4 (07:33→20:34)
[2021-05-23] MEDS: Acetaminophen 325 MG TABLET PO PRN (15:50)
[2021-05-23] MEDS ORDERED: Metoclopramide 10 MG/2 ML VIAL IVP ONE (15:59)
[2021-05-23] MEDS: QUEtiapine Fumarate 300 MG TABLET PO SCH (20:45)
[2021-05-24] MEDS ORDERED: hydrOXYzine pamoate 25 MG CAPSULE PO SCH (00:30)
[2021-05-24 02:01] LABS: Basophils % 0.7 %; Eosinophils # 0.3 K/mcL (0.0-0.6); Eosinophils % 4.4 %; Hematocrit 32.5 % (35.3-44.9); Hemoglobin 10.3 g/dL (11.5-15.4); Immature Granulocytes % 0.2 % (0-4); Lymphocytes # 2.9 K/mcL (0.6-4.6); Mean Corpuscular HGB Conc 31.7 g/dL (31.6-35.5); Mean Corpuscular Hemoglobin 24.1 pg (28.0-33.3); Mean Corpuscular Volume 75.9 fL (83.0-100.0); Mean Platelet Volume 11.5 fL (9.4-12.4); Monocytes # 0.6 K/mcL (0.0-1.3); Monocytes % 9.6 %; Platelet Count 234 K/mcL (140-400); Red Blood Count 4.28 M/mcL (3.82-4.97); Red Cell Distribution Width 15.5 % (11.5-14.5); Segmented Neutrophils % 35.1 %; White Blood Count 5.7 K/mcL (4.3-11.1)
[2021-05-24 02:20] LABS: BUN/Creatinine Ratio 15 (6-26); Blood Urea Nitrogen 15 mg/dL (8-23); Calcium 8.7 mg/dL (8.6-10.3); Carbon Dioxide 22 mEq/L (23-29); Chloride 108 mEq/L (98-107); Glucose 115 mg/dL (70-105); Osmolality,Calculated 286 (280-300); Potassium 4.4 mEq/L (3.5-5.1); Sodium 137 mEq/L (136-145); eGFR For African Americans > 60 (> 60); eGFR For Non-African Americans 58 (> 60)
[2021-05-24] MEDS: 0.9 % Sodium Chloride 1,000 ML IVC SCH (06:47)
[2021-05-24 07:17] LABS: ANA IgG by ELISA NONE DETECTED (None Detected)
[2021-05-24 07:37] VITALS: TEMP 98.4; O2SAT 96
[2021-05-24] MEDS: Insulin LISPRO 300 UNITS/3 ML VIAL SUBQ SCH (08:07)
[2021-05-24 09:44] VITALS: BP 135/91; PULSE 90
[2021-05-24 15:14] LABS: Serine Protease-3 Antibody 1 AU/mL (0-19)
[2021-05-24 23:37] LABS: Alpha 2 Globulin (PEP) 0.84 g/dL (0.48-1.05); Beta Globulin (PEP) 0.84 g/dL (0.48-1.10)
[2021-05-25 06:56] LABS: IFE Reflexed NOT DONE
== END 2021-05-24 10:41 | disposition home or self-care (01) | DRG 682 ==
LOC: 2ANU 15:52 → EMEROOARM 15:52 → 2ANU 20:48 → SUATTDRO 22:36 → 2ANU 05-22 06:17
PROVIDERS: ADMIT Internal Medicine; ATTEND Family Medicine